=== PATIENT | male | born 1945 | race Caucasian/White ===

== ENCOUNTER 2016-07-21 00:58 | Inpatient (IN) | payer MEDICARE, BC, OTHER ==
[~2016-07-21] VITALS: Ht 175.3 cm; Wt 67.4 kg
[2016-07-21] VITALS (13 sets, daily range): BP systolic 86–131; BP diastolic 50–69; PULSE 66–110; RESP 14–24; TEMP 95.5–98.8; O2SAT 92–100
[~2016-07-21 00:58] MED LIST: ALBU0.086 NEB; ASPI81TA82 PO; BACL10TA PO; CALC250 PO; CLON.1 PO; FURO1TAB93 PO; KCL10 PO; KEPP750T PO; LEVE750T8 PO; LORA-474 PO; LOSA25TA31 PO; NORC7.5T PO; PARO40TA PO; PHEN100 PO; PLAV75TA PO; PRAV20 PO; PROT40TA PO; RIVA10 PO; SODI1 PO; THIA100T PO; VIMP200T PO; WALKER STANDARD
[2016-07-21] MEDS ORDERED: SODIUM CHLORIDE 0.9% FLUSH 5 ML FLUSH IVF PRN (01:30)
[2016-07-21] MEDS: RESP: ALBUTEROL 2.5 MG/IPRATROPIUM 0.5 MG NEB (SCH) INH (01:44)
[2016-07-21] MEDS ORDERED: methylPREDNISolone SOD SUCC 125 MG/2 ML VIAL IV PUSH ONE (01:45)
[2016-07-21 01:51] LABS: AUTOMATED NEUTROPHIL # 3.3 TH/MM3 (1.8-7.7); BASOPHIL # 0.2 TH/MM3 (0-0.2); EOSINOPHIL % 10.5 % (0.0-4.0); LYMPH % 40.6 % (9.0-44.0); LYMPHOCYTE # 3.7 TH/MM3 (1.0-4.8); MEAN CELL VOLUME 63.8 FL (80.0-100.0); MEAN CORPUSCULAR HEMOGLOBIN 19.4 PG (27.0-34.0); MEAN CORPUSCULAR HGB CONC 30.5 % (32.0-36.0); MONO % 11.3 % (0.0-8.0); NEUT % 35.6 % (16.0-70.0); PLATELET COUNT 445 TH/MM3 (150-450); RED BLOOD COUNT 4.24 MIL/MM3 (4.50-5.90); RED CELL DISTRIBUTION WIDTH 20.7 % (11.6-17.2); WHITE BLOOD COUNT 9.2 TH/MM3 (4.0-11.0)
[2016-07-21 01:57] LABS: HEMO FLAGS AUTO DIFF
--- NOTE | 2016-07-21 02:01 | RADRPT ---
EXAM DATE/TIME: 07/21/2016 01:50 [facility] COMPARISON: CHEST SINGLE AP, June 22, 2015, 14:11. INDICATIONS : Shortness of breath. MEDICAL HISTORY : Hypertension. Chronic obstructive pulmonary disease. SURGICAL HISTORY : Cardiac stent. ENCOUNTER: Initial ACUITY: 1 day PAIN SCORE: Non-responsive. LOCATION: Bilateral chest FINDINGS: A single view of the chest demonstrates the lungs to be symmetrically aerated without evidence of mas s, infiltrate or effusion. The cardiomediastinal contours are unremarkable. Osseous structures are intact. Multiple healed right-sided rib fractures CONCLUSION: Normal examination. Left shoulder hemiarthroplasty Rivera Hollis MD on July 21, 2016 at 1:59 Board Certified Radiologist. This report was verified electronically.
[2016-07-21 02:19] LABS: ALT (GPT) 15 U/L (12-78); ANION GAP 10 MEQ/L (5-15); AST (GOT) 22 U/L (15-37); BICARBONATE 24.6 MEQ/L (21.0-32.0); BLOOD UREA NITROGEN 7 MG/DL (7-18); CHLORIDE 101 MEQ/L (98-107); GLOMERULAR FILTRATION RATE 96 ML/MIN (>89); SODIUM (NA) 136 MEQ/L (136-145)
[2016-07-21 02:29] LABS: ALKALINE PHOSPHATASE 224 U/L (45-117); CREATINE KINASE 95 U/L (39-308); TOTAL BILIRUBIN ADULT 0.2 MG/DL (0.2-1.0)
--- NOTE | 2016-07-21 03:46 | PD ---
HPI Chief Complaint: Altered Mental Status Time Seen by Provider: 01:11 Travel History International Travel<30 days: No Contact w/Intl Traveler<30days: No Traveled to known affect area: No History of Present Illness HPI The patient is 71 years old. Most of the history is provided by his family member. The patient was approached by multiple family members to be wish a happy new year. He was found to be diaphoretic and rocking [id number] on a wheelchair. He was repeatedly stating I need air. An inhaler was provided to the patient however he could not use it appropriately. According to the family member he appeared somewhat unresponsive and listless and EMS was therefore activated. The patient evidently has been quite agitated lately as his mother- in-law passed recently. In addition there are multiple extended family members living in the house for the holidays. At baseline the patient suffers with agitation. Evidently extra doses of Ativan have been administered to help keep him somewhat less restless over the holidays. Baseline his cognitive status is "80%" according to family. He has a history of stroke with residual deficits on the right side. 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 ) Neurologic: Yes (cva x2 years) Psychiatric: No Reproductive: No Respiratory: No Migraines: No Renal Failure: No Seizures: Yes (pt has recently had focal seizures) Sleep Apnea: No Thyroid Disease: No Ulcer: No Past Surgical History Abdominal Surgery: Yes (APENDECTOMY) AICD: No Arteriovenous Shunt: No Cardiac Surgery: Yes (STENT) Ear Surgery: No Endocrine Surgery: No Eye Surgery: No Genitourinary Surgery: No Insulin Pump: No Joint Replacement: No Oral Surgery: No Pacemaker: No Thoracic Surgery: No Social History Alcohol Use: No (UNK) Tobacco Use: Yes Substance Use: Yes (Marijuana) Allergies-Medications (Allergen,Severity, Reaction): Coded Allergies: No Known Allergies (Unverified , 07/21/16) Reported Meds & Prescriptions Reported Meds & Active Scripts Active Reported Albuterol Neb (Albuterol Sulfate) 2.5 Mg/3 Ml Neb 2.5 Mg NEB QID NEB Hydrocodone-Acetaminophen 7.5-325 mg Tab 1 Tab PO Q12HR PRN Aspir-81 (Aspirin) 81 Mg Tabdr Losartan (Losartan Potassium) 25 Mg Tab 25 Mg PO DAILY Plavix (Clopidogrel Bisulfate) 75 Mg Tab 75 Mg PO DAILY Baclofen 10 Mg Tab 10 Mg PO Q8HR PRN Paroxetine (Paroxetine HCl) 40 Mg Tab 40 Mg PO DAILY Pantoprazole (Pantoprazole Sodium) 40 Mg Tab 40 Mg PO DAILY Pravastatin 40 Mg Tab 40 Mg PO DAILY Ativan (Lorazepam) 1 Mg Tab 1 Mg PO BID PRN Dilantin (Phenytoin Extended) 100 Mg Cap 200 Mg PO BID Vimpat (Lacosamide) 200 Mg Tab 200 Mg PO EVERY OTHER DAY Keppra (Levetiracetam) 1,000 Mg Tab 2,250 Mg PO DAILY Keppra (Levetiracetam) 1,000 Mg Tab 1,500 Mg PO DAILY NEB Review of Systems ROS Limitations: Intoxication, Altered Mental Status Physical Exam Narrative GENERAL: 71 yo F, WNWD SKIN: Warm and dry. HEAD: Atraumatic. Normocephalic. EYES: Pupils equal and round. No scleral icterus. No injection or drainage. ENT: No nasal bleeding or discharge. Mucous membranes pink and moist. NECK: Trachea midline. No JVD. CARDIOVASCULAR: Regular rate and rhythm. No murmur appreciated. RESPIRATORY: No accessory muscle use. Clear to auscultation. Breath sounds equal bilaterally. GASTROINTESTINAL: Abdomen soft, non-tender, nondistended. Hepatic and splenic margins not palpable. MUSCULOSKELETAL: No obvious deformities. No clubbing. No cyanosis. No edema. NEUROLOGICAL: The patient can answer yes no questions about the presence or absence of pain. On the left side there is a flexion contracture at the elbow and wrist which is chronic in nature. There is a chronic right face droop. PSYCHIATRIC: He does not appear to be markedly agitated on my exam. Data Data Last Documented VS Vital Signs Date Time Temp Pulse Resp B/P Pulse Ox O2 Delivery O2 Flow Rate FiO2 07/21/16 05:00 69 14 86/52 96 Room Air 07/21/16 01:05 97.7 Orders Electrocardiogram (07/21/16 01:29) Alcohol (Ethanol) (07/21/16 01:29) Complete Blood Count With Diff (07/21/16 01:29) Comprehensive Metabolic Panel (07/21/16 01:29) Creatine Kinase (Cpk) (07/21/16 01:29) Drug Screen, Random Urine (07/21/16 01:29) Thyroid Stimulating Hormone (07/21/16 01:29) Urinalysis - C+S If Indicated (07/21/16 01:29) Chest, Single Ap (07/21/16 01:29) Blood Glucose (07/21/16 01:29) Ecg Monitoring (07/21/16 01:29) Iv Access Insert/Monitor (07/21/16 01:29) Oximetry (07/21/16 01:29) Sodium Chloride 0.9% Flush (Ns Flush) (07/21/16 01:30) Oxygen Administration (07/21/16 01:36) Blood Culture (07/21/16 01:36) Albuterol-Ipratropium Neb (Duoneb Neb) (07/21/16 01:45) Methylprednisolone So Succ Inj (Solumedr (07/21/16 01:45) Sodium Chlor 0.9% 1000 Ml Inj (Ns 1000 M (07/21/16 05:15) Admit Order (Ed Use Only) (07/21/16 05:26) Labs Laboratory Tests Test 07/21/16 07/21/16 01:30 04:20 White Blood Count 9.2 TH/MM3 Red Blood Count 4.24 MIL/MM3 Hemoglobin 8.2 GM/DL Hematocrit 27.0 % Mean Corpuscular Volume 63.8 FL Mean Corpuscular Hemoglobin 19.4 PG Mean Corpuscular Hemoglobin 30.5 % Concent Red Cell Distribution Width 20.7 % Platelet Count 445 TH/MM3 Mean Platelet Volume 6.7 FL Neutrophils (%) (Auto) 35.6 % Lymphocytes (%) (Auto) 40.6 % Monocytes (%) (Auto) 11.3 % Eosinophils (%) (Auto) 10.5 % Basophils (%) (Auto) 2.0 % Neutrophils # (Auto) 3.3 TH/MM3 Lymphocytes # (Auto) 3.7 TH/MM3 Monocytes # (Auto) 1.0 TH/MM3 Eosinophils # (Auto) 1.0 TH/MM3 Basophils # (Auto) 0.2 TH/MM3 CBC Comment AUTO DIFF Differential Comment AUTO DIFF CONFIRMED Ovalocytes 2+ Crenated Cell 1+ Keratocytes 1+ Sodium Level 136 MEQ/L Potassium Level 4.0 MEQ/L Chloride Level 101 MEQ/L Carbon Dioxide Level 24.6 MEQ/L Anion Gap 10 MEQ/L Blood Urea Nitrogen 7 MG/DL Creatinine 0.80 MG/DL Estimat Glomerular Filtration 96 ML/MIN Rate Random Glucose 91 MG/DL Calcium Level 8.3 MG/DL Total Bilirubin 0.2 MG/DL Aspartate Amino Transf 22 U/L (AST/SGOT) Alanine Aminotransferase 15 U/L (ALT/SGPT) Alkaline Phosphatase 224 U/L Total Creatine Kinase 95 U/L Total Protein 6.9 GM/DL Albumin 3.2 GM/DL Thyroid Stimulating Hormone 3.780 uIU/ML 3rd Gen Ethyl Alcohol Level LESS THAN 3 MG/DL Urine Color YELLOW Urine Turbidity CLEAR Urine pH 5.5 Urine Specific [place] 1.015 Urine Protein NEG mg/dL Urine Glucose (UA) NEG mg/dL Urine Ketones NEG mg/dL Urine Occult Blood NEG Urine Nitrite NEG Urine Bilirubin NEG Urine Urobilinogen LESS THAN 2.0 MG/DL Urine Leukocyte Esterase NEG Urine RBC LESS THAN 1 /hpf Urine WBC 3 /hpf Urine Mucus FEW /lpf Microscopic Urinalysis Comment CATH-CULT NOT IND Urine Opiates Screen NEG Urine Barbiturates Screen NEG Urine Amphetamines Screen NEG Urine Benzodiazepines Screen NEG Urine Cocaine Screen NEG Urine Cannabinoids Screen NEG [facility] Medical Decision Making Medical Screen Exam Complete: Yes Emergency Medical Condition: Yes Medical Record Reviewed: Yes Differential Diagnosis Polypharmacy, infectious state, anemia, dehydration Narrative Course CBC & BMP Diagram 07/21/16 01:30 TSH 3.78 LFTs essentially normal The hemoglobin is stable Chest x-ray reveals no acute abnormality U Tox: is paez-negative however false negatives are considered Overall the presentation is considered to be in keeping with polypharmacy: Lortab and Ativan given by family members at home. The notes the patient has needed extra Lortab at home due to contractures in the right leg which seem to be worse as he cannot participate with physical therapy during the holiday. An element of wheezing/inflammatory lung disease is considered as well. The patient received breathing treatments and Solu-Medrol. Blood pressure has remained about 86 systolic year however he has warm dry skin and the heart rate has been in the 60s throughout his ER stay. Will monitor closely in ER. 1L NS started. D/w Dr Sims for admission. TSH elevation is marginal and of indeterminant importance. Diagnosis Primary Impression: Polypharmacy Additional Impressions: Hypotension Qualified Code: I95.9 - Hypotension, unspecified hypotension type Altered mental status Qualified Code: R40.1 - Stupor Admitting Information Admitting Physician Requests: Observation Additional Instructions: You have a choice when it comes to health care, and we are glad that you chose [facility]. Hopefully, we have met your expectations on today's visit. You are welcome to return to [facility] at any time, as we are committed to meeting the health care needs of our community. Disposition: 01 DISCHARGE HOME Condition: Stable Neeraj Colon MD Jul 21, 2016 03:46
[2016-07-21 04:31] LABS: CRENATED RBCS 1+ (NORMAL); KERATOCYTES 1+ (NORMAL); OVALOCYTES 2+ (NORMAL); SCAN/DIFF AUTO DIFF CONFIRMED
[2016-07-21] MEDS ORDERED: LOSA25TA PO (04:32)
[2016-07-21] MEDS ORDERED: VIMP200T PO (04:32)
[2016-07-21] MEDS ORDERED: DILA100C PO (04:32)
[2016-07-21] MEDS ORDERED: HYDR-3580 PO (04:32)
[2016-07-21] MEDS ORDERED: KEPP10002 PO ×2 (04:32)
[2016-07-21] MEDS ORDERED: BACL10TA PO (04:32)
[2016-07-21] MEDS ORDERED: LORA-474 PO (04:32)
[2016-07-21] MEDS ORDERED: PRAV40TA2 PO (04:32)
[2016-07-21] MEDS ORDERED: PANT40TA3 PO (04:32)
[2016-07-21] MEDS ORDERED: ALBU0.08 NEB (04:32)
[2016-07-21] MEDS ORDERED: PARO40TA2 PO (04:32)
[2016-07-21] MEDS ORDERED: ASPI81TA81 (04:32)
[2016-07-21] MEDS ORDERED: PLAV75TA29 PO (04:32)
[2016-07-21 04:45] LABS: BLOOD, URINE NEG (NEG); COMMENT (UR) CATH-CULT NOT IND; CULTURE IF INDICATED CATH CULTURE NOT IND; GLUCOSE,URINE NEG (NEG); KETONE, URINE NEG (NEG); MUCUS URINE FEW /lpf (OCC); NITRITE,URINE NEG (NEG); PH, URINE 5.5 (5.0-8.5); URINE COLOR YELLOW (YELLW/STRAW)
[2016-07-21 04:48] LABS: AMPHETAMINE, URINE NEG (NEG); BARBITURATES, URINE NEG (NEG); COCAINE, URINE NEG (NEG)
[2016-07-21] MEDS ORDERED: SODIUM CHLOR 0.9% 1000 ML INJ 1,000 ML IV ONE (05:15)
[2016-07-21] MEDS ORDERED: NALOXONE HCL 0.4 MG/ML AMP IV PUSH PRN (05:45)
--- NOTE | 2016-07-21 06:36 | HHI.HP ---
History of Present Illness Primary Care Physician Ari Sims MD Admission Diagnosis AMS, Hypotension, Agitation, Wheezing Diagnoses: (1) Encephalopathy acute (2) Carotid stenosis, bilateral (3) Hyperlipidemia (4) Muscle spasticity (5) Seizure (6) Hypertension (7) Impaired cognition (8) Stage II pressure ulcer of buttock (9) H/O: CVA (cerebrovascular accident) (10) Fracture, intertrochanteric, right femur (11) Fall (12) right femur nailing (13) Anemia (14) COPD exacerbation (15) Polypharmacy (16) Altered mental status (17) Hypotension History of Present Illness 71 y CM. LIVES AT HOME WITH , AND NUMEROUS EXTENDED FAMILY AT HOME. EXCESS FAMILY MEMBERS HAVE BEEN IN TOWN RECENTLY AND PT HAS HAD SEVERE AGITATION AT HOME DUE TO THE NOISE ETC. BRINGS HIM TO MY OFFICE FREQEUNTLY WITH NUMEROUS COMPLAINTS. PT HAS HAD INCREASED PAIN IN RUE RECENTLY AND PROBLEMS WITH PAIN AND INSOMNIA. PT REPORTEDLY HAS BEEN AGITATED MORE AROUND THE NEW YEARS WITH PARTYGOERS AT HIS HOUSE AND WE WAS GIVEN EXCESS ATIVAN PER ER MD. PT BECAME LETHARGIC AND WAS BROUGHT INTO THE ER. PT W AUDIBLE RONCHI AT BEDSIDE AND IS ATTEMPTING TO USE THE URINAL AND STATES HE IS UNABLE TO URINATE. Review of Systems ROS Limitations: Clinical Condition, Altered Mental Status, Poor Historian Other -14 POINT ROS EXCEPT ABOVE IN HPI. Past Family Social History Allergies: Coded Allergies: No Known Allergies (Unverified , 07/21/16) Past Medical History SZ HTN Past Surgical History FEMUR FX Physical Exam Vital Signs Vital Signs Date Time Temp Pulse Resp B/P Pulse Ox O2 Delivery O2 Flow Rate FiO2 07/21/16 06:07 70 24 131/69 100 Room Air 07/21/16 05:00 69 14 86/52 96 Room Air 07/21/16 04:00 66 14 88/51 94 Room Air 07/21/16 02:38 76 16 101/59 100 Room Air 07/21/16 01:05 97.7 71 16 90/50 98 Physical Exam GENERAL: chronically ill appearing, weaker than usual, SKIN: No rashes, ecchymoses or lesions. Cool and dry. HEAD: Atraumatic. Normocephalic. No temporal or scalp tenderness. EYES: Pupils equal round and reactive. Extraocular motions intact. No scleral icterus. No injection or drainage. ENT: Nose without bleeding, purulent drainage or septal hematoma. Throat without erythema, tonsillar hypertrophy or exudate. Uvula midline. Airway patent. NECK: Trachea midline. No JVD or lymphadenopathy. Supple, nontender, no meningeal signs. CARDIOVASCULAR: Regular rate and rhythm without murmurs, gallops, or rubs. RESPIRATORY: Clear to auscultation. Breath sounds equal bilaterally. No wheezes , rales, or rhonchi. GASTROINTESTINAL: Abdomen soft, non-tender, nondistended. No hepato-splenomegaly , or palpable masses. No guarding. MUSCULOSKELETAL: Extremities without clubbing, cyanosis, or edema. No joint tenderness, effusion, or edema noted. No calf tenderness. Negative Homans sign bilaterally. NEUROLOGICAL: Awake and alert. Cranial nerves II through XII intact. Motor and sensory grossly within normal limits. 1 out of 5 muscle strength in all muscle groups except R diogenes. Normal speech. Laboratory Laboratory Tests Test 07/21/16 07/21/16 01:30 04:20 White Blood Count 9.2 Red Blood Count 4.24 Hemoglobin 8.2 Hematocrit 27.0 Mean Corpuscular Volume 63.8 Mean Corpuscular Hemoglobin 19.4 Mean Corpuscular Hemoglobin 30.5 Concent Red Cell Distribution Width 20.7 Platelet Count 445 Mean Platelet Volume 6.7 Neutrophils (%) (Auto) 35.6 Lymphocytes (%) (Auto) 40.6 Monocytes (%) (Auto) 11.3 Eosinophils (%) (Auto) 10.5 Basophils (%) (Auto) 2.0 Neutrophils # (Auto) 3.3 Lymphocytes # (Auto) 3.7 Monocytes # (Auto) 1.0 Eosinophils # (Auto) 1.0 Basophils # (Auto) 0.2 CBC Comment AUTO DIFF Differential Comment AUTO DIFF CONFIRMED Ovalocytes 2+ Crenated Cell 1+ Keratocytes 1+ Sodium Level 136 Potassium Level 4.0 Chloride Level 101 Carbon Dioxide Level 24.6 Anion Gap 10 Blood Urea Nitrogen 7 Creatinine 0.80 Estimat Glomerular Filtration 96 Rate Random Glucose 91 Calcium Level 8.3 Total Bilirubin 0.2 Aspartate Amino Transf 22 (AST/SGOT) Alanine Aminotransferase 15 (ALT/SGPT) Alkaline Phosphatase 224 Total Creatine Kinase 95 Total Protein 6.9 Albumin 3.2 Thyroid Stimulating Hormone 3.780 3rd Gen Ethyl Alcohol Level LESS THAN 3 Urine Color YELLOW Urine Turbidity CLEAR Urine pH 5.5 Urine Specific [place] 1.015 Urine Protein NEG Urine Glucose (UA) NEG Urine Ketones NEG Urine Occult Blood NEG Urine Nitrite NEG Urine Bilirubin NEG Urine Urobilinogen LESS THAN 2.0 Urine Leukocyte Esterase NEG Urine RBC LESS THAN 1 Urine WBC 3 Urine Mucus FEW Microscopic Urinalysis Comment CATH-CULT NOT IND Urine Opiates Screen NEG Urine Barbiturates Screen NEG Urine Amphetamines Screen NEG Urine Benzodiazepines Screen NEG Urine Cocaine Screen NEG Urine Cannabinoids Screen NEG Date/Time Procedure Status Source Growth 07/21/16 02:15 Aerobic Blood Culture Received Blood Peripheral Pending 07/21/16 02:15 Anaerobic Blood Culture Received Blood Peripheral Pending Result Diagram: 07/21/16 0130 07/21/16 0130 Imaging Last 24 hours Impressions Chest X-Ray 07/21/16128 Signed Impressions: Service Date/Time: Friday, July 21, 2016 01:50 - CONCLUSION: Normal examination. Left shoulder hemiarthroplasty Rivera Hollis MD Assessment and Plan Problem List: (1) Femur fracture, right Status: Acute (2) Polypharmacy Status: Acute (3) Altered mental status Status: Acute (4) Hypotension Status: Acute (5) Anemia Status: Chronic (6) Hyperlipidemia Status: Chronic (7) Muscle spasticity Status: Chronic (8) Seizure Status: Acute (9) Hypertension Status: Chronic (10) Encephalopathy acute Status: Acute (11) COPD exacerbation Status: Acute (12) Impaired cognition Status: Acute (13) Carotid stenosis, bilateral Status: Acute (14) Fracture, intertrochanteric, right femur Status: Acute (15) H/O: CVA (cerebrovascular accident) Status: Chronic (16) right femur nailing Status: Acute Plan: AMS ATIVAN TOXIDROME PNA ASPIRATION URINARY OBSTRUCTION, NO UTI HYPOTHYROID, NEW CVA R DIOGENES WITH CONTRACTURES SZ PLAN: IV ABX IVF IV STEROIDS CHECK ANTIEPILEPTIC LEVELS BLADDER SCAN, TRY TO AVOID PEREZ OT FOR RUE CONTRACTURES INCREASE PT ST DUONEBS BLOOD CULTURES LACTIC AC START LEVOTHYROXINE INPT ADMIT FOR THE ABOVE DX AND PLAN. EXPECT 3 D INPT STAY, PT WOULD AT HOME W/O INPT ADMIT ABOVE. DC HOME W HHC OR SNF AGAIN. Problem Qualifiers (1) Altered mental status: Qualified Code: R40.1 - Stupor (2) Hypotension: Qualified Code: I95.9 - Hypotension, unspecified hypotension type Ari Sims MD Jul 21, 2016 06:36
[2016-07-21] MEDS ORDERED: BACLOFEN 10 MG TAB PO PRN (06:45)
[2016-07-21] MEDS ORDERED: LORazepam 1 MG TAB PO PRN (06:45)
[2016-07-21] MEDS ORDERED: ACETAMINOPHEN/HYDROcodone 325 MG/7.5 MG TAB PO PRN (06:45)
[2016-07-21] MEDS ORDERED: ZOLPIDEM TARTRATE 5 MG TAB PO PRN (07:15)
[2016-07-21] MEDS ORDERED: ENALAPRILAT 2.5 MG/2 ML VIAL IV PUSH PRN (07:15)
[2016-07-21] MEDS ORDERED: NALOXONE HCL 0.4 MG/ML AMP IV PRN (07:15)
[2016-07-21] MEDS ORDERED: cloNIDine HCL 0.1 MG TAB PO PRN (07:15)
[2016-07-21] MEDS ORDERED: ONDANSETRON HCL 4 MG/2 ML VIAL IVP PRN (07:15)
[2016-07-21] MEDS ORDERED: PROCHLORPERAZINE 25 MG SUPP PR PRN (07:15)
[2016-07-21] MEDS ORDERED: ACETAMINOPHEN 325 MG TAB PO PRN (07:15)
[2016-07-21] MEDS ORDERED: SODIUM CHLORIDE 0.9% FLUSH 5 ML FLUSH FLUSH PRN (07:15)
[2016-07-21] MEDS ORDERED: MAGNESIUM HYDROXIDE SUSP 30 ML CUP PO PRN (07:15)
[2016-07-21] MEDS ORDERED: BISACODYL 10 MG SUPP PR PRN (07:15)
[2016-07-21] MEDS ORDERED: levETIRAcetam 500 MG TAB PO SCH ×2 (08:00→09:00)
--- NOTE | 2016-07-21 08:39 | RADRPT ---
EXAM DATE/TIME: 07/21/2016 07:55 [facility] COMPARISON: CT BRAIN W/O CONTRAST, May 23, 2015, 21:54. INDICATIONS : Altered mental status RADIATION DOSE: 32.18 CTDIvol (mGy) MEDICAL HISTORY : Cardiovascular disease. Hypertension. Chronic obstructive pulmonary disease. SURGICAL HISTORY : None. ENCOUNTER: Initial ACUITY: 1 day PAIN SCALE: 0/10 LOCATION: cranial TECHNIQUE: Multiple contiguous axial images were obtained of the head. Using automated exposure control and adj ustment of the mA and/or kV according to patient size, radiation dose was kept as low as reasonably a chievable to obtain optimal diagnostic quality images. FINDINGS: There is a remote left MCA infarct with encephalomalacia identified not significantly changed. No sig ns of acute infarct, intracranial hemorrhage, or mass. There are no fractures. CONCLUSION: No significant change has occurred. Danie Piña MD on July 21, 2016 at 8:37 Board Certified Radiologist. This report was verified electronically.
[2016-07-21] MEDS: PHENYTOIN SODIUM 100 MG CAP PO SCH ×2 (09:04→20:47)
[2016-07-21] MEDS: PRAVASTATIN SOD 40 MG TAB PO SCH (09:05)
[2016-07-21] MEDS: PARoxetine HCL 20 MG TAB PO SCH (09:05)
[2016-07-21] MEDS: PANTOPRAZOLE SOD 40 MG DELAYED RELEASE TAB PO SCH (09:05)
[2016-07-21] MEDS: levETIRAcetam 500 MG TAB PO SCH ×2 (09:05→20:47)
[2016-07-21] MEDS: SODIUM CHLOR 0.9% 1000 ML INJ 1,000 ML IV SCH (09:05)
[2016-07-21] MEDS: ENOXAPARIN SODIUM 40 MG/0.4 ML SYRINGE SQ SCH (09:05)
[2016-07-21] MEDS: CLOPIDOGREL 75 MG TAB PO SCH (09:05)
[2016-07-21] MEDS: ASPIRIN EC 81 MG TABEC PO SCH (09:05)
[2016-07-21] MEDS: LEVOFLOXACIN 750 MG PREMIX INJ 150 ML IV SCH (09:06)
[2016-07-21] MEDS: SODIUM CHLORIDE 0.9% FLUSH 5 ML FLUSH FLUSH SCH ×2 (09:06→20:48)
[2016-07-21] MEDS: LEVOTHYROXINE SODIUM 25 MCG TAB PO SCH (09:08)
[2016-07-21 10:36] LABS: FREE T4 1.51 NG/DL (0.76-1.46)
[2016-07-21] MEDS: LACOSAMIDE 100 MG TAB PO SCH (11:10)
[2016-07-21] MEDS: methylPREDNISolone SOD SUCC 125 MG/2 ML VIAL IV PUSH SCH ×2 (11:11→16:48)
[2016-07-21] MEDS: RESP: ALBUTEROL 2.5 MG/IPRATROPIUM 0.5 MG NEB (SCH) NEB ×4 (11:31→19:27)
--- NOTE | 2016-07-21 13:32 | EKG ---
Date Performed: 07/21/2016 Time Performed: 02:51:18 PTAGE: 71 years EKG: Sinus rhythm Since previous tracing, no significant change noted NORMAL ECG PREVIOUS TRACING : 09/16/2015 05.55 DOCTOR: Gabriela Adames Interpretating Date/Time 07/21/2016 13:29:44
--- NOTE | 2016-07-21 17:52 | RADRPT ---
EXAM DATE/TIME: 07/21/2016 16:04 [facility] COMPARISON: US CAROTID ARTERIES, May 25, 2015, 17:07. INDICATIONS : Slurred speech. MEDICAL HISTORY : Hypertension. CVA. SURGICAL HISTORY : Appendectomy. Cardiac stent. ENCOUNTER: Initial ACUITY: 1 day PAIN SCORE: 5/10 LOCATION: Bilateral neck PEAK SYSTOLIC VELOCITIES (cm/sec): ICA/CCA RATIO: Right: 0.8 Left: 1.2 ICA: Right: 122 Left: 197 CCA: Right: 144 Left: 160 ECA: Right: 116 Left: 174 VERTEBRAL: Right: 82 antegrade Left: 81 antegrade Elevated flow velocities and ICA/CCA ratios have been found to correlate with increased degrees of vessel stenosis, calculated as percentage of diameter relative to a normal segment of distal ICA/CCA FINDINGS: RIGHT CAROTID: Mild to moderate plaques seen in the bulb and proximal internal carotid artery and mild patchy plaque of the common carotid artery. LEFT CAROTID: There is [id number] plaque at the bulb and proximal internal carotid artery. VERTEBRAL ARTERIES: Antegrade flow is seen in both vertebral arteries. MISCELLANEOUS: None. CONCLUSION: [id number] bilateral carotid plaque. No evidence of anything hemodynamically significant. Rian Benjamin MD on July 21, 2016 at 17:49 Board Certified Radiologist. This report was verified electronically.
[2016-07-22] VITALS (9 sets, daily range): BP systolic 92–122; BP diastolic 50–66; PULSE 82–96; RESP 17–20; TEMP 97.3–99.3; O2SAT 91–94
[2016-07-22] MEDS: LEVOTHYROXINE SODIUM 25 MCG TAB PO SCH (05:21)
[2016-07-22] MEDS: methylPREDNISolone SOD SUCC 125 MG/2 ML VIAL IV PUSH SCH ×5 (05:21→23:35)
[2016-07-22 07:41] LABS: AUTOMATED NEUTROPHIL # 10.5 TH/MM3 (1.8-7.7); BASOPHIL % 0.1 % (0.0-2.0); HEMATOCRIT 23.3 % (39.0-51.0); LYMPH % 10.3 % (9.0-44.0); LYMPHOCYTE # 1.3 TH/MM3 (1.0-4.8); MEAN CELL VOLUME 61.8 FL (80.0-100.0); MEAN CORPUSCULAR HGB CONC 30.8 % (32.0-36.0); MONO % 4.1 % (0.0-8.0); NEUT % 85.5 % (16.0-70.0); PLATELET COUNT 386 TH/MM3 (150-450); RED BLOOD COUNT 3.78 MIL/MM3 (4.50-5.90); RED CELL DISTRIBUTION WIDTH 20.5 % (11.6-17.2); WHITE BLOOD COUNT 12.3 TH/MM3 (4.0-11.0)
[2016-07-22 07:47] LABS: HEMO FLAGS AUTO DIFF
[2016-07-22] MEDS: ENOXAPARIN SODIUM 40 MG/0.4 ML SYRINGE SQ SCH (07:58)
[2016-07-22] MEDS: levETIRAcetam 500 MG TAB PO SCH ×2 (07:58→22:10)
[2016-07-22] MEDS: PARoxetine HCL 20 MG TAB PO SCH (07:58)
[2016-07-22] MEDS: LEVOFLOXACIN 750 MG PREMIX INJ 150 ML IV SCH (07:58)
[2016-07-22] MEDS: CLOPIDOGREL 75 MG TAB PO SCH (07:59)
[2016-07-22] MEDS: ASPIRIN EC 81 MG TABEC PO SCH (07:59)
[2016-07-22] MEDS: PANTOPRAZOLE SOD 40 MG DELAYED RELEASE TAB PO SCH (07:59)
[2016-07-22] MEDS: PHENYTOIN SODIUM 100 MG CAP PO SCH ×2 (07:59→22:10)
[2016-07-22] MEDS: PRAVASTATIN SOD 40 MG TAB PO SCH (07:59)
[2016-07-22] MEDS: SODIUM CHLORIDE 0.9% FLUSH 5 ML FLUSH FLUSH SCH ×2 (07:59→22:10)
[2016-07-22] MEDS: SODIUM CHLOR 0.9% 1000 ML INJ 1,000 ML IV SCH (08:02)
[2016-07-22 08:08] LABS: POTASSIUM 3.9 MEQ/L (3.5-5.1)
[2016-07-22 08:26] LABS: OVALOCYTES 1+ (NORMAL)
[2016-07-22 08:27] LABS: SCAN/DIFF AUTO DIFF CONFIRMED
--- NOTE | 2016-07-22 08:50 | HHI.FPPN ---
Subjective Remarks LOOKS BETTER ALMOST TO BASELINE IT SEEMS D/W RN Objective Vitals Vital Signs Date Time Temp Pulse Resp B/P Pulse Ox O2 Delivery O2 Flow Rate FiO2 07/22/16 08:08 Nasal Cannula 1.00 07/22/16 04:00 98.1 90 17 92/52 94 07/22/16 00:00 98.8 92 18 92/50 92 07/21/16 20:05 103 07/21/16 20:05 Nasal Cannula 2.00 07/21/16 20:00 98.8 110 17 101/56 92 07/21/16 19:25 94 Nasal Cannula 2.00 07/21/16 16:00 97.7 109 18 118/57 94 07/21/16 11:43 95.5 95 18 95/54 96 07/21/16 11:34 96 Nasal Cannula 2.00 I/O 07/21/16 07/21/16 07/21/16 07/22/16 07/22/16 07/22/16 06:59 14:59 22:59 06:59 14:59 22:59 Intake Total 988 ml 540 ml 360 ml Output Total 2 ml 650 ml 800 ml Balance 986 ml -110 ml -440 ml Intake Oral 720 ml 360 ml 360 ml IV Total 268 ml 180 ml Output Urine Total 2 ml 650 ml 800 ml Stool Total 0 ml # Voids 1 # Bowel Movements 0 0 Result Diagram: 07/22/16 0611 07/22/16 0611 Objective Remarks GENERAL: SKIN: Warm and dry. HEAD: Atraumatic. Normocephalic. EYES: Pupils equal and round. No scleral icterus. No injection or drainage. ENT: No nasal bleeding or discharge. Mucous membranes pink and moist. NECK: Trachea midline. No JVD. CARDIOVASCULAR: Regular rate and rhythm. RESPIRATORY: No accessory muscle use. R CRACKLES AND RONCHI. Breath sounds equal bilaterally. GASTROINTESTINAL: Abdomen soft, non-tender, nondistended. Hepatic and splenic margins not palpable. MUSCULOSKELETAL: Extremities without clubbing, cyanosis, or edema. No obvious deformities. NEUROLOGICAL: Awake and alert. No obvious cranial nerve deficits. Motor grossly within normal limits. R DIOGENES. Normal speech. PSYCHIATRIC: Appropriate mood and affect; insight and judgment normal. Medications and IVs Current Medications Medications (Trade) Dose Ordered Sig/Delvis Route Start Time Stop Time Status Last Admin (NS Flush) 2 ml UNSCH PRN IVF 07/21/16 01:30 (Lioresal) 10 mg Q8H PRN PO 07/21/16 06:45 (Plavix) 75 mg DAILY PO 07/21/16 09:00 07/22/16 07:59 ([place] 7.5-325 Mg) 1 tab Q12H PRN PO 07/21/16 06:45 (Ativan) 1 mg BID PRN PO 07/21/16 06:45 (Protonix) 40 mg DAILY PO 07/21/16 09:00 07/22/16 07:59 (Paxil) 40 mg DAILY PO 07/21/16 09:00 07/22/16 07:58 (Dilantin) 200 mg BID PO 07/21/16 09:00 07/22/16 07:59 (Pravachol) 40 mg DAILY PO 07/21/16 09:00 07/22/16 07:59 (Ecotrin Ec) 81 mg DAILY PO 07/21/16 09:00 07/22/16 07:59 (Keppra) 500 mg Q12HR PO 07/21/16 09:00 07/22/16 07:58 Levothyroxine Sodium 25 mcg 25 mcg DAILY@0600 PO 07/21/16 07:00 07/22/16 05:21 (NS 1000 ml Inj) 1,000 ml @ 42 mls/hr [id number] IV 07/21/16 07:06 07/22/16 08:02 (NS Flush) 2 ml UNSCH PRN FLUSH 07/21/16 07:15 (NS Flush) 2 ml BID FLUSH 07/21/16 09:00 07/22/16 07:59 (Tylenol) 650 mg Q4H PRN PO 07/21/16 07:15 (Zofran Inj) 4 mg Q6H PRN IVP 07/21/16 07:15 (Compazine Supp) 25 mg Q12H PRN MI 07/21/16 07:15 (Dulcolax Supp) 10 mg DAILY PRN MI 07/21/16 07:15 (Milk Of Magnesia Liq) 30 ml Q12H PRN PO 07/21/16 07:15 (Ambien) 5 mg HS PRN PO 07/21/16 07:15 (Lovenox Inj) 40 mg Q24H SQ 07/21/16 07:15 07/22/16 07:58 (Narcan Inj) 0.4 mg UNSCH PRN IV 07/21/16 07:15 (Catapres) 0.1 mg Q6H PRN PO 07/21/16 07:15 Enalaprilat 2.5 mg 2.5 mg Q6H PRN IV PUSH 07/21/16 07:15 (Levaquin 750 Mg Premix Inj) 150 ml @ 100 mls/hr Q24H IV 07/21/16 08:00 07/22/16 07:58 (SoluMEDROL INJ) 80 mg Q6HR IV PUSH 07/21/16 12:00 07/22/16 05:21 A/P Assessment and Plan AMS ATIVAN TOXIDROME PNA ASPIRATION ANEMIA URINARY OBSTRUCTION, NO UTI CVA R DIOGENES WITH CONTRACTURES SZ PLAN: OCCULT X THREE, MAY NEED PRBC'S AND GI LOWER IVF AND RECHECK LABS IV ABX IV STEROIDS BLADDER SCAN, TRY TO AVOID PEREZ OT FOR RUE CONTRACTURES INCREASE PT ST DUONEBS BLOOD CULTURES Ari Sims MD Jul 22, 2016 08:50 Ari Sims MD Jul 22, 2016 08:50
[2016-07-22] MEDS: RESP: ALBUTEROL 2.5 MG/IPRATROPIUM 0.5 MG NEB (SCH) NEB ×4 (09:28→19:25)
[2016-07-23] VITALS (8 sets, daily range): BP systolic 111–149; BP diastolic 55–60; PULSE 73–98; RESP 16–18; TEMP 97–98.5; O2SAT 92–97
[2016-07-23 06:27] LABS: BASOPHIL % 0.1 % (0.0-2.0); HEMATOCRIT 24.2 % (39.0-51.0); LYMPH % 12.2 % (9.0-44.0); LYMPHOCYTE # 1.3 TH/MM3 (1.0-4.8); MEAN CELL VOLUME 61.9 FL (80.0-100.0); MEAN CORPUSCULAR HEMOGLOBIN 19.4 PG (27.0-34.0); MEAN CORPUSCULAR HGB CONC 31.3 % (32.0-36.0); MONO % 3.8 % (0.0-8.0); NEUT % 83.9 % (16.0-70.0); PLATELET COUNT 415 TH/MM3 (150-450); RED CELL DISTRIBUTION WIDTH 20.2 % (11.6-17.2); WHITE BLOOD COUNT 10.7 TH/MM3 (4.0-11.0)
[2016-07-23] MEDS: methylPREDNISolone SOD SUCC 125 MG/2 ML VIAL IV PUSH SCH ×4 (06:38→23:57)
[2016-07-23 06:42] LABS: HEMO FLAGS AUTO DIFF
[2016-07-23 06:55] LABS: BICARBONATE 24.9 MEQ/L (21.0-32.0); POTASSIUM 3.7 MEQ/L (3.5-5.1)
[2016-07-23] MEDS: RESP: ALBUTEROL 2.5 MG/IPRATROPIUM 0.5 MG NEB (SCH) NEB ×4 (07:29→20:56)
[2016-07-23 08:19] LABS: OVALOCYTES 1+ (NORMAL); SCAN/DIFF AUTO DIFF CONFIRMED
[2016-07-23] MEDS: CLOPIDOGREL 75 MG TAB PO SCH (08:56)
[2016-07-23] MEDS: PRAVASTATIN SOD 40 MG TAB PO SCH (08:57)
[2016-07-23] MEDS: PARoxetine HCL 20 MG TAB PO SCH (08:57)
[2016-07-23] MEDS: PANTOPRAZOLE SOD 40 MG DELAYED RELEASE TAB PO SCH (08:57)
[2016-07-23] MEDS: levETIRAcetam 500 MG TAB PO SCH ×2 (08:57→20:15)
[2016-07-23] MEDS: PHENYTOIN SODIUM 100 MG CAP PO SCH ×2 (08:57→20:15)
[2016-07-23] MEDS: LACOSAMIDE 100 MG TAB PO SCH (08:57)
[2016-07-23] MEDS: ASPIRIN EC 81 MG TABEC PO SCH (08:57)
[2016-07-23] MEDS: SODIUM CHLORIDE 0.9% FLUSH 5 ML FLUSH FLUSH SCH ×2 (08:58→20:15)
[2016-07-23] MEDS: LEVOFLOXACIN 750 MG PREMIX INJ 150 ML IV SCH (08:58)
[2016-07-23] MEDS: ENOXAPARIN SODIUM 40 MG/0.4 ML SYRINGE SQ SCH (10:36)
[2016-07-23] MEDS: SODIUM CHLOR 0.9% 1000 ML INJ 1,000 ML IV SCH (10:37)
--- NOTE | 2016-07-23 11:00 | HHI.FPPN ---
Subjective Remarks MORE ALERT LOOKS BETTER D/W RN Objective Vitals Vital Signs Date Time Temp Pulse Resp B/P Pulse Ox O2 Delivery O2 Flow Rate FiO2 07/23/16 08:02 97.7 73 16 149/60 94 07/23/16 07:29 92 21 07/23/16 01:44 98.5 85 17 121/57 97 07/22/16 20:00 97.3 82 19 122/64 91 07/22/16 16:00 99.3 96 20 117/66 94 07/22/16 15:11 92 21 07/22/16 12:00 98.0 95 19 118/61 94 I/O 07/22/16 07/22/16 07/22/16 07/23/16 07/23/16 07/23/16 06:59 14:59 22:59 06:59 14:59 22:59 Intake Total 360 ml 277 ml 646 ml 120 ml Output Total 800 ml 825 ml 250 ml Balance -440 ml 277 ml -179 ml -130 ml Intake Oral 360 ml 600 ml 120 ml IV Total 277 ml 46 ml Output Urine Total 800 ml 825 ml 250 ml # Voids 2 # Bowel Movements 0 0 0 1 Result Diagram: 07/23/16 0556 07/23/16 0556 Objective Remarks GENERAL: SKIN: Warm and dry. HEAD: Atraumatic. Normocephalic. EYES: Pupils equal and round. No scleral icterus. No injection or drainage. ENT: No nasal bleeding or discharge. Mucous membranes pink and moist. NECK: Trachea midline. No JVD. CARDIOVASCULAR: Regular rate and rhythm. RESPIRATORY: No accessory muscle use. R CRACKLES AND RONCHI. Breath sounds equal bilaterally. GASTROINTESTINAL: Abdomen soft, non-tender, nondistended. Hepatic and splenic margins not palpable. MUSCULOSKELETAL: Extremities without clubbing, cyanosis, or edema. No obvious deformities. NEUROLOGICAL: Awake and alert. No obvious cranial nerve deficits. Motor grossly within normal limits. R DIOGENES. Normal speech. PSYCHIATRIC: Appropriate mood and affect; insight and judgment normal. Medications and IVs Current Medications Medications (Trade) Dose Ordered Sig/Delvis Route Start Time Stop Time Status Last Admin (NS Flush) 2 ml UNSCH PRN IVF 07/21/16 01:30 (Lioresal) 10 mg Q8H PRN PO 07/21/16 06:45 (Plavix) 75 mg DAILY PO 07/21/16 09:00 07/23/16 08:56 ([place] 7.5-325 Mg) 1 tab Q12H PRN PO 07/21/16 06:45 (Ativan) 1 mg BID PRN PO 07/21/16 06:45 (Protonix) 40 mg DAILY PO 07/21/16 09:00 07/23/16 08:57 (Paxil) 40 mg DAILY PO 07/21/16 09:00 07/23/16 08:57 (Dilantin) 200 mg BID PO 07/21/16 09:00 07/23/16 08:57 (Pravachol) 40 mg DAILY PO 07/21/16 09:00 07/23/16 08:57 (Ecotrin Ec) 81 mg DAILY PO 07/21/16 09:00 07/23/16 08:57 Levetriacetam 500 mg 500 mg Q12HR PO 07/21/16 09:00 07/23/16 08:57 (NS 1000 ml Inj) 1,000 ml @ 5 mls/hr Q24H IV 07/21/16 07:06 07/23/16 10:37 (NS Flush) 2 ml UNSCH PRN FLUSH 07/21/16 07:15 (NS Flush) 2 ml BID FLUSH 07/21/16 09:00 07/23/16 08:58 (Tylenol) 650 mg Q4H PRN PO 07/21/16 07:15 (Zofran Inj) 4 mg Q6H PRN IVP 07/21/16 07:15 (Compazine Supp) 25 mg Q12H PRN AK 07/21/16 07:15 (Dulcolax Supp) 10 mg DAILY PRN [place] 07/21/16 07:15 (Milk Of Magnesia Liq) 30 ml Q12H PRN PO 07/21/16 07:15 (Ambien) 5 mg HS PRN PO 07/21/16 07:15 (Lovenox Inj) 40 mg Q24H SQ 07/21/16 07:15 07/23/16 10:36 (Narcan Inj) 0.4 mg UNSCH PRN IV 07/21/16 07:15 (Catapres) 0.1 mg Q6H PRN PO 07/21/16 07:15 Enalaprilat 2.5 mg 2.5 mg Q6H PRN IV PUSH 07/21/16 07:15 (Levaquin 750 Mg Premix Inj) 150 ml @ 100 mls/hr Q24H IV 07/21/16 08:00 07/23/16 08:58 (SoluMEDROL INJ) 80 mg Q6HR IV PUSH 07/21/16 12:00 07/23/16 06:38 A/P Problem List: (1) Altered mental status Status: Acute (2) Femur fracture, right Status: Acute (3) right femur nailing Status: Acute (4) H/O: CVA (cerebrovascular accident) Status: Chronic (5) Stage II pressure ulcer of buttock Status: Acute (6) Fracture, intertrochanteric, right femur Status: Acute (7) Carotid stenosis, bilateral Status: Acute (8) Impaired cognition Status: Acute (9) COPD exacerbation Status: Acute (10) Encephalopathy acute Status: Acute (11) Fall Status: Acute (12) Hypertension Status: Chronic (13) Seizure Status: Acute (14) Muscle spasticity Status: Chronic (15) Hypotension Status: Acute (16) Anemia Status: Chronic (17) Hyperlipidemia Status: Chronic (18) Polypharmacy Status: Acute (19) Impaired mobility and activities of daily living Status: Acute Plan: A/P: AMS, NEG CT HEAD AND CAROTIDS WNL, ATIVAN TOXIDROME PNA ASPIRATION LACTIC ACIDOSIS ANEMIA URINARY OBSTRUCTION, NO UTI CVA R DIOGENES WITH CONTRACTURES SZ PLAN: CHECK PROCALCITONIN NO TRANSFUSION FOR NOW. OCCULT X THREE HOLD LOVENOX GI CONSULT IVF IV ABX IV STEROIDS BLADDER SCAN, TRY TO AVOID PEREZ OT FOR RUE CONTRACTURES INCREASE PT ST DUONEBS BLOOD CULTURES Problem Qualifiers (1) Altered mental status: Qualified Code: R40.1 - Stupor (2) Hypotension: Qualified Code: I95.9 - Hypotension, unspecified hypotension type Ari Sims MD Jul 23, 2016 11:00
--- NOTE | 2016-07-23 15:35 | PD.CONS ---
HPI History of Present Illness This is a 71 year old male patient who was brought to the hospital for evaluation of altered mental status and shortness of breath. He was admitted for altered mental status and COPD exacerbation. His mental status has improved and he is able to provide some history, although he is a poor historian. He was noted to have anemia and GI has been consulted for further evaluation. He does report that he has been more fatigued than usual, but cannot state for how long. He also has had some shortness of breath and a productive cough. He denies any obvious GI bleeding. He has heartburn and reports that he has had daily symptoms for many years, but does not take medication for this and has not seen a morphologist in the past. He denies any hx of peptic ulcer disease. He reports that his appetite has been good and he denies any nausea, vomiting, abdominal pain, constipation, diarrhea , melena, or hematochezia. He has never had an EGD or colonoscopy. Discussed with patient further evaluation with egd/colonoscopy. 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 I attempted to call Salma Garcia at and , but there was no answer and therefore I left message for her to call on my cell phone. The patient was adamant that I speak to her regarding procedures and therefore he also took my number so that he could have his call me if he speaks with her before me. (Mercedes Romero) PFSH Past Medical History DM Focal Seizure HTN Right femur fracture CVA with right sided weakness Coronary artery disease Hyperlipidemia Muscle spasms Hx Iron deficiency anemia GERD Past Surgical History Cardiac catheterization with stent placement Appendectomy Right femur repair (Mercedes Romero) Coded Allergies: No Known Allergies (Unverified , 07/21/16) Medications Allergies Coded Allergies Type Severity Reaction Last Updated Verified No Known Allergies 07/21/16 No Active Scripts Medications Dose Route/Sig Days Date Category Albuterol Neb (Albuterol Sulfate) 2.5 Mg/3 Ml Neb 2.5 Mg NEB QID NEB 07/21/16 Reported Hydrocodone-Acetaminophen 7.5-325 mg Tab 1 Tab PO Q12HR PRN 07/21/16 Reported Aspir-81 (Aspirin) 81 Mg Tabdr 07/21/16 Reported Losartan (Losartan Potassium) 25 Mg Tab 25 Mg PO DAILY 07/21/16 Reported Plavix (Clopidogrel Bisulfate) 75 Mg Tab 75 Mg PO DAILY 07/21/16 Reported Baclofen 10 Mg Tab 10 Mg PO Q8HR PRN 07/21/16 Reported Paroxetine (Paroxetine HCl) 40 Mg Tab 40 Mg PO DAILY 07/21/16 Reported Pantoprazole (Pantoprazole Sodium) 40 Mg Tab 40 Mg PO DAILY 07/21/16 Reported Pravastatin 40 Mg Tab 40 Mg PO DAILY 07/21/16 Reported Ativan (Lorazepam) 1 Mg Tab 1 Mg PO BID PRN 07/21/16 Reported Dilantin (Phenytoin Extended) 100 Mg Cap 200 Mg PO BID 07/21/16 Reported Vimpat (Lacosamide) 200 Mg Tab 200 Mg PO EVERY OTHER DAY 07/21/16 Reported Keppra (Levetiracetam) 1,000 Mg Tab 2,250 Mg PO DAILY 07/21/16 Reported Keppra (Levetiracetam) 1,000 Mg Tab 1,500 Mg PO DAILY NEB 07/21/16 Reported Family History Unable to obtain Social History No ETOH use, used to drink heavily in the past Quit smoking 2 years ago, prior to that he smoked 2 ppd since age 22. (Mercedes Romero) Review of Systems Constitutional: COMPLAINS OF: Fatigue Respiratory: COMPLAINS OF: Cough, Shortness of breath Cardiovascular: DENIES: Chest pain Gastrointestinal: COMPLAINS OF: Heartburn, DENIES: Abdominal pain, Black stools, Bloody stools, Constipation, Diarrhea, Nausea, Vomiting, Anorexia, Hematemesis Musculoskeletal: COMPLAINS OF: Joint pain Integumentary: DENIES: Abnormal pigmentation Hematologic/lymphatic: DENIES: Bruising Neurologic: COMPLAINS OF: Localized weakness, DENIES: Headache Psychiatric: COMPLAINS OF: Confusion (Mercedes Romero) GI Exam Vitals I&O Vital Signs Date Time Temp Pulse Resp B/P Pulse Ox O2 Delivery O2 Flow Rate FiO2 07/23/16 12:02 97.0 98 16 111/59 96 07/23/16 08:02 97.7 73 16 149/60 94 07/23/16 07:29 92 21 07/23/16 01:44 98.5 85 17 121/57 97 07/22/16 20:00 97.3 82 19 122/64 91 07/22/16 16:00 99.3 96 20 117/66 94 I/O 07/22/16 07/22/16 07/22/16 07/23/16 07/23/16 07/23/16 07:00 15:00 23:00 07:00 15:00 23:00 Intake Total 360 ml 517 ml 406 ml 120 ml Output Total 800 ml 400 ml 425 ml 250 ml Balance -440 ml 117 ml -19 ml -130 ml Intake Oral 360 ml 240 ml 360 ml 120 ml IV Total 277 ml 46 ml Output Urine Total 800 ml 400 ml 425 ml 250 ml # Voids 2 # Bowel Movements 0 0 0 1 Imaging Last Impressions Chest X-Ray 07/21/16 0129 Signed Impressions: Service Date/Time: Thursday, July 21, 2016 01:50 - CONCLUSION: Normal examination. Left shoulder hemiarthroplasty Rivera Hollis MD Head CT 07/21/16 0000 Signed Impressions: Service Date/Time: Thursday, July 21, 2016 07:55 - CONCLUSION: No significant change has occurred. Danie Piña MD Carotid Artery Ultrasound 07/21/16 0000 Signed Impressions: Service Date/Time: Thursday, July 21, 2016 16:04 - CONCLUSION: [id number] bilateral carotid plaque. No evidence of anything hemodynamically significant. Rian Benjamin MD Laboratory Test 07/23/16 05:56 White Blood Count 10.7 TH/MM3 Red Blood Count 3.90 MIL/MM3 Hemoglobin 7.6 GM/DL Hematocrit 24.2 % Mean Corpuscular Volume 61.9 FL Mean Corpuscular Hemoglobin 19.4 PG Mean Corpuscular Hemoglobin 31.3 % Concent Red Cell Distribution Width 20.2 % Platelet Count 415 TH/MM3 Mean Platelet Volume 6.5 FL Neutrophils (%) (Auto) 83.9 % Lymphocytes (%) (Auto) 12.2 % Monocytes (%) (Auto) 3.8 % Eosinophils (%) (Auto) 0.0 % Basophils (%) (Auto) 0.1 % Neutrophils # (Auto) 9.0 TH/MM3 Lymphocytes # (Auto) 1.3 TH/MM3 Monocytes # (Auto) 0.4 TH/MM3 Eosinophils # (Auto) 0.0 TH/MM3 Basophils # (Auto) 0.0 TH/MM3 CBC Comment AUTO DIFF Differential Comment AUTO DIFF CONFIRMED Ovalocytes 1+ Sodium Level 137 MEQ/L Potassium Level 3.7 MEQ/L Chloride Level 103 MEQ/L Carbon Dioxide Level 24.9 MEQ/L Anion Gap 9 MEQ/L Blood Urea Nitrogen 12 MG/DL Creatinine 0.52 MG/DL Estimat Glomerular Filtration 158 ML/MIN Rate Random Glucose 113 MG/DL Calcium Level 8.0 MG/DL Date/Time Procedure Status Source Growth 07/23/16 08:40 Stool Occult Blood (TEJA) - Final Complete Stool Stool HEMOCCULT NEGATIVE 07/21/16 02:15 Aerobic Blood Culture - Preliminary Resulted Blood Peripheral NO GROWTH IN 2 DAYS 07/21/16 02:15 Anaerobic Blood Culture - Preliminary Resulted Blood Peripheral NO GROWTH IN 2 DAYS Physical Examination HEENT: Normocephalic; atraumatic; no jaundice. CHEST: CTA CARDIAC: RRR ABDOMEN: Soft, nondistended, nontender; no hepatosplenomegaly; bowel sounds are present in all four quadrants. SKIN: Normal; no rash; no jaundice. 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 Right sided weakness. (Mercedes Romero) Assessment and Plan Plan ASSESSMENT: - Anemia with hx of iron deficiency anemia. Pt has significant heartburn with daily symptoms, but does not take medications and has never been evaluated with either EGD or Colonoscopy. He denies any other GI symptoms, although he has been more fatigued and has had some shortness of breath recently. GI consulted for further evaluation of anemia. HH 7.6/24.2. Discussed with patient further evaluation with egd/colonoscopy. 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 I attempted to call Salma Garcia at and , but there was no answer and therefore I left message for her to call on my cell phone. The patient was adamant that I speak to her regarding procedures and therefore he also took my number so that he could have his call me if he speaks with her before me. Of note, on Plavix. Protonix. - GERD, daily symptoms, never had EGD, not on medications for this that he knows of. Protonix 40mg po daily - AMS, improved - COPD Exacerbation, Steroids, nebs, abx per primary - CAD, DM, Sz hx, HTN, Hx CVA per primary PLAN: - Recommend EGD/Colonoscopy- awaiting to hear back from - Cont. PPI - Monitor H/H - Transfuse as needed - Notify GI of active bleeding - Of note, on Plavix - Supportive care - Further recommendations to follow based on results of above - Pt seen and examined by Dr. Han and myself and this note is written on his behalf (Mercedes Romero) Physician Comments Patient was seen and examined, agree with above note. we will check labs, continue supportive care.patient refusing any procedures now. (Sarah Han MD) Mercedes Romero Jul 23, 2016 15:35 Sarah Han MD Jul 23, 2016 21:44
[2016-07-24] VITALS (8 sets, daily range): BP systolic 113–151; BP diastolic 59–86; PULSE 69–79; RESP 16–18; TEMP 97.2–98.6; O2SAT 93–95
[2016-07-24] MEDS: methylPREDNISolone SOD SUCC 125 MG/2 ML VIAL IV PUSH SCH (05:22)
[2016-07-24] MEDS: SODIUM CHLOR 0.9% 1000 ML INJ 1,000 ML IV SCH (05:23)
[2016-07-24 07:12] LABS: AUTOMATED NEUTROPHIL # 7.2 TH/MM3 (1.8-7.7); BASOPHIL % 0.3 % (0.0-2.0); HEMATOCRIT 25.3 % (39.0-51.0); LYMPH % 20.4 % (9.0-44.0); LYMPHOCYTE # 2.1 TH/MM3 (1.0-4.8); MEAN CELL VOLUME 61.4 FL (80.0-100.0); MEAN CORPUSCULAR HEMOGLOBIN 19.5 PG (27.0-34.0); MEAN CORPUSCULAR HGB CONC 31.7 % (32.0-36.0); NEUT % 70.3 % (16.0-70.0); PLATELET COUNT 425 TH/MM3 (150-450); RED BLOOD COUNT 4.12 MIL/MM3 (4.50-5.90); RED CELL DISTRIBUTION WIDTH 20.3 % (11.6-17.2); WHITE BLOOD COUNT 10.2 TH/MM3 (4.0-11.0)
[2016-07-24 07:19] LABS: HEMO FLAGS AUTO DIFF
[2016-07-24 07:31] LABS: BICARBONATE 25.6 MEQ/L (21.0-32.0); POTASSIUM 3.8 MEQ/L (3.5-5.1)
[2016-07-24] MEDS: ASPIRIN EC 81 MG TABEC PO SCH (07:57)
[2016-07-24] MEDS: PHENYTOIN SODIUM 100 MG CAP PO SCH ×2 (07:57→20:44)
[2016-07-24] MEDS: PRAVASTATIN SOD 40 MG TAB PO SCH (07:57)
[2016-07-24] MEDS: PANTOPRAZOLE SOD 40 MG DELAYED RELEASE TAB PO SCH (07:57)
[2016-07-24] MEDS: CLOPIDOGREL 75 MG TAB PO SCH (07:57)
[2016-07-24] MEDS: LEVOFLOXACIN 750 MG PREMIX INJ 150 ML IV SCH (07:58)
[2016-07-24] MEDS: levETIRAcetam 500 MG TAB PO SCH ×2 (07:58→20:44)
[2016-07-24] MEDS: PARoxetine HCL 20 MG TAB PO SCH (07:58)
[2016-07-24] MEDS: SODIUM CHLORIDE 0.9% FLUSH 5 ML FLUSH FLUSH SCH ×2 (09:00→20:43)
[2016-07-24 09:16] LABS: SCAN/DIFF AUTO DIFF CONFIRMED
[2016-07-24 09:17] LABS: OVALOCYTES 1+ (NORMAL)
[2016-07-24] MEDS: RESP: ALBUTEROL 2.5 MG/IPRATROPIUM 0.5 MG NEB (SCH) NEB ×4 (09:21→20:00)
--- NOTE | 2016-07-24 11:05 | HHI.GIFU ---
Subjective Remarks Resting in bed. States he is feeling okay. No n/v/abdominal pain. Spoke to Salma re: further evaluation of anemia with egd/colonoscopy- procedure, risks, benefits and she would like to proceed. (Mercedes Romero) Objective Vitals I&O Vital Signs Date Time Temp Pulse Resp B/P Pulse Ox O2 Delivery O2 Flow Rate FiO2 07/24/16 09:21 93 07/24/16 07:59 97.2 69 16 113/62 93 07/24/16 04:10 98.5 78 16 126/71 94 07/24/16 00:24 98.1 74 17 133/67 95 07/23/16 21:45 87 07/23/16 20:59 95 21 07/23/16 20:18 97.9 88 16 117/55 92 07/23/16 20:00 97 Room Air 07/23/16 16:00 98.0 82 18 116/56 97 07/23/16 12:02 97.0 98 16 111/59 96 I/O 07/23/16 07/23/16 07/23/16 07/24/16 07/24/16 07/24/16 07:00 15:00 23:00 07:00 15:00 23:00 Intake Total 120 ml 980 ml 500 ml 360 ml Output Total 250 ml 375 ml 575 ml Balance -130 ml 980 ml 125 ml -215 ml Intake Oral 120 ml 980 ml 500 ml 360 ml Output Urine Total 250 ml 375 ml 575 ml # Voids 4 # Bowel Movements 0 1 0 1 Laboratory Laboratory Tests Test 07/23/16 07/24/16 12:50 06:41 Procalcitonin LESS THAN 0.05 White Blood Count 10.2 Red Blood Count 4.12 Hemoglobin 8.0 Hematocrit 25.3 Mean Corpuscular Volume 61.4 Mean Corpuscular Hemoglobin 19.5 Mean Corpuscular Hemoglobin 31.7 Concent Red Cell Distribution Width 20.3 Platelet Count 425 Mean Platelet Volume 6.7 Neutrophils (%) (Auto) 70.3 Lymphocytes (%) (Auto) 20.4 Monocytes (%) (Auto) 9.0 Eosinophils (%) (Auto) 0.0 Basophils (%) (Auto) 0.3 Neutrophils # (Auto) 7.2 Lymphocytes # (Auto) 2.1 Monocytes # (Auto) 0.9 Eosinophils # (Auto) 0.0 Basophils # (Auto) 0.0 CBC Comment AUTO DIFF Differential Comment AUTO DIFF CONFIRMED Ovalocytes 1+ Sodium Level 139 Potassium Level 3.8 Chloride Level 104 Carbon Dioxide Level 25.6 Anion Gap 9 Blood Urea Nitrogen 11 Creatinine 0.56 Estimat Glomerular Filtration 145 Rate Random Glucose 110 Calcium Level 8.2 Date/Time Procedure Status Source Growth 07/23/16 08:40 Stool Occult Blood (TEJA) - Final Complete Stool Stool HEMOCCULT NEGATIVE 07/21/16 02:15 Aerobic Blood Culture - Preliminary Resulted Blood Peripheral NO GROWTH IN 2 DAYS 07/21/16 02:15 Anaerobic Blood Culture - Preliminary Resulted Blood Peripheral NO GROWTH IN 2 DAYS Imaging Last Impressions Chest X-Ray 07/21/16 0129 Signed Impressions: Service Date/Time: Thursday, July 21, 2016 01:50 - CONCLUSION: Normal examination. Left shoulder hemiarthroplasty Rivera Hollis MD Head CT 07/21/16 0000 Signed Impressions: Service Date/Time: Thursday, July 21, 2016 07:55 - CONCLUSION: No significant change has occurred. Danie Piña MD Carotid Artery Ultrasound 07/21/16 0000 Signed Impressions: Service Date/Time: Thursday, July 21, 2016 16:04 - CONCLUSION: [id number] bilateral carotid plaque. No evidence of anything hemodynamically significant. Rian Benjamin MD Physical Exam HEENT: Normocephalic; atraumatic; no jaundice. CHEST: CTA CARDIAC: RRR ABDOMEN: Soft, nondistended, nontender; no hepatosplenomegaly; bowel sounds are present in all four quadrants. EXTREMITIES: No clubbing, cyanosis, or edema. SKIN: Normal; no rash; no jaundice. 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 Pt has significant heartburn with daily symptoms, but does not take medications and has never been evaluated with either EGD or Colonoscopy. He denies any other GI symptoms, although he has been more fatigued and has had some shortness of breath recently. GI consulted for further evaluation of anemia. HH 7.6/24.2. Discussed with patient further evaluation with egd/colonoscopy. 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 Spoke to Salma re: further evaluation of anemia with egd/colonoscopy, procedure, risks, benefits and she would like to proceed. 8.0/25.3. Will hold Plavix and schedule for egd/colonoscopy in am. - GERD, daily symptoms, never had EGD, not on medications for this that he knows of. Protonix 40mg po daily - AMS, improved - COPD Exacerbation, Steroids, nebs, abx per primary - CAD, DM, Sz hx, HTN, Hx CVA per primary PLAN: - Plan for egd/colonoscopy in am - Obtain consents - Clear liquids - NPO after MN - Golytely prep - Hold Plavix - Cont. PPI - Monitor H/H - Transfuse as needed - Notify GI of active bleeding - Supportive care - Further recommendations to follow based on results of above - Pt seen and examined by Dr. Han and myself and this note is written on his behalf (Mercedes Romero) Physician Comments Patient was seen and examined, agree with above note and plan, labs for AM, colon EGD in am. (Sarah Han MD) Mercedes Romero Jul 24, 2016 11:04 Sarah Han MD Jul 24, 2016 20:26
--- NOTE | 2016-07-24 11:09 | HHI.FPPN ---
Subjective Remarks WANTS TO DC C/O WEAKNESS D/W RN D/W GI Objective Vitals Vital Signs Date Time Temp Pulse Resp B/P Pulse Ox O2 Delivery O2 Flow Rate FiO2 07/24/16 09:21 93 07/24/16 07:59 97.2 69 16 113/62 93 07/24/16 04:10 98.5 78 16 126/71 94 07/24/16 00:24 98.1 74 17 133/67 95 07/23/16 21:45 87 07/23/16 20:59 95 21 07/23/16 20:18 97.9 88 16 117/55 92 07/23/16 20:00 97 Room Air 07/23/16 16:00 98.0 82 18 116/56 97 07/23/16 12:02 97.0 98 16 111/59 96 I/O 07/23/16 07/23/16 07/23/16 07/24/16 07/24/16 07/24/16 07:00 15:00 23:00 07:00 15:00 23:00 Intake Total 120 ml 980 ml 500 ml 360 ml Output Total 250 ml 375 ml 575 ml Balance -130 ml 980 ml 125 ml -215 ml Intake Oral 120 ml 980 ml 500 ml 360 ml Output Urine Total 250 ml 375 ml 575 ml # Voids 4 # Bowel Movements 0 1 0 1 Result Diagram: 07/24/1664007/24/16640 Objective Remarks GENERAL: SKIN: Warm and dry. HEAD: Atraumatic. Normocephalic. EYES: Pupils equal and round. No scleral icterus. No injection or drainage. ENT: No nasal bleeding or discharge. Mucous membranes pink and moist. NECK: Trachea midline. No JVD. CARDIOVASCULAR: Regular rate and rhythm. RESPIRATORY: No accessory muscle use. R CRACKLES AND RONCHI. Breath sounds equal bilaterally. GASTROINTESTINAL: Abdomen soft, non-tender, nondistended. Hepatic and splenic margins not palpable. MUSCULOSKELETAL: Extremities without clubbing, cyanosis, or edema. No obvious deformities. NEUROLOGICAL: Awake and alert. No obvious cranial nerve deficits. Motor grossly within normal limits. R DIOGENES. Normal speech. PSYCHIATRIC: Appropriate mood and affect; insight and judgment normal. Medications and IVs Current Medications Medications (Trade) Dose Ordered Sig/Delvis Route Start Time Stop Time Status Last Admin (NS Flush) 2 ml UNSCH PRN IVF 07/21/16 01:30 (Lioresal) 10 mg Q8H PRN PO 07/21/16 06:45 (Plavix) 75 mg DAILY PO 07/21/16 09:00 Hold 07/24/16 07:57 ([place] 7.5-325 Mg) 1 tab Q12H PRN PO 07/21/16 06:45 (Ativan) 1 mg BID PRN PO 07/21/16 06:45 (Protonix) 40 mg DAILY PO 07/21/16 09:00 07/24/16 07:57 (Paxil) 40 mg DAILY PO 07/21/16 09:00 07/24/16 07:58 (Dilantin) 200 mg BID PO 07/21/16 09:00 07/24/16 07:57 (Pravachol) 40 mg DAILY PO 07/21/16 09:00 07/24/16 07:57 (Ecotrin Ec) 81 mg DAILY PO 07/21/16 09:00 07/24/16 07:57 Levetriacetam 500 mg 500 mg Q12HR PO 07/21/16 09:00 07/24/16 07:58 (NS 1000 ml Inj) 1,000 ml @ 5 mls/hr Q24H IV 07/21/16 07:06 07/24/16 05:23 (NS Flush) 2 ml UNSCH PRN FLUSH 07/21/16 07:15 07/23/16 17:51 (NS Flush) 2 ml BID FLUSH 07/21/16 09:00 07/23/16 20:15 (Tylenol) 650 mg Q4H PRN PO 07/21/16 07:15 (Zofran Inj) 4 mg Q6H PRN IVP 07/21/16 07:15 (Compazine Supp) 25 mg Q12H PRN [place] 07/21/16 07:15 (Dulcolax Supp) 10 mg DAILY PRN [place] 07/21/16 07:15 (Milk Of Magnesia Liq) 30 ml Q12H PRN PO 07/21/16 07:15 (Ambien) 5 mg HS PRN PO 07/21/16 07:15 (Narcan Inj) 0.4 mg UNSCH PRN IV 07/21/16 07:15 (Catapres) 0.1 mg Q6H PRN PO 07/21/16 07:15 Enalaprilat 2.5 mg 2.5 mg Q6H PRN IV PUSH 07/21/16 07:15 (Levaquin 750 Mg Premix Inj) 150 ml @ 100 mls/hr Q24H IV 07/21/16 08:00 07/24/16 07:58 (SoluMEDROL INJ) 80 mg Q6HR IV PUSH 07/21/16 12:00 07/24/16 05:22 (Colyte Liq) 4,000 ml ONCE ONCE PO 07/24/16 16:00 07/24/16 16:01 A/P Problem List: (1) Altered mental status Status: Acute (2) Femur fracture, right Status: Acute (3) right femur nailing Status: Acute (4) H/O: CVA (cerebrovascular accident) Status: Chronic (5) Stage II pressure ulcer of buttock Status: Acute (6) Fracture, intertrochanteric, right femur Status: Acute (7) Carotid stenosis, bilateral Status: Acute (8) Impaired cognition Status: Acute (9) COPD exacerbation Status: Acute (10) Encephalopathy acute Status: Acute (11) Fall Status: Acute (12) Hypertension Status: Chronic (13) Seizure Status: Acute (14) Muscle spasticity Status: Chronic (15) Hypotension Status: Acute (16) Anemia Status: Chronic (17) Hyperlipidemia Status: Chronic (18) Polypharmacy Status: Acute (19) Impaired mobility and activities of daily living Status: Acute Plan: A/P: AMS, NEG CT HEAD AND CAROTIDS WNL, ATIVAN TOXIDROME PNA ASPIRATION LACTIC ACIDOSIS ANEMIA HYPERTHYROID URINARY OBSTRUCTION, NO UTI CVA R DIOGENES WITH CONTRACTURES SZ PLAN: D/W GI, SCOPE IN AM NO TRANSFUSION FOR NOW. OCCULT X THREE HOLD LOVENOX THYROID PANEL IRON/FERRITIN/TIBC GI CONSULT IVF IV ABX IV STEROIDS BLADDER SCAN, TRY TO AVOID PEREZ OT FOR RUE CONTRACTURES INCREASE PT ST DUONEBS BLOOD CULTURES Problem Qualifiers (1) Altered mental status: Qualified Code: R40.1 - Stupor (2) Hypotension: Qualified Code: I95.9 - Hypotension, unspecified hypotension type Ari Sims MD Jul 24, 2016 11:09
[2016-07-24 15:14] LABS: TRANSFERRIN IRON PROFILE 295 MG/DL (200-360)
[2016-07-24 15:25] LABS: FERRITIN 8 NG/ML (26-388); FREE T3 1.58 PG/ML (2.18-3.98); FREE T4 1.37 NG/DL (0.76-1.46)
[2016-07-24] MEDS ORDERED: PEG (High)/E-LYTE SOLN 4000 ML BTL PO ONE (16:00)
[2016-07-24] MEDS: methylPREDNISolone SOD SUCC 40 MG/1 ML VIAL IV PUSH SCH (20:44)
[2016-07-25 00:20] VITALS: BP 109/70; PULSE 81; RESP 17; TEMP 97.6; O2SAT 92
[2016-07-25 07:11] LABS: AUTOMATED NEUTROPHIL # 4.3 TH/MM3 (1.8-7.7); BASOPHIL % 0.2 % (0.0-2.0); EOSINOPHIL # 0.2 TH/MM3 (0-0.4); EOSINOPHIL % 1.9 % (0.0-4.0); HEMATOCRIT 26.3 % (39.0-51.0); LYMPH % 38.4 % (9.0-44.0); LYMPHOCYTE # 3.5 TH/MM3 (1.0-4.8); MEAN CELL VOLUME 61.3 FL (80.0-100.0); MEAN CORPUSCULAR HEMOGLOBIN 19.3 PG (27.0-34.0); MEAN CORPUSCULAR HGB CONC 31.4 % (32.0-36.0); NEUT % 47.5 % (16.0-70.0); PLATELET COUNT 446 TH/MM3 (150-450); RED BLOOD COUNT 4.28 MIL/MM3 (4.50-5.90); RED CELL DISTRIBUTION WIDTH 19.7 % (11.6-17.2)
[2016-07-25 07:15] VITALS: BP 95/53; PULSE 61; RESP 18; TEMP 97.5; O2SAT 91
[2016-07-25 07:19] LABS: HEMO FLAGS AUTO DIFF
[2016-07-25 07:31] LABS: BICARBONATE 29.1 MEQ/L (21.0-32.0); POTASSIUM 3.5 MEQ/L (3.5-5.1)
[2016-07-25 08:39] LABS: OVALOCYTES 1+ (NORMAL); SCAN/DIFF AUTO DIFF CONFIRMED
[2016-07-25] MEDS: levETIRAcetam 500 MG TAB PO SCH ×2 (09:00→23:16)
[2016-07-25] MEDS: methylPREDNISolone SOD SUCC 40 MG/1 ML VIAL IV PUSH SCH ×2 (09:00→23:16)
[2016-07-25] MEDS: PHENYTOIN SODIUM 100 MG CAP PO SCH ×2 (09:00→23:16)
--- NOTE | 2016-07-25 11:06 | HHI.FPPN ---
Subjective Remarks PT AGITATED ALERT ALMOST TO BASELINE D/W RN Objective Vitals Vital Signs Date Time Temp Pulse Resp B/P Pulse Ox O2 Delivery O2 Flow Rate FiO2 07/25/16 07:15 97.5 61 18 95/53 91 07/25/16 00:20 97.6 81 17 109/70 92 07/24/16 20:10 97.8 79 18 151/86 93 07/24/16 16:22 94 21 07/24/16 16:02 98.6 77 18 113/60 95 07/24/16 12:02 98.0 74 16 120/59 94 I/O 07/24/16 07/24/16 07/24/16 07/25/16 07/25/16 07/25/16 06:59 14:59 22:59 06:59 14:59 22:59 Intake Total 360 ml 860 ml 4000 ml 240 ml Output Total 575 ml 100 ml 325 ml Balance -215 ml 860 ml 3900 ml -85 ml Intake Oral 360 ml 860 ml 4000 ml 240 ml Output Urine Total 575 ml 100 ml 325 ml # Voids 4 1 # Bowel Movements 1 3 4 Result Diagram: 07/25/16 0644 07/25/16 0644 Objective Remarks GENERAL: SKIN: Warm and dry. HEAD: Atraumatic. Normocephalic. EYES: Pupils equal and round. No scleral icterus. No injection or drainage. ENT: No nasal bleeding or discharge. Mucous membranes pink and moist. NECK: Trachea midline. No JVD. CARDIOVASCULAR: Regular rate and rhythm. RESPIRATORY: No accessory muscle use. R CRACKLES AND RONCHI. Breath sounds equal bilaterally. GASTROINTESTINAL: Abdomen soft, non-tender, nondistended. Hepatic and splenic margins not palpable. MUSCULOSKELETAL: Extremities without clubbing, cyanosis, or edema. No obvious deformities. NEUROLOGICAL: Awake and alert. No obvious cranial nerve deficits. Motor grossly within normal limits. R DIOGENES. Normal speech. PSYCHIATRIC: Appropriate mood and affect; insight and judgment normal. Medications and IVs Current Medications Medications (Trade) Dose Ordered Sig/Delvis Route Start Time Stop Time Status Last Admin (NS Flush) 2 ml UNSCH PRN IVF 07/21/16 01:30 (Lioresal) 10 mg Q8H PRN PO 07/21/16 06:45 (Plavix) 75 mg DAILY PO 07/21/16 09:00 Hold 07/24/16 07:57 ([place] 7.5-325 Mg) 1 tab Q12H PRN PO 07/21/16 06:45 (Ativan) 1 mg BID PRN PO 07/21/16 06:45 (Protonix) 40 mg DAILY PO 07/21/16 09:00 07/24/16 07:57 (Paxil) 40 mg DAILY PO 07/21/16 09:00 07/24/16 07:58 (Dilantin) 200 mg BID PO 07/21/16 09:00 07/24/16 20:44 (Pravachol) 40 mg DAILY PO 07/21/16 09:00 07/24/16 07:57 (Ecotrin Ec) 81 mg DAILY PO 07/21/16 09:00 07/24/16 07:57 Levetriacetam 500 mg 500 mg Q12HR PO 07/21/16 09:00 07/24/16 20:44 (NS 1000 ml Inj) 1,000 ml @ 5 mls/hr Q24H IV 07/21/16 07:06 07/24/16 05:23 (NS Flush) 2 ml UNSCH PRN FLUSH 07/21/16 07:15 07/23/16 17:51 (NS Flush) 2 ml BID FLUSH 07/21/16 09:00 07/24/16 09:00 (Tylenol) 650 mg Q4H PRN PO 07/21/16 07:15 (Zofran Inj) 4 mg Q6H PRN IVP 07/21/16 07:15 (Compazine Supp) 25 mg Q12H PRN NC 07/21/16 07:15 (Dulcolax Supp) 10 mg DAILY PRN NC 07/21/16 07:15 (Milk Of Magnesia Liq) 30 ml Q12H PRN PO 07/21/16 07:15 (Ambien) 5 mg HS PRN PO 07/21/16 07:15 (Narcan Inj) 0.4 mg UNSCH PRN IV 07/21/16 07:15 (Catapres) 0.1 mg Q6H PRN PO 07/21/16 07:15 Enalaprilat 2.5 mg 2.5 mg Q6H PRN IV PUSH 07/21/16 07:15 (Levaquin 750 Mg Premix Inj) 150 ml @ 100 mls/hr Q24H IV 07/21/16 08:00 07/24/16 07:58 (SoluMEDROL INJ) 20 mg BID IV PUSH 07/24/16 21:00 07/24/16 20:44 A/P Problem List: (1) Altered mental status Status: Acute (2) Femur fracture, right Status: Acute (3) right femur nailing Status: Acute (4) H/O: CVA (cerebrovascular accident) Status: Chronic (5) Stage II pressure ulcer of buttock Status: Acute (6) Fracture, intertrochanteric, right femur Status: Acute (7) Carotid stenosis, bilateral Status: Acute (8) Impaired cognition Status: Acute (9) COPD exacerbation Status: Acute (10) Encephalopathy acute Status: Acute (11) Fall Status: Acute (12) Hypertension Status: Chronic (13) Seizure Status: Acute (14) Muscle spasticity Status: Chronic (15) Hypotension Status: Acute (16) Anemia Status: Chronic (17) Hyperlipidemia Status: Chronic (18) Polypharmacy Status: Acute (19) Impaired mobility and activities of daily living Status: Acute Plan: A/P: AMS, NEG CT HEAD AND CAROTIDS WNL, ATIVAN TOXIDROME PNA ASPIRATION LACTIC ACIDOSIS ANEMIA, IRON DEFC AND ACD HYPERTHYROID URINARY OBSTRUCTION, NO UTI CVA R DIOGENES WITH CONTRACTURES SZ PLAN: N5NS NPO D/W GI, SCOPE NO TRANSFUSION FOR NOW. OCCULT X THREE HOLD LOVENOX THYROID PANEL GI CONSULT IV ABX IV STEROIDS BLADDER SCAN, TRY TO AVOID PEREZ OT FOR RUE CONTRACTURES INCREASE PT ST DUONEBS BLOOD CULTURES Problem Qualifiers (1) Altered mental status: Qualified Code: R40.1 - Stupor (2) Hypotension: Qualified Code: I95.9 - Hypotension, unspecified hypotension type Ari Sims MD Jul 25, 2016 11:06
[2016-07-25] MEDS ORDERED: DEXT 5%-NACL 0.9% 1000 ML INJ 1,000 ML IV SCH (11:15)
[2016-07-25 11:25] VITALS: BP 126/75; PULSE 85; RESP 18; TEMP 97.2; O2SAT 93
[2016-07-25 12:34] VITALS: BP 95/53; PULSE 61; RESP 18; TEMP 97.6; O2SAT 97
[2016-07-25] MEDS ORDERED: PROPOFOL 200 MG/20 ML AMP IV ONE (12:54)
--- NOTE | 2016-07-25 13:11 | HHI.GIFU ---
Subjective Remarks doing ok, seems comfortable, no new complains. Objective Vitals I&O Vital Signs Date Time Temp Pulse Resp B/P Pulse Ox O2 Delivery O2 Flow Rate FiO2 07/25/16 12:34 97.6 61 18 95/53 97 07/25/16 07:15 97.5 61 18 95/53 91 07/25/16 00:20 97.6 81 17 109/70 92 07/24/16 20:10 97.8 79 18 151/86 93 07/24/16 16:22 94 21 07/24/16 16:02 98.6 77 18 113/60 95 I/O 07/24/16 07/24/16 07/24/16 07/25/16 07/25/16 07/25/16 07:00 15:00 23:00 07:00 15:00 23:00 Intake Total 360 ml 860 ml 4000 ml 240 ml Output Total 575 ml 100 ml 325 ml Balance -215 ml 860 ml 3900 ml -85 ml Intake Oral 360 ml 860 ml 4000 ml 240 ml Output Urine Total 575 ml 100 ml 325 ml # Voids 4 1 # Bowel Movements 1 3 4 Laboratory Laboratory Tests Test 07/24/16 07/25/16 14:31 06:44 Iron Level 9 Total Iron Binding Capacity 413 Percent Iron Saturation 2.2 Ferritin 8 Free Thyroxine 1.37 Free Triiodothyronine (T3) 1.58 pg/dL White Blood Count 9.0 Red Blood Count 4.28 Hemoglobin 8.3 Hematocrit 26.3 Mean Corpuscular Volume 61.3 Mean Corpuscular Hemoglobin 19.3 Mean Corpuscular Hemoglobin 31.4 Concent Red Cell Distribution Width 19.7 Platelet Count 446 Mean Platelet Volume 6.5 Neutrophils (%) (Auto) 47.5 Lymphocytes (%) (Auto) 38.4 Monocytes (%) (Auto) 12.0 Eosinophils (%) (Auto) 1.9 Basophils (%) (Auto) 0.2 Neutrophils # (Auto) 4.3 Lymphocytes # (Auto) 3.5 Monocytes # (Auto) 1.1 Eosinophils # (Auto) 0.2 Basophils # (Auto) 0.0 CBC Comment AUTO DIFF Differential Comment AUTO DIFF CONFIRMED Ovalocytes 1+ Sodium Level 139 Potassium Level 3.5 Chloride Level 103 Carbon Dioxide Level 29.1 Anion Gap 7 Blood Urea Nitrogen 11 Creatinine 0.58 Estimat Glomerular Filtration 139 Rate Random Glucose 82 Calcium Level 7.8 Date/Time Procedure Status Source Growth 07/23/16 08:40 Stool Occult Blood (TEJA) - Final Complete Stool Stool HEMOCCULT NEGATIVE 07/21/16 02:15 Aerobic Blood Culture - Preliminary Resulted Blood Peripheral NO GROWTH IN 4 DAYS 07/21/16 02:15 Anaerobic Blood Culture - Preliminary Resulted Blood Peripheral NO GROWTH IN 4 DAYS Physical Exam HEENT: Normocephalic; atraumatic; no jaundice. CHEST: CTA CARDIAC: RRR ABDOMEN: Soft, nondistended, nontender; no hepatosplenomegaly; bowel sounds are present in all four quadrants. EXTREMITIES: No clubbing, cyanosis, or edema. SKIN: Normal; no rash; no jaundice. PROCEDURE MANAGER: NAlert and oriented times three, right sided weakness Assessment and Plan Plan ASSESSMENT: - Anemia with hx of iron deficiency anemia. Pt has significant heartburn with daily symptoms, but does not take medications and has never been evaluated with either EGD or Colonoscopy. He denies any other GI symptoms, although he has been more fatigued and has had some shortness of breath recently. GI consulted for further evaluation of anemia. 7.6/24.2. Discussed with patient further evaluation with egd/colonoscopy. 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 Spoke to Salma re: further evaluation of anemia with egd/colonoscopy, procedure, risks, benefits and she would like to proceed. 8.0/25.3. Will hold Plavix and schedule for egd/colonoscopy in am. - GERD, daily symptoms, never had EGD, not on medications for this that he knows of. 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 PLAN: - CHARISSA - restart Plavix - stool for H pylori - Monitor H/H - Transfuse as needed - EGD as outpatient in 2 months - Supportive care - PRBC as needed Protonix 40 mg BID try to sit and avoid laying down as much as possible we will sign off thank you. Sarah Han MD Jul 25, 2016 13:11
[2016-07-25] MEDS ORDERED: MIDAZOLAM HCL 2 MG/2 ML VIAL ONE (14:09)
[2016-07-25 15:00] VITALS: BP 105/60; PULSE 97; RESP 18; TEMP 96.8; O2SAT 94
[2016-07-25] MEDS: LEVOFLOXACIN 750 MG PREMIX INJ 150 ML IV SCH (15:01)
[2016-07-25] MEDS: PRAVASTATIN SOD 40 MG TAB PO SCH (15:01)
[2016-07-25] MEDS: LACOSAMIDE 100 MG TAB PO SCH (15:02)
[2016-07-25] MEDS: ASPIRIN EC 81 MG TABEC PO SCH (15:02)
[2016-07-25] MEDS: PANTOPRAZOLE SOD 40 MG DELAYED RELEASE TAB PO SCH (15:02)
[2016-07-25] MEDS: PARoxetine HCL 20 MG TAB PO SCH (15:02)
[2016-07-25] MEDS: SODIUM CHLORIDE 0.9% FLUSH 5 ML FLUSH FLUSH SCH ×2 (21:00→23:17)
[2016-07-25 21:38] VITALS: BP 147/91; PULSE 100; RESP 20; TEMP 98; O2SAT 97
[2016-07-26] VITALS: BP 147/91; PULSE 100; RESP 18; TEMP 98; O2SAT 97
[2016-07-26 06:12] LABS: AUTOMATED NEUTROPHIL # 5.8 TH/MM3 (1.8-7.7); BASOPHIL % 0.4 % (0.0-2.0); EOSINOPHIL % 0.6 % (0.0-4.0); HEMATOCRIT 28.3 % (39.0-51.0); LYMPH % 24.7 % (9.0-44.0); LYMPHOCYTE # 2.1 TH/MM3 (1.0-4.8); MEAN CELL VOLUME 62.5 FL (80.0-100.0); MEAN CORPUSCULAR HEMOGLOBIN 19.2 PG (27.0-34.0); MEAN CORPUSCULAR HGB CONC 30.8 % (32.0-36.0); MONO % 8.1 % (0.0-8.0); NEUT % 66.2 % (16.0-70.0); PLATELET COUNT 453 TH/MM3 (150-450); RED BLOOD COUNT 4.53 MIL/MM3 (4.50-5.90); RED CELL DISTRIBUTION WIDTH 19.7 % (11.6-17.2); WHITE BLOOD COUNT 8.7 TH/MM3 (4.0-11.0)
[2016-07-26 06:13] LABS: HEMO FLAGS AUTO DIFF
[2016-07-26 06:37] LABS: BICARBONATE 22.9 MEQ/L (21.0-32.0); POTASSIUM 3.8 MEQ/L (3.5-5.1)
[2016-07-26 07:53] VITALS: BP 109/59; PULSE 69; RESP 16; TEMP 98; O2SAT 94
[2016-07-26 08:00] LABS: OVALOCYTES 1+ (NORMAL); SCAN/DIFF AUTO DIFF CONFIRMED
[2016-07-26] MEDS: PANTOPRAZOLE SOD 40 MG DELAYED RELEASE TAB PO SCH (09:37)
[2016-07-26] MEDS: PHENYTOIN SODIUM 100 MG CAP PO SCH (09:37)
[2016-07-26] MEDS: LEVOFLOXACIN 750 MG PREMIX INJ 150 ML IV SCH (09:37)
[2016-07-26] MEDS: PARoxetine HCL 20 MG TAB PO SCH (09:37)
[2016-07-26] MEDS: PRAVASTATIN SOD 40 MG TAB PO SCH (09:37)
[2016-07-26] MEDS: levETIRAcetam 500 MG TAB PO SCH (09:37)
[2016-07-26] MEDS: ASPIRIN EC 81 MG TABEC PO SCH (09:37)
[2016-07-26] MEDS: SODIUM CHLORIDE 0.9% FLUSH 5 ML FLUSH FLUSH SCH (09:38)
[2016-07-26] MEDS: methylPREDNISolone SOD SUCC 40 MG/1 ML VIAL IV PUSH SCH (09:38)
[2016-07-26] MEDS ORDERED: LEVE500 PO (10:37)
[2016-07-26] MEDS ORDERED: LORA-474 PO (10:37)
[2016-07-26] MEDS ORDERED: PANT40TA3 PO (10:37)
[2016-07-26] MEDS ORDERED: LEVA500T PO (10:37)
[2016-07-26] MEDS ORDERED: HYDR-3580 PO (10:37)
[2016-07-26] MEDS ORDERED: BACL10TA PO (10:37)
--- NOTE | 2016-07-26 10:39 | HHI.DCPOC ---
Discharge Care Plan Diagnosis: (1) Altered mental status (2) Hypotension (3) Seizure (4) Hypertension (5) Encephalopathy acute (6) Carotid stenosis, bilateral (7) Stage II pressure ulcer of buttock (8) H/O: CVA (cerebrovascular accident) Goals to Promote Your Health * To prevent worsening of your condition and complications * To maintain your health at the optimal level Directions to Meet Your Goals Take your medications as prescribed Follow your dietary instruction Follow activity as directed Keep your appointments as scheduled Take your immunizations and boosters as scheduled If your symptoms worsen call your PCP, if no PCP go to Urgent Care Center or Emergency Room Smoking is Dangerous to Your Health. Avoid second hand smoke Call the 24-hour hour crisis hotline for domestic abuse at Ari Sims MD Jul 26, 2016 10:39
--- NOTE | 2016-07-26 10:41 | HHI.DS ---
Discharge Summary Admission Date Jul 21, 2016 at 05:32 Discharge Date: Jul 26, 2016 Admitting Diagnosis AMS, Hypotension, Agitation, Wheezing (1) Hyponatremia (2) Leukocytosis (3) Polypharmacy (4) Altered mental status (5) Hypotension (6) Anemia (7) Hyperlipidemia (8) Muscle spasticity (9) Seizure (10) Hypertension (11) Fall (12) Encephalopathy acute (13) COPD exacerbation (14) Impaired cognition (15) Carotid stenosis, bilateral (16) Fracture, intertrochanteric, right femur (17) Stage II pressure ulcer of buttock (18) H/O: CVA (cerebrovascular accident) (19) right femur nailing (20) Femur fracture, right (21) Impaired mobility and activities of daily living Brief History 71 y CM. LIVES AT HOME WITH , AND NUMEROUS EXTENDED FAMILY AT HOME. EXCESS FAMILY MEMBERS HAVE BEEN IN TOWN RECENTLY AND PT HAS HAD SEVERE AGITATION AT HOME DUE TO THE NOISE ETC. BRINGS HIM TO MY OFFICE FREQEUNTLY WITH NUMEROUS COMPLAINTS. PT HAS HAD INCREASED PAIN IN RUE RECENTLY AND PROBLEMS WITH PAIN AND INSOMNIA. PT REPORTEDLY HAS BEEN AGITATED MORE AROUND THE NEW YEARS WITH PARTYGOERS AT HIS HOUSE AND WE WAS GIVEN EXCESS ATIVAN PER ER MD. PT BECAME LETHARGIC AND WAS BROUGHT INTO THE ER. PT W AUDIBLE RONCHI AT BEDSIDE AND IS ATTEMPTING TO USE THE URINAL AND STATES HE IS UNABLE TO URINATE. CBC/BMP: 07/26/16 0526 07/26/16 0526 Significant Findings Laboratory Tests Test 07/24/16 07/24/16 07/25/16 07/26/16 06:41 14:31 06:44 05:26 Red Blood Count 4.12 MIL/MM3 4.28 MIL/MM3 (4.50-5.90) (4.50-5.90) Hemoglobin 8.0 GM/DL 8.3 GM/DL 8.7 GM/DL (13.0-17.0) (13.0-17.0) (13.0-17.0) Hematocrit 25.3 % 26.3 % 28.3 % (39.0-51.0) (39.0-51.0) (39.0-51.0) Mean Corpuscular Volume 61.4 FL 61.3 FL 62.5 FL (80.0-100.0) (80.0-100.0) (80.0-100.0) Mean Corpuscular Hemoglobin 19.5 PG 19.3 PG 19.2 PG (27.0-34.0) (27.0-34.0) (27.0-34.0) Mean Corpuscular Hemoglobin 31.7 % 31.4 % 30.8 % Concent (32.0-36.0) (32.0-36.0) (32.0-36.0) Red Cell Distribution Width 20.3 % 19.7 % 19.7 % (11.6-17.2) (11.6-17.2) (11.6-17.2) Mean Platelet Volume 6.7 FL 6.5 FL 6.6 FL (7.0-11.0) (7.0-11.0) (7.0-11.0) Neutrophils (%) (Auto) 70.3 % (16.0-70.0) Monocytes (%) (Auto) 9.0 % (0.0-8.0) 12.0 % 8.1 % (0.0-8.0) (0.0-8.0) Ovalocytes 1+ (NORMAL) 1+ (NORMAL) 1+ (NORMAL) Creatinine 0.56 MG/DL 0.58 MG/DL 0.48 MG/DL (0.60-1.30) (0.60-1.30) (0.60-1.30) Random Glucose 110 MG/DL (74-106) Calcium Level 8.2 MG/DL 7.8 MG/DL 7.7 MG/DL (8.5-10.1) (8.5-10.1) (8.5-10.1) Iron Level 9 MCG/DL (65-175) Percent Iron Saturation 2.2 % (20-50) Ferritin 8 NG/ML (26-388) Free Triiodothyronine (T3) 1.58 PG/ML pg/dL (2.18-3.98) Monocytes # (Auto) 1.1 TH/MM3 (0-0.9) Platelet Count 453 TH/MM3 (150-450) PE at Discharge GENERAL: SKIN: Warm and dry. HEAD: Atraumatic. Normocephalic. EYES: Pupils equal and round. No scleral icterus. No injection or drainage. ENT: No nasal bleeding or discharge. Mucous membranes pink and moist. NECK: Trachea midline. No JVD. CARDIOVASCULAR: Regular rate and rhythm. RESPIRATORY: No accessory muscle use. Clear to auscultation. Breath sounds equal bilaterally. GASTROINTESTINAL: Abdomen soft, non-tender, nondistended. Hepatic and splenic margins not palpable. MUSCULOSKELETAL: Extremities without clubbing, cyanosis, or edema. No obvious deformities. NEUROLOGICAL: Awake and alert. No obvious cranial nerve deficits. Motor grossly within normal limits. DIOGENES Normal speech. PSYCHIATRIC: Appropriate mood and affect; insight and judgment normal. Hospital Course 71 Y CM, ADMIT WITH- AMS, NEG CT HEAD AND CAROTIDS WNL, ATIVAN TOXIDROME PNA ASPIRATION LACTIC ACIDOSIS DUODENAL ULCER ON EGD JUL [address] ANGEL ANEMIA, IRON DEFC AND ACD HYPERTHYROID URINARY OBSTRUCTION, NO UTI CVA R DIOGENES WITH CONTRACTURES SZ HOSPITAL COURSE AND PLAN WAS TO - N5NS NPO D/W GI, SCOPE NO TRANSFUSION FOR NOW. OCCULT X THREE HOLD LOVENOX THYROID PANEL GI CONSULT IV ABX IV STEROIDS BLADDER SCAN, TRY TO AVOID PEREZ OT FOR RUE CONTRACTURES INCREASE PT ST DUONEBS BLOOD CULTURES Discharge Disposition: Discharge to SNF Discharge Instructions DIET: Follow Instructions for: Heart Healthy Diet Activities you can perform: Regular-No Restrictions Ari Sims MD Jul 26, 2016 10:41
[2016-07-26 12:00] VITALS: BP 130/67; PULSE 70; RESP 18; TEMP 97.9; O2SAT 97
[2016-07-27 23:57] LABS: THYROGLOB ABS LESS THAN 1 IU/mL (< OR = 1)
== END 2016-07-26 15:46 | DRG 917 ==
LOC: NEPC 00:58 → NEDA 05:32 → N06B 08:05
PROVIDERS: ADMIT Family Medicine; ATTEND Family Medicine
PROC: 0DJD8ZZ Inspection of Lower Intestinal Tract, Via Natural or Artificial Opening Endoscopic (ICD-10-PCS; principal; 2016-07-25 12:42)
PROC: 0DJ08ZZ Inspection of Upper Intestinal Tract, Via Natural or Artificial Opening Endoscopic (ICD-10-PCS; 2016-07-25 12:42)
DX: T42.4X1A Poisoning by benzodiazepines, accidental (unintentional), initial encounter (principal); G93.40 Encephalopathy, unspecified; J69.0 Pneumonitis due to inhalation of food and vomit; L89.302 Pressure ulcer of unspecified buttock, stage 2; E87.2 Acidosis; K26.9 Duodenal ulcer, unspecified as acute or chronic, without hemorrhage or perforation; J44.0 Chronic obstructive pulmonary disease with (acute) lower respiratory infection; I69.351 Hemiplegia and hemiparesis following cerebral infarction affecting right dominant side; J44.1 Chronic obstructive pulmonary disease with (acute) exacerbation; T40.2X1A Poisoning by other opioids, accidental (unintentional), initial encounter; I95.9 Hypotension, unspecified; K22.70 Barrett's esophagus without dysplasia; N13.9 Obstructive and reflux uropathy, unspecified; I10 Essential (primary) hypertension; I65.23 Occlusion and stenosis of bilateral carotid arteries; E78.5 Hyperlipidemia, unspecified; I25.10 Atherosclerotic heart disease of native coronary artery without angina pectoris; I69.992 Facial weakness following unspecified cerebrovascular disease; D50.9 Iron deficiency anemia, unspecified; K21.0 Gastro-esophageal reflux disease with esophagitis; K29.70 Gastritis, unspecified, without bleeding; E05.90 Thyrotoxicosis, unspecified without thyrotoxic crisis or storm; R45.1 Restlessness and agitation; F41.9 Anxiety disorder, unspecified; F32.9 Major depressive disorder, single episode, unspecified; F12.10 Cannabis abuse, uncomplicated; Y92.019 Unspecified place in single-family (private) house as the place of occurrence of the external cause; Z87.891 Personal history of nicotine dependence; Z95.5 Presence of coronary angioplasty implant and graft
CPT/HCPCS: 70450; 71010; 76937; 80048; 80053; 80164; 80177; 80185; 80307; 80320; 81001; 82140; 82272; 82550; 82728; 83540; 83550; 83605; 84145; 84439; 84443; 84481; 85025; 86376; 86800; 87040; 93005; 93880; 94640; 94664; 96374; J1650; J1956; J2250; J2310; J2920; J2930; J7030

== ENCOUNTER 2016-08-28 12:42 | Inpatient (IN) | payer MEDICARE, BC ==
[~2016-08-28] VITALS: Ht 170.2 cm; Wt 70.0 kg
[2016-08-28] VITALS (7 sets, daily range): BP systolic 119–141; BP diastolic 60–95; PULSE 63–70; RESP 18–20; TEMP 96.3; O2SAT 93–98
[~2016-08-28 12:42] MED LIST changes: -ALBU0.086 NEB; -ASPI81TA82 PO; -CALC250 PO; -CLON.1 PO; +DILA100C PO; -FURO1TAB93 PO; +HYDR-3580 PO; -KCL10 PO; -KEPP750T PO; +LEVA500T PO; +LEVE500 PO; -LEVE750T8 PO; -LOSA25TA31 PO; -NORC7.5T PO; +PANT40TA3 PO; -PARO40TA PO; +PARO40TA2 PO; -PHEN100 PO; -PLAV75TA PO; +PLAV75TA29 PO; -PRAV20 PO; +PRAV40TA2 PO; -PROT40TA PO; -RIVA10 PO; -SODI1 PO; -THIA100T PO; -WALKER STANDARD
--- NOTE | 2016-08-28 13:57 | PD ---
HPI Chief Complaint: Altered Mental Status Time Seen by Provider: 13:56 Travel History International Travel<30 days: No Contact w/Intl Traveler<30days: No Traveled to known affect area: No History of Present Illness HPI 71-year-old male presents to the ED via EMS for evaluation of AMS. According to EMS the patient was at rehab and seemed very somnolent, so EMS was called. He received Narcan en route which did improve his somnolence. On my exam the patient is somnolent, but rouses easily to voice. He endorses right sided weakness and difficulties with speech secondary to previous CVA. He endorses taking pain medications. He is unable to provide any other meaningful history. The patients family is in the waiting room. PFSH Past Medical History Arthritis: Yes Asthma: No Autoimmune Disease: No Anxiety: Yes Depression: Yes Heart Rhythm Problems: No Cancer: No Cardiovascular Problems: Yes High Cholesterol: Yes Chest Pain: Yes Congestive Heart Failure: No COPD: No Cerebrovascular Accident: Yes (one time per patient, unable to recall when) Diabetes: Yes Diminished Hearing: No Endocrine: No GERD: No Genitourinary: No Hiatal Hernia: Yes Hypertension: Yes (htn) Immune Disorder: No Implanted Vascular Access Dvce: Yes Kidney Stones: No Musculoskeletal: Yes Neurologic: Yes Psychiatric: Yes (anger management issues) Reproductive: No Respiratory: No Migraines: Yes Renal Failure: No Seizures: Yes (one time, one year ago) Sleep Apnea: Yes Thyroid Disease: No Ulcer: No Past Surgical History Abdominal Surgery: No AICD: No Arteriovenous Shunt: No Cardiac Surgery: No Ear Surgery: No Endocrine Surgery: No Eye Surgery: No Genitourinary Surgery: No Gynecologic Surgery: No Insulin Pump: No Joint Replacement: No Oral Surgery: No Pacemaker: No Thoracic Surgery: No Social History Alcohol Use: No (UNK) Tobacco Use: Yes Substance Use: No Allergies-Medications (Allergen,Severity, Reaction): Coded Allergies: Bactrim (Verified Allergy, Unknown, 08/28/16) Reported Meds & Prescriptions Reported Meds & Active Scripts Active Keppra (Levetiracetam) 500 Mg Tab 500 Mg PO Q12HR 30 Days Hydrocodone-Acetaminophen 7.5-325 mg Tab 1 Tab PO Q12HR PRN Reported Maalox Advanced Maximum Strength Liq (Pteloobq-Mrbbiaeei-Roexstkvzre Liq) 400- 400-40 Mg/5 Ml Susp 20 Ml PO Q12HR PRN Take between meals or as directed. Shake well. Maximum 60 ml/24 hrs. Trazodone (Trazodone HCl) 50 Mg Tab 50 Mg PO HS Xanax (Alprazolam) 1 Mg Tab 1 Mg PO BID Florastor (Saccharomyces Boulardii) 250 Mg Cap 250 Mg PO BID 10 Days Cipro (Ciprofloxacin HCl) 500 Mg Tab 500 Mg PO BID 7 Days Gabapentin 300 Mg Cap 300 Mg PO X 1 DOSE Multi-Vitamin/Minerals (Multiple Vitamins W/ Minerals) 1 Tab Tab 1 Tab PO DAILY Pravastatin 40 Mg Tab 40 Mg PO HS Dilantin (Phenytoin Extended) 100 Mg Cap 300 Mg PO BID Vimpat (Lacosamide) 200 Mg Tab 200 Mg PO EVERY OTHER DAY Physical Exam Exam Limitations: Altered Mental Status, Poor Historian Narrative GENERAL: Well-nourished, well-developed somnolent white male. Rouses easily to voice and light touch. SKIN: Warm and dry. HEAD: Normocephalic. EYES: No scleral icterus. No injection or drainage. Pupils pinpoint bilaterally. EOMI NECK: Supple, trachea midline. No JVD or lymphadenopathy. CARDIOVASCULAR: Regular rate and rhythm without murmurs, gallops, or rubs. 2+ DP and radial pulses bilaterally. RESPIRATORY: Breath sounds clear and equal bilaterally. No accessory muscle use. GASTROINTESTINAL: Abdomen soft, non-tender, nondistended. Active bowel sounds MUSCULOSKELETAL: No cyanosis, or edema. Contractures of the right hand and arm secondary to previous CVA. NEUROLOGICAL: Somnolent, arouses easily. Response to commands. 5/5 strength in left lower extremity, 4/5 strength in right lower extremity. Downward sloping of the left side of the mouth. Patient is able to protrude the tongue in the midline, left and right. Slurred speech. BACK: Nontender. No CVA tenderness. Data Data Last Documented VS Vital Signs Date Time Temp Pulse Resp B/P Pulse Ox O2 Delivery O2 Flow Rate FiO2 08/28/16 17:22 65 18 141/95 93 Room Air 08/28/16 12:55 96.3 Orders Electrocardiogram (08/28/16 14:41) Complete Blood Count With Diff (08/28/16 14:41) Comprehensive Metabolic Panel (08/28/16 14:41) Prothrombin Time / Inr (Pt) (08/28/16 14:41) Act Partial Throm Time (Ptt) (08/28/16 14:41) Urinalysis - C+S If Indicated (08/28/16 14:41) Blood Glucose (08/28/16 14:41) Ecg Monitoring (08/28/16 14:41) Iv Access Insert/Monitor (08/28/16 14:41) Oximetry (08/28/16 14:41) Sodium Chloride 0.9% Flush (Ns Flush) (08/28/16 14:45) Ct Brain W/O Iv Contrast(Rout) (08/28/16 15:23) Levetiracetam (08/28/16 15:23) Phenytoin (Dilantin) (08/28/16 15:23) Sodium Chlor 0.9% 1000 Ml Inj (Ns 1000 M (08/28/16 17:15) Tylenol (Acetaminophen) (08/28/16 17:05) Drug Screen, Random Urine (08/28/16 17:05) Salicylates (Aspirin) (08/28/16 17:05) Admit Order (Ed Use Only) (08/28/16 17:36) Labs Laboratory Tests Test 08/28/16 08/28/16 15:37 15:55 White Blood Count 8.0 TH/MM3 Red Blood Count 4.68 MIL/MM3 Hemoglobin 9.0 GM/DL Hematocrit 28.9 % Mean Corpuscular Volume 61.7 FL Mean Corpuscular Hemoglobin 19.3 PG Mean Corpuscular Hemoglobin 31.4 % Concent Red Cell Distribution Width 19.6 % Platelet Count 546 TH/MM3 Mean Platelet Volume 6.3 FL Neutrophils (%) (Auto) 40.2 % Lymphocytes (%) (Auto) 35.0 % Monocytes (%) (Auto) 11.3 % Eosinophils (%) (Auto) 12.5 % Basophils (%) (Auto) 1.0 % Neutrophils # (Auto) 3.2 TH/MM3 Lymphocytes # (Auto) 2.8 TH/MM3 Monocytes # (Auto) 0.9 TH/MM3 Eosinophils # (Auto) 1.0 TH/MM3 Basophils # (Auto) 0.1 TH/MM3 CBC Comment AUTO DIFF Differential Comment AUTO DIFF CONFIRMED Ovalocytes 2+ Prothrombin Time 11.8 SEC Prothromb Time International 1.1 RATIO Ratio Activated Partial 39.8 SEC Thromboplast Time Sodium Level 125 MEQ/L Potassium Level 3.9 MEQ/L Chloride Level 91 MEQ/L Carbon Dioxide Level 22.9 MEQ/L Anion Gap 11 MEQ/L Blood Urea Nitrogen 5 MG/DL Creatinine 0.42 MG/DL Estimat Glomerular Filtration 202 ML/MIN Rate Random Glucose 98 MG/DL Calcium Level 8.4 MG/DL Total Bilirubin 0.3 MG/DL Aspartate Amino Transf 22 U/L (AST/SGOT) Alanine Aminotransferase 19 U/L (ALT/SGPT) Alkaline Phosphatase 259 U/L Total Protein 7.2 GM/DL Albumin 3.5 GM/DL Salicylates Level LESS THAN 1.7 MG/DL Acetaminophen Level LESS THAN 2.0 MCG/ML Phenytoin (Dilantin) Level 48.1 MCG/ML Urine Color YELLOW Urine Turbidity CLEAR Urine pH 6.0 Urine Specific [place] 1.014 Urine Protein NEG mg/dL Urine Glucose (UA) NEG mg/dL Urine Ketones 10 mg/dL Urine Occult Blood NEG Urine Nitrite NEG Urine Bilirubin NEG Urine Urobilinogen LESS THAN 2.0 MG/DL Urine Leukocyte Esterase NEG Urine WBC 1 /hpf Urine Mucus FEW /lpf Microscopic Urinalysis Comment CATH-CULT NOT IND Urine Opiates Screen NEG Urine Barbiturates Screen NEG Urine Amphetamines Screen NEG Urine Benzodiazepines Screen POS Urine Cocaine Screen NEG Urine Cannabinoids Screen NEG MDM Medical Decision Making Medical Screen Exam Complete: Yes Emergency Medical Condition: Yes Interpretation(s) EKG rate 64, sinus rhythm. PA interval 163, QRS 101, QTC 424. Normal axis. No ischemic changes. Reviewed by Dr. Aguilera. Differential Diagnosis UTI versus pneumonia versus ICH versus electrolyte abnormality versus dehydration versus medication side effect versus other Narrative Course 71-year-old male presents to the ED via EMS for evaluation of AMS. According to EMS the patient was at rehab and seemed very somnolent, so EMS was called. He received Narcan en route which did improve his somnolence. On my exam the patient is somnolent, but rouses easily to voice. He endorses right sided weakness and difficulties with speech secondary to previous CVA. He endorses taking pain medications. He is unable to provide any other meaningful history. The patients arrives and states that the [facility] and was thus sent here. She endorses right-sided upper extremity deficit as well as speech difficulties secondary to previous CVA. She also states that the patient has been in rehabilitation due to decline in his functionality. States the patient also suffers from seizures. Vitals reviewed. Physical exam reveals a somnolent white male in no acute distress. He arouses easily to voice. He is able to answer some questions and follow some commands but slips back to sleep easily. Pupils pinpoint bilaterally. EOMI. Patient is able to protrude the tongue in the midline, left and right. His speech is slurred. He is oriented to self. Right upper extremity contracted secondary to previous stroke. No pronator drift with the left hand. Strength 5/5 in LLE and 4/5 in RLE. CBC: WBC 8.0. Hemoglobin 9.0 CMP: Sodium 125, chloride 91. BUN 5, creatinine 0.42. Calcium 8.4. Alkaline phosphatase 259. INR: 1.1 Tox screen: pending ASA: pending Tylenol: pending Phenytoin: 48.1 UA: No culture indicated. CT of the brain: 1. Stable encephalomalacia throughout the left parietal lobe status post old left MCA infarct. 2. Mild cerebral atrophy. 3. No acute infarct, acute hemorrhage, mass effect or extra axial fluid collections. The patient is experiencing phenytoin toxicity. Normal saline bolus ordered. We will hold phenytoin. Spoke with Dr. Betancourt who will accept the patient to the medicine service under Dr. Champion. I spoke with Dr. Chiu, who is the patient's neurologist. Consult placed. Patient will be admitted to the medicine service for further evaluation. Please see medicine and neurology notes for disposition. Diagnosis Primary Impression: Phenytoin toxicity Qualified Code: T42.0X1A - Phenytoin toxicity, accidental or unintentional, initial encounter [place] Sol Aug 28, 2016 13:57
[2016-08-28] MEDS ORDERED: SODIUM CHLORIDE 0.9% FLUSH 5 ML FLUSH IVF PRN (14:45)
[2016-08-28] MEDS ORDERED: MULTTAB62 PO (16:02)
[2016-08-28] MEDS ORDERED: GABA300C5 PO (16:02)
[2016-08-28] MEDS ORDERED: XANA1TAB2 PO (16:02)
[2016-08-28] MEDS ORDERED: TRAZ50TA12 PO (16:02)
[2016-08-28] MEDS ORDERED: FLOR250C PO (16:02)
[2016-08-28] MEDS ORDERED: MAALSUS18 PO (16:02)
[2016-08-28] MEDS ORDERED: CIPR-9 PO (16:02)
[2016-08-28 16:04] LABS: AUTOMATED NEUTROPHIL # 3.2 TH/MM3 (1.8-7.7); BASOPHIL # 0.1 TH/MM3 (0-0.2); EOSINOPHIL % 12.5 % (0.0-4.0); HEMATOCRIT 28.9 % (39.0-51.0); LYMPHOCYTE # 2.8 TH/MM3 (1.0-4.8); MEAN CELL VOLUME 61.7 FL (80.0-100.0); MEAN CORPUSCULAR HEMOGLOBIN 19.3 PG (27.0-34.0); MEAN CORPUSCULAR HGB CONC 31.4 % (32.0-36.0); MONO % 11.3 % (0.0-8.0); NEUT % 40.2 % (16.0-70.0); PLATELET COUNT 546 TH/MM3 (150-450); RED BLOOD COUNT 4.68 MIL/MM3 (4.50-5.90); RED CELL DISTRIBUTION WIDTH 19.6 % (11.6-17.2)
[2016-08-28 16:11] LABS: BLOOD, URINE NEG (NEG); GLUCOSE,URINE NEG (NEG); KETONE, URINE 10 mg/dL (NEG); MUCUS URINE FEW /lpf (OCC); NITRITE,URINE NEG (NEG); URINE COLOR YELLOW (YELLW/STRAW)
[2016-08-28 16:13] LABS: HEMO FLAGS AUTO DIFF
[2016-08-28 16:16] LABS: COMMENT (UR) CATH-CULT NOT IND; CULTURE IF INDICATED CATH CULTURE NOT IND
[2016-08-28 16:24] LABS: ALT (GPT) 19 U/L (12-78); ANION GAP 11 MEQ/L (5-15); AST (GOT) 22 U/L (15-37); BICARBONATE 22.9 MEQ/L (21.0-32.0); BLOOD UREA NITROGEN 5 MG/DL (7-18); CHLORIDE 91 MEQ/L (98-107); GLOMERULAR FILTRATION RATE 202 ML/MIN (>89); POTASSIUM 3.9 MEQ/L (3.5-5.1); SODIUM (NA) 125 MEQ/L (136-145)
--- NOTE | 2016-08-28 16:24 | RADRPT ---
EXAM DATE/TIME: 08/28/2016 16:05 [facility] COMPARISON: CT BRAIN W/O CONTRAST, July 21, 2016, 7:55. INDICATIONS : Altered mental status and lethargy. RADIATION DOSE: 36.16 CTDIvol (mGy) MEDICAL HISTORY : Cerebrovascular disease. Cardiovascular disease Seizures. Left brain CVA. SURGICAL HISTORY : None. ENCOUNTER: Initial ACUITY: 1 day PAIN SCALE: Non-responsive LOCATION: cranial TECHNIQUE: Multiple contiguous axial images were obtained of the head. Using automated exposure control and adj ustment of the mA and/or kV according to patient size, radiation dose was kept as low as reasonably a chievable to obtain optimal diagnostic quality images. FINDINGS: There is stable encephalomalacia throughout the left parietal lobe consistent with old left MCA infar ct. No acute infarct, acute hemorrhage, mass effect or extra axial fluid collections are noted. Mild cerebral atrophy is noted. CONCLUSION: 1. Stable encephalomalacia throughout the left parietal lobe status post old left MCA infarct. 2. Mild cerebral atrophy. 3. No acute infarct, acute hemorrhage, mass effect or extra axial fluid collections. Azam Coronel MD on August 28, 2016 at 16:19 Board Certified Radiologist. This report was verified electronically.
[2016-08-28 16:26] LABS: ALKALINE PHOSPHATASE 259 U/L (45-117); TOTAL BILIRUBIN ADULT 0.3 MG/DL (0.2-1.0)
[2016-08-28 16:38] LABS: APTT (PATIENT) 39.8 SEC (24.3-30.1); INTERNATIONAL NORMALIZED RATIO 1.1 RATIO; PROTHROMBIN TIME - PATIENT 11.8 SEC (9.8-11.6)
[2016-08-28 16:45] LABS: OVALOCYTES 2+ (NORMAL); SCAN/DIFF AUTO DIFF CONFIRMED
[2016-08-28] MEDS ORDERED: SODIUM CHLOR 0.9% 1000 ML INJ 1,000 ML IV ONE (17:15)
[2016-08-28 17:45] LABS: AMPHETAMINE, URINE NEG (NEG); BARBITURATES, URINE NEG (NEG); COCAINE, URINE NEG (NEG)
--- NOTE | 2016-08-28 17:51 | EKG ---
Date Performed: 08/28/2016 Time Performed: 14:53:45 PTAGE: 71 years EKG: Sinus rhythm NORMAL ECG NO SIGNIFICANT CHANGE FROM PRIOR ELECTROCARDIOGRAM. PREVIOUS TRACING : 07/21/2016 02.51 DOCTOR: Panda Miller Interpretating Date/Time 08/28/2016 17:49:17
[2016-08-28] MEDS ORDERED: ONDANSETRON HCL 4 MG/2 ML VIAL IV PUSH PRN (18:00)
[2016-08-28] MEDS ORDERED: ONDANSETRON HCL 4 MG/2 ML VIAL IV PUSH ONE (18:00)
[2016-08-28] MEDS ORDERED: BISACODYL 10 MG SUPP PR PRN (18:15)
[2016-08-28] MEDS ORDERED: MAGNESIUM HYDROXIDE SUSP 30 ML CUP PO PRN (18:15)
[2016-08-28] MEDS ORDERED: SODIUM CHLORIDE 0.9% FLUSH 5 ML FLUSH FLUSH PRN (18:15)
[2016-08-28] MEDS ORDERED: NALOXONE HCL 0.4 MG/ML AMP IV PRN (18:15)
--- NOTE | 2016-08-28 18:28 | HHI.HP ---
[facility] [place] [facility] Primary Care Physician Danie Thomas DO Admission Diagnosis phenytoin toxicity Diagnoses: Travel History International Travel<30 Days: No Contact w/Intl Traveler <30 Da: No Traveled to Known Affected Are: No Past Family Social History Allergies: Coded Allergies: Bactrim (Verified Allergy, Unknown, 08/28/16) Physical Exam Vital Signs Vital Signs Date Time Temp Pulse Resp B/P Pulse Ox O2 Delivery O2 Flow Rate FiO2 08/28/16 17:22 65 18 141/95 93 Room Air 08/28/16 17:17 18 98 Room Air 08/28/16 15:20 69 18 94 Room Air 08/28/16 15:20 70 18 125/60 94 Room Air 08/28/16 14:45 63 20 124/60 96 Room Air 08/28/16 12:55 96.3 67 20 134/66 95 Physical Exam GENERAL: This is a well-nourished, well-developed patient, in no apparent distress. SKIN: No rashes, ecchymoses or lesions. Cool and dry. HEAD: Atraumatic. Normocephalic. No temporal or scalp tenderness. EYES: Pupils equal round and reactive. Extraocular motions intact. No scleral icterus. No injection or drainage. ENT: Nose without bleeding, purulent drainage or septal hematoma. Throat without erythema, tonsillar hypertrophy or exudate. Uvula midline. Airway patent. NECK: Trachea midline. No JVD or lymphadenopathy. Supple, nontender, no meningeal signs. CARDIOVASCULAR: Regular rate and rhythm without murmurs, gallops, or rubs. RESPIRATORY: Clear to auscultation. Breath sounds equal bilaterally. No wheezes , rales, or rhonchi. GASTROINTESTINAL: Abdomen soft, non-tender, nondistended. No hepato-splenomegaly , or palpable masses. No guarding. MUSCULOSKELETAL: Extremities without clubbing, cyanosis, or edema. No joint tenderness, effusion, or edema noted. No calf tenderness. Negative Homans sign bilaterally. NEUROLOGICAL: Awake and alert. Cranial nerves II through XII intact. Motor and sensory grossly within normal limits. Five out of 5 muscle strength in all muscle groups. Normal speech. Laboratory Laboratory Tests Test 08/28/16 08/28/16 15:37 15:55 White Blood Count 8.0 Red Blood Count 4.68 Hemoglobin 9.0 Hematocrit 28.9 Mean Corpuscular Volume 61.7 Mean Corpuscular Hemoglobin 19.3 Mean Corpuscular Hemoglobin 31.4 Concent Red Cell Distribution Width 19.6 Platelet Count 546 Mean Platelet Volume 6.3 Neutrophils (%) (Auto) 40.2 Lymphocytes (%) (Auto) 35.0 Monocytes (%) (Auto) 11.3 Eosinophils (%) (Auto) 12.5 Basophils (%) (Auto) 1.0 Neutrophils # (Auto) 3.2 Lymphocytes # (Auto) 2.8 Monocytes # (Auto) 0.9 Eosinophils # (Auto) 1.0 Basophils # (Auto) 0.1 CBC Comment AUTO DIFF Differential Comment AUTO DIFF CONFIRMED Ovalocytes 2+ Prothrombin Time 11.8 Prothromb Time International 1.1 Ratio Activated Partial 39.8 Thromboplast Time Sodium Level 125 Potassium Level 3.9 Chloride Level 91 Carbon Dioxide Level 22.9 Anion Gap 11 Blood Urea Nitrogen 5 Creatinine 0.42 Estimat Glomerular Filtration 202 Rate Random Glucose 98 Calcium Level 8.4 Total Bilirubin 0.3 Aspartate Amino Transf 22 (AST/SGOT) Alanine Aminotransferase 19 (ALT/SGPT) Alkaline Phosphatase 259 Total Protein 7.2 Albumin 3.5 Salicylates Level LESS THAN 1.7 Acetaminophen Level LESS THAN 2.0 Phenytoin (Dilantin) Level 48.1 Urine Color YELLOW Urine Turbidity CLEAR Urine pH 6.0 Urine Specific [place] 1.014 Urine Protein NEG Urine Glucose (UA) NEG Urine Ketones 10 Urine Occult Blood NEG Urine Nitrite NEG Urine Bilirubin NEG Urine Urobilinogen LESS THAN 2.0 Urine Leukocyte Esterase NEG Urine WBC 1 Urine Mucus FEW Microscopic Urinalysis Comment CATH-CULT NOT IND Urine Opiates Screen NEG Urine Barbiturates Screen NEG Urine Amphetamines Screen NEG Urine Benzodiazepines Screen POS Urine Cocaine Screen NEG Urine Cannabinoids Screen NEG Result Diagram: 08/28/16 1537 08/28/16 1537 Assessment and Plan Assessment and Plan H&P dictated, [id number] DVT prophylaxis, Heparin, PUD prophylaxis, Protonix Held Dilantin. CBC, BMP in am. Minoo Lynn Aug 28, 2016 18:28
--- NOTE | 2016-08-28 19:20 | RADRPT ---
EXAM DATE/TIME: 08/28/2016 16:49 [facility] COMPARISON: CHEST SINGLE AP, July 21, 2016, 1:50. INDICATIONS : Congestion. MEDICAL HISTORY : Cerebrovascular disease. Cardiovascular disease Seizures. Left brain CVA. SURGICAL HISTORY : None. ENCOUNTER: Initial ACUITY: 1 day PAIN SCORE: 0/10 LOCATION: Bilateral chest FINDINGS: Mild right sided basilar opacity most characteristic of atelectasis. No effusion. No pneumothorax. To rtuous aorta. Heart size within normal limits. Previous left shoulder replacement. CONCLUSION: 1. Mild basilar airspace disease most characteristic of atelectasis. No effusion or pneumothorax. Jeffery Carter MD on August 28, 2016 at 19:17 Board Certified Radiologist. This report was verified electronically.
[2016-08-28] MEDS: SODIUM CHLOR 0.45% 1000 ML INJ 1,000 ML IV SCH (20:37)
[2016-08-28] MEDS: DOCUSATE SODIUM 100 MG CAP PO SCH (20:38)
[2016-08-28] MEDS: HEPARIN SODIUM - SQ 10,000 UNITS/ML VIAL SQ SCH (20:38)
[2016-08-28] MEDS: SODIUM CHLORIDE 0.9% FLUSH 5 ML FLUSH FLUSH SCH (22:56)
[2016-08-28] MEDS: levETIRAcetam 500 MG TAB PO SCH (22:56)
[2016-08-28] MEDS: ALPRAZolam 1 MG TAB PO SCH (22:57)
[2016-08-29] VITALS: BP 116/67; PULSE 66; RESP 16; TEMP 97.6; O2SAT 97
[2016-08-29 08:00] VITALS: BP 133/63; PULSE 72; PULSE 89; RESP 20; TEMP 96.4; O2SAT 95
--- NOTE | 2016-08-29 08:49 | MH ---
cc: JOSUE CHAMPION DATE OF ADMISSION 08/28/2016 International travel in the last 30 days, no. CHIEF COMPLAINT Altered mental status. HISTORY OF THE PRESENT ILLNESS This is a pleasant 71-year-old white male who was brought in from rehabilitation center for altered mental status. The patient was found by the staff to be very drowsy this morning. EMS was called for evaluation and the patient received Narcan en route to the hospital. After coming to the emergency room the patient was still drowsy and somnolent but did arouse to voice. He now is still having some altered mental status and drowsiness but he is responding to simple commands and simple information. Other history, information is being taken by the record. There is no family currently with the patient. The patient is stating yes to nausea and is having some dry heaves. He is positive for productive sputum which is thick, white without any other color. The patient is still drowsy with some somnolence but is arousing more to verbal stimuli over the past hour. The patient denies any chest pain. Does not appear short of breath. Denies any headache. Denies any pain. The patient is not oriented to situation, when I ask him questions about being at rehab he stated I do not know. The patient is a poor historian. Has a significant history of left cerebrovascular accident with right upper and lower extremity paralysis. The patient is resting on the stretcher with head of bed elevated approximately 45 degrees. PAST MEDICAL HISTORY According to the records: 1. Arthritis. 2. Anxiety disorder. 3. Depression. 4. Hyperlipidemia. 5. Cardiovascular disease. 6. Previous cerebrovascular accident. 7. Diabetes mellitus type 2. 8. Hiatal hernia. 9. Hypertension. 10. Musculoskeletal arthritis. 11. Psychiatric, anger management issues. 12. Migraines. 13. Seizure times one, one year ago. 14. Sleep apnea. PAST SURGICAL HISTORY None listed per the record and none according to the patient. ALLERGIES BACTRIM. MEDICATIONS Reported: 1. Maalox Advanced Maximum Strength. 2. Gabapentin. 3. Lacosamide. 4. Keppra. 5. Trazodone. 6. Florastor. 7. Xanax. 8. Pravastatin. 9. Dilantin. 10. Multivitamin. 11. Cipro 500 milligrams twice a day for seven days. 12. Thompsons. SOCIAL HISTORY The patient currently in a rehabilitation unit, unknown where. According to the records no known alcohol use. Previous tobacco use. No illicit drug use. FAMILY HISTORY NA. REVIEW OF SYSTEMS A 12 point review was initiated and attempted. Positives do include some altered mental status, productive cough with white thick sputum noted. Positive for nausea, no emesis. PHYSICAL EXAMINATION GENERAL: A 71-year-old white male, looks older than his stated age, resting on the bed. Somewhat drowsy and somnolent but does respond to tactile and verbal stimuli. SKIN: Warm, dry, thin turgor. HEENT: Atraumatic, normocephalic. No scleral icterus. Pupils are 1-2 mm bilateral, pupils equal, round, reactive to light and accommodation. No drainage from his nasal cavity or eyes. NECK: Supple. Trachea is midline. No JVD. CARDIOVASCULAR: Distant heart sounds. No murmurs, rubs, or gallops appreciated. He has no edema. Pulses are intact. LUNGS: He does have some mild expiratory wheezes noted anteriorly and posteriorly in his lower lobes. He does have rhonchi anteriorly which is audible and clears with some cough. GASTROINTESTINAL: Abdomen is flat, soft and nontender, nondistended. Active bowel sounds in all four quadrants. MUSCULOSKELETAL: As stated no edema. He does have contractures of his right hand and flaccid right hand and arm and right lower extremity secondary to a previous cerebrovascular accident. He does move his left hand on command and has a 5/5 rnfa and moves his left lower extremity with purpose. So contractures on the right, paralysis on the right leg. Moves the left hand, moves the left leg. NEUROLOGICAL: He is somnolent but does arouse to verbal stimuli. He is responding to simple commands. Tongue is midline, dry. Speech is fairly clear with one word and understandable with one word information or conversation. PSYCHOLOGIC: Moans at times. Flat affect. LABORATORY DATA Salicylate level less than 1.7. Acetaminophen less than 2.0. Dilantin level 48.1. Other labs are pending such as cocaine, cannabis, benzodiazepines, amphetamines and levetiracetam pending. CBC, WBC count 8. RBC 4.68. Hemoglobin 9. Hematocrit 28.9. Platelet count 546. Monocytes percentage (auto) 11.3, eos 12.5. Coagulation PT INR 1.1. Urine is yellow, clear. PH 6.0, specific gravity 1.014, negative for protein, glucose, occult blood, nitrites and bilirubin. Ketones are positive at 10. Leukocyte esterase is negative. Few urine mucus. Culture and sensitivity not indicated. Chemistry sodium 125, potassium 3.9, chloride 91, carbon dioxide 22.9, anion gap 11, BUN 5, creatinine 0.42. Random glucose 98. Calcium 8.4. Alkaline phosphatase 259. IMAGING CT scan of the head shows stable encephalomalacia throughout the left parietal lobe status post old left MCA infarct, mild cerebral artifact. No acute infarct. No acute hemorrhage, mass effect or fluid collection. ASSESSMENT 1. Dilantin toxicity. 2. Altered mental status. 3. Hyponatremia. 4. Anemia probably secondary to chronic disease. 5. Thrombocytosis. 6. History of seizure. 7. Chronic obstructive pulmonary disease. PLAN Our plan is to admit for observation. We will monitor vital signs q.4h. Hold his Dilantin for now. ECG monitoring. Accu-Chek before meals and bedtime. We will consult neurology for their expert opinion. Gentle hydration. Keep the patient n.p.o. for now. We will draw labs in the morning which will include a BMP and a CBC. Monitor his pulse oximetry. Evaluate pending labs when available. Meds will be evaluated and reconciled. Oxygen at 2 liters. As needed medications for nausea and vomiting. The patient is the patient is full code, full aggressive care to my knowledge and we will follow. Dictated by: PURNIMA Chapa Josue Champion MD JP/KK /6:13 PM /8:44 AM Patient was seen and examined on day of admission, as above [id number] time spent with the patient Chart reviewed Labs reviewed Medications reviewed Notes reviewed Plan of care discussed with PURNIMA Discussed with JIMMY ARAUJO
--- NOTE | 2016-08-29 10:03 | HHI.PR ---
Subjective Remarks speech slurred, but understable most of the times. rt. sided weakness, /paralysis, old CVA alert, responds to verbal stimuli hungry, wanting food. No SOB, but has few wheezes No pain Objective Objective Results - Vital Signs Date Time Temp Pulse Resp B/P Pulse Ox O2 Delivery O2 Flow Rate FiO2 08/29/16 08:00 96.4 72 20 133/63 95 08/29/16 00:00 97.6 66 16 116/67 97 08/28/16 22:40 66 08/28/16 20:56 70 20 119/65 95 08/28/16 17:22 65 18 141/95 93 Room Air 08/28/16 17:17 18 98 Room Air 08/28/16 15:20 69 18 94 Room Air 08/28/16 15:20 70 18 125/60 94 Room Air 08/28/16 14:45 63 20 124/60 96 Room Air 08/28/16 12:55 96.3 67 20 134/66 95 I/O 08/28/16 08/28/16 08/28/16 08/29/16 08/29/16 08/29/16 06:59 14:59 22:59 06:59 14:59 22:59 Intake Total 680 ml Output Total 1 ml Balance 679 ml Intake IV Total 680 ml Output Urine Total 1 ml # Voids 1 Result Diagram: 08/28/16 1537 08/28/16 1537 ROS General: Weakness (generalized), Other (10 point ROS done. Positives noted. Other systems unremarkable.) Pulmonary: Cough, Wheezing /DIE FITTER: Other Neuro/MS: Other (rt. sised weakness, rt. arm, flaccid with contracture.) Physical Exam Physical Exam GENERAL: A 71-year-old white male, looks older than his stated age, resting on the bed. More alert, responsive today,. SKIN: Warm, dry, thin turgor. HEENT: Atraumatic, normocephalic. No scleral icterus. Pupils are 1-2 mm bilateral, pupils equal, round, reactive to light and accommodation. No drainage from his nasal cavity or eyes. NECK: Supple. Trachea is midline. No JVD. CARDIOVASCULAR: Distant heart sounds. No murmurs, rubs, or gallops appreciated. He has no edema. Pulses are intact. LUNGS: He does have some mild expiratory wheezes noted anteriorly and posteriorly in his lower lobes. He does have rhonchi anteriorly which is audible and clears with some cough. GASTROINTESTINAL: Abdomen is flat, soft and nontender, nondistended. Active bowel sounds in all four quadrants. MUSCULOSKELETAL: no edema. He does have contractures of his right hand and flaccid right hand and arm and right lower extremity secondary to a previous cerebrovascular accident. He does move his left hand on command and has a 5/5 metal molder and moves his left lower extremity with purpose. So contractures on the right, paralysis on the right leg. Moves the left hand, moves the left leg. NEUROLOGICAL: He is responding to commands, more alert today.. Tongue is midline, dry. Speech is fairly clear and understandable with conversation. PSYCHOLOGIC: Moans at times. Flat affect. Objective Remarks Im hungry today. A/P Assessment and Plan ASSESSMENT 1. Dilantin toxicity. 2. Altered mental status. 3. Hyponatremia. 4. Anemia probably secondary to chronic disease. 5. Thrombocytosis. 6. History of seizure. 7. Chronic obstructive pulmonary disease. admit for observation. monitor vital signs q.4h. , afebrile. Hold his Dilantin for now. ECG monitoring. Accu-Chek before meals and bedtime. consult neurology for their expert opinion/ pending Gentle hydration. labs monitor Meds reconciled. Oxygen at 2 liters. prn. CXR shows opacities. Monitor. PRN medications for nausea and vomiting. The patient is the patient is full code, Will recheck Dilantin level in am. Improvement noted to AMS. D/W nurse D/W patient D/W Dr. Champion, seen on his behalf. Discharge Planning in process. Possible tomorrow. Discussed With: Nurse, Family (patient,), Other (Dr. Champion. , patient seen on his behalf ) Minoo Lynn Aug 29, 2016 10:03
[2016-08-29 10:46] LABS: HEMATOCRIT 28.1 % (39.0-51.0); MEAN CELL VOLUME 65.1 FL (80.0-100.0); MEAN CORPUSCULAR HEMOGLOBIN 20.5 PG (27.0-34.0); MEAN CORPUSCULAR HGB CONC 31.6 % (32.0-36.0); PLATELET COUNT 440 TH/MM3 (150-450); RED BLOOD COUNT 4.32 MIL/MM3 (4.50-5.90); RED CELL DISTRIBUTION WIDTH 20.1 % (11.6-17.2); WHITE BLOOD COUNT 8.2 TH/MM3 (4.0-11.0)
[2016-08-29 10:49] LABS: REVIEW FLAG FINAL
[2016-08-29 10:53] LABS: BICARBONATE 19.8 MEQ/L (21.0-32.0); POTASSIUM 3.4 MEQ/L (3.5-5.1)
[2016-08-29] MEDS: DOCUSATE SODIUM 100 MG CAP PO SCH ×2 (10:58→20:54)
[2016-08-29] MEDS: levETIRAcetam 500 MG TAB PO SCH ×2 (10:58→20:54)
[2016-08-29] MEDS: HEPARIN SODIUM - SQ 10,000 UNITS/ML VIAL SQ SCH ×2 (10:58→20:55)
[2016-08-29] MEDS: SODIUM CHLORIDE 0.9% FLUSH 5 ML FLUSH FLUSH SCH ×2 (10:59→20:54)
[2016-08-29] MEDS: ALPRAZolam 1 MG TAB PO SCH ×2 (10:59→20:54)
[2016-08-29] MEDS: SODIUM CHLOR 0.45% 1000 ML INJ 1,000 ML IV SCH (11:05)
[2016-08-29 11:26] LABS: CALCIUM-PROTEIN CORRECTED 7.9 MG/DL (8.5-10.1)
[2016-08-29 12:00] VITALS: BP 109/62; PULSE 77; RESP 20; TEMP 96.9; O2SAT 98
[2016-08-29 16:00] VITALS: BP 130/79; PULSE 88; RESP 20; TEMP 98; O2SAT 94
[2016-08-29] MEDS: SODIUM CHLOR 0.9% 1000 ML INJ 1,000 ML IV SCH (17:00)
[2016-08-29 19:46] VITALS: BP 118/56; PULSE 87; RESP 18; TEMP 98.1; O2SAT 97
[2016-08-29] MEDS ORDERED: LORazepam 2 MG/ML VIAL IV PUSH PRN (20:30)
--- NOTE | 2016-08-29 21:21 | MB ---
cc: EVAN MENDEZ DATE OF CONSULTATION 08/29/16 REASON FOR CONSULTATION Dilantin toxicity HISTORY OF PRESENT ILLNESS Mr. Garcia is a 71-year man who has a history of previous stroke causing right hemiparesis as well as history of seizures for which he takes Dilantin. He was admitted with lethargy and confusion, was found to have a very high Dilantin level of 37.3. He has had no recurrent seizures. PAST MEDICAL HISTORY 1. History of previous stroke with right-sided weakness 2. history of seizure disorder, 3. Hypertension, 4. Hyperlipidemia, 5. Depression, anxiety 6. Type 2 diabetes, 7. Hiatal hernia. MEDICATIONS Prior to admission, 1. Keppra. 2. Trazodone, 3. Lacosamide 4. Gabapentin 5. Dilantin 6. Pravastatin 7. Xanax. 8. Multivitamins. 9. Cipro. Current medications in the hospital 1. Lacosamide 200 mg every other day. 2. Xanax 1 mg b.i.d. 3. Keppra 500 mg b.i.d. 4. Docusate 5. Subcu Heparin. 6. Zofran as needed 7. Dilantin currently on hold. NEUROLOGIC EXAMINATION Blood pressure 118/56, pulse 87, respirations 18, temperature 98 degrees. Higher cortical function - he is alert, oriented x2. Speech is fluent. Cranial nerves: He has a right upper motor neuron VII palsy. The extraocular movements are intact, but he does have nystagmus. Pupils are equal and reactive. Motor exam - he has a right hemiparesis with about 3/5 strength in the right arm, 4/5 strength right leg, 5/5 strength on the left arm and leg. Reflexes are symmetric. IMAGING STUDIES CT of the brain shows encephalomalacia left parietal lobe consistent with old stroke. LABORATORY DATA Dilantin level 37.3, positive for benzodiazepines on his Tox screen. White count is 8200, hemoglobin 8.9, hematocrit 28% platelet count 440,000, PT 11.8, INR 1.1, APTT 39.8. Sodium is 124, potassium 3.4, chloride 93, CO2 19. The BUN is two, creatinine 0.37. IMPRESSION 1. Dilantin toxicity 2. History of left MCA stroke with residual right-sided weakness. 3. History of seizures. RECOMMENDATIONS Hold Dilantin. Follow daily levels. Resume Dilantin once the level is less than 20. We will place him under seizure precautions as well. MD WES Singh/ /8:19 PM /9:06 PM
[2016-08-29 22:18] VITALS: PULSE 84
[2016-08-30] VITALS (7 sets, daily range): BP systolic 106–123; BP diastolic 54–63; PULSE 17–87; RESP 17–19; TEMP 95.6–98.1; O2SAT 93–95
[2016-08-30] MEDS: SODIUM CHLOR 0.9% 1000 ML INJ 1,000 ML IV SCH ×2 (04:24→16:50)
[2016-08-30] MEDS ORDERED: POTASSIUM CL 40 MEQ/30 ML LIQ UDC PO ONE (07:15)
[2016-08-30] MEDS: SODIUM CHLORIDE 0.9% FLUSH 5 ML FLUSH FLUSH SCH ×2 (09:00→21:31)
[2016-08-30] MEDS: ALPRAZolam 1 MG TAB PO SCH ×2 (09:08→21:32)
[2016-08-30] MEDS: HEPARIN SODIUM - SQ 10,000 UNITS/ML VIAL SQ SCH ×2 (09:08→21:32)
[2016-08-30] MEDS: DOCUSATE SODIUM 100 MG CAP PO SCH ×2 (09:08→21:31)
[2016-08-30] MEDS: levETIRAcetam 500 MG TAB PO SCH ×2 (09:09→21:31)
[2016-08-30] MEDS: LACOSAMIDE 100 MG TAB PO SCH (09:09)
[2016-08-30 09:41] LABS: HEMATOCRIT 25.2 % (39.0-51.0); MEAN CELL VOLUME 62.1 FL (80.0-100.0); MEAN CORPUSCULAR HEMOGLOBIN 19.4 PG (27.0-34.0); MEAN CORPUSCULAR HGB CONC 31.2 % (32.0-36.0); PLATELET COUNT 485 TH/MM3 (150-450); RED BLOOD COUNT 4.06 MIL/MM3 (4.50-5.90); WHITE BLOOD COUNT 9.7 TH/MM3 (4.0-11.0)
[2016-08-30 09:45] LABS: REVIEW FLAG FINAL
[2016-08-30 10:16] LABS: BICARBONATE 24.9 MEQ/L (21.0-32.0); POTASSIUM 3.3 MEQ/L (3.5-5.1)
--- NOTE | 2016-08-30 10:26 | HHI.PR ---
Subjective Remarks speech slurred, easy her to understand today rt. sided weakness, /paralysis, old CVA alert, responds to verbal stimuli Appetite good No SOB, lungs essentially clear today No pain Outside commode for BM (Minoo Lynn) Objective Objective Results - Vital Signs Date Time Temp Pulse Resp B/P Pulse Ox O2 Delivery O2 Flow Rate FiO2 08/30/16 07:44 98.1 78 17 106/56 93 08/30/16 03:59 97.6 17 17 117/54 93 08/29/16 22:18 84 08/29/16 19:46 98.1 87 18 118/56 97 08/29/16 16:00 98.0 88 20 130/79 94 08/29/16 12:00 96.9 77 20 109/62 98 I/O 08/29/16 08/29/16 08/29/16 08/30/16 08/30/16 08/30/16 07:00 15:00 23:00 07:00 15:00 23:00 Intake Total 680 ml 360 ml 100 ml Output Total 1 ml 1000 ml 500 ml Balance 679 ml -640 ml -400 ml Intake Oral 360 ml 100 ml IV Total 680 ml Output Urine Total 1 ml 1000 ml 500 ml # Voids 1 3 # Bowel Movements 0 (Minoo Lynn) Result Diagram: 08/30/16 0809 08/29/16 0950 Other Results Last Impressions Chest X-Ray 08/28/16 1802 Signed Impressions: Service Date/Time: Sunday, August 28, 2016 16:49 - CONCLUSION: 1. Mild basilar airspace disease most characteristic of atelectasis. No effusion or pneumothorax. Jeffery Carter MD Head CT 08/28/16 1523 Signed Impressions: Service Date/Time: Sunday, August 28, 2016 16:05 - CONCLUSION: 1. Stable encephalomalacia throughout the left parietal lobe status post old left MCA infarct. 2. Mild cerebral atrophy. 3. No acute infarct, acute hemorrhage, mass effect or extra axial fluid collections. Azam Coronel MD Medications and IVs Active Medications Lorazepam (Ativan Inj) 1 mg Q4H PRN IV PUSH; Start 08/29/16 at 20:30 Potassium Chloride (KCl 40 Meq/30 ml Liq) 40 meq ONCE ONCE PO Last administered on 08/30/16 09:08; Admin Dose 40 MEQ; Start 08/30/16 at 07:15; Stop 08/30/16 at 07:16; Status DC Sodium Chloride (NS 1000 ml Inj) 1,000 ml @ 84 mls/hr [id number] IV Last administered on 08/30/16 04:24; Admin Dose 84 MLS/HR; Start 08/29/16 at 17:00 ( Minoo Lynn) ROS General: Fatigue, Weakness, Other (10 point ROS done. Still has some fatigue and weakness but improving) Cardiac: Other (systolic murmur) Pulmonary: Cough GI: Other (BM on 08-30) Neuro/MS: Other (slow speech) Skin: Other (warm dry) (Minoo Lynn) Physical Exam Physical Exam GENERAL: A 71-year-old white male, looks older than his stated age, resting on the bed. More alert, responsive today,. SKIN: Warm, dry, thin turgor. HEENT: Atraumatic, normocephalic. No scleral icterus. Pupils are 1-2 mm bilateral, pupils equal, round, reactive to light and accommodation. No drainage from his nasal cavity or eyes. NECK: Supple. Trachea is midline. No JVD. CARDIOVASCULAR: Distant heart sounds. Systolic murmur now heard grade 2/6 left sternal border , rubs, or gallops appreciated. He has no edema. Pulses are intact. LUNGS: Lung sounds now essentially clear anteriorly and posteriorly GASTROINTESTINAL: Abdomen is flat, soft and nontender, nondistended. Active bowel sounds in all four quadrants. MUSCULOSKELETAL: no edema. He does have contractures of his right hand and flaccid right hand and arm and right lower extremity secondary to a previous cerebrovascular accident. He does move his left hand on command and has a 5/5 electrical accessories assembler and moves his left lower extremity with purpose. So contractures on the right, paralysis on the right leg. Moves the left hand, moves the left leg. NEUROLOGICAL: He is responding to commands, more alert today.. Tongue is midline, dry. Speech is fairly clear and understandable with conversation. PSYCHOLOGIC: Moans at times. Flat affect. Objective Remarks I'm beginning to get stronger every day. Better (Minoo Lynn) A/P Assessment and Plan ASSESSMENT 1. Dilantin toxicity. 2. Altered mental status. 3. Hyponatremia. 4. Anemia probably secondary to chronic disease. 5. Thrombocytosis. 6. History of seizure. 7. Chronic obstructive pulmonary disease. admit for observation. monitor vital signs q.4h. , afebrile. Hold his Dilantin for now. ECG monitoring. Accu-Chek before meals and bedtime. No acute issues consult neurology for their expert opinion/ appreciate input Gentle hydration. labs monitor , hemoglobin now 7.9 which is a 1 g drop from yesterday. Patient' s having no shortness of breath and appears to be asymptomatic we will monitor. Other labs are still pending we will monitor. Meds reconciled. Oxygen at 2 liters. prn. CXR shows opacities. Monitor. PRN medications for nausea and vomiting. The patient is the patient is full code, Will recheck Dilantin level in am. Lab is pending. Patient is to be monitored until his level is 20 or less according to neurology. Seizure precautions Monitor daily Dilantin levels. D/W nurse D/W patient D/W Dr. Champion, seen on his behalf. Discharge Planning in process. Pending Dilantin level to be 20 or less Discussed With: Nurse, Family (patient,), Other (Dr. Champion. , patient seen on his behalf ) (Minoo Lynn) Assessment and Plan Pt seen and examined as above face to face time spent with pt labs and meds reviewed notes reviwed plan of care karl esl teacher dw rn dw pt plan for labs in am (Alex Champion MD) Minoo Lynn Aug 30, 2016 10:26 Alex Champion MD Aug 30, 2016 18:42
--- NOTE | 2016-08-30 18:58 | HHI.PR ---
Review/Management Diagnosis dilantin toxicity Plan continue to hold dilantin unitil level is <20 then resume at 100 mg bid Diagnosis/Plan: Subjective Subjective Comments No acute events reported No seizures Active Medications Current Medications Medications (Trade) Dose Ordered Sig/Delvis Route Start Time Stop Time Status Last Admin (Zofran Inj) 4 mg Q8HR PRN IV PUSH 08/28/16 18:00 (NS Flush) 2 ml UNSCH PRN FLUSH 08/28/16 18:15 (NS Flush) 2 ml BID FLUSH 08/28/16 21:00 08/30/16 09:00 (Dulcolax Supp) 10 mg DAILY PRN WI 08/28/16 18:15 (Colace) 100 mg Q12H PO 08/28/16 20:00 08/30/16 09:08 (Milk Of Magnesia Liq) 30 ml Q12H PRN PO 08/28/16 18:15 (Heparin Inj) 5,000 units Q12H SQ 08/28/16 20:00 08/30/16 09:08 (Narcan Inj) 0.4 mg UNSCH PRN IV 08/28/16 18:15 (Xanax) 1 mg BID PO 08/28/16 21:00 08/30/16 09:08 Levetriacetam 500 mg 500 mg Q12HR PO 08/28/16 21:00 08/30/16 09:09 (NS 1000 ml Inj) 1,000 ml @ 84 mls/hr [id number] IV 08/29/16 17:00 08/30/16 04:24 (Ativan Inj) 1 mg Q4H PRN IV PUSH 08/29/16 20:30 Allergies Allergies Coded Allergies Bactrim (Verified Allergy, Unknown, 08/28/16) Exam I&O / VS 08/29/16 08/29/16 08/30/16 15:00 23:00 07:00 Intake Total 360 ml 100 ml Output Total 1000 ml 500 ml Balance -640 ml -400 ml Intake Oral 360 ml 100 ml Output Urine Total 1000 ml 500 ml # Voids 3 # Bowel Movements 0 Vital Signs Date Time Temp Pulse Resp B/P Pulse Ox O2 Delivery O2 Flow Rate FiO2 08/30/16 15:47 95.6 81 17 117/60 93 08/30/16 11:46 97.6 85 17 123/63 95 08/30/16 08:45 87 08/30/16 07:44 98.1 78 17 106/56 93 08/30/16 03:59 97.6 17 17 117/54 93 08/29/16 22:18 84 08/29/16 19:46 98.1 87 18 118/56 97 Respiratory: Lungs CTA, Non-labored respirations Cardiology: Normal rate, Regular Rhythm Musculoskeletal: Swelling, Deformity Exam Comments alert oriented, follow commands CN 2-12 normal, minimal nystagmus Motor 4/5 rue and rle , 5/5 lue and lle Objective Micro and Labs Laboratory Tests Test 08/30/16 08:09 White Blood Count 9.7 Red Blood Count 4.06 Hemoglobin 7.9 Hematocrit 25.2 Mean Corpuscular Volume 62.1 Mean Corpuscular Hemoglobin 19.4 Mean Corpuscular Hemoglobin 31.2 Concent Red Cell Distribution Width 20.0 Platelet Count 485 Mean Platelet Volume 6.4 Sodium Level 129 Potassium Level 3.3 Chloride Level 94 Carbon Dioxide Level 24.9 Anion Gap 10 Blood Urea Nitrogen 4 Creatinine 0.36 Estimat Glomerular Filtration 241 Rate Random Glucose 71 Calcium Level 7.7 Phenytoin (Dilantin) Level 34.6 Rinku Sun PhD Aug 30, 2016 18:58
[2016-08-31] VITALS (7 sets, daily range): BP systolic 109–131; BP diastolic 55–75; PULSE 75–99; RESP 18–19; TEMP 97.5–98.2; O2SAT 94–95
[2016-08-31] MEDS: SODIUM CHLOR 0.9% 1000 ML INJ 1,000 ML IV SCH (04:50)
--- NOTE | 2016-08-31 07:35 | HHI.PR ---
Subjective Subjective Remarks Awakes to voice, oriented to place and self Right-sided hemiparesis Mild tremors Denies any pain No chest pain No shortness of breath No acute changes overnight Poor historian Review of Systems Constitutional Constitutional Remarks 12 point review of systems completed, limited, poor historian Vitals/Results Intake & Output 08/30/16 08/30/16 08/31/16 15:00 23:00 07:00 Intake Total 480 ml Output Total 650 ml Balance -170 ml Intake Oral 480 ml Output Urine Total 650 ml # Bowel Movements 1 Vital Signs Vital Signs Date Time Temp Pulse Resp B/P Pulse Ox O2 Delivery O2 Flow Rate FiO2 08/31/16 04:10 98.0 82 18 115/60 95 08/30/16 20:00 82 08/30/16 19:15 98.1 86 19 119/56 95 08/30/16 15:47 95.6 81 17 117/60 93 08/30/16 11:46 97.6 85 17 123/63 95 08/30/16 08:45 87 08/30/16 07:44 98.1 78 17 106/56 93 CBC/BMP: 08/30/16 0809 08/30/16 0809 Lab Results Laboratory Tests Test 08/30/16 08:09 White Blood Count 9.7 TH/MM3 Red Blood Count 4.06 MIL/MM3 Hemoglobin 7.9 GM/DL Hematocrit 25.2 % Mean Corpuscular Volume 62.1 FL Mean Corpuscular Hemoglobin 19.4 PG Mean Corpuscular Hemoglobin 31.2 % Concent Red Cell Distribution Width 20.0 % Platelet Count 485 TH/MM3 Mean Platelet Volume 6.4 FL Sodium Level 129 MEQ/L Potassium Level 3.3 MEQ/L Chloride Level 94 MEQ/L Carbon Dioxide Level 24.9 MEQ/L Anion Gap 10 MEQ/L Blood Urea Nitrogen 4 MG/DL Creatinine 0.36 MG/DL Estimat Glomerular Filtration 241 ML/MIN Rate Random Glucose 71 MG/DL Calcium Level 7.7 MG/DL Phenytoin (Dilantin) Level 34.6 MCG/ML Physical Exam General General Appearance: Well Developed, No Acute Distress, Comfortable Eyes Eye Exam: Pupils Equal, Pupils Reactive Ears & Nose Ears & Nose Exam: Nasal Mucosa [place] Throat Throat Exam: Oral Mucosa [place] & Moist Neck Neck Exam: Neck Supple, Trachea Midline Pulmonary Resp Remarks Mild Bibasilar rales Cardiology CV Exam: Regular, Good Perfusion Gastrointestinal/Abdomen GI Exam: Soft, Non-Tender, Bowel Sounds Present, Non-Distended Musculoskeletal MS Exam: Joints Intact MS Remarks contracture right wrist Integumentary Skin Exam: Warm, Dry Extremeties Extremities Exam: No Edema, Pedal Pulses Palpable Neurologic Neuro Exam: Alert, Awake Neuro Remarks right sided hemiparesis, prev. stroke Psychiatric Psych Exam: Appropriate Responses VTE Prophylaxis VTE Prophylaxis Meds: Heparin Assessment/Plan Problem List: (1) Altered mental status (2) Phenytoin toxicity (3) H/O: CVA (cerebrovascular accident) (4) COPD exacerbation (5) Hypertension (6) Seizure (7) Hyperlipidemia (8) Anemia (9) Hyponatremia Assessment/Plan Neuro checks Seizure precautions Appreciate neurology input Recommends to continue checking Dilantin level; when less than 20, resume Dilantin at 100 mg by mouth twice a day Dilantin level 28.2, trending down Continue Vimpat and Keppra Noted with fine bibasilar Rales Initial chest x-ray showed atelectasis Discontinue IV fluids Monitor her respiratory status, no distress noted History of anemia, etiology unclear, H&H trending down, initially hemoglobin 9/ hematocrit 28.9. H&H today 7.7 and 20 4. We'll check iron studies Stools for occult blood Sodium level improving Continue to monitor BMP PT for eval and treatment Out of bed to chair Repeat labs in the morning Monitor H&H Continue with present treatment D/W nurse D/W patient D/W Dr. Champion This patient was seen by myself and Dr. Champion, this note is written on his behalf. Problem Qualifiers (1) Altered mental status: Qualified Code: R41.82 - Altered mental status, unspecified altered mental status type (2) Phenytoin toxicity: Qualified Code: T42.0X1A - Phenytoin toxicity, accidental or unintentional, initial encounter (3) Hypertension: Qualified Code: I10 - Essential hypertension (4) Hyperlipidemia: Qualified Code: E78.5 - Hyperlipidemia, unspecified hyperlipidemia type (5) Anemia: Qualified Code: D64.9 - Anemia, unspecified type Dominga Roman Aug 31, 2016 07:35
[2016-08-31 07:43] LABS: HEMATOCRIT 24.2 % (39.0-51.0); MEAN CELL VOLUME 61.6 FL (80.0-100.0); MEAN CORPUSCULAR HEMOGLOBIN 19.6 PG (27.0-34.0); MEAN CORPUSCULAR HGB CONC 31.7 % (32.0-36.0); PLATELET COUNT 495 TH/MM3 (150-450); RED BLOOD COUNT 3.92 MIL/MM3 (4.50-5.90); RED CELL DISTRIBUTION WIDTH 19.4 % (11.6-17.2); WHITE BLOOD COUNT 9.4 TH/MM3 (4.0-11.0)
[2016-08-31 07:57] LABS: BICARBONATE 26.3 MEQ/L (21.0-32.0); POTASSIUM 3.8 MEQ/L (3.5-5.1)
[2016-08-31] MEDS: SODIUM CHLORIDE 0.9% FLUSH 5 ML FLUSH FLUSH SCH ×2 (09:00→19:34)
[2016-08-31] MEDS: HEPARIN SODIUM - SQ 10,000 UNITS/ML VIAL SQ SCH ×2 (09:26→19:34)
[2016-08-31] MEDS: ALPRAZolam 1 MG TAB PO SCH ×2 (09:26→19:33)
[2016-08-31] MEDS: levETIRAcetam 500 MG TAB PO SCH ×2 (09:27→19:33)
[2016-08-31] MEDS: DOCUSATE SODIUM 100 MG CAP PO SCH ×2 (09:27→19:33)
[2016-08-31 09:34] LABS: RETIC % 1.5 % (0.4-3.0)
[2016-08-31 10:00] LABS: FERRITIN 21 NG/ML (26-388); TRANSFERRIN IRON PROFILE 227 MG/DL (200-360)
[2016-09-01] VITALS (9 sets, daily range): BP systolic 106–130; BP diastolic 55–78; PULSE 72–84; RESP 18–20; TEMP 97–99.2; O2SAT 92–97
[2016-09-01] MEDS: LACOSAMIDE 100 MG TAB PO SCH (08:35)
[2016-09-01] MEDS: ALPRAZolam 1 MG TAB PO SCH ×2 (08:35→20:29)
[2016-09-01] MEDS: DOCUSATE SODIUM 100 MG CAP PO SCH ×2 (08:35→20:29)
[2016-09-01] MEDS: levETIRAcetam 500 MG TAB PO SCH ×2 (08:35→20:29)
[2016-09-01] MEDS: HEPARIN SODIUM - SQ 10,000 UNITS/ML VIAL SQ SCH ×2 (08:35→20:29)
[2016-09-01] MEDS: SODIUM CHLORIDE 0.9% FLUSH 5 ML FLUSH FLUSH SCH ×2 (08:35→20:29)
[2016-09-01 09:08] LABS: HEMATOCRIT 25.6 % (39.0-51.0); MEAN CELL VOLUME 61.5 FL (80.0-100.0); MEAN CORPUSCULAR HEMOGLOBIN 19.4 PG (27.0-34.0); MEAN CORPUSCULAR HGB CONC 31.6 % (32.0-36.0); PLATELET COUNT 500 TH/MM3 (150-450); RED BLOOD COUNT 4.16 MIL/MM3 (4.50-5.90); RED CELL DISTRIBUTION WIDTH 20.1 % (11.6-17.2); WHITE BLOOD COUNT 9.5 TH/MM3 (4.0-11.0)
[2016-09-01 09:14] LABS: REVIEW FLAG FINAL
[2016-09-01 09:32] LABS: POTASSIUM 3.7 MEQ/L (3.5-5.1)
--- NOTE | 2016-09-01 09:38 | HHI.PR ---
Subjective Interval History Alert, oriented to place and self enjoying his breakfast Right-sided hemiparesis Mild tremors Denies any pain No chest pain No shortness of breath No acute changes overnight Poor historian Review of Systems 12 point review of systems completed, limited, poor historian Vitals/Results Intake & Output 08/31/16 08/31/16 09/01/16 15:00 23:00 07:00 Intake Total 500 ml 120 ml Balance 500 ml 120 ml Intake Oral 120 ml IV Total 500 ml # Voids 2 # Bowel Movements 0 Vital Signs Vital Signs Date Time Temp Pulse Resp B/P Pulse Ox O2 Delivery O2 Flow Rate FiO2 09/01/16 07:00 97.0 78 20 106/63 96 09/01/16 06:45 84 09/01/16 04:00 99.2 77 18 130/55 93 09/01/16 03:00 97.2 81 19 128/69 97 09/01/16 01:17 98.2 82 19 120/70 96 08/31/16 20:30 98.2 80 19 125/75 94 08/31/16 20:00 99 08/31/16 16:03 81 18 131/75 95 08/31/16 12:41 75 18 109/55 95 CBC/BMP: 09/01/16 0810 09/01/16 0810 Lab Results Laboratory Tests Test 09/01/16 08:10 White Blood Count 9.5 TH/MM3 Red Blood Count 4.16 MIL/MM3 Hemoglobin 8.1 GM/DL Hematocrit 25.6 % Mean Corpuscular Volume 61.5 FL Mean Corpuscular Hemoglobin 19.4 PG Mean Corpuscular Hemoglobin 31.6 % Concent Red Cell Distribution Width 20.1 % Platelet Count 500 TH/MM3 Mean Platelet Volume 6.3 FL Sodium Level 125 MEQ/L Potassium Level 3.7 MEQ/L Chloride Level 91 MEQ/L Carbon Dioxide Level 25.0 MEQ/L Anion Gap 9 MEQ/L Blood Urea Nitrogen 5 MG/DL Creatinine 0.35 MG/DL Estimat Glomerular Filtration 249 ML/MIN Rate Random Glucose 80 MG/DL Calcium Level 7.8 MG/DL Phenytoin (Dilantin) Level 22.1 MCG/ML Physical Exam General General Appearance: Well Developed, No Acute Distress, Comfortable Eyes Eye Exam: Pupils Equal, Pupils Reactive Ears & Nose Ears & Nose Exam: Nasal Mucosa [place] Throat Throat Exam: Oral Mucosa [place] & Moist Neck Neck Exam: Neck Supple, Trachea Midline Cardiology CV Exam: Regular, Good Perfusion Gastrointestinal/Abdomen GI Exam: Soft, Non-Tender, Bowel Sounds Present, Non-Distended Musculoskeletal MS Exam: Joints Intact Integumentary Skin Exam: Warm, Dry Extremeties Extremities Exam: No Edema, Pedal Pulses Palpable Neurologic Neuro Exam: Alert, Awake Psychiatric Psych Exam: Appropriate Responses VTE Prophylaxis VTE Prophylaxis Meds: Heparin Assessment/Plan Problem List: (1) Altered mental status (2) Phenytoin toxicity (3) H/O: CVA (cerebrovascular accident) (4) COPD exacerbation (5) Hypertension (6) Seizure (7) Hyperlipidemia (8) Anemia (9) Hyponatremia Assessment/Plan Neuro checks Seizure precautions Appreciate neurology input Recommends to continue checking Dilantin level; when less than 20, resume Dilantin at 100 mg by mouth twice a day Dilantin level 22.1, trending down. As trending down will restart Dilantin 100 mg by mouth from tomorrow Continue Vimpat and Keppra Noted with fine bibasilar Rales. Resolved Initial chest x-ray showed atelectasis Discontinue IV fluids Monitor her respiratory status, no distress noted History of anemia, etiology unclear, H&H stable, initially hemoglobin 9/ hematocrit 28.9. We'll check iron studies. Low iron start replacement Stools for occult blood as outpatient Sodium level stable Continue to monitor BMP as outpatient PT for eval and treatment Out of bed to chair Repeat labs in few days Plan to discharge him back to his facility D/W nurse D/W patient Problem Qualifiers (1) Altered mental status: Qualified Code: R41.82 - Altered mental status, unspecified altered mental status type (2) Phenytoin toxicity: Qualified Code: T42.0X1A - Phenytoin toxicity, accidental or unintentional, initial encounter (3) Hypertension: Qualified Code: I10 - Essential hypertension (4) Hyperlipidemia: Qualified Code: E78.5 - Hyperlipidemia, unspecified hyperlipidemia type (5) Anemia: Qualified Code: D64.9 - Anemia, unspecified type Alex Champion MD Sep 01, 2016 09:38
[2016-09-01] MEDS ORDERED: XANA1TAB2 PO (09:41)
[2016-09-01] MEDS ORDERED: DILA100C PO (09:41)
[2016-09-01] MEDS ORDERED: HYDR-3580 PO (09:41)
[2016-09-01] MEDS ORDERED: DOCU1CAP39 PO (09:41)
[2016-09-01] MEDS ORDERED: FERR325T PO (09:43)
--- NOTE | 2016-09-01 09:49 | HHI.DS ---
Discharge Summary Admission Date Aug 30, 2016 at 18:44 Admitting Diagnosis phenytoin toxicity (1) Encephalopathy acute Diagnosis: Principal (2) Impaired mobility and activities of daily living Diagnosis: Secondary (3) Anemia Diagnosis: Principal (4) Hyponatremia Diagnosis: Principal (5) Seizure Diagnosis: Principal (6) Altered mental status Diagnosis: Principal (7) Phenytoin toxicity Diagnosis: Principal (8) H/O: CVA (cerebrovascular accident) Diagnosis: Secondary Brief History Patient was admitted because altered mental status. 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 Dilantin was taken off. She was seen and followed by neurologist. Her atenolol was coming down slowly. Patient medication it is improving. And now back to baseline. As per neurologist can can restart Dilantin once his Dilantin level is less than 20. Patient has anemia but is stable H&H. He has low iron. Plan for iron supplements. He has chronic hyponatremia. Now stable level. Asymptomatic. As patient is overall a stable plan to discharge him back to his facility to be followed by his primary care DrBrandon and neurology as outpatient. CBC/BMP: 09/01/16 0810 09/01/16 0810 Significant Findings Laboratory Tests Test 08/29/16 08/30/16 08/31/16 09/01/16 09:50 08:09 06:44 08:10 Red Blood Count 4.32 MIL/MM3 4.06 MIL/MM3 3.92 MIL/MM3 4.16 MIL/MM3 (4.50-5.90) (4.50-5.90) (4.50-5.90) (4.50-5.90) Hemoglobin 8.9 GM/DL 7.9 GM/DL 7.7 GM/DL 8.1 GM/DL (13.0-17.0) (13.0-17.0) (13.0-17.0) (13.0-17.0) Hematocrit 28.1 % 25.2 % 24.2 % 25.6 % (39.0-51.0) (39.0-51.0) (39.0-51.0) (39.0-51.0) Mean Corpuscular Volume 65.1 FL 62.1 FL 61.6 FL 61.5 FL (80.0-100.0) (80.0-100.0) (80.0-100.0) (80.0-100.0) Mean Corpuscular Hemoglobin 20.5 PG 19.4 PG 19.6 PG 19.4 PG (27.0-34.0) (27.0-34.0) (27.0-34.0) (27.0-34.0) Mean Corpuscular Hemoglobin 31.6 % 31.2 % 31.7 % 31.6 % Concent (32.0-36.0) (32.0-36.0) (32.0-36.0) (32.0-36.0) Red Cell Distribution Width 20.1 % 20.0 % 19.4 % 20.1 % (11.6-17.2) (11.6-17.2) (11.6-17.2) (11.6-17.2) Mean Platelet Volume 6.2 FL 6.4 FL 6.4 FL 6.3 FL (7.0-11.0) (7.0-11.0) (7.0-11.0) (7.0-11.0) Sodium Level 124 MEQ/L 129 MEQ/L 128 MEQ/L 125 MEQ/L (136-145) (136-145) (136-145) (136-145) Potassium Level 3.4 MEQ/L 3.3 MEQ/L (3.5-5.1) (3.5-5.1) Chloride Level 93 MEQ/L 94 MEQ/L 93 MEQ/L 91 MEQ/L (98-107) (98-107) (98-107) (98-107) Carbon Dioxide Level 19.8 MEQ/L (21.0-32.0) Blood Urea Nitrogen 2 MG/DL (7-18) 4 MG/DL (7-18) 4 MG/DL (7-18) 5 MG/DL (7-18) Creatinine 0.37 MG/DL 0.36 MG/DL 0.35 MG/DL 0.35 MG/DL (0.60-1.30) (0.60-1.30) (0.60-1.30) (0.60-1.30) Random Glucose 119 MG/DL 71 MG/DL (74-106) (74-106) Calcium Level 7.4 MG/DL 7.7 MG/DL 7.9 MG/DL 7.8 MG/DL (8.5-10.1) (8.5-10.1) (8.5-10.1) (8.5-10.1) Protein Corrected Calcium 7.9 MG/DL (8.5-10.1) Total Protein 6.2 GM/DL (6.4-8.2) Phenytoin (Dilantin) Level 37.3 MCG/ML 34.6 MCG/ML 28.2 MCG/ML 22.1 MCG/ML (10.0-20.0) (10.0-20.0) (10.0-20.0) (10.0-20.0) Platelet Count 485 TH/MM3 495 TH/MM3 500 TH/MM3 (150-450) (150-450) (150-450) Iron Level 14 MCG/DL (65-175) Percent Iron Saturation 4.4 % (20-50) Ferritin 21 NG/ML (26-388) Pt Condition on Discharge: Good Discharge Disposition: Discharge to SNF Discharge Instructions DIET: Follow Instructions for: Heart Healthy Diet Activities you can perform: Weight Bearing as Tali Follow up Referrals: Neurology - 4 Weeks PCP Follow-up - 2-3 Days New Medications: Ferrous Sulfate (Ferrous Sulfate) 325 Mg Tab 325 MG PO DAILY Nutritional Supplement #30 Ref 0 TAB Docusate Sodium (Dok) 100 Mg Cap 100 MG PO Q12H constipation #60 CAP Changed Medications: Hydrocodone-Acetaminophen (Hydrocodone-Acetaminophen) 7.5-325 mg Tab 0.5 TAB PO Q12HR PRN PAIN #30 Ref 0 TAB (Changed from: 1 TAB) Phenytoin Extended (Dilantin) 100 Mg Cap 100 MG PO BID Control Seizures #60 Ref 0 CAP (Changed from: 300 MG; 180) Continued Medications: Alprazolam (Xanax) 1 Mg Tab 1 MG PO BID Anxiety #28 Ref 0 TAB (This prescription has been renewed) Cdwjdtpj-Jhmbnyysy-Lfscxjcrfqe Liq (Maalox Advanced Maximum Strength Liq) 400- 400-40 Mg/5 Ml Susp 20 ML PO Q12HR Take between meals or as directed. Shake well. Maximum 60 ml/24 hrs. PRN INDIGESTION Ref 0 ML Gabapentin (Gabapentin) 300 Mg Cap 300 MG PO X 1 DOSE Pain #1 Ref 0 CAP Lacosamide (Vimpat) 200 Mg Tab 200 MG PO EVERY OTHER DAY Control Seizures #60 Ref 0 TAB Levetiracetam (Keppra) 500 Mg Tab 500 MG PO Q12HR sz Days 30 Ref 11 TAB Multiple Vitamins W/ Minerals (Multi-Vitamin/Minerals) 1 Tab Tab 1 TAB PO DAILY Nutritional Supplement Pravastatin (Pravastatin) 40 Mg Tab 40 MG PO HS Cholesterol Management #30 Ref 0 TAB Saccharomyces Boulardii (Florastor) 250 Mg Cap 250 MG PO BID Nutritional Supplement Days 10 Ref 0 CAP Trazodone (Trazodone) 50 Mg Tab 50 MG PO HS Insomnia #30 Ref 0 TAB Discontinued Medications: Ciprofloxacin (Cipro) 500 Mg Tab 500 MG PO BID Infection Days 7 Ref 0 TAB Alex Champion MD Sep 01, 2016 09:49
[2016-09-01] MEDS ORDERED: RESP: ALBUTEROL 2.5 MG/IPRATROPIUM 0.5 MG NEB (PRN) NEB (23:30)
[2016-09-02] VITALS: BP 130/78; PULSE 75; RESP 17; TEMP 97.6; O2SAT 96
[2016-09-02 08:00] VITALS: BP 130/68; PULSE 86; RESP 20; TEMP 97.8; O2SAT 94
--- NOTE | 2016-09-02 09:38 | HHI.PR ---
Subjective Interval History Feeling better offering no complaint Review of system for 10 point point system otherwise unremarkable Vitals/Results Intake & Output 09/01/16 09/01/16 09/02/16 15:00 23:00 07:00 Intake Total 360 ml 240 ml 120 ml Output Total 250 ml 250 ml 500 ml Balance 110 ml -10 ml -380 ml Intake Oral 360 ml 240 ml 120 ml Output Urine Total 250 ml 250 ml 500 ml # Voids 1 1 # Bowel Movements 0 0 0 Vital Signs Vital Signs Date Time Temp Pulse Resp B/P Pulse Ox O2 Delivery O2 Flow Rate FiO2 09/02/16 00:00 97.6 75 17 130/78 96 09/01/16 20:00 98.8 75 18 110/67 95 09/01/16 20:00 77 09/01/16 15:50 97.9 81 20 128/78 97 09/01/16 11:45 97.2 72 20 112/64 92 09/01/16 11:20 76 CBC/BMP: 09/01/16 0810 09/01/16 0810 Physical Exam General General Appearance: Well Developed, No Acute Distress, Comfortable Eyes Eye Exam: Pupils Equal, Pupils Reactive Ears & Nose Ears & Nose Exam: Nasal Mucosa [place] Throat Throat Exam: Oral Mucosa [place] & Moist Neck Neck Exam: Neck Supple, Trachea Midline Cardiology CV Exam: Regular, Good Perfusion Gastrointestinal/Abdomen GI Exam: Soft, Non-Tender, Bowel Sounds Present, Non-Distended Musculoskeletal MS Exam: Joints Intact Integumentary Skin Exam: Warm, Dry Extremeties Extremities Exam: No Edema, Pedal Pulses Palpable Neurologic Neuro Exam: Alert, Awake Psychiatric Psych Exam: Appropriate Responses VTE Prophylaxis VTE Prophylaxis Meds: Heparin Assessment/Plan Problem List: (1) Altered mental status (2) Phenytoin toxicity (3) H/O: CVA (cerebrovascular accident) (4) COPD exacerbation (5) Hypertension (6) Seizure (7) Hyperlipidemia (8) Anemia (9) Hyponatremia Assessment/Plan Neuro checks Seizure precautions Appreciate neurology input Recommends to continue checking Dilantin level; when less than 20, resume Dilantin at 100 mg by mouth twice a day Dilantin level 22.1, trending down. As trending down will restart Dilantin 100 mg by mouth from tomorrow Continue Vimpat and Keppra Noted with fine bibasilar Rales. Resolved Initial chest x-ray showed atelectasis Discontinue IV fluids Monitor her respiratory status, no distress noted History of anemia, etiology unclear, H&H stable, initially hemoglobin 9/ hematocrit 28.9. We'll check iron studies. Low iron start replacement Stools for occult blood as outpatient Sodium level stable Continue to monitor BMP as outpatient PT for eval and treatment Out of bed to chair Repeat labs in few days IN SNF Plan to discharge him back to his facility D/W nurse D/W patient Discussed with correctional counselor/case manager hopefully DC to SNF today awaiting for bed availability Problem Qualifiers (1) Altered mental status: Qualified Code: R41.82 - Altered mental status, unspecified altered mental status type (2) Phenytoin toxicity: Qualified Code: T42.0X1A - Phenytoin toxicity, accidental or unintentional, initial encounter (3) Hypertension: Qualified Code: I10 - Essential hypertension (4) Hyperlipidemia: Qualified Code: E78.5 - Hyperlipidemia, unspecified hyperlipidemia type (5) Anemia: Qualified Code: D64.9 - Anemia, unspecified type Alex Champion MD Sep 02, 2016 09:38
[2016-09-02] MEDS: levETIRAcetam 500 MG TAB PO SCH (10:23)
[2016-09-02] MEDS: DOCUSATE SODIUM 100 MG CAP PO SCH (10:23)
[2016-09-02] MEDS: ALPRAZolam 1 MG TAB PO SCH (10:23)
[2016-09-02] MEDS: SODIUM CHLORIDE 0.9% FLUSH 5 ML FLUSH FLUSH SCH (10:24)
[2016-09-02] MEDS: HEPARIN SODIUM - SQ 10,000 UNITS/ML VIAL SQ SCH (10:24)
[2016-09-02 12:00] VITALS: BP 94/56; PULSE 82; RESP 22; TEMP 97.8; O2SAT 92
== END 2016-09-02 15:48 | DRG 917 ==
LOC: NEDAMB 12:42 → NEDA 17:37 → INTOOBSV 17:37 → NEPHCDU 22:19 → OBSVTOIN 08-30 18:44 → HOCA 09-01 03:10
PROVIDERS: ADMIT Specialist; ATTEND Specialist
DX: T42.0X1A Poisoning by hydantoin derivatives, accidental (unintentional), initial encounter (principal); G92 Toxic encephalopathy; G93.89 Other specified disorders of brain; I69.351 Hemiplegia and hemiparesis following cerebral infarction affecting right dominant side; E87.1 Hypo-osmolality and hyponatremia; I10 Essential (primary) hypertension; E11.9 Type 2 diabetes mellitus without complications; D63.8 Anemia in other chronic diseases classified elsewhere; J44.1 Chronic obstructive pulmonary disease with (acute) exacerbation; I69.328 Other speech and language deficits following cerebral infarction; R41.82 Altered mental status, unspecified; Y92.129 Unspecified place in nursing home as the place of occurrence of the external cause; M19.90 Unspecified osteoarthritis, unspecified site; E78.00 Pure hypercholesterolemia, unspecified; K44.9 Diaphragmatic hernia without obstruction or gangrene; G47.30 Sleep apnea, unspecified; Z72.0 Tobacco use; F41.9 Anxiety disorder, unspecified; F32.9 Major depressive disorder, single episode, unspecified; G43.909 Migraine, unspecified, not intractable, without status migrainosus; E78.5 Hyperlipidemia, unspecified; D75.89 Other specified diseases of blood and blood-forming organs; G40.909 Epilepsy, unspecified, not intractable, without status epilepticus; H55.00 Unspecified nystagmus
CPT/HCPCS: 70450; 71010; 80048; 80053; 80177; 80185; 80307; 80329; 81001; 82607; 82728; 82948; 83540; 83550; 84155; 85025; 85027; 85044; 85610; 85730; 93005; 94664; G0378; G0480; J1644; J2405; J7030

== ENCOUNTER 2017-04-16 14:43 | Inpatient (IN) | payer MEDICARE, BC ==
[2017-04-16] VITALS (8 sets, daily range): BP systolic 73–136; BP diastolic 42–74; PULSE 78–87; RESP 16–24; TEMP 98.2–99.1; O2SAT 92–97
[~2017-04-16] VITALS: Ht 177.8 cm; Wt 57.9 kg
[~2017-04-16 14:43] MED LIST changes: -BACL10TA PO; +DOCU1CAP39 PO; +FERR325T PO; +FLOR250C PO; +GABA300C5 PO; -LEVA500T PO; -LORA-474 PO; +MAALSUS18 PO; +MULTTAB62 PO; -PANT40TA3 PO; -PARO40TA2 PO; -PLAV75TA29 PO; +TRAZ50TA12 PO; +XANA1TAB2 PO
--- NOTE | 2017-04-16 14:50 | PD ---
Physical Exam Time Seen by Provider: 14:48 Narrative 72 y/o male here with persistent cough and difficulty swallowing for 4-5 days. His spoke to Dr. Sims who recommended coming to ER. Vital signs reviewed. Seen at triage desk. Awaiting bed placement. Data Data Last Documented VS Vital Signs Date Time Temp Pulse Resp B/P (MAP) Pulse Ox O2 Delivery O2 Flow Rate FiO2 04/16/17 14:46 99.1 80 24 122/72 (89) 95 Room Air [facility] Medical Record Reviewed: Yes Supervised Visit with LAYA: Mukund Moss Apr 16, 2017 14:50
[2017-04-16] MEDS ORDERED: SODIUM CHLORIDE 0.9% FLUSH 10 ML FLUSH IVF PRN (16:15)
--- NOTE | 2017-04-16 16:35 | RADRPT ---
EXAM DATE/TIME: 04/16/2017 16:18 [place] COMPARISON: CHEST SINGLE AP, August 28, 2016, 16:49. INDICATIONS : Shortness of breath. MEDICAL HISTORY : Cerebrovascular disease. Cardiovascular disease Seizures. Left brain CVA. SURGICAL HISTORY : None. ENCOUNTER: Initial ACUITY: 2 days PAIN SCORE: 0/10 LOCATION: chest FINDINGS: No significant new focal pleural or parenchymal opacities. Cardiomediastinal contours are within norm al limits. Left shoulder arthroplasty again noted. Bony thorax is intact. CONCLUSION: 1. No acute abnormality or significant interval change. Stuart Ortiz MD on April 16, 2017 at 16:33 Board Certified Radiologist. This report was verified electronically.
--- NOTE | 2017-04-16 16:43 | PD ---
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 Patient states one week history of more than usual difficulty swallowing and keeping food down. He has history of increased reflux symptoms and heartburn in the past couple of weeks. Patient denies fever, chills, or other symptoms. Patient has history of similar symptoms with Dilantin toxicity. The patient's family states his voice sounds thick over the past 2 weeks. Patient denies significant sinus congestion. This is a patient of Dr. Zaidi who felt he should be seen today for further evaluation and treatment. PFSH Past Medical History Arthritis: Yes Asthma: No Autoimmune Disease: No Anxiety: Yes Depression: Yes Heart Rhythm Problems: No Cancer: No Cardiovascular Problems: Yes High Cholesterol: Yes Chest Pain: Yes Congestive Heart Failure: No COPD: No Cerebrovascular Accident: Yes (one time per patient, unable to recall when) Diabetes: Yes Diminished Hearing: No Endocrine: No Gastrointestinal Disorders: No GERD: No Genitourinary: No Headaches: Yes Hiatal Hernia: Yes Hypertension: Yes (htn) Immune Disorder: No Implanted Vascular Access Dvce: Yes Kidney Stones: No Musculoskeletal: Yes Neurologic: Yes Psychiatric: Yes (anger management issues) Reproductive: No Respiratory: Yes Migraines: Yes Renal Failure: No Seizures: Yes (one time, one year ago) Sleep Apnea: Yes Thyroid Disease: No Ulcer: No Past Surgical History Abdominal Surgery: No AICD: No Arteriovenous Shunt: No Cardiac Surgery: No Ear Surgery: No Endocrine Surgery: No Eye Surgery: No Genitourinary Surgery: No Gynecologic Surgery: No Insulin Pump: No Joint Replacement: No Neurologic Surgery: No Oral Surgery: No Pacemaker: No Thoracic Surgery: No Other Surgery: Yes Social History Alcohol Use: No (UNK) Tobacco Use: No Substance Use: No Allergies-Medications (Allergen,Severity, Reaction): Coded Allergies: sulfamethoxazole (Verified Allergy, Unknown, 04/16/17) trimethoprim (Verified Allergy, Unknown, 04/16/17) Reported Meds & Prescriptions Reported Meds & Active Scripts Active Xanax (Alprazolam) 1 Mg Tab 1 Mg PO BID Hydrocodone-Acetaminophen 7.5-325 mg Tab 0.5 Tab PO Q12HR PRN Dilantin (Phenytoin Extended) 100 Mg Cap 100 Mg PO BID Keppra (Levetiracetam) 500 Mg Tab 500 Mg PO Q12HR 30 Days Reported Albuterol Neb (Albuterol Sulfate) 2.5 Mg/3 Ml Neb 2.5 Mg NEB Q4HR NEB PRN Ferrous Sulfate 325 Mg (65 Mg Iron) Tablet 325 Mg PO DAILY Promethazine (Promethazine HCl) 12.5 Mg Tab 12.5 Mg PO Q4H PRN Aspirin 81 Mg Chew 81 Mg CHEW DAILY Paroxetine (Paroxetine HCl) 40 Mg Tab 40 Mg PO DAILY Trazodone (Trazodone HCl) 50 Mg Tab 50 Mg PO HS Multi-Vitamin/Minerals (Multiple Vitamins W/ Minerals) 1 Tab Tab 1 Tab PO DAILY Pravastatin 40 Mg Tab 40 Mg PO HS Vimpat (Lacosamide) 200 Mg Tab 200 Mg PO EVERY OTHER DAY Review of Systems Except as stated in HPI: all other systems reviewed are Neg General / Constitutional: No: Fever Eyes: No: Visual changes HENT: Positive: Rhinitis, Rhinorrhea, Congestion, No: Headaches, Vertigo, Lightheadedness, Sore Throat, Nosebleed, Neck Stiffness, Neck Pain, Ear Discharge, Earache Cardiovascular: Positive: Dyspnea on exertion, No: Chest Pain or Discomfort, Palpitations, Irregular Rhythm, Tachycardia, Diaphoresis Respiratory: Positive: Cough, Shortness of Breath, No: Wheezing, Sneezing, Orthopnea, Hemoptysis, Stridor, Night Sweats, Pleuritic Pain Gastrointestinal: Positive: Dysphagia, Loss of Appetite, Other (patient is having difficulty keeping anything down the last 2 weeks.), No: Nausea, Vomiting , Diarrhea, Abdominal Pain Genitourinary: No: Dysuria Musculoskeletal: No: Myalgias, Arthralgias, Limited ROM, Pain Skin: No Rash Neurologic: No: Weakness Psychiatric: No: Depression Endocrine: No: Polydipsia Hematologic/Lymphatic: No: Easy Bruising Physical Exam Narrative GENERAL: Patient appears in no obvious distress. SKIN: Warm and dry. Normal color. Normal turgor. HEAD: Atraumatic. Normocephalic. EYES: Pupils equal and round. No scleral icterus. No injection or drainage. ENT: No nasal bleeding or discharge. Mucous membranes pink and moist. Pharynx is clear. Patient has obvious right facial droop with weakness in the right posterior pharynx noted. NECK: Trachea midline. Supple and nontender. CARDIOVASCULAR: Regular rate and rhythm. RESPIRATORY: No accessory muscle use. Coarse breath sounds throughout to auscultation. Breath sounds equal bilaterally. GASTROINTESTINAL: Abdomen soft, non-tender, nondistended. Hepatic and splenic margins not palpable. MUSCULOSKELETAL: Extremities without clubbing, cyanosis, or edema. No obvious deformities. NEUROLOGICAL: Awake and alert. No obvious cranial nerve deficits. Motor grossly within normal limits. Five out of 5 muscle strength in the arms and legs. Normal speech. PSYCHIATRIC: Appropriate mood and affect; insight and judgment normal. Data Data Last Documented VS Vital Signs Date Time Temp Pulse Resp B/P (MAP) Pulse Ox O2 Delivery O2 Flow Rate FiO2 04/16/17 17:00 98.2 78 16 111/74 (86) 95 Room Air Orders Orders Chest, Single Ap (04/16/17 16:14) Sodium Chloride 0.9% Flush (Ns Flush) (04/16/17 16:15) Complete Blood Count With Diff (04/16/17 16:53) Comprehensive Metabolic Panel (04/16/17 16:53) Lipase (04/16/17 16:53) Prothrombin Time / Inr (Pt) (04/16/17 16:53) Act Partial Throm Time (Ptt) (04/16/17 16:53) Urinalysis - C+S If Indicated (04/16/17 16:53) Iv Access Insert/Monitor (04/16/17 16:53) Ecg Monitoring (04/16/17 16:53) Oximetry (04/16/17 16:53) NPO (04/16/17 16:53) Sodium Chlor 0.9% 1000 Ml Inj (Ns 1000 M (04/16/17 16:53) Sodium Chloride 0.9% Flush (Ns Flush) (04/16/17 17:00) Electrocardiogram (04/16/17 16:53) Famotidine Inj (Pepcid Inj) (04/16/17 17:00) Upper Gi Series With Kub Manager Of Merchandising (04/16/17 ) Phenytoin (Dilantin) (04/16/17 16:59) Abdomen, Kub Only (04/16/17 ) Vascular Access Team Consult/P PRN (04/16/17 18:28) Vascular Poc Ultrasound (04/16/17 ) Sodium Chlor 0.9% 1000 Ml Inj (Ns 1000 M (04/16/17 19:30) Sodium Polysty Sulfate Liq (Kayexalate L (04/16/17 19:30) Insulin Human Regular Inj (Novolin R Inj (04/16/17 19:30) Dextrose 50% In Unvia (Syr) Inj (D50w (Syr (04/16/17 19:30) Calcium Gluconate Inj (Calcium Gluconate (04/16/17 19:30) Labs Laboratory Tests Test 04/16/17 18:05 White Blood Count 17.7 TH/MM3 Red Blood Count 4.80 MIL/MM3 Hemoglobin 15.0 GM/DL Hematocrit 44.5 % Mean Corpuscular Volume 92.7 FL Mean Corpuscular Hemoglobin 31.4 PG Mean Corpuscular Hemoglobin Concent 33.8 % Red Cell Distribution Width 13.0 % Platelet Count 497 TH/MM3 Mean Platelet Volume 6.2 FL Neutrophils (%) (Auto) 60.2 % Lymphocytes (%) (Auto) 26.5 % Monocytes (%) (Auto) 6.6 % Eosinophils (%) (Auto) 6.3 % Basophils (%) (Auto) 0.4 % Neutrophils # (Auto) 10.6 TH/MM3 Lymphocytes # (Auto) 4.7 TH/MM3 Monocytes # (Auto) 1.2 TH/MM3 Eosinophils # (Auto) 1.1 TH/MM3 Basophils # (Auto) 0.1 TH/MM3 CBC Comment DIFF FINAL Differential Comment Blood Urea Nitrogen 5 MG/DL Creatinine 0.48 MG/DL Random Glucose 92 MG/DL Total Protein 8.0 GM/DL Albumin 3.1 GM/DL Calcium Level 8.8 MG/DL Alkaline Phosphatase 415 U/L Aspartate Amino Transf (AST/SGOT) 53 U/L Alanine Aminotransferase (ALT/SGPT) 24 U/L Total Bilirubin 0.6 MG/DL Sodium Level 120 MEQ/L Potassium Level 5.2 MEQ/L Chloride Level 89 MEQ/L Carbon Dioxide Level 23.1 MEQ/L Anion Gap 8 MEQ/L Estimat Glomerular Filtration Rate 172 ML/MIN Lipase 38 U/L MDM Medical Decision Making Medical Screen Exam Complete: Yes Emergency Medical Condition: Yes Medical Record Reviewed: Yes Differential Diagnosis Aspiration pneumonia. Cardiac syndrome. Esophageal stricture. Reflux. Electrolyte abnormality. Phenytoin toxicity. Narrative Course Patient appears medically stable at time of exam. Chest x-ray ordered in triage is negative for acute process per radiologist. Labs ordered including CBC, CMP, lipase, Dilantin level, and urinalysis. Upper GI series is performed, showing no obvious esophageal stricture, however small hiatal hernia is identified. Esophageal motility is decreased per radiologist. IV access is obtained with vascular access team. Patient is given 20 mg Pepcid IV and 1000 mL was normal saline bolus. EKG shows a normal sinus rhythm with nonspecific T-wave abnormalities CBC shows leukocytosis of 17.7. Platelet count is high at 497. CMP shows sodium of 120, potassium of 5.2, chloride of 89, BUN of 5, creatinine of 0.48. AST is 53, alkaline phosphatase is 415, albumin is 3.1, lipase of 38 Call was placed as well as for admission. Patient was discussed with Dr. Salgado, who agreed to admit the patient. Orders were added for Kayexalate 30 g by mouth, 10 units regular insulin IV as well as D50 1 amp IV and calcium gluconate 25 mg IV. Diagnosis Primary Impression: Hyponatremia Additional Impression: Hyperkalemia Admitting Information Admitting Physician Requests: Admit Condition: Stable Anurag Freeman Apr 16, 2017 16:43
[2017-04-16] MEDS ORDERED: SODIUM CHLOR 0.9% 1000 ML INJ 1,000 ML IV SCH ×2 (16:53→19:30)
[2017-04-16] MEDS ORDERED: FAMOTIDINE 20 MG/2 ML VIAL IV PUSH ONE (17:00)
[2017-04-16] MEDS ORDERED: SODIUM CHLORIDE 0.9% FLUSH 10 ML FLUSH IV FLUSH PRN ×2 (17:00→21:45)
--- NOTE | 2017-04-16 17:11 | PD ---
Physical Exam Date Seen by Provider: Apr 16, 2017 Narrative Patient presents with a several week history of dysphagia. There is concern for possible aspiration. Data Data Last Documented VS Vital Signs Date Time Temp Pulse Resp B/P (MAP) Pulse Ox O2 Delivery O2 Flow Rate FiO2 04/16/17 14:46 99.1 80 24 122/72 (89) 95 Room Air Orders Orders Chest, Single Ap (04/16/17 16:14) Sodium Chloride 0.9% Flush (Ns Flush) (04/16/17 16:15) Complete Blood Count With Diff (04/16/17 16:53) Comprehensive Metabolic Panel (04/16/17 16:53) Lipase (04/16/17 16:53) Prothrombin Time / Inr (Pt) (04/16/17 16:53) Act Partial Throm Time (Ptt) (04/16/17 16:53) Urinalysis - C+S If Indicated (04/16/17 16:53) Iv Access Insert/Monitor (04/16/17 16:53) Ecg Monitoring (04/16/17 16:53) Oximetry (04/16/17 16:53) NPO (04/16/17 16:53) Sodium Chlor 0.9% 1000 Ml Inj (Ns 1000 M (04/16/17 16:53) Sodium Chloride 0.9% Flush (Ns Flush) (04/16/17 17:00) Electrocardiogram (04/16/17 16:53) Famotidine Inj (Pepcid Inj) (04/16/17 17:00) Upper Gi Series With Kub Drop Worker (04/16/17 ) Phenytoin (Dilantin) (04/16/17 16:59) MDM Supervised Visit with LAYA: Yes Narrative Course I, Dr. Cm, have reviewed the advance practice practitioner's documentation and am in agreement, met with the patient face to face, made the diagnosis, and the medical decision making was done by me. *My assessment and Findings: This patient has atrophy of the muscles of his right side with associated flexion contracture. He is awake and alert. A swallowing study has been ordered. Last Impressions Chest X-Ray 04/16/17 1614 Signed Impressions: Service Date/Time: Sunday, April 16, 2017 16:18 - CONCLUSION: 1. No acute abnormality or significant interval change. Stuart Ortiz MD Please see Sam Freeman's note for final diagnosis and disposition. Genie Cm MD Apr 16, 2017 17:11
[2017-04-16] MEDS ORDERED: ALBU0.08 NEB (17:29)
[2017-04-16] MEDS ORDERED: PARO40TA2 PO (17:29)
[2017-04-16] MEDS ORDERED: PROM12.54 PO (17:29)
[2017-04-16] MEDS ORDERED: ASPI81CH CHEW (17:29)
[2017-04-16] MEDS ORDERED: FERR325T8 PO (17:29)
--- NOTE | 2017-04-16 17:53 | RADRPT ---
EXAM DATE/TIME: 04/16/2017 17:31 [facility] COMPARISON: CHEST SINGLE AP, April 16, 2017, 16:18. INDICATIONS : Dysphagia and vomting. FLUORO TIME: 1.3 minutes IMAGE COUNT: 11 CONTRAST: 1. Liquid E-Z Paque Barium Sulfate (60% w/v, 41% w.w) MEDICAL HISTORY : Stroke. Cerebrovascular disease. Cardiovascular disease Seizures. SURGICAL HISTORY : None. ENCOUNTER: Initial ACUITY: 3 days PAIN SCORE: 0/10 LOCATION: esophagus and stomach. FINDINGS: Business Analyst radiograph: The bowel gas pattern is unremarkable. There are degenerative changes in the spine. A day examination demonstrates the patient have some difficulty initiating a swallow. Once a swallow was initiated there is no evidence of significant aspiration. The examination demonstrates a poor primary stripping wave in the esophagus and overall poor esophage al motility. There is no evidence of esophageal stricture. There is a hiatal hernia at the gastroesophageal junction. This is small in size. There was prompt transit of barium through the stomach into the duodenum. Only limited images of the stomach and duodenum were performed secondary to the patient's overall condition. Delayed KUB to eval uate the proximal small bowel will be performed. CONCLUSION: 1. No evidence of esophageal stricture. 2. Poor esophageal motility. 3. No evidence of aspiration. 4. Small hiatal hernia. 5. Delayed KUB is pending. Neeraj Alarcon MD on April 16, 2017 at 17:47 Board Certified Radiologist. This report was verified electronically.
--- NOTE | 2017-04-16 18:26 | RADRPT ---
EXAM DATE/TIME: 04/16/2017 18:05 [facility] COMPARISON: UPPER GI SERIES WITH KUB [address] LIGHT, April 16, 2017, 17:31. INDICATIONS : Follow up upper GI. MEDICAL HISTORY : Stroke. SURGICAL HISTORY : None. ENCOUNTER: Initial ACUITY: 1 day PAIN SCORE: 0/10 LOCATION: Bilateral abdomen. FINDINGS: Contrast from the upper GI has passed to the level of the proximal ileum. There is some retained cont rast in the lower esophagus. CONCLUSION: Some of the oral contrast is still in the patient's esophagus. Otherwise, contrast has passed normall y to the level of the mid/distal small bowel. Rian Benjamin MD on April 16, 2017 at 18:22 Board Certified Radiologist. This report was verified electronically.
[2017-04-16 18:27] LABS: AUTOMATED NEUTROPHIL # 10.6 TH/MM3 (1.8-7.7); BASOPHIL # 0.1 TH/MM3 (0-0.2); BASOPHIL % 0.4 % (0.0-2.0); EOSINOPHIL # 1.1 TH/MM3 (0-0.4); EOSINOPHIL % 6.3 % (0.0-4.0); HEMATOCRIT 44.5 % (39.0-51.0); HEMO FLAGS DIFF FINAL; LYMPH % 26.5 % (9.0-44.0); LYMPHOCYTE # 4.7 TH/MM3 (1.0-4.8); MEAN CELL VOLUME 92.7 FL (80.0-100.0); MEAN CORPUSCULAR HEMOGLOBIN 31.4 PG (27.0-34.0); MEAN CORPUSCULAR HGB CONC 33.8 % (32.0-36.0); MONO % 6.6 % (0.0-8.0); NEUT % 60.2 % (16.0-70.0); PLATELET COUNT 497 TH/MM3 (150-450); WHITE BLOOD COUNT 17.7 TH/MM3 (4.0-11.0)
[2017-04-16 18:41] LABS: ALKALINE PHOSPHATASE 415 U/L (45-117); ALT (GPT) 24 U/L (12-78); ANION GAP 8 MEQ/L (5-15); AST (GOT) 53 U/L (15-37); BICARBONATE 23.1 MEQ/L (21.0-32.0); BLOOD UREA NITROGEN 5 MG/DL (7-18); CHLORIDE 89 MEQ/L (98-107); GLOMERULAR FILTRATION RATE 172 ML/MIN (>89); POTASSIUM 5.2 MEQ/L (3.5-5.1); TOTAL BILIRUBIN ADULT 0.6 MG/DL (0.2-1.0)
[2017-04-16 19:01] LABS: SODIUM (NA) 120 MEQ/L (136-145)
[2017-04-16] MEDS ORDERED: SODIUM POLYSTYRENE SULFONATE SUSP 15 GM/60 ML CUP PO ONE (19:30)
[2017-04-16] MEDS ORDERED: CALCIUM GLUCONATE 10% 1 GM/10 ML VIAL IV PUSH ONE (19:30)
[2017-04-16] MEDS ORDERED: DEXTROSE 50% IN WATER 50 ML SYRINGE IV PUSH ONE ×2 (19:30→19:45)
[2017-04-16] MEDS ORDERED: INSULIN HUMAN REGULAR 1,000 UNITS/10 ML VIAL IV PUSH ONE (19:30)
[2017-04-16 20:01] LABS: APTT (PATIENT) 40.1 SEC (24.3-30.1); INTERNATIONAL NORMALIZED RATIO 1.1 RATIO; PROTHROMBIN TIME - PATIENT 12.3 SEC (9.8-11.6)
[2017-04-16] MEDS ORDERED: SODIUM CHLOR 0.9% 1000 ML INJ 1,000 ML IV ONE (20:15)
[2017-04-16] MEDS ORDERED: ALBUMIN HUMAN 25% 25 GM/100 ML BAGP IV ONE (20:30)
[2017-04-16 21:01] LABS: BLOOD, URINE NEG (NEG); COMMENT (UR) CULT NOT INDICATED; CULTURE IF INDICATED CULT NOT INDICATED; GLUCOSE,URINE 300 mg/dL (NEG); KETONE, URINE 10 mg/dL (NEG); MUCUS URINE FEW /lpf (OCC); NITRITE,URINE NEG (NEG); PH, URINE 6.5 (5.0-8.5); URINE COLOR YELLOW (YELLW/STRAW)
[2017-04-16] MEDS ORDERED: DEXT 5%-NACL 0.9% 1000 ML INJ 1,000 ML IV SCH (21:45)
[2017-04-16] MEDS ORDERED: SENNOSIDES 8.6 MG TAB PO PRN (21:45)
[2017-04-16] MEDS ORDERED: BISACODYL 10 MG SUPP RECTAL PRN (21:45)
[2017-04-16] MEDS ORDERED: ACETAMINOPHEN/HYDROcodone 325 MG/5 MG TAB PO PRN (21:45)
[2017-04-16] MEDS ORDERED: NALOXONE HCL 0.4 MG/ML AMP IV PUSH PRN (21:45)
[2017-04-16] MEDS ORDERED: MAGNESIUM HYDROXIDE SUSP 30 ML CUP PO PRN (21:45)
[2017-04-16] MEDS ORDERED: LACTULOSE SYRUP 20 GM/30 ML CUP PO PRN (21:45)
[2017-04-16] MEDS ORDERED: ACETAMINOPHEN 325 MG TAB PO PRN (21:45)
[2017-04-16] MEDS ORDERED: cloNIDine HCL 0.1 MG TAB PO PRN (21:45)
[2017-04-16] MEDS: HEPARIN SODIUM - SQ 10,000 UNITS/ML VIAL SQ SCH (22:25)
[2017-04-17] VITALS (12 sets, daily range): BP systolic 114–158; BP diastolic 58–79; PULSE 78–112; RESP 18–19; TEMP 97.6–99.5; O2SAT 91–98
[2017-04-17] MEDS: RESP: ALBUTEROL 2.5 MG/IPRATROPIUM 0.5 MG NEB (PRN) NEB (00:01)
[2017-04-17] MEDS: RESP: ALBUTEROL 2.5 MG/IPRATROPIUM 0.5 MG NEB (SCH) NEB ×4 (07:30→20:14)
--- NOTE | 2017-04-17 07:41 | EKG ---
Date Performed: 04/16/2017 Time Performed: 19:21:45 PTAGE: 72 years EKG: Sinus rhythm NORMAL ECG Since PREVIOUS TRACING , no significant change noted PREVIOUS TRACIN08/28/2016 14.53 DOCTOR: Naina Heath Interpretating Date/Time 04/17/2017 07:39:45
[2017-04-17] MEDS: DOCUSATE SODIUM 50 MG/SENNA 8.6 MG TAB PO SCH ×2 (09:00→20:02)
[2017-04-17] MEDS: SODIUM CHLORIDE 0.9% FLUSH 10 ML FLUSH IV FLUSH SCH ×2 (09:00→20:01)
[2017-04-17] MEDS: ALPRAZolam 1 MG TAB PO SCH ×3 (09:00→20:02)
--- NOTE | 2017-04-17 09:05 | PD.CONS ---
HPI History of Present Illness This is a 72 year old male who presented to the emergency room with difficulty swallowing and a persistent cough for the past 4-5 days. He is a poor historian. He does state that he has been having difficulty swallowing for the past 2 weeks and that this has progressively been worsening. He says he does okay with liquids, but solids seem to get caught in his lower esophagus. He reports this has been really bad over the past few days and he feels as though something is caught in his lower esophagus. He has frequent coughing with this. He denies nausea or vomiting, abdominal pain. He does have heartburn, on a daily basis and he takes an unknown medication for this. 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 Bx not done since he was on Plavix; severe gastritis, and duodenal bulb ulcer. Rpt. EGD was recommended for 2 months as outpatient. He has not followed up with our office. Attempted to call Salma Garcia at [phone] and [phone] and there was no answer, left message for her to return call. (Mercedes Romero) PFSH Past Medical History DM Focal Seizure HTN Right femur fracture CVA with right sided weakness Coronary artery disease Hyperlipidemia Muscle spasms Hx Iron deficiency anemia GERD Anemia Esophagitis Gastritis Duodenal bulb ulcer Past Surgical History Cardiac catheterization with stent placement Appendectomy Right femur repair EGD (Mercedes Romero) Coded Allergies: sulfamethoxazole (Verified Allergy, Unknown, 04/16/17) trimethoprim (Verified Allergy, Unknown, 04/16/17) Medications Allergies Coded Allergies Type Severity Reaction Last Updated Verified sulfamethoxazole Allergy Unknown 04/16/17 Yes trimethoprim Allergy Unknown 04/16/17 Yes Active Scripts Medications Dose Route/Sig Max Daily Dose Days Date Category Albuterol Neb (Albuterol Sulfate) 2.5 Mg/3 Ml Neb 2.5 Mg NEB Q4HR NEB PRN 04/16/17 Reported Ferrous Sulfate 325 Mg (65 Mg Iron) Tablet 325 Mg PO DAILY 04/16/17 Reported Promethazine (Promethazine HCl) 12.5 Mg Tab 12.5 Mg PO Q4H PRN 04/16/17 Reported Aspirin 81 Mg Chew 81 Mg CHEW DAILY 04/16/17 Reported Paroxetine (Paroxetine HCl) 40 Mg Tab 40 Mg PO DAILY 04/16/17 Reported Xanax (Alprazolam) 1 Mg Tab 1 Mg PO BID 09/01/16 Rx Hydrocodone-Acetaminophen 7.5-325 mg Tab 0.5 Tab PO Q12HR PRN 09/01/16 Rx Dilantin (Phenytoin Extended) 100 Mg Cap 100 Mg PO BID 09/01/16 Rx Trazodone (Trazodone HCl) 50 Mg Tab 50 Mg PO HS 08/28/16 Reported Multi-Vitamin/Minerals (Multiple Vitamins W/ Minerals) 1 Tab Tab 1 Tab PO DAILY 08/28/16 Reported Keppra (Levetiracetam) 500 Mg Tab 500 Mg PO Q12HR 30 07/26/16 Rx Pravastatin 40 Mg Tab 40 Mg PO HS 07/21/16 Reported Vimpat (Lacosamide) 200 Mg Tab 200 Mg PO EVERY OTHER DAY 07/21/16 Reported Family History Unable to obtain Social History No ETOH use, used to drink heavily in the past Quit smoking 2 years ago, prior to that he smoked 2 ppd since age 22. (Mercedes Romero) Review of Systems Constitutional: COMPLAINS OF: Fever, DENIES: Fatigue, Weight loss Respiratory: COMPLAINS OF: Cough Cardiovascular: DENIES: Chest pain Gastrointestinal: COMPLAINS OF: Difficulty Swallowing, Odynophagia, Heartburn, DENIES: Abdominal pain, Black stools, Bloody stools, Constipation, Diarrhea, Nausea, Vomiting Musculoskeletal: COMPLAINS OF: Joint pain Hematologic/lymphatic: COMPLAINS OF: Bruising Psychiatric: COMPLAINS OF: Confusion (Mercedes Romero) GI Exam Vitals I&O Vital Signs Date Time Temp Pulse Resp B/P (MAP) Pulse Ox O2 Delivery O2 Flow Rate FiO2 04/17/17 07:32 93 Nasal Cannula 3.00 04/17/17 04:29 99.1 91 18 122/58 (79) 91 04/17/17 01:20 80 04/17/17 00:29 97.6 78 18 125/66 (85) 97 04/17/17 00:05 96 Nasal Cannula 2.00 04/16/17 21:54 04/16/17 21:48 96 Nasal Cannula 3.00 04/16/17 21:30 84 17 136/63 (87) 96 Nasal Cannula 2.00 04/16/17 21:00 82 17 113/55 (74) 93 Nasal Cannula 2.00 04/16/17 20:30 86 17 107/66 (80) 92 Nasal Cannula 2.00 04/16/17 20:00 87 17 73/51 (58) 93 04/16/17 19:20 87 17 94/42 (59) 97 04/16/17 19:20 88 18 Room Air 04/16/17 17:00 98.2 78 16 111/74 (86) 95 Room Air 04/16/17 14:46 99.1 80 24 122/72 (89) 95 Room Air I/O 04/16/17 04/16/17 04/16/17 04/17/17 04/17/17 04/17/17 07:00 15:00 23:00 07:00 15:00 23:00 Intake Total 2000 ml Output Total 500 ml 800 ml Balance 1500 ml -800 ml Intake IV Total 2000 ml Output Urine Total 500 ml 800 ml # Voids 0 Imaging Last Impressions Chest X-Ray 04/16/17 1614 Signed Impressions: Service Date/Time: Sunday, April 16, 2017 16:18 - CONCLUSION: 1. No acute abnormality or significant interval change. Stuart Ortiz MD Upper GI Series 04/16/17 0000 Signed Impressions: Service Date/Time: Sunday, April 16, 2017 17:31 - CONCLUSION: 1. No evidence of esophageal stricture. 2. Poor esophageal motility. 3. No evidence of aspiration. 4. Small hiatal hernia. 5. Delayed KUB is pending. Neeraj Alarcon MD Abdomen X-Ray 04/16/17 0000 Signed Impressions: Service Date/Time: Sunday, April 16, 2017 18:05 - CONCLUSION: Some of the oral contrast is still in the patient's esophagus. Otherwise, contrast has passed normally to the level of the mid/distal small bowel. Rian Benjamin MD Laboratory Test 04/16/17 18:05 04/16/17 19:25 04/16/17 20:30 04/17/17 00:06 White Blood Count 17.7 TH/MM3 Red Blood Count 4.80 MIL/MM3 Hemoglobin 15.0 GM/DL Hematocrit 44.5 % Mean Corpuscular Volume 92.7 FL Mean Corpuscular Hemoglobin 31.4 PG Mean Corpuscular Hemoglobin Concent 33.8 % Red Cell Distribution Width 13.0 % Platelet Count 497 TH/MM3 Mean Platelet Volume 6.2 FL Neutrophils (%) (Auto) 60.2 % Lymphocytes (%) (Auto) 26.5 % Monocytes (%) (Auto) 6.6 % Eosinophils (%) (Auto) 6.3 % Basophils (%) (Auto) 0.4 % Neutrophils # (Auto) 10.6 TH/MM3 Lymphocytes # (Auto) 4.7 TH/MM3 Monocytes # (Auto) 1.2 TH/MM3 Eosinophils # (Auto) 1.1 TH/MM3 Basophils # (Auto) 0.1 TH/MM3 CBC Comment DIFF FINAL Differential Comment Blood Urea Nitrogen 5 MG/DL Creatinine 0.48 MG/DL Random Glucose 92 MG/DL Total Protein 8.0 GM/DL Albumin 3.1 GM/DL Calcium Level 8.8 MG/DL Alkaline Phosphatase 415 U/L Aspartate Amino Transf (AST/SGOT) 53 U/L Alanine Aminotransferase (ALT/SGPT) 24 U/L Total Bilirubin 0.6 MG/DL Sodium Level 120 MEQ/L Potassium Level 5.2 MEQ/L Chloride Level 89 MEQ/L Carbon Dioxide Level 23.1 MEQ/L Anion Gap 8 MEQ/L Estimat Glomerular Filtration Rate 172 ML/MIN Lipase 38 U/L Prothrombin Time 12.3 SEC Prothromb Time International Ratio 1.1 RATIO Activated Partial Thromboplast Time 40.1 SEC Phenytoin (Dilantin) Level 29.0 MCG/ML Urine Color YELLOW Urine Turbidity CLEAR Urine pH 6.5 Urine Specific [place] 1.010 Urine Protein NEG mg/dL Urine Glucose (UA) 300 mg/dL Urine Ketones 10 mg/dL Urine Occult Blood NEG Urine Nitrite NEG Urine Bilirubin NEG Urine Urobilinogen LESS THAN 2.0 MG/DL Urine Leukocyte Esterase NEG Urine RBC 1 /hpf Urine WBC LESS THAN 1 /hpf Urine Mucus FEW /lpf Microscopic Urinalysis Comment CULT NOT INDICATED Lactic Acid Level 0.9 mmol/L Physical Examination HEENT: Normocephalic; atraumatic; no jaundice. CHEST: Course breath sounds, diminished basis CARDIAC: RRR ABDOMEN: Soft, nondistended, nontender; no hepatosplenomegaly; bowel sounds are present in all four quadrants. EXTREMITIES: LUE contracted SKIN: Normal; no rash; no jaundice. TUMBLER DRIER OPERATOR: No focal deficits; alert and oriented times three. (Mercedes Romero) Assessment and Plan Plan ASSESSMENT: - Dysphagia, ? food bolus in esophagus. Pt c/o difficulty with solids becoming lodged in lower esophagus x 2 weeks, worse over 2 days. Feels like food is stuck in his esophagus with frequent coughing. He has frequent heartburn, no n/v. 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 Bx not done since he was on Plavix; severe gastritis, and duodenal bulb ulcer. Rpt. EGD was recommended for 2 months as outpatient. He has not followed up with our office. Upper GI series (04/16/17)--> no evidence of esophageal stricture, poor esophageal motility, no evidence of aspiration , small hiatal hernia, delayed KUB is pending. KUB (04/16/17)---> Some of oral contrast is still in patient's esophagus. Otherwise, contrast has passed normally to the level of the mid/distal small bowel. Attempted to call Salma Garcia at [phone] and [phone] and there was no answer, left message for her to return call. - Cough, fever, possible aspiration. CXR unremarkable. WBC 16.4. T. Max 99.5. Nebs Per attending. - Anemia. 12.2/35.3. Drop in hgb, but no obvious signs of active bleeding. - Hyponatremia, hypokalemia, per attending. - Elevated AST, undetermined significance. Rpt. labs in am. - CVA, HTN, CAD, Hyperlipidemia, DM per attending PLAN: - Plan for egd with possible foreign body removal, possible dilatation - Obtain consents - NPO - Add Protonix - CBC, CMP in am - Supportive care - ? Abx for possible aspiration pna, will defer to attending - Further recommendations to follow based on results of above - Pt seen and examined by Dr. Han and myself and this note is written on his behalf (Mercedes Romero) Plan Patient was seen and examined, agree with above-noted, we will plan on upper endoscopy today with possible dilation or foreign body removal, consent was obtained from his (Sarah Han MD) Mercedes Romero Apr 17, 2017 09:05 Sarah Han MD Apr 17, 2017 12:40
[2017-04-17] MEDS: HEPARIN SODIUM - SQ 10,000 UNITS/ML VIAL SQ SCH ×2 (09:45→20:03)
[2017-04-17 09:54] LABS: BASOPHIL # 0.1 TH/MM3 (0-0.2); BASOPHIL % 0.6 % (0.0-2.0); EOSINOPHIL # 0.3 TH/MM3 (0-0.4); EOSINOPHIL % 1.8 % (0.0-4.0); HEMATOCRIT 35.3 % (39.0-51.0); HEMO FLAGS DIFF FINAL; LYMPH % 6.3 % (9.0-44.0); MEAN CELL VOLUME 91.2 FL (80.0-100.0); MEAN CORPUSCULAR HEMOGLOBIN 31.4 PG (27.0-34.0); MEAN CORPUSCULAR HGB CONC 34.4 % (32.0-36.0); MONO % 5.7 % (0.0-8.0); NEUT % 85.6 % (16.0-70.0); PLATELET COUNT 369 TH/MM3 (150-450); RED BLOOD COUNT 3.87 MIL/MM3 (4.50-5.90); RED CELL DISTRIBUTION WIDTH 12.7 % (11.6-17.2); WHITE BLOOD COUNT 16.4 TH/MM3 (4.0-11.0)
[2017-04-17 10:24] LABS: BICARBONATE 25.9 MEQ/L (21.0-32.0)
[2017-04-17] MEDS ORDERED: PROPOFOL 200 MG/20 ML AMP IV ONE (12:00)
[2017-04-17] MEDS ORDERED: LIDOCAINE HCL 1% PF 5 ML AMPULE OTHER ONE (12:00)
[2017-04-17] MEDS ORDERED: DO NOT ADM ANY ANTICOAGULANT DRUGS PRN (12:42)
--- NOTE | 2017-04-17 12:45 | PD.PROCEDR ---
GI Procedure PROCEDURE PERFORMED Upper endoscopy with biopsy INDICATION FOR PROCEDURE Dysphagia PROCEDURE: The procedure, risks and benefits were discussed with Mr. Garcia and informed consent was obtained. Anesthesia sedated him with Diprivan. He was placed in the left lateral decubitus position. EGD: The Pentax videoscope was introduced through the oropharynx and advanced to the second portion of the duodenum under direct visualization. Retroflexion was performed in the stomach biopsy from the distal esophagus was obtained. FINDINGS: Severe grade D esophagitis biopsy was done Stomach normal Duodenum normal There was possible small mass in the larynx that could be the reason for the dysphagia questionable malignancy biopsy was not performed because of the location ESTIMATED BLOOD LOSS: 10 cc SPECIMENS REMOVED: Distal esophagus COMPLICATIONS: None IMPRESSION: Possible mass in the larynx Severe esophagitis biopsy was done PLAN: ENT consult Follow up biopsy Clear liquid Sarah Han MD Apr 17, 2017 12:45
--- NOTE | 2017-04-17 14:15 | MH ---
cc: ARI REED MD DATE OF ADMISSION: 04/16/2017 CHIEF COMPLAINT Weakness and coughing and difficulty swallowing. The patient's called my office and we suggested he go to the back to [facility] emergency room. He was seen by the emergency room physician who found Dilantin toxicity and voiced increased reflux symptoms. it was felt that he may have aspiration pneumonia or esophageal stricture in addition to the electrolyte abnormalities of hyponatremia with sodium 120, potassium of 5.2. Chest x-ray was within normal limits. The upper gastrointestinal series showed no esophageal stricture. The patient was given IV Pepcid and a EKG showed normal sinus rhythm. He was found to have leukocytosis with a white count of 17.7. He was given Kayexalate, regular insulin with D50 and calcium gluconate, I was thus called for admission for hyponatremia, hyperkalemia and inability to swallow. There is concern for possible aspiration as well. The emergency room physician consulted GI and the patient underwent EGD by Dr. Han and was found to have a possible mass in the larynx, severe esophagitis. He consulted DNT and suggested followup of the biopsy and clear liquids. LABORATORY DATA WBC 17.7 now 16.4, hemoglobin 12.2, sodium 120 now is 128, potassium 5.2 now low at 3.0. Kidney function otherwise normal, AST 53, alk phos 415, INR 1.1. UA shows glucosuria, ketones and mucus. Dilantin level elevated 29.0. Sodium range is 122 to 139 with average of approximately 130. IMAGING STUDIES Chest x-ray Shows no acute abnormality. Abdominal x-ray shows contrast in the esophagus, otherwise some has passed and is normally passing. Upper gastrointestinal series with no evidence of esophageal stricture, poor esophageal motility, no evidence of aspiration delayed KUB is pending. PAST MEDICAL HISTORY: 1. Past medical history is old CVA. 2. Aspiration 3. Anxiety. 4. Depression. 5. Coronary artery disease. 6. Hyperlipidemia. 7. Diabetes. 8. Headaches. 9. Hiatal hernia. 10. Hypertension. 11. Migraines. 12. Seizures. 13. Sleep apnea. PAST SURGICAL HISTORY None. SOCIAL HISTORY No alcohol, tobacco, illicit drug usage. Lives at home with his and the patient has full care. ALLERGIES BACTRIM. HOME MEDICATIONS: 1. Xanax 2. Hydrocodone 7.5 packs. 3. Dilantin 4. Keppra 5. Albuterol neb's. 6. Iron 7. Phenergan. 8. Aspirin 9. Paroxetine 10. Trazodone 11. Multivitamin 12. Pravastatin. 13. Vimpat 200 mg every other day. REVIEW OF SYSTEMS Negative 14-point review of systems except as otherwise noted above. PHYSICAL EXAMINATION: VITAL SIGNS: Temperature 98.6, pulse 94-112, respirations are 16, blood pressure is 108/56 to 158/71, O2 is 95% on 2 liters. GENERAL: He is an alert elder male. Seems to be his usual state of health, however I do not some more slurring and he has generalized weakness which is however typical for him. HEAD, EYES, EARS, NOSE, AND THROAT: Oropharynx is clear. Carotids are clear. NECK: The neck is supple. No lymphadenopathy. CHEST: Slight rhonchi at the bases. CARDIOVASCULAR SYSTEM: Regular rate and rhythm. No murmurs, rubs, clicks or gallops. ABDOMEN: The abdomen is soft, nontender. EXTREMITIES: No edema. SKIN: The skin is clear. NEUROLOGIC: Alert and oriented times one. He thinks it is 1970. He has right hemiparesis, and skin is clear. EXTREMITIES: No edema. ASSESSMENT: 1. Aspiration pneumonia 2. Dysphasia 3. Seizures 4. Dilantin toxicity 5. Hyponatremia 6. Hyperkalemia and now with hypokalemia. 7. Larynx mass 8. Cerebrovascular accident with right hemiparesis. 9. Anemia. 10. Depression 11. Anxiety. 12. Chronic pain syndrome. 13. Lumbar degenerative disc disease. 14. Neuropathy. 15. Esophagitis. PLAN 1. Observation admission. 2. Start clear liquid diet. 3. Follow up gastric biopsies. 4. A.m. CBC and BMP. 5. Normal saline with potassium IV fluids. 6. Xanax 1 mg twice a day. 7. Hold Dilantin. 8. Check Dilantin level in a.m. 9. Ambien p.r.n. 10. Hold Vimpat for now. 11. Hold Keppra for now. 12. Telemetry. 13. Physical therapy 14. Occupational therapy. 15. Speech therapy 16. O2 as needed. 17. [place] 5 mg as needed as he had been on it at home. 18. Duoneb q.i.d. 19. DVT prophylaxis is SCDs and TEDs and Heparin 5000 units subcutaneously q 12 hours. 20. GI prophylaxis Protonix 40 mg IV q.12 h. DISPOSITION The patient will likely go home with home health care. However, he would obviously be suitable for correction. Ari Reed MD RP/per /1:27 PM /1:47 PM
[2017-04-17] MEDS: D5-NS + KCL 40 MEQ INJ 1,000 ML IV SCH (17:17)
[2017-04-17] MEDS: PANTOPRAZOLE SODIUM 40 MG VIAL IV PUSH SCH (20:02)
[2017-04-17] MEDS: LORazepam 0.5 MG TAB PO PRN (22:50)
[2017-04-17] MEDS: ZOLPIDEM TARTRATE 5 MG TAB PO PRN (22:50)
[2017-04-18] VITALS (9 sets, daily range): BP systolic 122–148; BP diastolic 57–81; PULSE 85–99; RESP 18–20; TEMP 97.6–99.5; O2SAT 90–98
[2017-04-18 07:25] LABS: AUTOMATED NEUTROPHIL # 14.7 TH/MM3 (1.8-7.7); BASOPHIL % 0.3 % (0.0-2.0); EOSINOPHIL # 0.2 TH/MM3 (0-0.4); EOSINOPHIL % 1.1 % (0.0-4.0); HEMATOCRIT 35.4 % (39.0-51.0); HEMO FLAGS DIFF FINAL; LYMPH % 7.7 % (9.0-44.0); LYMPHOCYTE # 1.3 TH/MM3 (1.0-4.8); MEAN CELL VOLUME 91.4 FL (80.0-100.0); MEAN CORPUSCULAR HEMOGLOBIN 31.2 PG (27.0-34.0); MEAN CORPUSCULAR HGB CONC 34.1 % (32.0-36.0); MONO % 6.7 % (0.0-8.0); NEUT % 84.2 % (16.0-70.0); PLATELET COUNT 342 TH/MM3 (150-450); RED BLOOD COUNT 3.87 MIL/MM3 (4.50-5.90); RED CELL DISTRIBUTION WIDTH 12.9 % (11.6-17.2); WHITE BLOOD COUNT 17.5 TH/MM3 (4.0-11.0)
[2017-04-18 07:39] LABS: ALKALINE PHOSPHATASE 224 U/L (45-117); ALT (GPT) 12 U/L (12-78); ANION GAP 7 MEQ/L (5-15); AST (GOT) 21 U/L (15-37); BICARBONATE 26.8 MEQ/L (21.0-32.0); BLOOD UREA NITROGEN 2 MG/DL (7-18); CHLORIDE 96 MEQ/L (98-107); GLOMERULAR FILTRATION RATE 285 ML/MIN (>89); POTASSIUM 3.3 MEQ/L (3.5-5.1); SODIUM (NA) 130 MEQ/L (136-145); TOTAL BILIRUBIN ADULT 0.4 MG/DL (0.2-1.0)
[2017-04-18] MEDS: RESP: ALBUTEROL 2.5 MG/IPRATROPIUM 0.5 MG NEB (SCH) NEB ×4 (08:07→20:34)
--- NOTE | 2017-04-18 08:14 | HHI.FPPN ---
Subjective Remarks audible ronchi c/o cough C/O BACK PAIN D/W RN Objective Vitals Vital Signs Date Time Temp Pulse Resp B/P (MAP) Pulse Ox O2 Delivery O2 Flow Rate FiO2 04/18/17 02:41 93 Nasal Cannula 3.00 04/18/17 01:17 98.2 93 18 148/81 (103) 92 04/17/17 21:30 93 04/17/17 20:34 98.0 85 18 126/70 (88) 97 04/17/17 20:16 98 Nasal Cannula 3.00 04/17/17 16:40 98.8 95 19 124/79 (94) 97 04/17/17 14:23 99.2 96 18 114/76 (89) 94 04/17/17 13:15 94 16 108/56 (73) 95 Nasal Cannula 2 04/17/17 13:00 96 16 120/65 (83) 96 Nasal Cannula 2 04/17/17 12:45 98.6 98 16 117/66 (83) 100 Nasal Cannula 2 04/17/17 09:09 99.5 110 19 158/71 (100) 94 I/O 04/17/17 04/17/17 04/17/17 04/18/17 04/18/17 04/18/17 07:00 15:00 23:00 07:00 15:00 23:00 Intake Total 10 ml 180 ml Output Total 800 ml 300 ml 400 ml Balance -800 ml -290 ml 180 ml -400 ml Intake IV Total 10 ml 180 ml Output Urine Total 800 ml 300 ml 400 ml # Bowel Movements 1 Result Diagram: 04/18/17 0641 04/18/17 0641 Objective Remarks GENERAL: SKIN: Warm and dry. HEAD: Atraumatic. Normocephalic. EYES: Pupils equal and round. No scleral icterus. No injection or drainage. ENT: No nasal bleeding or discharge. Mucous membranes pink and moist. NECK: Trachea midline. No JVD. CARDIOVASCULAR: Regular rate and rhythm. RESPIRATORY: B rales and ronchi, congested cough GASTROINTESTINAL: Abdomen soft, non-tender, nondistended. Hepatic and splenic margins not palpable. MUSCULOSKELETAL: Extremities without clubbing, cyanosis, or edema. No obvious deformities. NEUROLOGICAL: Awake and alert. No obvious cranial nerve deficits. Motor grossly within normal limits. R DIOGENES PSYCHIATRIC: Appropriate mood and affect; insight and judgment normal. Medications and IVs Current Medications Medications (Trade) Dose Ordered Sig/Devlis Route Start Time Stop Time Status Last Admin (Xanax) 1 mg BID PO 04/17/17 09:00 04/17/17 20:02 (Duoneb Neb) 1 ampule QID NEB NEB 04/17/17 08:00 04/18/17 08:07 (Ativan) 0.5 mg Q8H PRN PO 04/16/17 21:45 04/17/17 22:50 (Catapres) 0.1 mg Q6H PRN PO 04/16/17 21:45 04/18/17 05:17 (Burna 5-325 Mg) 1 tab Q4H PRN PO 04/16/17 21:45 04/16/17 22:37 (NS Flush) 2 ml UNSCH PRN IV FLUSH 04/16/17 21:45 (NS Flush) 2 ml BID IV FLUSH 04/17/17 09:00 04/17/17 20:01 (Tylenol) 650 mg Q4H PRN PO 04/16/17 21:45 (Zofran Inj) 4 mg Q6H PRN IVP 04/16/17 21:45 (Ambien) 5 mg HS PRN PO 04/16/17 21:45 04/17/17 22:50 (Heparin Inj) 5,000 units Q12H SQ 04/16/17 21:45 04/17/17 20:03 (Narcan Inj) 0.4 mg UNSCH PRN IV PUSH 04/16/17 21:45 (Elidia-Colace) 1 tab BID PO 04/17/17 09:00 04/17/17 20:02 (Milk Of Magnesia Liq) 30 ml Q12H PRN PO 04/16/17 21:45 (Senokot) 17.2 mg Q12H PRN PO 04/16/17 21:45 (Dulcolax Supp) 10 mg DAILY PRN RECTAL 04/16/17 21:45 (Lactulose Liq) 30 ml DAILY PRN PO 04/16/17 21:45 (Duoneb Neb) 1 ampule Q6HR NEB PRN NEB 04/16/17 23:00 04/17/17 00:01 (Protonix Inj) 40 mg Q12HR IV PUSH 04/17/17 21:00 04/17/17 20:02 Potassium Chloride/Dextrose/ Sod Cl 1,000 ml @ 20 mls/hr Q24H IV 04/17/17 16:00 04/17/17 17:17 Miscellaneous Information ALL NURSING DEPARTME... UNSCH PRN .XX 04/17/17 12:42 04/18/17 12:41 A/P Assessment and Plan ASSESSMENT: Aspiration pneumonia Dysphagia Esophagitis on EGD 04/17/17 Seizures Dilantin toxicity Hyponatremia Hyperkalemia and now with hypokalemia. Larynx mass on EGD 04/17/17 Cerebrovascular accident with right hemiparesis. Anemia. Depression Anxiety. Chronic pain syndrome. Lumbar degenerative disc disease. Neuropathy. PLAN- CXR. Start IV levaquin for increased congestion/aspiration. Restart vimpat and keppra. Followup keppra level. Clear liquid diet. Follow up gastric biopsies. A.m. CBC and BMP. Normal saline with potassium IV fluids. Xanax 1 mg twice a day. Hold Dilantin. Check Dilantin level in a.m. Ambien p.r.n. Telemetry. Physical therapy Occupational therapy. Speech therapy O2 as needed. Burna 5 mg as needed as he had been on it at home. Duoneb q.i.d. DVT prophylaxis - SCDs/TEDs and Heparin 5000 units subcutaneously q 12 hours. GI prophylaxis - Protonix 40 mg IV q.12 h. DISPOSITION- The patient will likely go home with home health care. However, he would obviously be suitable for [facility]. PT has been obs for two midnights. He requires further inpatient workup as outlined above. expect 1-2 more days inpatient stay. Ari Sims MD Apr 18, 2017 08:14
[2017-04-18] MEDS: DOCUSATE SODIUM 50 MG/SENNA 8.6 MG TAB PO SCH ×2 (09:00→21:00)
[2017-04-18] MEDS: HEPARIN SODIUM - SQ 10,000 UNITS/ML VIAL SQ SCH ×2 (09:38→22:14)
[2017-04-18] MEDS: ALPRAZolam 1 MG TAB PO SCH ×2 (09:39→20:28)
[2017-04-18] MEDS: PANTOPRAZOLE SODIUM 40 MG VIAL IV PUSH SCH ×2 (09:39→22:14)
[2017-04-18] MEDS: LEVOFLOXACIN 500 MG PREMIX INJ 100 ML IV SCH (10:00)
--- NOTE | 2017-04-18 10:35 | RADRPT ---
EXAM DATE/TIME: 04/18/2017 09:57 [facility] COMPARISON: CHEST SINGLE AP, April 16, 2017, 16:18. ABDOMEN KUB ONLY, April 16, 2017, 18:05. INDICATIONS : Cough. MEDICAL HISTORY : Cerebrovascular disease. Cardiovascular disease Seizures. CVA. SURGICAL HISTORY : None. ENCOUNTER: Initial ACUITY: 2 days PAIN SCORE: 0/10 LOCATION: Bilateral chest FINDINGS: The heart is normal in size. There are chronic interstitial changes within the pulmonary parenchyma. Changes are similar to prior dated 04/16/17. There is a left shoulder arthroplasty. There degenerative changes within the right shoulder. CONCLUSION: 1. Chronic interstitial changes. Stable exam compared to prior dated 04/16/17. Neeraj Alarcon MD on April 18, 2017 at 10:20 Board Certified Radiologist. This report was verified electronically.
--- NOTE | 2017-04-18 15:54 | HHI.GIFU ---
Subjective Remarks Pt resting in bed. No complaints. Awaiting ENT consult. (Leticia Crook) Objective Vitals I&O Vital Signs Date Time Temp Pulse Resp B/P (MAP) Pulse Ox O2 Delivery O2 Flow Rate FiO2 04/18/17 11:51 97.9 88 18 144/67 (92) 98 04/18/17 08:14 98.1 93 18 122/57 (78) 95 04/18/17 08:00 98 Nasal Cannula 3.00 04/18/17 02:41 93 Nasal Cannula 3.00 04/18/17 01:17 98.2 93 18 148/81 (103) 92 04/17/17 21:30 93 04/17/17 20:34 98.0 85 18 126/70 (88) 97 04/17/17 20:16 98 Nasal Cannula 3.00 04/17/17 16:40 98.8 95 19 124/79 (94) 97 I/O 04/17/17 04/17/17 04/17/17 04/18/17 04/18/17 04/18/17 07:00 15:00 23:00 07:00 15:00 23:00 Intake Total 10 ml 180 ml Output Total 800 ml 300 ml 400 ml 200 ml Balance -800 ml -290 ml 180 ml -400 ml -200 ml Intake IV Total 10 ml 180 ml Output Urine Total 800 ml 300 ml 400 ml 200 ml # Bowel Movements 1 Laboratory Laboratory Tests Test 04/17/17 17:57 04/18/17 06:41 Phenytoin (Dilantin) Level 24.8 White Blood Count 17.5 Red Blood Count 3.87 Hemoglobin 12.1 Hematocrit 35.4 Mean Corpuscular Volume 91.4 Mean Corpuscular Hemoglobin 31.2 Mean Corpuscular Hemoglobin Concent 34.1 Red Cell Distribution Width 12.9 Platelet Count 342 Mean Platelet Volume 6.3 Neutrophils (%) (Auto) 84.2 Lymphocytes (%) (Auto) 7.7 Monocytes (%) (Auto) 6.7 Eosinophils (%) (Auto) 1.1 Basophils (%) (Auto) 0.3 Neutrophils # (Auto) 14.7 Lymphocytes # (Auto) 1.3 Monocytes # (Auto) 1.2 Eosinophils # (Auto) 0.2 Basophils # (Auto) 0.0 CBC Comment DIFF FINAL Differential Comment Blood Urea Nitrogen 2 Creatinine 0.31 Random Glucose 98 Total Protein 6.6 Albumin 2.9 Calcium Level 7.8 Alkaline Phosphatase 224 Aspartate Amino Transf (AST/SGOT) 21 Alanine Aminotransferase (ALT/SGPT) 12 Total Bilirubin 0.4 Sodium Level 130 Potassium Level 3.3 Chloride Level 96 Carbon Dioxide Level 26.8 Anion Gap 7 Estimat Glomerular Filtration Rate 285 Imaging Last Impressions Chest X-Ray 04/18/17 0000 Signed Impressions: Service Date/Time: Tuesday, April 18, 2017 09:57 - CONCLUSION: 1. Chronic interstitial changes. Stable exam compared to prior dated 04/16/17. Neeraj Alarcon MD Upper GI Series 04/16/17 0000 Signed Impressions: Service Date/Time: Sunday, April 16, 2017 17:31 - CONCLUSION: 1. No evidence of esophageal stricture. 2. Poor esophageal motility. 3. No evidence of aspiration. 4. Small hiatal hernia. 5. Delayed KUB is pending. Neeraj Alarcon MD Abdomen X-Ray 04/16/17 0000 Signed Impressions: Service Date/Time: Sunday, April 16, 2017 18:05 - CONCLUSION: Some of the oral contrast is still in the patient's esophagus. Otherwise, contrast has passed normally to the level of the mid/distal small bowel. Rian Benjamin MD Physical Exam HEENT: PERRL; normocephalic; atraumatic; no jaundice. CHEST: diminished CARDIAC: RRR ABDOMEN: Soft, nondistended, nontender; no hepatosplenomegaly; bowel sounds are present in all four quadrants. EXTREMITIES: No clubbing, cyanosis, or edema. SKIN: Normal; no rash; no jaundice. 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 (Leticia Crook [facility]) Assessment and Plan Plan ASSESSMENT: - Dysphagia, ? food bolus in esophagus. Pt c/o difficulty with solids becoming lodged in lower esophagus x 2 weeks, worse over 2 days. Feels like food is stuck in his esophagus with frequent coughing. He has frequent heartburn, no n/v. 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 Bx not done since he was on Plavix; severe gastritis, and duodenal bulb ulcer. Rpt. EGD was recommended for 2 months as outpatient. He has not followed up with our office. Upper GI series (04/16/17)--> no evidence of esophageal stricture, poor esophageal motility, no evidence of aspiration , small hiatal hernia, delayed KUB is pending. KUB (04/16/17)---> Some of oral contrast is still in patient's esophagus. Otherwise, contrast has passed normally to the level of the mid/distal small bowel. s/p EGD 04/17 --> grade D esophagitis, poss small mass larynx questionable malignancy. ENT consult pending - Cough, fever, possible aspiration. CXR unremarkable. WBC increased 17.5 T. Max 99.5. Nebs Per attending. levaquin - Anemia. HH stable since yesterday, no obvious signs of active bleeding. - Hyponatremia, hypokalemia, per attending. - Elevated AST, undetermined significance. trending down - CVA, HTN, CAD, Hyperlipidemia, DM per attending PLAN: - await path - await ENT eval - NPO - cont Protonix - CBC, CMP in am - Supportive care - Pt seen and examined by Dr. Han and myself and this note is written on his behalf (Leticia Crook) Plan Patient was seen and examined, agree with the above note, we will wait for the ENT evaluation, follow-up labs (Sarah Han MD) Leticia Crook Apr 18, 2017 15:54 Sarah Hna MD Apr 18, 2017 17:44
[2017-04-18] MEDS ORDERED: MISCELLANEOUS NURSING INFORMATION OTHER PRN (17:30)
--- NOTE | 2017-04-18 18:23 | MB ---
cc: EVAN العراقي M.D., RICHARD DATE OF CONSULTATION 04/18/[address] Han. REASON FOR ENT CONSULTATION Suspicious lesion in pharynx. HISTORY OF PRESENT ILLNESS Jeffery Garcia is a 72-year-old man appears to be in poor health. He was admitted on the for dysphagia, coughing and weakness. He was found to have blood chemistry imbalance. On admission he underwent an upper GI endoscopy and was found to have a suspicious lesion in the oropharynx, ENT was consulted. The patient states he is unaware of any lesion in his pharynx. He is having no pain. No change of voice. No airway compromise. He does note some swallowing trouble. He is a former smoker, quit about a year ago. He is not taking anticoagulation medicines. MEDICAL HISTORY Significant for old cerebrovascular accident, aspiration, depression and anxiety, coronary artery disease, hyperlipidemia, diabetes, headaches, hypertension, seizures and sleep apnea. PAST SURGICAL HISTORY He has had no prior surgeries. SOCIAL HISTORY He denies alcohol or drug use. He lives at home with his and family. ALLERGIES ALLERGIES ARE BACTRIM. PHYSICAL EXAMINATION GENERAL: On examination today he is alert and cooperative. HEENT: Head is normocephalic, atraumatic. Face is normal. Oral cavity teeth in good condition. Tongue and mandible normal. No lesions of the oropharynx. Tonsils are normal. NECK: No nodes or masses and larynx and trachea are midline. Normal auricles, ear canals and tympanic membranes. Flexible fiberoptic laryngoscopy shows patent nasal airways. 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 This was all above the larynx but the larynx could not be visualized due to the lesion and all the secretions accumulating in the hypopharynx. 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 PLAN Discussed with the patient. Will make plans for a biopsy of the lesion under general anesthesia. He presently is scheduled for FridayApril 20 at 8 o'clock. Will write orders for n.p.o. and obtain consent. Please ensure there are no anticoagulants on board for 24 hours prior to procedure. Evan العراقي MD [facility] [place]ISA /4:27 PM /6:12 PM
[2017-04-18] MEDS: levETIRAcetam 500 MG TAB PO SCH (20:28)
[2017-04-18] MEDS: SODIUM CHLORIDE 0.9% FLUSH 10 ML FLUSH IV FLUSH SCH (21:00)
[2017-04-19] VITALS (9 sets, daily range): BP systolic 136–166; BP diastolic 65–89; PULSE 85–105; RESP 18–20; TEMP 98.2–99.8; O2SAT 94–100
[2017-04-19] MEDS ORDERED: MISCELLANEOUS NURSING INFORMATION OTHER PRN
[2017-04-19 06:28] LABS: AUTOMATED NEUTROPHIL # 10.3 TH/MM3 (1.8-7.7); BASOPHIL # 0.1 TH/MM3 (0-0.2); BASOPHIL % 0.5 % (0.0-2.0); EOSINOPHIL # 0.4 TH/MM3 (0-0.4); HEMATOCRIT 35.3 % (39.0-51.0); HEMO FLAGS DIFF FINAL; LYMPH % 12.8 % (9.0-44.0); LYMPHOCYTE # 1.8 TH/MM3 (1.0-4.8); MEAN CELL VOLUME 90.8 FL (80.0-100.0); MEAN CORPUSCULAR HEMOGLOBIN 30.9 PG (27.0-34.0); MEAN CORPUSCULAR HGB CONC 34.1 % (32.0-36.0); MONO % 9.8 % (0.0-8.0); NEUT % 73.9 % (16.0-70.0); PLATELET COUNT 381 TH/MM3 (150-450); RED BLOOD COUNT 3.88 MIL/MM3 (4.50-5.90); RED CELL DISTRIBUTION WIDTH 12.8 % (11.6-17.2); WHITE BLOOD COUNT 13.9 TH/MM3 (4.0-11.0)
[2017-04-19 06:53] LABS: BICARBONATE 26.7 MEQ/L (21.0-32.0); POTASSIUM 3.1 MEQ/L (3.5-5.1)
[2017-04-19] MEDS: RESP: ALBUTEROL 2.5 MG/IPRATROPIUM 0.5 MG NEB (SCH) NEB ×4 (08:54→20:17)
[2017-04-19] MEDS: SODIUM CHLORIDE 0.9% FLUSH 10 ML FLUSH IV FLUSH SCH ×2 (09:00→20:27)
[2017-04-19] MEDS: ALPRAZolam 1 MG TAB PO SCH ×2 (09:00→20:28)
[2017-04-19] MEDS: DOCUSATE SODIUM 50 MG/SENNA 8.6 MG TAB PO SCH ×2 (09:00→20:01)
[2017-04-19] MEDS: levETIRAcetam 500 MG TAB PO SCH (09:00)
[2017-04-19] MEDS: LEVOFLOXACIN 500 MG PREMIX INJ 100 ML IV SCH (09:44)
[2017-04-19] MEDS: PANTOPRAZOLE SODIUM 40 MG VIAL IV PUSH SCH ×2 (09:44→20:27)
[2017-04-19] MEDS: metroNIDAZOLE 500 MG INJ 100 ML IV SCH ×2 (11:53→20:27)
[2017-04-19] MEDS: POTASSIUM CHLOR 10 MEQ PREMIX 100 ML IV SCH ×3 (12:33→14:42)
[2017-04-19] MEDS: D5-NS + KCL 40 MEQ INJ 1,000 ML IV SCH (14:44)
--- NOTE | 2017-04-19 15:11 | HHI.GIFU ---
Subjective Remarks Lying in bed in no distress. No complaints. (Rissa Asher) Objective Vitals I&O Vital Signs Date Time Temp Pulse Resp B/P (MAP) Pulse Ox O2 Delivery O2 Flow Rate FiO2 04/19/17 11:53 98.2 85 20 136/65 (88) 99 04/19/17 08:54 94 Nasal Cannula 5.00 04/19/17 08:11 98.5 105 20 159/83 (108) 100 04/19/17 08:02 89 04/19/17 04:37 98.8 89 18 137/80 (99) 94 04/19/17 01:09 99.8 99 18 144/85 (104) 94 04/18/17 20:42 90 Nasal Cannula 5.00 04/18/17 19:49 99.5 99 20 145/69 (94) 94 04/18/17 16:19 97.6 92 18 126/69 (88) 90 I/O 04/18/17 04/18/17 04/18/17 04/19/17 04/19/17 04/19/17 07:00 15:00 23:00 07:00 15:00 23:00 Intake Total 100 ml 400 ml Output Total 400 ml 200 ml 350 ml Balance -400 ml -100 ml -350 ml 400 ml Intake Oral 0 ml IV Total 100 ml 400 ml Output Urine Total 400 ml 200 ml 350 ml # Bowel Movements 1 Laboratory Laboratory Tests Test 04/19/17 06:07 White Blood Count 13.9 Red Blood Count 3.88 Hemoglobin 12.0 Hematocrit 35.3 Mean Corpuscular Volume 90.8 Mean Corpuscular Hemoglobin 30.9 Mean Corpuscular Hemoglobin Concent 34.1 Red Cell Distribution Width 12.8 Platelet Count 381 Mean Platelet Volume 6.2 Neutrophils (%) (Auto) 73.9 Lymphocytes (%) (Auto) 12.8 Monocytes (%) (Auto) 9.8 Eosinophils (%) (Auto) 3.0 Basophils (%) (Auto) 0.5 Neutrophils # (Auto) 10.3 Lymphocytes # (Auto) 1.8 Monocytes # (Auto) 1.4 Eosinophils # (Auto) 0.4 Basophils # (Auto) 0.1 CBC Comment DIFF FINAL Differential Comment Blood Urea Nitrogen 4 Creatinine 0.23 Random Glucose 102 Calcium Level 8.3 Sodium Level 132 Potassium Level 3.1 Chloride Level 96 Carbon Dioxide Level 26.7 Anion Gap 9 Estimat Glomerular Filtration Rate 403 Magnesium Level 1.7 Phenytoin (Dilantin) Level 16.1 Imaging Last Impressions Chest X-Ray 04/18/17 0000 Signed Impressions: Service Date/Time: Tuesday, April 18, 2017 09:57 - CONCLUSION: 1. Chronic interstitial changes. Stable exam compared to prior dated 04/16/17. Neeraj Alarcon MD Upper GI Series 04/16/17 0000 Signed Impressions: Service Date/Time: Sunday, April 16, 2017 17:31 - CONCLUSION: 1. No evidence of esophageal stricture. 2. Poor esophageal motility. 3. No evidence of aspiration. 4. Small hiatal hernia. 5. Delayed KUB is pending. Neeraj Alarcon MD Abdomen X-Ray 04/16/17 0000 Signed Impressions: Service Date/Time: Sunday, April 16, 2017 18:05 - CONCLUSION: Some of the oral contrast is still in the patient's esophagus. Otherwise, contrast has passed normally to the level of the mid/distal small bowel. Rian Benjamin MD Physical Exam HEENT: Normocephalic; atraumatic; no jaundice. CHEST: CTA, diminished CARDIAC: RRR ABDOMEN: Soft, nondistended, nontender; no hepatosplenomegaly; bowel sounds are present EXTREMITIES: No clubbing, cyanosis, or edema. SKIN: Normal; no rash; no jaundice. 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 food bolus in esophagus. Pt c/o difficulty with solids becoming lodged in lower esophagus x 2 weeks, worse over 2 days. Feels like food is stuck in his esophagus with frequent coughing. He has frequent heartburn, no n/v. 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 Bx not done since he was on Plavix; severe gastritis, and duodenal bulb ulcer. Rpt. EGD was recommended for 2 months as outpatient. He has not followed up with our office. Upper GI series (04/16/17)--> no evidence of esophageal stricture, poor esophageal motility, no evidence of aspiration , small hiatal hernia, delayed KUB is pending. KUB (04/16/17)---> Some of oral contrast is still in patient's esophagus. Otherwise, contrast has passed normally to the level of the mid/distal small bowel. s/p EGD 04/17 --> grade D esophagitis, poss small mass larynx questionable malignancy. ENT consulted, plan for biopsy of lesion under general anesthesia on Friday 04/20. - Cough, fever, possible aspiration. CXR unremarkable. WBC increased 13.9 (). T. Max 99.8. Nebs Per attending. Levaquin - Anemia. HH stable, No obvious signs of active bleeding. - Hyponatremia, hypokalemia, per attending. - Elevated AST, undetermined significance. trending down - CVA, HTN, CAD, Hyperlipidemia, DM per attending PLAN: - ENT to biopsy probable malignant lesion of hypopharynx on Friday (04/20) - Await pathology results. - NPO - Cont Protonix - Monitor labs - Supportive care - Further recommendations to follow based on results of above. Patient seen and examined by Dr. Han and myself and this note is written on his behalf (Rissa Asher) Plan Patient was seen and examined, agree with above note, await biopsies by ENT, possible malignancy, await biopsy results from the EGD (Sarah Han MD) Rissa Asher Apr 19, 2017 15:11 Sarah Han MD Apr 19, 2017 20:51
--- NOTE | 2017-04-19 20:15 | HHI.PR ---
Subjective Remarks Patient seen this morning around 11 AM. He says he is hungry. Denies any chest pain or shortness of breath. Denies any abdominal pain. Objective Vital Signs Date Time Temp Pulse Resp B/P (MAP) Pulse Ox O2 Delivery O2 Flow Rate FiO2 04/19/17 16:05 98.4 86 20 145/89 (107) 95 04/19/17 11:53 98.2 85 20 136/65 (88) 99 04/19/17 08:54 94 Nasal Cannula 5.00 04/19/17 08:11 98.5 105 20 159/83 (108) 100 04/19/17 08:02 89 04/19/17 04:37 98.8 89 18 137/80 (99) 94 04/19/17 01:09 99.8 99 18 144/85 (104) 94 04/18/17 20:42 90 Nasal Cannula 5.00 I/O 04/18/17 04/18/17 04/18/17 04/19/17 04/19/17 04/19/17 07:00 15:00 23:00 07:00 15:00 23:00 Intake Total 100 ml 400 ml Output Total 400 ml 200 ml 350 ml Balance -400 ml -100 ml -350 ml 400 ml Intake Oral 0 ml IV Total 100 ml 400 ml Output Urine Total 400 ml 200 ml 350 ml # Bowel Movements 1 Result Diagram: 04/19/17 0607 04/19/17 0607 Objective Remarks GENERAL: patient sitting up in bed. Appears comfortable. SKIN: Warm and dry. HEAD: Normocephalic. EYES: No scleral icterus. No injection or drainage. NECK: Supple, trachea midline. No JVD. CARDIOVASCULAR: Regular rate and rhythm without murmurs, gallops, or rubs. RESPIRATORY: Breath sounds equal bilaterally. No accessory muscle use. GASTROINTESTINAL: Abdomen soft, non-tender, nondistended. MUSCULOSKELETAL: No cyanosis, or edema. BACK: Nontender without obvious deformity. No CVA tenderness. A/P Assessment and Plan ==== 04/19/17 //Hypopharynx lesion //Dysphagia Patient remains nothing by mouth as per speech therapy. Plan for ENT to biopsy hypopharynx lesion tomorrow. Switch Keppra to IV. //Aspiration pneumonia. leukocytosis 13.9. Worsening.Added metronidazole for anaerobic coverage for suspected aspiration pneumonia. //Hypokalemia. Potassium 3.1. Magnesium acceptable. Replace IV. Monitor.. //History of seizure disorder. Dilantin is back to therapeutic range. We will start 50 mg IV every 12 hours. Keppra cannot be given by mouth. Switch to IV. We'll consult neurology as patient cannot be on Vimpat. -Depending on how patient does over the next couple days, may need PEG tube basement. GI following. Appreciate assistance. Aspiration pneumonia Dysphagia Esophagitis on EGD 04/17/17 Seizures Dilantin toxicity Hyponatremia Hyperkalemia and now with hypokalemia. Larynx mass on EGD 04/17/17 Cerebrovascular accident with right hemiparesis. Anemia. Depression Anxiety. Chronic pain syndrome. Lumbar degenerative disc disease. Neuropathy. PLAN- CXR. Start IV levaquin for increased congestion/aspiration. Restart vimpat and keppra. Followup keppra level. Clear liquid diet. Follow up gastric biopsies. A.m. CBC and BMP. Normal saline with potassium IV fluids. Xanax 1 mg twice a day. Hold Dilantin. Check Dilantin level in a.m. Alvaro p.r.n. Telemetry. Physical therapy Occupational therapy. Speech therapy O2 as needed. [place] 5 mg as needed as he had been on it at home. Duoneb q.i.d. DVT prophylaxis - SCDs/TEDs and Heparin 5000 units subcutaneously q 12 hours. GI prophylaxis - Protonix 40 mg IV q.12 h. Discharge Planning The patient will likely go home with home health care. However, he would obviously be suitable for detention. PT has been obs for two midnights. He requires further inpatient workup as outlined above. expect 1-2 more days inpatient stay. Naveen Sigala MD Apr 19, 2017 20:15
[2017-04-19] MEDS ORDERED: PHENYTOIN INJ 100 MG/2 ML VIAL IV SCH (21:00)
[2017-04-19] MEDS ORDERED: levETIRAcetam INJ 500 MG in SODIUM CHLORIDE 0.9% INJ 100 ML IV SCH (21:00)
[2017-04-20] VITALS (10 sets, daily range): BP systolic 98–180; BP diastolic 54–77; PULSE 76–115; RESP 21–25; TEMP 97.7–99; O2SAT 93–100
[2017-04-20] MEDS: metroNIDAZOLE 500 MG INJ 100 ML IV SCH ×3 (04:37→20:15)
[2017-04-20] MEDS ORDERED: LIDOCAINE 2%/EPINEPHrine PF 1:200,000 20ML SDV ONE (07:37)
[2017-04-20] MEDS ORDERED: EPINEPHrine HCL (1:1000) 30 MG/30 ML VIAL ONE (07:37)
[2017-04-20] MEDS ORDERED: OXYMETAZOLINE HCL 0.05% 15 ML NASAL SPRAY ONE (08:01)
[2017-04-20] MEDS: ALPRAZolam 1 MG TAB PO SCH (08:16)
[2017-04-20] MEDS: DOCUSATE SODIUM 50 MG/SENNA 8.6 MG TAB PO SCH ×2 (08:16→20:15)
[2017-04-20] MEDS: SODIUM CHLORIDE 0.9% FLUSH 10 ML FLUSH IV FLUSH SCH ×2 (09:00→20:14)
[2017-04-20] MEDS ORDERED: LACOSAMIDE 100 MG TAB PO SCH (09:00)
[2017-04-20] MEDS ORDERED: DO NOT ADM ANY ANTICOAGULANT DRUGS PRN ×2 (09:15→12:00)
[2017-04-20] MEDS ORDERED: KETAMINE HCL 500 MG/5 ML VIAL ONE (09:28)
[2017-04-20] MEDS: RESP: ALBUTEROL 2.5 MG/IPRATROPIUM 0.5 MG NEB (SCH) NEB ×4 (09:29→21:06)
--- NOTE | 2017-04-20 09:39 | PD.CONS ---
[facility] Service Critical Care Medicine Consult Requested By Dr. 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 Carlson for evaluation of dysphagia. He was found to have a possible laryngeal mass and severe esophagitis. Dr. Amador from ENT was consulted. 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 Patient was taken to the OR today by Dr. Amador for biopsy. Intubation was attempted by anesthesiologist Dr. Wilde. With Glidescope initially the laryngeal opening was visible but patient's started bleeding from the friable mass obscuring the airway. Intubation attempt was aborted after several attempts. Dr. Amador was still able to perform a biopsy but debulking procedure was also aborted. Critical care medicine was consulted for acute bleeding laryngeal mass with airway compromise. I evaluated the patient in the PACU along with Dr. Wilde and Dr. Amador. Patient is in moderate distress on face [place], oxygen saturation 90-92%. All three of us agreed that patient will need a tracheostomy , and preferably awake tracheostomy under local anesthesia in the OR. So I contacted trauma surgeon Dr. Grullon who agreed to perform an awake trach today in the OR. This was discussed with the patient who is agreeable. Review of Systems ROS Limitations: Clinical Condition, Poor Historian (as per [facility]) Past Family Social History Allergies: Coded Allergies: sulfamethoxazole (Verified Allergy, Unknown, 04/16/17) trimethoprim (Verified Allergy, Unknown, 04/16/17) Past Medical History Type 2 diabetes Hypertension Seizure disorder CVA with right sided weakness Coronary artery disease Hyperlipidemia Iron deficiency anemia GERD Anemia Esophagitis Gastritis Duodenal bulb ulcer Past Surgical History Cardiac catheterization with stent placement Appendectomy Right femur repair EGD Reported Medications Xanax (Alprazolam) 1 Mg Tab 1 Mg PO BID Hydrocodone-Acetaminophen 7.5-325 mg Tab 0.5 Tab PO Q12HR PRN Dilantin (Phenytoin Extended) 100 Mg Cap 100 Mg PO BID Keppra (Levetiracetam) 500 Mg Tab 500 Mg PO Q12HR 30 Days Albuterol Neb (Albuterol Sulfate) 2.5 Mg/3 Ml Neb 2.5 Mg NEB Q4HR NEB PRN Ferrous Sulfate 325 Mg (65 Mg Iron) Tablet 325 Mg PO DAILY Promethazine (Promethazine HCl) 12.5 Mg Tab 12.5 Mg PO Q4H PRN Aspirin 81 Mg Chew 81 Mg CHEW DAILY Paroxetine (Paroxetine HCl) 40 Mg Tab 40 Mg PO DAILY Trazodone (Trazodone HCl) 50 Mg Tab 50 Mg PO HS Multi-Vitamin/Minerals (Multiple Vitamins W/ Minerals) 1 Tab Tab 1 Tab PO DAILY Pravastatin 40 Mg Tab 40 Mg PO HS Vimpat (Lacosamide) 200 Mg Tab 200 Mg PO EVERY OTHER DAY Active Ordered Medications Reviewed Family History Unable to obtain family history due to clinical condition Social History Quit smoking 2 years ago used to smoke 2 packs a day for last 50 years Quit drinking several years ago he used to be a heavy drinker Physical Exam Vital Signs Vital Signs Date Time Temp Pulse Resp B/P (MAP) Pulse Ox O2 Delivery O2 Flow Rate FiO2 04/20/17 09:15 102 25 117/65 (82) 94 04/20/17 09:00 106 31 124/65 (84) 96 04/20/17 08:45 122 40 143/77 (99) 92 Simple Mask 10 04/20/17 08:40 97.8 117 31 136/66 (89) 92 Simple Mask 10 04/20/17 05:25 98.1 94 21 149/65 (93) 93 04/20/17 01:13 97.7 115 21 180/77 (111) 93 04/19/17 21:01 98.2 95 18 166/74 (104) 96 04/19/17 20:18 95 Nasal Cannula 5.00 04/19/17 16:05 98.4 86 20 145/89 (107) 95 04/19/17 11:53 98.2 85 20 136/65 (88) 99 Physical Exam GENERAL: Lying in PACU bed on facemask, mild to moderate distress SKIN: Warm and dry. HEAD: Normocephalic. EYES: No scleral icterus. No injection or drainage. ENT: Face max and mild respiratory distress limiting exam. I was unable to appreciate a hypopharyngeal mass by limited exam NECK: Supple, trachea midline. No JVD. CARDIOVASCULAR: Regular rate and rhythm without murmurs, gallops, or rubs. RESPIRATORY: Breath sounds equal bilaterally. There is bilateral wheezes and few basilar crackles GASTROINTESTINAL: Abdomen soft, non-tender, nondistended. MUSCULOSKELETAL: No cyanosis, or edema. BACK: Nontender without obvious deformity. No CVA tenderness. NEURO: Patient is awake alert and follows commands. Mild right hemiparesis by limited exam. 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 Cerebrovascular accident with right hemiparesis Anemia Depression, Anxiety Chronic pain syndrome Neuropathy PLAN: NEURO: - Post tracheostomy, if on ventilator place on propofol and fentanyl for 24 hours - Hold all by mouth pain medications - Continue Keppra and Vimpat. Dilantin remains on hold due to toxicity on admission - Repeat Dilantin level in a.m.. Resume at lower dose if subtherapeutic RESP/ENT: - Plan is for emergent OR for awake trach with Dr. Grullon and Dr. Wlide - Post tracheostomy will admit to [facility] - Await biopsy hypopharyngeal mass. ENT Dr. Amador - DuoNeb every 6 hours scheduled and when necessary - Decadron 4 mg IV every 6 hours CV: - Monitor blood pressure heart rate. IV to KVO GI: - Nothing by mouth. Place NG tube after tracheostomy for home medications - D/W Dr. Carlson, will need PEG tube this week : - Monitor renal function closely. Hall catheter. ID: - Continue Levaquin and Flagyl started for aspiration pneumonia. HEME: - Monitor CBC, CMP, coags ENDO: - Electrolyte replacement per protocol - Sliding-scale insulin PROPH: - Bilateral lower extremity SCDs. IV Protonix 40 esophagitis. Hold chemical prophylaxis in anticipation of tracheostomy LINES: - Utilize peripheral IVs, central line if needed CC time 55 min Code Status Full Discussed Condition With Andry Arias, Uli Rawls MD Apr 20, 2017 09:39
[2017-04-20] MEDS: LEVOFLOXACIN 500 MG PREMIX INJ 100 ML IV SCH (10:00)
[2017-04-20] MEDS: PANTOPRAZOLE SODIUM 40 MG VIAL IV PUSH SCH ×2 (10:00→20:15)
[2017-04-20] MEDS: FOSPHENYTOIN SODIUM 100 MG PE/2 ML VIAL IV SCH ×2 (10:30→20:14)
[2017-04-20] MEDS: LACTATED RINGER'S 1000 ML INJ 1,000 ML IV SCH (11:10)
[2017-04-20] MEDS: INSULIN ASPART SUPPLEMENTAL SCALE SQ SCH ×4 (11:45→21:00)
[2017-04-20] MEDS: DEXAMETHASONE SOD PHOS 4 MG/ML VIAL IV PUSH SCH ×2 (12:00→17:47)
[2017-04-20] MEDS ORDERED: PROPOFOL 200 MG/20 ML AMP IV ONE ×2 (12:00→13:15)
[2017-04-20] MEDS ORDERED: MIDAZOLAM HCL 2 MG/2 ML VIAL IV ONE ×2 (12:00→13:15)
[2017-04-20] MEDS ORDERED: SODIUM CHLORIDE 0.9% 20 ML VIAL IV ONE (12:00)
[2017-04-20] MEDS: levETIRAcetam INJ 500 MG in SODIUM CHLORIDE 0.9% INJ 100 ML IV SCH ×2 (12:30→17:47)
[2017-04-20] MEDS ORDERED: SUCCINYLCHOLINE CHLORIDE 100 MG/5 ML SYRINGE IV PUSH ONE (13:15)
[2017-04-20] MEDS ORDERED: ONDANSETRON HCL 4 MG/2 ML VIAL IV PUSH ONE (13:15)
[2017-04-20] MEDS ORDERED: LIDOCAINE HCL 1% PF 5 ML AMPULE OTHER ONE (13:15)
[2017-04-20] MEDS ORDERED: DEXAMETHASONE SOD PHOS 4 MG/ML VIAL IV ONE (13:15)
[2017-04-20 14:05] LABS: AUTOMATED NEUTROPHIL # 12.4 TH/MM3 (1.8-7.7); BASOPHIL # 0.1 TH/MM3 (0-0.2); BASOPHIL % 0.5 % (0.0-2.0); EOSINOPHIL % 0.1 % (0.0-4.0); HEMATOCRIT 34.6 % (39.0-51.0); HEMO FLAGS DIFF FINAL; LYMPH % 5.9 % (9.0-44.0); LYMPHOCYTE # 0.8 TH/MM3 (1.0-4.8); MEAN CELL VOLUME 92.7 FL (80.0-100.0); MEAN CORPUSCULAR HEMOGLOBIN 30.9 PG (27.0-34.0); MEAN CORPUSCULAR HGB CONC 33.3 % (32.0-36.0); MONO % 3.5 % (0.0-8.0); PLATELET COUNT 381 TH/MM3 (150-450); RED BLOOD COUNT 3.73 MIL/MM3 (4.50-5.90); RED CELL DISTRIBUTION WIDTH 12.9 % (11.6-17.2); WHITE BLOOD COUNT 13.7 TH/MM3 (4.0-11.0)
[2017-04-20 14:50] LABS: BICARBONATE 23.3 MEQ/L (21.0-32.0); MAGNESIUM 1.7 MG/DL (1.5-2.5); POTASSIUM 3.6 MEQ/L (3.5-5.1)
[2017-04-20] MEDS: LACOSAMIDE INJ 100 MG in SODIUM CHLORIDE 0.9% INJ 100 ML IV SCH (16:16)
--- NOTE | 2017-04-20 20:37 | MP ---
cc: MD NICOLE,ANGEL DATE OF SURGERY: 04/20/2017. 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 OPERATIVE PROCEDURE PERFORMED: Emergency tracheostomy. SURGEON: Angel Grullon M.D. ANESTHESIA: 1% xylocaine and sedation. ESTIMATED BLOOD LOSS: 5 cc. INDICATIONS FOR THE PROCEDURE: This unfortunate 72-year-old gentleman underwent biopsy of the mass in his vallecula, pyriform sinus and developed some bleeding. At this point, the patient cannot be intubated due to the mass, but has a compromised airway. The patient is emergently taken to the operating room for surgery. I was asked to perform a tracheostomy. DESCRIPTION OF THE PROCEDURE IN DETAIL: The patient was prepped and draped in the usual fashion. The airway was infiltrated with 1% Xylocaine. A vertical incision was made in the anterior neck and deepened down. The strap muscles were retracted laterally and the thyroid isthmus was divided with cautery over a right angle. The tracheal rings were now exposed. A combination of a blue rhino and an open tracheostomy was now carried out. The needle was inserted in the trachea. A wire was placed over the needle and then over the wire. The punch dilator was placed and then the large dilator. I could tell I was in the trachea so this was a safe way to go. Once the punch dilator was removed, I removed the wire and everything else out and then under direct vision examined the trachea in the posterior wall which was fully intact. The #8 Shiley tracheostomy tube was now inserted and sutured in place with 2-0 Prolene. The patient was connected to the ventilator and end tidal C02 checked and there was no cuff leak. The patient tolerated the procedure well. Angel PENG/FINN /1:59 PM /8:28 PM
[2017-04-21] VITALS (14 sets, daily range): BP systolic 118–142; BP diastolic 63–79; PULSE 72–92; RESP 16–24; TEMP 97.9–99.4; O2SAT 96–100
[2017-04-21] MEDS: DEXAMETHASONE SOD PHOS 4 MG/ML VIAL IV PUSH SCH ×4 (00:01→18:00)
[2017-04-21] MEDS: levETIRAcetam INJ 500 MG in SODIUM CHLORIDE 0.9% INJ 100 ML IV SCH ×4 (00:01→18:00)
[2017-04-21] MEDS: INSULIN ASPART SUPPLEMENTAL SCALE SQ SCH ×6 (01:52→23:15)
[2017-04-21] MEDS: LACTATED RINGER'S 1000 ML INJ 1,000 ML IV SCH ×2 (02:16→15:00)
[2017-04-21] MEDS: ONDANSETRON HCL 4 MG/2 ML VIAL IVP PRN (02:57)
[2017-04-21] MEDS: metroNIDAZOLE 500 MG INJ 100 ML IV SCH ×3 (04:24→21:41)
--- NOTE | 2017-04-21 07:25 | MP ---
cc: EVAN العراقي M.D. DATE OF SURGERY April 20, 2017 PREOPERATIVE DIAGNOSIS Malignant lesion of hypopharynx. POSTOPERATIVE DIAGNOSIS Malignant lesion of hypopharynx. OPERATION PERFORMED Direct laryngoscopy with biopsy. INDICATIONS Documented in the inpatient consultation of April 18, 2017 DESCRIPTION OF OPERATION The patient was taken to OR #9 and placed in the supine position following induction of general anesthesia by intravenous route. Numerous attempts were made to intubate the patient to allow for the direct laryngoscopy. The lesion in the hypopharynx was partially obstructing the view of the larynx and instrumentation of the lesion caused persistent bleeding from all surfaces of the neoplastic lesion. This further obscured the airway. After numerous attempts, the plan for intubation was abandoned. Endoscopy was then completed under sedation. Using a Dedo laryngoscope, the hypopharynx and the lesion were brought into view. Blood was suctioned from the hypopharynx and two biopsies were obtained from the superior surface of this neoplastic lesion. The lesion appeared to be on the left side of the vallecula primarily and originating in that site and also the left hypopharyngeal wall. It did not involve the endolarynx which was clear. The scope was then removed and the procedure was terminated. The patient was reversed from anesthesia and taken to Recovery in good condition. There were no complications. Blood loss was around 60 mL. Evan العراقي MD JMJose G/YUKO /7:11 AM /7:13 AM
--- NOTE | 2017-04-21 08:17 | HHI.FPPN ---
Subjective Remarks calm on trach asking for pain meds d/w RN Objective Vitals Vital Signs Date Time Temp Pulse Resp B/P (MAP) Pulse Ox O2 Delivery O2 Flow Rate FiO2 04/21/17 06:00 80 04/21/17 04:00 98.7 78 24 131/67 (88) 97 04/21/17 02:00 88 04/21/17 00:00 98.3 87 18 118/63 (81) 100 04/21/17 00:00 87 04/20/17 22:00 93 04/20/17 21:05 96 T-piece 5.00 40 04/20/17 20:00 84 04/20/17 20:00 98.3 84 25 98/54 (69) 98 04/20/17 19:00 95 T-Piece 40 04/20/17 17:55 100 T-piece 6.00 40 04/20/17 17:48 100 40 04/20/17 15:38 76 118/67 04/20/17 15:30 99.0 76 21 118/67 (84) 100 04/20/17 14:00 98.3 81 14 130/63 (85) 100 Nasal Cannula 2 04/20/17 13:00 83 11 154/75 (101) 100 04/20/17 12:00 89 15 108/60 (76) 95 04/20/17 11:45 93 15 117/69 (85) 97 04/20/17 11:30 92 14 114/60 (78) 98 04/20/17 11:15 103 10 78/44 (55) 96 Mechanical Ventilator 40 04/20/17 11:10 100 40 04/20/17 11:10 98.3 96 10 97/62 (74) 95 Mechanical Ventilator 40 04/20/17 10:00 100 26 111/59 (76) 99 Simple Mask 10 04/20/17 09:45 102 26 111/58 (75) 98 04/20/17 09:30 101 26 112/57 (75) 94 04/20/17 09:15 102 25 117/65 (82) 94 04/20/17 09:00 106 31 124/65 (84) 96 04/20/17 08:45 122 40 143/77 (99) 92 Simple Mask 10 04/20/17 08:40 97.8 117 31 136/66 (89) 92 Simple Mask 10 I/O 04/20/17 04/20/17 04/20/17 04/21/17 04/21/17 04/21/17 06:59 14:59 22:59 06:59 14:59 22:59 Intake Total 900 ml 100 ml 1445 ml Output Total 400 ml 670 ml 100 ml 500 ml Balance -400 ml 230 ml 0 ml 945 ml IV Total 100 ml 1205 ml Other 900 ml 240 ml Output Urine Total 400 ml 650 ml 100 ml 500 ml Estimated Blood Loss 20 ml # Bowel Movements 2 0 0 Result Diagram: 04/20/17 1343 04/20/17 1343 Objective Remarks GENERAL: SKIN: Warm and dry. HEAD: Atraumatic. Normocephalic. EYES: Pupils equal and round. No scleral icterus. No injection or drainage. ENT: No nasal bleeding or discharge. Mucous membranes pink and moist. NECK: Trachea midline. No JVD. CARDIOVASCULAR: Regular rate and rhythm. RESPIRATORY: B rales and ronchi, congested cough GASTROINTESTINAL: Abdomen soft, non-tender, nondistended. Hepatic and splenic margins not palpable. MUSCULOSKELETAL: Extremities without clubbing, cyanosis, or edema. No obvious deformities. NEUROLOGICAL: Awake and alert. No obvious cranial nerve deficits. Motor grossly within normal limits. R DIOGENES PSYCHIATRIC: Appropriate mood and affect; insight and judgment normal. Medications and IVs Current Medications Medications (Trade) Dose Ordered Sig/Delvis Route Start Time Stop Time Status Last Admin (Xanax) 1 mg BID PO 04/17/17 09:00 Future Hold 04/19/17 20:28 (Ativan) 0.5 mg Q8H PRN PO 04/16/17 21:45 04/17/17 22:50 (Catapres) 0.1 mg Q6H PRN PO 04/16/17 21:45 04/18/17 05:17 ([place] 5-325 Mg) 1 tab Q4H PRN PO 04/16/17 21:45 Future Hold 04/16/17 22:37 (NS Flush) 2 ml UNSCH PRN IV FLUSH 04/16/17 21:45 (NS Flush) 2 ml BID IV FLUSH 04/17/17 09:00 04/18/17 21:00 (Tylenol) 650 mg Q4H PRN PO 04/16/17 21:45 Future Hold (Zofran Inj) 4 mg Q6H PRN IVP 04/16/17 21:45 04/21/17 02:57 (Ambien) 5 mg HS PRN PO 04/16/17 21:45 04/17/17 22:50 (Heparin Inj) 5,000 units Q12H SQ 04/16/17 21:45 Future Hold 04/18/17 22:14 (Narcan Inj) 0.4 mg UNSCH PRN IV PUSH 04/16/17 21:45 (Elidia-Colace) 1 tab BID PO 04/17/17 09:00 04/20/17 20:15 (Milk Of Magnesia Liq) 30 ml Q12H PRN PO 04/16/17 21:45 (Senokot) 17.2 mg Q12H PRN PO 04/16/17 21:45 (Dulcolax Supp) 10 mg DAILY PRN RECTAL 04/16/17 21:45 (Lactulose Liq) 30 ml DAILY PRN PO 04/16/17 21:45 (Duoneb Neb) 1 ampule Q6HR NEB PRN NEB 04/16/17 23:00 04/17/17 00:01 (Protonix Inj) 40 mg Q12HR IV PUSH 04/17/17 21:00 04/20/17 20:15 Levofloxacin/ Dextrose 100 ml @ 100 mls/hr Q24H IV 04/18/17 10:00 04/20/17 10:00 Metronidazole 100 ml @ 100 mls/hr Q8H IV 04/19/17 12:00 04/21/17 04:24 Miscellaneous Information ALL NURSING DEPARTME... UNSCH PRN .XX 04/20/17 09:15 04/21/17 09:14 Levetriacetam 500 mg/Sodium Chloride 105 ml @ 420 mls/hr Q6HR IV 04/20/17 12:00 04/21/17 05:38 (Cerebyx Inj) 100 mgpe BID IV 04/20/17 10:30 Lacosamide 100 mg/ Sodium Chloride 110 ml @ 110 mls/hr EVERY OTHER DAY IV 04/20/17 14:00 04/20/17 16:16 (Duoneb Neb) 1 ampule QID NEB NEB 04/20/17 12:00 04/21/17 08:37 (Decadron Inj) 4 mg Q6HR IV PUSH 04/20/17 12:00 04/22/17 11:59 04/21/17 05:15 (NovoLOG SUPPLEMENTAL SCALE) 1 Q4H SQ 04/20/17 10:00 Miscellaneous Information ALL NURSING DEPARTME... 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 Larynx mass on EGD 04/17/17 Cerebrovascular accident with right hemiparesis. Anemia. Depression Anxiety. Chronic pain syndrome. Lumbar degenerative disc disease. Neuropathy. PLAN- ICU care. vimpat and keppra. Followup keppra level. Follow up gastric biopsies and throat bx A.m. CBC and BMP. IV fluids. Xanax 1 mg twice a day. cerebryx Telemetry. Duoneb q.i.d. DVT prophylaxis - SCDs/TEDs and Heparin 5000 units subcutaneously q 12 hours. GI prophylaxis - Protonix 40 mg IV q.12 h. Ari Sims MD Apr 21, 2017 08:17
[2017-04-21] MEDS: RESP: ALBUTEROL 2.5 MG/IPRATROPIUM 0.5 MG NEB (SCH) NEB ×4 (08:37→20:50)
[2017-04-21] MEDS: DOCUSATE SODIUM 50 MG/SENNA 8.6 MG TAB PO SCH ×2 (09:00→21:41)
[2017-04-21] MEDS: LEVOFLOXACIN 500 MG PREMIX INJ 100 ML IV SCH (09:23)
[2017-04-21] MEDS: PANTOPRAZOLE SODIUM 40 MG VIAL IV PUSH SCH ×2 (09:23→21:02)
[2017-04-21] MEDS: SODIUM CHLORIDE 0.9% FLUSH 10 ML FLUSH IV FLUSH SCH ×2 (09:24→21:00)
[2017-04-21] MEDS: FOSPHENYTOIN SODIUM 100 MG PE/2 ML VIAL IV SCH ×2 (09:24→21:06)
[2017-04-21] MEDS ORDERED: PROPOFOL 200 MG/20 ML AMP IV ONE (12:00)
[2017-04-21] MEDS ORDERED: LIDOCAINE HCL 1% PF 5 ML AMPULE OTHER ONE (12:00)
[2017-04-21] MEDS ORDERED: ePHEDrine/NS 25 MG/5 ML SYR IV ONE (12:00)
[2017-04-21] MEDS ORDERED: MIDAZOLAM HCL 2 MG/2 ML VIAL IV ONE (12:00)
--- NOTE | 2017-04-21 13:02 | HHI.GIFU ---
Subjective Remarks Resting in bed in no distress. Had significant bleeding during laryngeal biopsy and required emergent tracheostomy yesterday. He is now resting in bed without distress- scant amount of bloody secretions in trach. GI requested for PEG, d/w patient, he is agreeable. Objective Vitals I&O Vital Signs Date Time Temp Pulse Resp B/P (MAP) Pulse Ox O2 Delivery O2 Flow Rate FiO2 04/21/17 10:00 95 T-Piece 40 04/21/17 08:37 100 T-piece 5.00 40 04/21/17 06:00 80 04/21/17 04:00 98.7 78 24 131/67 (88) 97 04/21/17 02:00 88 04/21/17 00:00 98.3 87 18 118/63 (81) 100 04/21/17 00:00 87 04/20/17 22:00 93 04/20/17 21:05 96 T-piece 5.00 40 04/20/17 20:00 84 04/20/17 20:00 98.3 84 25 98/54 (69) 98 04/20/17 19:00 95 T-Piece 40 04/20/17 17:55 100 T-piece 6.00 40 04/20/17 17:48 100 40 04/20/17 15:38 76 118/67 04/20/17 15:30 99.0 76 21 118/67 (84) 100 04/20/17 14:00 98.3 81 14 130/63 (85) 100 Nasal Cannula 2 04/20/17 13:00 83 11 154/75 (101) 100 I/O 04/20/17 04/20/17 04/20/17 04/21/17 04/21/17 04/21/17 07:00 15:00 23:00 07:00 15:00 23:00 Intake Total 900 ml 100 ml 1445 ml 100 ml Output Total 400 ml 670 ml 100 ml 500 ml Balance -400 ml 230 ml 0 ml 945 ml 100 ml IV Total 100 ml 1205 ml 100 ml Other 900 ml 240 ml Output Urine Total 400 ml 650 ml 100 ml 500 ml Estimated Blood Loss 20 ml # Bowel Movements 2 0 0 Laboratory Laboratory Tests Test 04/20/17 13:43 04/20/17 15:45 04/21/17 04:12 White Blood Count 13.7 Red Blood Count 3.73 Hemoglobin 11.5 Hematocrit 34.6 Mean Corpuscular Volume 92.7 Mean Corpuscular Hemoglobin 30.9 Mean Corpuscular Hemoglobin Concent 33.3 Red Cell Distribution Width 12.9 Platelet Count 381 Mean Platelet Volume 6.3 Neutrophils (%) (Auto) 90.0 Lymphocytes (%) (Auto) 5.9 Monocytes (%) (Auto) 3.5 Eosinophils (%) (Auto) 0.1 Basophils (%) (Auto) 0.5 Neutrophils # (Auto) 12.4 Lymphocytes # (Auto) 0.8 Monocytes # (Auto) 0.5 Eosinophils # (Auto) 0.0 Basophils # (Auto) 0.1 CBC Comment DIFF FINAL Differential Comment Blood Urea Nitrogen 6 Creatinine 0.35 Random Glucose 108 Albumin 2.5 Calcium Level 8.1 Phosphorus Level 2.8 Magnesium Level 1.7 Sodium Level 133 Potassium Level 3.6 Chloride Level 99 Carbon Dioxide Level 23.3 Anion Gap 11 Estimat Glomerular Filtration Rate 248 Nasal Screen MRSA (PCR) MRSA DETECTED Phenytoin (Dilantin) Level 7.2 Imaging Last Impressions Chest X-Ray 04/18/17 0000 Signed Impressions: Service Date/Time: Tuesday, April 18, 2017 09:57 - CONCLUSION: 1. Chronic interstitial changes. Stable exam compared to prior dated 04/16/17. Neeraj Alarcon MD Upper GI Series 04/16/17 0000 Signed Impressions: Service Date/Time: Sunday, April 16, 2017 17:31 - CONCLUSION: 1. No evidence of esophageal stricture. 2. Poor esophageal motility. 3. No evidence of aspiration. 4. Small hiatal hernia. 5. Delayed KUB is pending. Neeraj Alarcon MD Abdomen X-Ray 04/16/17 0000 Signed Impressions: Service Date/Time: Sunday, April 16, 2017 18:05 - CONCLUSION: Some of the oral contrast is still in the patient's esophagus. Otherwise, contrast has passed normally to the level of the mid/distal small bowel. Rian Benjamin MD Physical Exam HEENT: Normocephalic; atraumatic; no jaundice. CHEST: Trachesotomy, tbar, small amount of bloody secretions from trach, diminished breath sounds CARDIAC: RRR ABDOMEN: Soft, nondistended, nontender; no hepatosplenomegaly; bowel sounds are present EXTREMITIES: No clubbing, cyanosis, or edema. SKIN: Normal; no rash; no jaundice. 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 food bolus in esophagus. Pt c/o difficulty with solids becoming lodged in lower esophagus x 2 weeks, worse over 2 days. Feels like food is stuck in his esophagus with frequent coughing. He has frequent heartburn, no n/v. Upper GI series (04/16/17)--> no evidence of esophageal stricture, poor esophageal motility, no evidence of aspiration , small hiatal hernia, delayed KUB is pending. KUB (04/16/17)---> Some of oral contrast is still in patient's esophagus. Otherwise, contrast has passed normally to the level of the mid/distal small bowel. S/P EGD (04/17/17)----> Possible mass in the larynx, Severe esophagitis biopsy was done. Pathology with fibrinopurulent exudate suggestive of acute ulcerative esophagitis, no fungal organisms are present. PPI. Now with tracheostomy, GI requested for peg tube placement. - Laryngeal friable mass. ENT following, s/p biopsy. Pt had significant during biopsy and required tracheostomy placement. Pathology pending. - Anemia. 11.5/34.6. - Hyponatremia, hypokalemia, per attending. - Elevated AST, undetermined significance. Rpt. labs T. Bili 0.4, AST 21, ALT 12, ALk PHopsh 224. - CVA, HTN, CAD, Hyperlipidemia, DM per attending PLAN: - Plan for egd with peg tube placement in am - Obtain consents - NPO - On levaquin/flagyl - Heparin on hold - Cont. Protonix - Monitor labs - ENT following for laryngeal mass - Supportive care - Further recommendations to follow based on results of above - Pt seen and examined by Dr. Curtis and myself and this note is written on her behalf Mercedes Romero Apr 21, 2017 13:01
[2017-04-21] MEDS ORDERED: KETAMINE HCL 500 MG/5 ML VIAL ONE (13:09)
--- NOTE | 2017-04-21 13:54 | GIPROC ---
[facility] [address] [facility]. [facility], [address] EGD WITH PEG PROCEDURE REPORT EXAM DATE: 04/21/2017 PATIENT NAME: Jeffery Garcia MR#: [id number] BIRTHDATE: 1945 ATTENDING: Milena Curtis MD ORDER #: [id number] POOL TECHNICIAN: Azucena Munoz and Fareed Mac STATUS: inpatient INDICATIONS: The patient is a 72 yr old male here for an EGD with PEG due to dysphagia PROCEDURE PERFORMED: EGD with PEG placement MEDICATIONS: None and Per Anesthesia. TOPICAL ANESTHETIC: none CONSENT: The patient understands the risks and benefits of the procedure and understands that these risks include, but are not limited to: sedation, allergic reaction, infection, perforation and/or bleeding. Alternative means of evaluation and treatment include, among others: physical exam, x-rays, and/or surgical intervention. The patient elects to proceed with this endoscopic procedure. medical equipment was checked for proper function. Hand hygiene and appropriate measures for infection prevention was taken. After the risks, benefits and alternatives of the procedure were thoroughly explained, Informed consent was verified, confirmed and timeout was successfully executed by the treatment team. The patient was anesthetized with topical anesthesia and the Pentax [id number] endoscope was introduced through the mouth and advanced to the second portion of the duodenum. The instrument was slowly withdrawn as the mucosa was fully examined. The stomach was then inflated with air, and by a combination of transillumination and manual palpation, the site for the gastrostomy tube placement was selected and marked on the anterior abdominal wall. The skin of the anterior abdomen was surgically prepped and draped with sterile towels. Utilizing strict sterile technique, the selected site was then anesthetized with 1% xylocaine by injection into the skin and subcutaneous tissue. A 1 cm incision was made through the skin and subcutaneous tissue, and the needle/cannula assembly was then passed through the abdominal wall and through the anterior wall of the stomach, maintaining visualization with the endoscope. A snare device previously placed through the instrument channel was then opened and placed around the cannula, the needle was removed, and the insertion wire was passed through the cannula and into the stomach lumen. The snare was then loosened from the cannula, and repositioned to snare the insertion wire. The snare was then pulled up to the endoscope distal tip, and the scope was then withdrawn bringing with it the snare and insertion wire. The insertion wire was then released from the snare, and then loop-attached to the gastrostomy tube. Using the "pull technique", the G-tube was then pulled into place by traction on the insertion wire at the abdominal wall end. The G-tube insertion site was then cleansed once again, and the external bolster was placed over the tube to secure it to the abdominal wall. A sterile dressing was then applied, and the procedure terminated. a hiatal hernia The gastroscope was then slowly withdrawn and removed. ADVERSE EVENT: There were no complications. IMPRESSIONS: A hiatal hernia peg position was confirmed endoscopically RECOMMENDATIONS: 1. Anti-reflux regimen 2. Begin feeding tomorrow REPEAT EXAM: Milena Curtis MD eSigned: Milena Curtis MD 04/21/2017 1:54 PM cc: PATIENT NAME: Jeffery Garcia MR#: [id number]
--- NOTE | 2017-04-21 15:29 | HHI.CCPN ---
Subjective Remarks/Hospital Course Hospital Course: Patient is a 72-year-old male who underwent EGD on 04/17/[address] Carlson for evaluation of dysphagia. He was found to have a possible laryngeal mass and severe esophagitis. Dr. Amador from ENT was consulted. 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 Patient was taken to the OR today by Dr. Amador for biopsy. Intubation was attempted by anesthesiologist Dr. Wilde. With Glidescope initially the laryngeal opening was visible but patient's started bleeding from the friable mass obscuring the airway. Intubation attempt was aborted after several attempts. Dr. Amador was still able to perform a biopsy but debulking procedure was also aborted. Critical care medicine was consulted for acute bleeding laryngeal mass with airway compromise. I evaluated the patient in the PACU along with Dr. Wilde and Dr. Amador. Patient is in moderate distress on face [place], oxygen saturation 90-92%. All three of us agreed that patient will need a tracheostomy , and preferably awake tracheostomy under local anesthesia in the OR. So I contacted trauma surgeon Dr. Grullon who agreed to perform an awake trach today in the OR. This was discussed with the patient who is agreeable. subjective: 04/21: doing well today. s/p trach yesterday emergently and PEG placement today. sitting in bed. denies specific complaints, but communicates that he is not feeling good today. trach with minimal sanguinous sputum and no evidence of bleeding around the trach site. Objective Vital Signs Date Time Temp Pulse Resp B/P (MAP) Pulse Ox O2 Delivery O2 Flow Rate FiO2 04/21/17 14:00 81 04/21/17 12:00 98.1 23 128/66 (86) 97 04/21/17 10:00 T-Piece 40 04/21/17 08:37 5.00 Intake and Output 04/21/17 04/21/17 04/22/17 08:00 16:00 00:00 Intake Total 1445 ml 100 ml Output Total 500 ml Balance 945 ml 100 ml Result Diagram: 04/20/17 1343 04/20/17 1343 Imaging CXR- chronic interstitial changes Objective Remarks GENERAL: elderly male, sitting in bed, no acute distress. SKIN: Warm and dry. HEENT: nc. at. perrl. mucous membranes moist. no evidence of active oral bleeding. Neck: fresh trach in place, no bleeding around trach site. minimal bloody secretions. chest: unlabored. equal chest rise. on 4L trach collar. cv: normal rate, regular rhythm. abd: soft, nontender, nondistended, fresh g-tube in place, no bleeding from around PEG site. extr: warm and well-perfused. neuro: rass 0. cam -. gcs 15. follows commands. A/P Assessment and Plan ASSESSMENT: 72yM with bleeding laryngeal mass POD 1 s/p emergent trach and POD 0 s/p PEG placement. clinically improved from yesterday. I have spoke with Dr. Sims and I think he is stable for transfer to the floor. will consult PT. f/u pathology of mass. 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 Cerebrovascular accident with right hemiparesis Anemia Depression, Anxiety Chronic pain syndrome Neuropathy PLAN: NEURO: - Continue Keppra and Vimpat. Dilantin remains on hold due to toxicity on admission - Repeat Dilantin level now lower. will restart dilantin at lower-dose, 100 daily (home dose 100 bid). RESP/ENT: - s/p emergent awake trach 04/[address]ullon and Dr. Wilde - Await biopsy hypopharyngeal mass. ENT Dr. Amador - DuoNeb every 6 hours scheduled and when necessary - Decadron 4 mg IV every 6 hours - wean o2 for goal spo2 > 90% - continuous pulse oximetry CV: - Monitor blood pressure heart rate. IV to KVO GI: - Nothing by mouth. start TF tomorrow POD 1 from PEG - Dr. Carlson, PEG placement 04/21. : - Monitor renal function closely. d/c Hall. ID: - Continue Levaquin and Flagyl started for aspiration pneumonia. HEME: - Monitor CBC, CMP, coags ENDO: - Electrolyte replacement per protocol - Sliding-scale insulin PROPH: - Bilateral lower extremity SCDs. IV Protonix 40 esophagitis. Hold chemical prophylaxis given bleeding friable tissue. consider restarting tomorrow. LINES: - Utilize peripheral IVs, Dispo: transfer to floor. Jayson Ovalle MD Apr 21, 2017 15:29
--- NOTE | 2017-04-21 15:56 | PD.CAR.PN ---
CVT Progress Note Subjective/Hospital Course: Patient status post emergency tracheostomy for pharyngeal bleeding and mass Tracheostomy in good position no bleeding noted We'll sign off Objective: Vital Signs Date Time Temp Pulse Resp B/P (MAP) Pulse Ox O2 Delivery O2 Flow Rate FiO2 04/21/17 14:00 81 04/21/17 12:00 98.1 83 23 128/66 (86) 97 04/21/17 12:00 83 04/21/17 10:00 84 04/21/17 10:00 95 T-Piece 40 04/21/17 08:37 100 T-piece 5.00 40 04/21/17 08:00 72 04/21/17 08:00 97.9 72 18 142/73 (96) 98 04/21/17 06:00 80 04/21/17 04:00 98.7 78 24 131/67 (88) 97 04/21/17 02:00 88 04/21/17 00:00 98.3 87 18 118/63 (81) 100 04/21/17 00:00 87 04/20/17 22:00 93 04/20/17 21:05 96 T-piece 5.00 40 04/20/17 20:00 84 04/20/17 20:00 98.3 84 25 98/54 (69) 98 04/20/17 19:00 95 T-Piece 40 04/20/17 17:55 100 T-piece 6.00 40 04/20/17 17:48 100 40 Labs: Laboratory Tests Test 04/21/17 04:12 Phenytoin (Dilantin) Level 7.2 MCG/ML (10.0-20.0) Result Diagram: 04/20/17 1343 04/20/17 1343 Angel Grullon MD Apr 21, 2017 15:56
[2017-04-21] MEDS ORDERED: oxyCODONE HCL ORAL CONC 5 MG/0.25 ML SYRINGE PO PRN (19:30)
[2017-04-21] MEDS ORDERED: FOSPHENYTOIN SODIUM 100 MG PE/2 ML VIAL IV ONE (19:45)
--- NOTE | 2017-04-21 20:03 | HHI.PR ---
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 recent dilantin toxicity Plan increase iv cerebyx due to low phenytoin level today and recheck level in am Diagnosis/Plan: Subjective Subjective Comments No seizures Active Medications Current Medications Medications (Trade) Dose Ordered Sig/Delvis Route Start Time Stop Time Status Last Admin (Xanax) 1 mg BID PO 04/17/17 09:00 Future Hold 04/19/17 20:28 (Ativan) 0.5 mg Q8H PRN PO 04/16/17 21:45 04/17/17 22:50 (Catapres) 0.1 mg Q6H PRN PO 04/16/17 21:45 04/18/17 05:17 ([place]ams 5-325 Mg) 1 tab Q4H PRN PO 04/16/17 21:45 Future Hold 04/16/17 22:37 (NS Flush) 2 ml UNSCH PRN IV FLUSH 04/16/17 21:45 (NS Flush) 2 ml BID IV FLUSH 04/17/17 09:00 04/21/17 09:24 (Tylenol) 650 mg Q4H PRN PO 04/16/17 21:45 Future Hold (Zofran Inj) 4 mg Q6H PRN IVP 04/16/17 21:45 04/21/17 02:57 (Ambien) 5 mg HS PRN PO 04/16/17 21:45 04/17/17 22:50 (Heparin Inj) 5,000 units Q12H SQ 04/16/17 21:45 Future Hold 04/18/17 22:14 (Narcan Inj) 0.4 mg UNSCH PRN IV PUSH 04/16/17 21:45 (Elidia-Colace) 1 tab BID PO 04/17/17 09:00 04/20/17 20:15 (Milk Of Magnesia Liq) 30 ml Q12H PRN PO 04/16/17 21:45 (Senokot) 17.2 mg Q12H PRN PO 04/16/17 21:45 (Dulcolax Supp) 10 mg DAILY PRN RECTAL 04/16/17 21:45 (Lactulose Liq) 30 ml DAILY PRN PO 04/16/17 21:45 (Duoneb Neb) 1 ampule Q6HR NEB PRN NEB 04/16/17 23:00 04/17/17 00:01 (Protonix Inj) 40 mg Q12HR IV PUSH 04/17/17 21:00 04/21/17 09:23 Levofloxacin/ Dextrose 100 ml @ 100 mls/hr Q24H IV 04/18/17 10:00 04/21/17 09:23 Metronidazole 100 ml @ 100 mls/hr Q8H IV 04/19/17 12:00 04/21/17 12:58 Levetriacetam 500 mg/Sodium Chloride 105 ml @ 420 mls/hr Q6HR IV 04/20/17 12:00 04/21/17 18:00 Lacosamide 100 mg/ Sodium Chloride 110 ml @ 110 mls/hr EVERY OTHER DAY IV 04/20/17 14:00 04/20/17 16:16 (Duoneb Neb) 1 ampule QID NEB NEB 04/20/17 12:00 04/21/17 15:42 (Decadron Inj) 4 mg Q6HR IV PUSH 04/20/17 12:00 04/22/17 11:59 04/21/17 18:00 (NovoLOG SUPPLEMENTAL SCALE) 1 Q4H SQ 04/20/17 10:00 Lactated Ringer's 1,000 ml @ 80 mls/hr [id number] IV 04/20/17 14:00 04/21/17 02:16 (Roxicodone Intensol Liq) 5 mg Q4H PRN PO 04/21/17 19:30 (Cerebyx Inj) 100 mgpe Q8HR IV 04/21/17 22:00 Allergies Allergies Coded Allergies sulfamethoxazole (Verified Allergy, Unknown, 04/16/17) trimethoprim (Verified Allergy, Unknown, 04/16/17) Exam I&O / VS 04/21/17 04/21/17 04/22/17 15:00 23:00 07:00 Intake Total 101 ml Balance 101 ml IV Total 100 ml Other 1 ml Vital Signs Date Time Temp Pulse Resp B/P (MAP) Pulse Ox O2 Delivery O2 Flow Rate FiO2 04/21/17 18:00 92 04/21/17 16:00 90 04/21/17 14:00 81 04/21/17 12:00 98.1 83 23 128/66 (86) 97 04/21/17 12:00 83 04/21/17 10:00 84 04/21/17 10:00 95 T-Piece 40 04/21/17 08:37 100 T-piece 5.00 40 04/21/17 08:00 72 04/21/17 08:00 97.9 72 18 142/73 (96) 98 04/21/17 06:00 80 04/21/17 04:00 98.7 78 24 131/67 (88) 97 04/21/17 02:00 88 04/21/17 00:00 98.3 87 18 118/63 (81) 100 04/21/17 00:00 87 04/20/17 22:00 93 04/20/17 21:05 96 T-piece 5.00 40 Respiratory: Lungs CTA, Non-labored respirations Cardiology: Normal rate, Regular Rhythm Musculoskeletal: Swelling, Deformity Exam Comments alert, follow commands CN--PERRL, right upper motor neuron CN 7 palsey right hemiparesis--0/5 RUE, 2/5 RLE strength Objective Micro and Labs Laboratory Tests Test 04/21/17 04:12 04/21/17 17:26 Phenytoin (Dilantin) Level 7.2 6.5 Rinku Sun PhD Apr 21, 2017 20:03
[2017-04-21] MEDS: oxyCODONE HCL ORAL CONC 20 MG/ML SYRINGE PO PRN (21:06)
[2017-04-22] VITALS (11 sets, daily range): BP systolic 117–133; BP diastolic 58–71; PULSE 87–97; RESP 18; TEMP 98.2–100.9; O2SAT 93–96
[2017-04-22] MEDS: levETIRAcetam INJ 500 MG in SODIUM CHLORIDE 0.9% INJ 100 ML IV SCH ×4 (00:28→16:54)
[2017-04-22] MEDS: DEXAMETHASONE SOD PHOS 4 MG/ML VIAL IV PUSH SCH ×2 (00:29→06:50)
[2017-04-22] MEDS: ZOLPIDEM TARTRATE 5 MG TAB PO PRN (00:30)
[2017-04-22] MEDS: oxyCODONE HCL ORAL CONC 20 MG/ML SYRINGE PO PRN ×2 (00:30→12:42)
[2017-04-22] MEDS: INSULIN ASPART SUPPLEMENTAL SCALE SQ SCH ×6 (02:00→22:00)
[2017-04-22] MEDS: LACTATED RINGER'S 1000 ML INJ 1,000 ML IV SCH (03:30)
[2017-04-22] MEDS: metroNIDAZOLE 500 MG INJ 100 ML IV SCH ×2 (04:03→11:36)
[2017-04-22] MEDS: FOSPHENYTOIN SODIUM 100 MG PE/2 ML VIAL IV SCH ×2 (06:50→13:51)
[2017-04-22] MEDS: RESP: ALBUTEROL 2.5 MG/IPRATROPIUM 0.5 MG NEB (SCH) NEB ×4 (08:33→19:20)
[2017-04-22] MEDS: SODIUM CHLORIDE 0.9% FLUSH 10 ML FLUSH IV FLUSH SCH (08:43)
[2017-04-22] MEDS: DOCUSATE SODIUM 50 MG/SENNA 8.6 MG TAB PO SCH (08:43)
[2017-04-22] MEDS: PANTOPRAZOLE SODIUM 40 MG VIAL IV PUSH SCH (08:43)
[2017-04-22] MEDS ORDERED: PHENYTOIN SUSP 100 MG/4 ML CUP PO SCH (09:00)
[2017-04-22] MEDS: DEXT 5%-NACL 0.9% 1000 ML INJ 1,000 ML IV SCH (09:06)
[2017-04-22] MEDS: LACOSAMIDE INJ 100 MG in SODIUM CHLORIDE 0.9% INJ 100 ML IV SCH (09:08)
--- NOTE | 2017-04-22 09:16 | HHI.FPPN ---
Subjective Remarks AGITATED C/O TRACH DISCOMFORT D/W RN, PT STABLE Objective Vitals Vital Signs Date Time Temp Pulse Resp B/P (MAP) Pulse Ox O2 Delivery O2 Flow Rate FiO2 04/22/17 08:52 98.9 89 18 123/70 (87) 93 04/22/17 08:38 94 T-piece 6.00 40 04/22/17 04:00 98.2 90 18 126/66 (86) 93 04/22/17 02:00 90 04/22/17 00:00 98.3 90 18 117/62 (80) 93 04/21/17 23:00 93 T-Piece 6.00 40 Humidified 04/21/17 22:00 89 04/21/17 20:50 96 T-piece 40 04/21/17 20:00 88 04/21/17 20:00 99.4 88 17 118/79 (92) 96 04/21/17 19:00 95 T-Piece 40 04/21/17 18:00 92 04/21/17 16:00 98.4 84 16 134/71 (92) 04/21/17 16:00 90 04/21/17 14:00 81 04/21/17 12:00 98.1 83 23 128/66 (86) 97 04/21/17 12:00 83 04/21/17 10:00 84 04/21/17 10:00 95 T-Piece 40 I/O 04/21/17 04/21/17 04/21/17 04/22/17 04/22/17 04/22/17 07:00 15:00 23:00 07:00 15:00 23:00 Intake Total 1445 ml 101 ml 200 ml 325 ml 105 ml Output Total 500 ml 20 ml Balance 945 ml 101 ml 200 ml 305 ml 105 ml IV Total 1205 ml 100 ml 200 ml 205 ml 105 ml Other 240 ml 1 ml 120 ml Output Urine Total 500 ml Gastric Drainage Total 20 ml # Voids 1 3 3 # Bowel Movements 0 Result Diagram: 04/20/17 1343 04/20/17 1343 Objective Remarks GENERAL: SKIN: Warm and dry. HEAD: Atraumatic. Normocephalic. EYES: Pupils equal and round. No scleral icterus. No injection or drainage. ENT: No nasal bleeding or discharge. Mucous membranes pink and moist. TRACH C/ DI, SL OOZING NECK: Trachea midline. No JVD. CARDIOVASCULAR: Regular rate and rhythm. RESPIRATORY: B rales and ronchi, congested cough GASTROINTESTINAL: Abdomen soft, non-tender, nondistended. Hepatic and splenic margins not palpable. MUSCULOSKELETAL: Extremities without clubbing, cyanosis, or edema. No obvious deformities. NEUROLOGICAL: Awake and alert. No obvious cranial nerve deficits. R DIOGENES PSYCHIATRIC: Appropriate mood and affect; insight and judgment normal. Medications and IVs Current Medications Medications (Trade) Dose Ordered Sig/Delvis Route Start Time Stop Time Status Last Admin (Xanax) 1 mg BID PO 04/17/17 09:00 Future Hold 04/19/17 20:28 (Ativan) 0.5 mg Q8H PRN PO 04/16/17 21:45 04/17/17 22:50 (Catapres) 0.1 mg Q6H PRN PO 04/16/17 21:45 04/18/17 05:17 ([place] 5-325 Mg) 1 tab Q4H PRN PO 04/16/17 21:45 Future Hold 04/16/17 22:37 (NS Flush) 2 ml UNSCH PRN IV FLUSH 04/16/17 21:45 (NS Flush) 2 ml BID IV FLUSH 04/17/17 09:00 04/22/17 08:43 (Tylenol) 650 mg Q4H PRN PO 04/16/17 21:45 Future Hold (Zofran Inj) 4 mg Q6H PRN IVP 04/16/17 21:45 04/21/17 02:57 (Ambien) 5 mg HS PRN PO 04/16/17 21:45 04/22/17 00:30 (Heparin Inj) 5,000 units Q12H SQ 04/16/17 21:45 Future Hold 04/18/17 22:14 (Narcan Inj) 0.4 mg UNSCH PRN IV PUSH 04/16/17 21:45 (Elidia-Colace) 1 tab BID PO 04/17/17 09:00 04/21/17 21:41 (Milk Of Magnesia Liq) 30 ml Q12H PRN PO 04/16/17 21:45 (Senokot) 17.2 mg Q12H PRN PO 04/16/17 21:45 (Dulcolax Supp) 10 mg DAILY PRN RECTAL 04/16/17 21:45 (Lactulose Liq) 30 ml DAILY PRN PO 04/16/17 21:45 (Duoneb Neb) 1 ampule Q6HR NEB PRN NEB 04/16/17 23:00 04/17/17 00:01 (Protonix Inj) 40 mg Q12HR IV PUSH 04/17/17 21:00 04/22/17 08:43 Levofloxacin/ Dextrose 100 ml @ 100 mls/hr Q24H IV 04/18/17 10:00 04/21/17 09:23 Metronidazole 100 ml @ 100 mls/hr Q8H IV 04/19/17 12:00 04/22/17 04:03 Levetriacetam 500 mg/Sodium Chloride 105 ml @ 420 mls/hr Q6HR IV 04/20/17 12:00 04/22/17 06:50 Lacosamide 100 mg/ Sodium Chloride 110 ml @ 110 mls/hr EVERY OTHER DAY IV 04/20/17 14:00 04/20/17 16:16 (Duoneb Neb) 1 ampule QID NEB NEB 04/20/17 12:00 04/22/17 08:33 (Decadron Inj) 4 mg Q6HR IV PUSH 04/20/17 12:00 04/22/17 11:59 04/22/17 06:50 (NovoLOG SUPPLEMENTAL SCALE) 1 Q4H SQ 04/20/17 10:00 (Cerebyx Inj) 100 mgpe Q8HR IV 04/21/17 22:00 04/22/17 06:50 (Roxicodone Intensol Liq) 5 mg Q4H PRN PO 04/21/17 20:45 04/22/17 00:30 Dextrose/Sodium Chloride 1,000 ml @ 50 mls/hr Q20H IV 04/22/17 09:00 A/P Assessment and Plan ASSESSMENT: 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 Larynx mass on EGD 04/17/17 Cerebrovascular accident with right hemiparesis. Anemia. Depression Anxiety. Chronic pain syndrome. Lumbar degenerative disc disease. Neuropathy. PLAN- ICU care. IV ABX IV cerebryx, taniat and yenny Follow up gastric biopsies and throat bx A.m. CBC and BMP. IV fluids. Xanax 1 mg twice a day. Telemetry. Duoneb q.i.d. DVT prophylaxis - SCDs/TEDs HOLD Heparin 5000 units subcutaneously q 12, HAVING SOME BLOODY TRACH OOZING, RESTART WHEN OK WITH DR Blevins GI prophylaxis - Protonix 40 mg IV q.12 h. Ari Sims MD Apr 22, 2017 09:16
[2017-04-22] MEDS: LEVOFLOXACIN 500 MG PREMIX INJ 100 ML IV SCH (10:29)
--- NOTE | 2017-04-22 10:33 | HHI.GIFU ---
Subjective Remarks Resting in bed. No complaints. S/P PEG tube placement yesterday, denies any abdominal pain. (Mercedes Romero) Objective Vitals I&O Vital Signs Date Time Temp Pulse Resp B/P (MAP) Pulse Ox O2 Delivery O2 Flow Rate FiO2 04/22/17 08:52 98.9 89 18 123/70 (87) 93 04/22/17 08:38 94 T-piece 6.00 40 04/22/17 04:00 98.2 90 18 126/66 (86) 93 04/22/17 02:00 90 04/22/17 00:00 98.3 90 18 117/62 (80) 93 04/21/17 23:00 93 T-Piece 6.00 40 Humidified 04/21/17 22:00 89 04/21/17 20:50 96 T-piece 40 04/21/17 20:00 88 04/21/17 20:00 99.4 88 17 118/79 (92) 96 04/21/17 19:00 95 T-Piece 40 04/21/17 18:00 92 04/21/17 16:00 98.4 84 16 134/71 (92) 04/21/17 16:00 90 04/21/17 14:00 81 04/21/17 12:00 98.1 83 23 128/66 (86) 97 04/21/17 12:00 83 I/O 04/21/17 04/21/17 04/21/17 04/22/17 04/22/17 04/22/17 07:00 15:00 23:00 07:00 15:00 23:00 Intake Total 1445 ml 101 ml 200 ml 325 ml 105 ml Output Total 500 ml 20 ml Balance 945 ml 101 ml 200 ml 305 ml 105 ml IV Total 1205 ml 100 ml 200 ml 205 ml 105 ml Other 240 ml 1 ml 120 ml Output Urine Total 500 ml Gastric Drainage Total 20 ml # Voids 1 3 3 # Bowel Movements 0 Laboratory Laboratory Tests Test 04/21/17 17:26 Phenytoin (Dilantin) Level 6.5 Imaging Last Impressions Chest X-Ray 04/18/17 0000 Signed Impressions: Service Date/Time: Tuesday, April 18, 2017 09:57 - CONCLUSION: 1. Chronic interstitial changes. Stable exam compared to prior dated 04/16/17. Neeraj Alarcon MD Upper GI Series 04/16/17 0000 Signed Impressions: Service Date/Time: Sunday, April 16, 2017 17:31 - CONCLUSION: 1. No evidence of esophageal stricture. 2. Poor esophageal motility. 3. No evidence of aspiration. 4. Small hiatal hernia. 5. Delayed KUB is pending. Neeraj Alarcon MD Abdomen X-Ray 04/16/17 0000 Signed Impressions: Service Date/Time: Sunday, April 16, 2017 18:05 - CONCLUSION: Some of the oral contrast is still in the patient's esophagus. Otherwise, contrast has passed normally to the level of the mid/distal small bowel. Rian Benjamin MD Physical Exam HEENT: Normocephalic; atraumatic; no jaundice. CHEST: Trachesotomy, tbar,course breath sounds CARDIAC: RRR ABDOMEN: Soft, nondistended, nontender; no hepatosplenomegaly; bowel sounds are present, peg tube without redness, swelling, drainage EXTREMITIES: No clubbing, cyanosis, or edema. SKIN: Normal; no rash; no jaundice. SCRAP PICKER: No focal deficits; lethargic and oriented x 3 (Mercedes Romero) Assessment and Plan Plan ASSESSMENT: - Dysphagia, ? food bolus in esophagus. Pt c/o difficulty with solids becoming lodged in lower esophagus x 2 weeks, worse over 2 days. Feels like food is stuck in his esophagus with frequent coughing. He has frequent heartburn, no n/v. Upper GI series (04/16/17)--> no evidence of esophageal stricture, poor esophageal motility, no evidence of aspiration , small hiatal hernia, delayed KUB is pending. KUB (04/16/17)---> Some of oral contrast is still in patient's esophagus. Otherwise, contrast has passed normally to the level of the mid/distal small bowel. S/P EGD (04/17/17)----> Possible mass in the larynx, Severe esophagitis biopsy was done. Pathology with fibrinopurulent exudate suggestive of acute ulcerative esophagitis, no fungal organisms are present. S/P EGD with PEG tube placement (04/21/17)---> A hiatal hernia peg position was confirmed endoscopically. Will start Glucerna 1.5 at 30cc/ hr and get superintendent institution evaluation. - Laryngeal friable mass. ENT following, s/p biopsy. Pt had significant during biopsy and required tracheostomy placement. Pathology pending. - Anemia. Stable from 04/20 labs. No active bleeding. Will recheck CBC. - Hyponatremia, hypokalemia, per attending. - Elevated AST, undetermined significance. Rpt. labs T. Bili 0.4, AST 21, ALT 12, ALk PHopsh 224. - CVA, HTN, CAD, Hyperlipidemia, DM per attending PLAN: - Glucerna 1.5 at 30cc/hr - Engineering Project Manager for TF recommendations - Cont. Protonix - CBC - ENT following for laryngeal mass, s/p bx, pathology pending - Supportive care - Further recommendations to follow based on results of above - Pt seen and examined by Dr. Curtis and myself and this note is written on her behalf (Mercedes Romero) Physician Comments seen, examined agree with above tf started now-tolerating well (Milena Curtis MD) Mercedes Romero Apr 22, 2017 10:33 Milena Curtis MD Apr 22, 2017 17:35
[2017-04-22 14:30] LABS: AUTOMATED NEUTROPHIL # 8.4 TH/MM3 (1.8-7.7); BASOPHIL % 0.1 % (0.0-2.0); EOSINOPHIL % 0.3 % (0.0-4.0); HEMATOCRIT 30.9 % (39.0-51.0); HEMO FLAGS DIFF FINAL; LYMPH % 15.9 % (9.0-44.0); LYMPHOCYTE # 1.8 TH/MM3 (1.0-4.8); MEAN CELL VOLUME 91.2 FL (80.0-100.0); MEAN CORPUSCULAR HEMOGLOBIN 31.2 PG (27.0-34.0); MEAN CORPUSCULAR HGB CONC 34.2 % (32.0-36.0); MONO % 10.4 % (0.0-8.0); NEUT % 73.3 % (16.0-70.0); PLATELET COUNT 374 TH/MM3 (150-450); RED BLOOD COUNT 3.39 MIL/MM3 (4.50-5.90); RED CELL DISTRIBUTION WIDTH 13.1 % (11.6-17.2); WHITE BLOOD COUNT 11.4 TH/MM3 (4.0-11.0)
--- NOTE | 2017-04-22 21:40 | HHI.PR ---
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 recent dilantin toxicity Plan phenytoin level low today so increase cerebyx dose. todays level corrected for hypoalbuminemia is 9.7 Diagnosis/Plan: Subjective Subjective Comments No acute events reported Active Medications Current Medications Medications (Trade) Dose Ordered Sig/Delvis Route Start Time Stop Time Status Last Admin (Xanax) 1 mg BID PO 04/17/17 09:00 Future Hold 04/19/17 20:28 (Ativan) 0.5 mg Q8H PRN PO 04/16/17 21:45 04/17/17 22:50 (Catapres) 0.1 mg Q6H PRN PO 04/16/17 21:45 04/18/17 05:17 ([place] 5-325 Mg) 1 tab Q4H PRN PO 04/16/17 21:45 Future Hold 04/16/17 22:37 (NS Flush) 2 ml UNSCH PRN IV FLUSH 04/16/17 21:45 (NS Flush) 2 ml BID IV FLUSH 04/17/17 09:00 04/22/17 08:43 (Tylenol) 650 mg Q4H PRN PO 04/16/17 21:45 Future Hold (Zofran Inj) 4 mg Q6H PRN IVP 04/16/17 21:45 04/21/17 02:57 (Ambien) 5 mg HS PRN PO 04/16/17 21:45 04/22/17 00:30 (Heparin Inj) 5,000 units Q12H SQ 04/16/17 21:45 Future Hold 04/18/17 22:14 (Narcan Inj) 0.4 mg UNSCH PRN IV PUSH 04/16/17 21:45 (Elidia-Colace) 1 tab BID PO 04/17/17 09:00 04/21/17 21:41 (Milk Of Magnesia Liq) 30 ml Q12H PRN PO 04/16/17 21:45 (Senokot) 17.2 mg Q12H PRN PO 04/16/17 21:45 (Dulcolax Supp) 10 mg DAILY PRN RECTAL 04/16/17 21:45 (Lactulose Liq) 30 ml DAILY PRN PO 04/16/17 21:45 (Duoneb Neb) 1 ampule Q6HR NEB PRN NEB 04/16/17 23:00 04/17/17 00:01 (Protonix Inj) 40 mg Q12HR IV PUSH 04/17/17 21:00 04/22/17 08:43 Levofloxacin/ Dextrose 100 ml @ 100 mls/hr Q24H IV 04/18/17 10:00 04/22/17 10:29 Metronidazole 100 ml @ 100 mls/hr Q8H IV 04/19/17 12:00 04/22/17 11:36 Levetriacetam 500 mg/Sodium Chloride 105 ml @ 420 mls/hr Q6HR IV 04/20/17 12:00 04/22/17 16:54 Lacosamide 100 mg/ Sodium Chloride 110 ml @ 110 mls/hr EVERY OTHER DAY IV 04/20/17 14:00 04/22/17 09:08 (Duoneb Neb) 1 ampule QID NEB NEB 04/20/17 12:00 04/22/17 19:20 (NovoLOG SUPPLEMENTAL SCALE) 1 Q4H SQ 04/20/17 10:00 (Cerebyx Inj) 100 mgpe Q8HR IV 04/21/17 22:00 04/22/17 13:51 (Roxicodone Intensol Liq) 5 mg Q4H PRN PO 04/21/17 20:45 04/22/17 12:42 Dextrose/Sodium Chloride 1,000 ml @ 50 mls/hr Q20H IV 04/22/17 09:00 04/22/17 09:06 Allergies Allergies Coded Allergies sulfamethoxazole (Verified Allergy, Unknown, 04/16/17) trimethoprim (Verified Allergy, Unknown, 04/16/17) Exam I&O / VS 04/22/17 04/22/17 04/23/17 15:00 23:00 07:00 Intake Total 525 ml 100 ml Balance 525 ml 100 ml Intake Oral 120 ml IV Total 405 ml 100 ml # Voids 5 Vital Signs Date Time Temp Pulse Resp B/P (MAP) Pulse Ox O2 Delivery O2 Flow Rate FiO2 04/22/17 20:43 100.9 97 18 129/71 (90) 95 04/22/17 16:00 99.7 93 18 133/64 (87) 96 04/22/17 15:21 94 T-piece 6.00 40 04/22/17 12:51 99.1 89 18 117/58 (77) 94 04/22/17 11:03 87 04/22/17 08:52 98.9 89 18 123/70 (87) 93 04/22/17 08:38 94 T-piece 6.00 40 04/22/17 04:00 98.2 90 18 126/66 (86) 93 04/22/17 02:00 90 04/22/17 00:00 98.3 90 18 117/62 (80) 93 04/21/17 23:00 93 T-Piece 6.00 40 Humidified 04/21/17 22:00 89 Respiratory: Lungs CTA, Non-labored respirations Cardiology: Normal rate, Regular Rhythm Musculoskeletal: Swelling, Deformity Exam Comments alert, follow commands CN--PERRL, right upper motor neuron CN 7 palsey right hemiparesis--0/5 RUE, 2/5 RLE strength Objective Micro and Labs Laboratory Tests Test 04/22/17 13:35 White Blood Count 11.4 Red Blood Count 3.39 Hemoglobin 10.6 Hematocrit 30.9 Mean Corpuscular Volume 91.2 Mean Corpuscular Hemoglobin 31.2 Mean Corpuscular Hemoglobin Concent 34.2 Red Cell Distribution Width 13.1 Platelet Count 374 Mean Platelet Volume 6.3 Neutrophils (%) (Auto) 73.3 Lymphocytes (%) (Auto) 15.9 Monocytes (%) (Auto) 10.4 Eosinophils (%) (Auto) 0.3 Basophils (%) (Auto) 0.1 Neutrophils # (Auto) 8.4 Lymphocytes # (Auto) 1.8 Monocytes # (Auto) 1.2 Eosinophils # (Auto) 0.0 Basophils # (Auto) 0.0 CBC Comment DIFF FINAL Differential Comment Phenytoin (Dilantin) Level 5.8 Rinku Sun PhD Apr 22, 2017 21:40
[2017-04-22] MEDS ORDERED: Vancomycin Consult Pharmacy 1 EA OTHER SCH (23:45)
[2017-04-23] VITALS (11 sets, daily range): BP systolic 114–146; BP diastolic 55–71; PULSE 75–95; RESP 18–20; TEMP 97.6–102.1; O2SAT 89–97
[2017-04-23] MEDS: metroNIDAZOLE 500 MG INJ 100 ML IV SCH ×4 (00:16→21:41)
[2017-04-23] MEDS: SODIUM CHLORIDE 0.9% FLUSH 10 ML FLUSH IV FLUSH SCH ×3 (00:17→21:00)
[2017-04-23] MEDS: DOCUSATE SODIUM 50 MG/SENNA 8.6 MG TAB PO SCH ×3 (00:17→21:41)
[2017-04-23] MEDS: PANTOPRAZOLE SODIUM 40 MG VIAL IV PUSH SCH ×3 (00:17→21:39)
[2017-04-23] MEDS: FOSPHENYTOIN SODIUM 100 MG PE/2 ML VIAL IV SCH ×4 (00:19→18:58)
[2017-04-23] MEDS: ACETAMINOPHEN 500 MG CPLT PO PRN ×2 (00:19→04:41)
[2017-04-23] MEDS: oxyCODONE HCL ORAL CONC 20 MG/ML SYRINGE PO PRN ×4 (00:20→18:58)
[2017-04-23] MEDS: levETIRAcetam INJ 500 MG in SODIUM CHLORIDE 0.9% INJ 100 ML IV SCH ×4 (00:45→17:41)
[2017-04-23] MEDS ORDERED: VANCOMYCIN 1,500 MG/NS 500 ML IV ONE ×2 (01:00)
[2017-04-23] MEDS: INSULIN ASPART SUPPLEMENTAL SCALE SQ SCH ×6 (02:00→21:41)
[2017-04-23] MEDS: DEXT 5%-NACL 0.9% 1000 ML INJ 1,000 ML IV SCH (06:37)
[2017-04-23 08:20] LABS: AUTOMATED NEUTROPHIL # 7.4 TH/MM3 (1.8-7.7); BASOPHIL # 0.1 TH/MM3 (0-0.2); BASOPHIL % 0.8 % (0.0-2.0); EOSINOPHIL # 0.2 TH/MM3 (0-0.4); EOSINOPHIL % 1.5 % (0.0-4.0); HEMATOCRIT 29.5 % (39.0-51.0); HEMO FLAGS DIFF FINAL; LYMPH % 14.7 % (9.0-44.0); LYMPHOCYTE # 1.5 TH/MM3 (1.0-4.8); MEAN CELL VOLUME 90.5 FL (80.0-100.0); MEAN CORPUSCULAR HEMOGLOBIN 31.5 PG (27.0-34.0); MEAN CORPUSCULAR HGB CONC 34.8 % (32.0-36.0); MONO % 11.9 % (0.0-8.0); NEUT % 71.1 % (16.0-70.0); PLATELET COUNT 360 TH/MM3 (150-450); RED BLOOD COUNT 3.26 MIL/MM3 (4.50-5.90); RED CELL DISTRIBUTION WIDTH 12.8 % (11.6-17.2); WHITE BLOOD COUNT 10.4 TH/MM3 (4.0-11.0)
[2017-04-23 09:01] LABS: BICARBONATE 26.9 MEQ/L (21.0-32.0)
[2017-04-23] MEDS: RESP: ALBUTEROL 2.5 MG/IPRATROPIUM 0.5 MG NEB (SCH) NEB ×4 (09:01→19:31)
[2017-04-23 09:12] LABS: POTASSIUM 2.9 MEQ/L (3.5-5.1)
--- NOTE | 2017-04-23 10:12 | HHI.FPPN ---
Subjective Remarks LONG CONF W , SHE WANTING TO BE AGGRESSIVE D/W PT D/W RN CALLED W [facility] HS TELE REVIEWED Objective Vitals Vital Signs Date Time Temp Pulse Resp B/P (MAP) Pulse Ox O2 Delivery O2 Flow Rate FiO2 04/23/17 09:04 96 T-piece 6.00 40 04/23/17 08:00 99.3 86 20 114/57 (76) 95 04/23/17 05:15 96 04/23/17 05:00 99.5 94 18 136/71 (92) 89 04/23/17 03:02 100.0 04/23/17 01:48 94 T-piece 6.00 40 04/23/17 00:31 102.1 95 18 134/71 (92) 96 04/22/17 22:00 94 T-Piece 6.00 40 Humidified 04/22/17 22:00 95 04/22/17 20:43 100.9 97 18 129/71 (90) 95 04/22/17 16:00 99.7 93 18 133/64 (87) 96 04/22/17 15:21 94 T-piece 6.00 40 04/22/17 12:51 99.1 89 18 117/58 (77) 94 04/22/17 11:03 87 I/O 04/22/17 04/22/17 04/22/17 04/23/17 04/23/17 04/23/17 07:00 15:00 23:00 07:00 15:00 23:00 Intake Total 325 ml 525 ml 100 ml Output Total 20 ml Balance 305 ml 525 ml 100 ml Intake Oral 120 ml IV Total 205 ml 405 ml 100 ml Other 120 ml Gastric Drainage Total 20 ml # Voids 3 5 3 # Bowel Movements 1 Result Diagram: 04/23/17 0716 04/23/17 0700 Objective Remarks GENERAL: SKIN: Warm and dry. HEAD: Atraumatic. Normocephalic. EYES: Pupils equal and round. No scleral icterus. No injection or drainage. ENT: No nasal bleeding or discharge. Mucous membranes pink and moist. TRACH C/ DI, SL OOZING NECK: Trachea midline. No JVD. CARDIOVASCULAR: Regular rate and rhythm. RESPIRATORY: B rales and ronchi, congested cough GASTROINTESTINAL: Abdomen soft, non-tender, nondistended. Hepatic and splenic margins not palpable. MUSCULOSKELETAL: Extremities without clubbing, cyanosis, or edema. No obvious deformities. NEUROLOGICAL: Awake and alert. No obvious cranial nerve deficits. R DIOGENES PSYCHIATRIC: Appropriate mood and affect; insight and judgment normal. Medications and IVs Current Medications Medications (Trade) Dose Ordered Sig/Delvis Route Start Time Stop Time Status Last Admin (Xanax) 1 mg BID PO 04/17/17 09:00 Future Hold 04/19/17 20:28 (Ativan) 0.5 mg Q8H PRN PO 04/16/17 21:45 04/17/17 22:50 (Catapres) 0.1 mg Q6H PRN PO 04/16/17 21:45 04/18/17 05:17 ([place] 5-325 Mg) 1 tab Q4H PRN PO 04/16/17 21:45 Future Hold 04/16/17 22:37 (NS Flush) 2 ml UNSCH PRN IV FLUSH 04/16/17 21:45 (NS Flush) 2 ml BID IV FLUSH 04/17/17 09:00 04/23/17 00:17 (Tylenol) 650 mg Q4H PRN PO 04/16/17 21:45 Future Hold (Zofran Inj) 4 mg Q6H PRN IVP 04/16/17 21:45 04/21/17 02:57 (Ambien) 5 mg HS PRN PO 04/16/17 21:45 04/22/17 00:30 (Heparin Inj) 5,000 units Q12H SQ 04/16/17 21:45 Future Hold 04/18/17 22:14 (Narcan Inj) 0.4 mg UNSCH PRN IV PUSH 04/16/17 21:45 (Elidia-Colace) 1 tab BID PO 04/17/17 09:00 04/23/17 00:17 (Milk Of Magnesia Liq) 30 ml Q12H PRN PO 04/16/17 21:45 (Senokot) 17.2 mg Q12H PRN PO 04/16/17 21:45 (Dulcolax Supp) 10 mg DAILY PRN RECTAL 04/16/17 21:45 (Lactulose Liq) 30 ml DAILY PRN PO 04/16/17 21:45 (Duoneb Neb) 1 ampule Q6HR NEB PRN NEB 04/16/17 23:00 04/17/17 00:01 (Protonix Inj) 40 mg Q12HR IV PUSH 04/17/17 21:00 04/23/17 00:17 Levofloxacin/ Dextrose 100 ml @ 100 mls/hr Q24H IV 04/18/17 10:00 04/22/17 10:29 Metronidazole 100 ml @ 100 mls/hr Q8H IV 04/19/17 12:00 04/23/17 04:41 Levetriacetam 500 mg/Sodium Chloride 105 ml @ 420 mls/hr Q6HR IV 04/20/17 12:00 04/23/17 06:39 Lacosamide 100 mg/ Sodium Chloride 110 ml @ 110 mls/hr EVERY OTHER DAY IV 04/20/17 14:00 04/22/17 09:08 (Duoneb Neb) 1 ampule QID NEB NEB 04/20/17 12:00 04/23/17 09:01 (NovoLOG SUPPLEMENTAL SCALE) 1 Q4H SQ 04/20/17 10:00 (Roxicodone Intensol Liq) 5 mg Q4H PRN PO 04/21/17 20:45 04/23/17 00:20 Dextrose/Sodium Chloride 1,000 ml @ 50 mls/hr Q20H IV 04/22/17 09:00 04/23/17 06:37 (Cerebyx Inj) 100 mgpe Q6HR IV 04/23/17 00:00 04/23/17 06:38 Pharmacy Profile Note ml @ 0 mls/hr UNSCH OTHER 04/22/17 23:45 (Tylenol) 500 mg Q4H PRN PO 04/22/17 23:45 04/23/17 04:41 (Paxil) 40 mg DAILY PO 04/23/17 09:00 Vancomycin HCl 1250 mg/Sodium Chloride 262.5 ml @ 250 mls/hr Q12H IV 04/23/17 14:00 Miscellaneous Information SPECIFIC LAB TO BE DRAWN:VANCOMYCIN TROUGH DATE TO... 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 Cerebrovascular accident with right hemiparesis. Anemia. Depression Anxiety. Chronic pain syndrome. Lumbar degenerative disc disease. Neuropathy. PLAN- ICU care. IV ABX BLOOD CULTURES X TWO IV cerebryx, vimpat and keppra Follow up gastric biopsies and throat bx A.m. CBC and BMP. IV fluids. Xanax 1 mg twice a day. Telemetry. Duoneb q.i.d. DVT prophylaxis - SCDs/TEDs Heparin 5000 units subcutaneously q 12- RESTART WHEN OK WITH DR Blevins GI prophylaxis - Protonix 40 mg IV q.12 h. CONSULTS TO ID, PULM, ENT, ONCO, GI Ari Sims MD Apr 23, 2017 10:12
[2017-04-23] MEDS: PARoxetine HCL 20 MG TAB PO SCH (10:30)
[2017-04-23] MEDS: LEVOFLOXACIN 500 MG PREMIX INJ 100 ML IV SCH (10:40)
--- NOTE | 2017-04-23 11:07 | HHI.GIFU ---
Subjective Remarks Resting in bed. No distress. TF started, going at 15cc/hr, mild tenderness on exam. No GI bleeding. Objective Vitals I&O Vital Signs Date Time Temp Pulse Resp B/P (MAP) Pulse Ox O2 Delivery O2 Flow Rate FiO2 04/23/17 09:04 96 T-piece 6.00 40 04/23/17 08:00 99.3 86 20 114/57 (76) 95 04/23/17 05:15 96 04/23/17 05:00 99.5 94 18 136/71 (92) 89 04/23/17 03:02 100.0 04/23/17 01:48 94 T-piece 6.00 40 04/23/17 00:31 102.1 95 18 134/71 (92) 96 04/22/17 22:00 94 T-Piece 6.00 40 Humidified 04/22/17 22:00 95 04/22/17 20:43 100.9 97 18 129/71 (90) 95 04/22/17 16:00 99.7 93 18 133/64 (87) 96 04/22/17 15:21 94 T-piece 6.00 40 04/22/17 12:51 99.1 89 18 117/58 (77) 94 I/O 04/22/17 04/22/17 04/22/17 04/23/17 04/23/17 04/23/17 07:00 15:00 23:00 07:00 15:00 23:00 Intake Total 325 ml 525 ml 100 ml Output Total 20 ml Balance 305 ml 525 ml 100 ml Intake Oral 120 ml IV Total 205 ml 405 ml 100 ml Other 120 ml Gastric Drainage Total 20 ml # Voids 3 5 3 # Bowel Movements 1 Laboratory Laboratory Tests Test 04/22/17 13:35 04/23/17 07:00 04/23/17 07:16 White Blood Count 11.4 10.4 Red Blood Count 3.39 3.26 Hemoglobin 10.6 10.3 Hematocrit 30.9 29.5 Mean Corpuscular Volume 91.2 90.5 Mean Corpuscular Hemoglobin 31.2 31.5 Mean Corpuscular Hemoglobin Concent 34.2 34.8 Red Cell Distribution Width 13.1 12.8 Platelet Count 374 360 Mean Platelet Volume 6.3 6.2 Neutrophils (%) (Auto) 73.3 71.1 Lymphocytes (%) (Auto) 15.9 14.7 Monocytes (%) (Auto) 10.4 11.9 Eosinophils (%) (Auto) 0.3 1.5 Basophils (%) (Auto) 0.1 0.8 Neutrophils # (Auto) 8.4 7.4 Lymphocytes # (Auto) 1.8 1.5 Monocytes # (Auto) 1.2 1.2 Eosinophils # (Auto) 0.0 0.2 Basophils # (Auto) 0.0 0.1 CBC Comment DIFF FINAL DIFF FINAL Differential Comment Phenytoin (Dilantin) Level 5.8 Blood Urea Nitrogen 5 Creatinine 0.27 Random Glucose 101 Calcium Level 7.6 Sodium Level 134 Potassium Level 2.9 Chloride Level 100 Carbon Dioxide Level 26.9 Anion Gap 7 Estimat Glomerular Filtration Rate 335 Imaging Last Impressions Chest X-Ray 04/18/17 0000 Signed Impressions: Service Date/Time: Tuesday, April 18, 2017 09:57 - CONCLUSION: 1. Chronic interstitial changes. Stable exam compared to prior dated 04/16/17. Neeraj Alarcon MD Upper GI Series 04/16/17 0000 Signed Impressions: Service Date/Time: Sunday, April 16, 2017 17:31 - CONCLUSION: 1. No evidence of esophageal stricture. 2. Poor esophageal motility. 3. No evidence of aspiration. 4. Small hiatal hernia. 5. Delayed KUB is pending. Neeraj Alarcon MD Abdomen X-Ray 04/16/17 0000 Signed Impressions: Service Date/Time: Sunday, April 16, 2017 18:05 - CONCLUSION: Some of the oral contrast is still in the patient's esophagus. Otherwise, contrast has passed normally to the level of the mid/distal small bowel. Rian Benjamin MD Physical Exam HEENT: Normocephalic; atraumatic; no jaundice. CHEST: Trachesotomy, tbar,course breath sounds CARDIAC: RRR ABDOMEN: Soft, nondistended, mild tenderness- diffuse; no hepatosplenomegaly; bowel sounds are present, peg tube without redness, swelling, drainage EXTREMITIES: No clubbing, cyanosis, or edema. SKIN: Normal; no rash; no jaundice. FASHION DIRECTOR: No focal deficits; lethargic and oriented x 3 Assessment and Plan Plan ASSESSMENT: - Dysphagia, ? food bolus in esophagus. Pt c/o difficulty with solids becoming lodged in lower esophagus x 2 weeks, worse over 2 days. Feels like food is stuck in his esophagus with frequent coughing. He has frequent heartburn, no n/v. Upper GI series (04/16/17)--> no evidence of esophageal stricture, poor esophageal motility, no evidence of aspiration , small hiatal hernia, delayed KUB is pending. KUB (04/16/17)---> Some of oral contrast is still in patient's esophagus. Otherwise, contrast has passed normally to the level of the mid/distal small bowel. S/P EGD (04/17/17)----> Possible mass in the larynx, Severe esophagitis biopsy was done. Pathology with fibrinopurulent exudate suggestive of acute ulcerative esophagitis, no fungal organisms are present. S/P EGD with PEG tube placement (04/21/17)---> A hiatal hernia peg position was confirmed endoscopically. Fruit Picker Machine Operator recommends Jevity 1.5 at 60cc/hr. - Laryngeal friable mass. ENT following, s/p biopsy. Pt had significant during biopsy and required tracheostomy placement. 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 - Anemia. S10.3/29.5.. - Hyponatremia, hypokalemia, per attending. - Elevated AST, undetermined significance. Rpt. labs T. Bili 0.4, AST 21, ALT 12, ALk PHopsh 224. - CVA, HTN, CAD, Hyperlipidemia, DM per attending PLAN: - Change TF to Jevity 1.5 at 60cc/hr - Cont. Protonix - Monitor labs - ENT following for laryngeal cancer - GI will sign off, please reconsult as needed - Pt seen and examined by Dr. Curtis and myself and this note is written on her behalf Mercedes Romero Apr 23, 2017 11:06
--- NOTE | 2017-04-23 13:35 | MB ---
cc: Cathryn OLIVARES DATE OF CONSULTATION 04/23/2017 HISTORY OF PRESENT ILLNESS Mr. Garcia is a 72-year-old white male who presented on 04/16 with dysphagia. He underwent GI evaluation initially and an upper endoscopy revealed a pharyngeal mass. He was seen by ENT on 04/18 and then had a biopsy of the hypopharyngeal lesion on 04/[address] العراقي. He experienced significant bleeding after that and underwent a semi-emergent tracheostomy by Dr. Grullon. He is now on the floor with a tracheostomy in place and I am asked to see him due to underlying COPD. He is a former smoker, quit 5 years ago when he had a stroke. He uses a nebulizer at home but has not been oxygen-dependent. Son also tells me that he has had diagnosed sleep apnea in the past but had refused to use C-PAP. At the time of this evaluation the patient is awake, alert and very comfortable. No complaint of shortness of breath. Minimal secretions being suctioned from the new tracheostomy. PAST MEDICAL HISTORY 1. Diabetes. 2. Prior stroke about 5 years ago with right-sided upper extremity weakness. 3. Hypertension. 4. Coronary artery disease. 5. Hyperlipidemia. 6. Iron-deficiency anemia. 7. Chronic reflux disease. 8. Chronic esophagitis and gastritis. 9. History of duodenal ulcer disease. 10. He has also had a cardiac catheterization in the past with a stent. 11. Appendectomy. 12. Repair of a fractured femur. ALLERGIES SULFA. TRIMETHOPRIM. SOCIAL HISTORY , living with his . He used to drink heavily in the past but no longer and quit smoking about four or 5 years ago according to his . He has smoked a pack or two per day for approximately 40 years. FAMILY HISTORY Noncontributory. REVIEW OF SYSTEMS Other than dysphasia leading up to this, he was generally somewhat debilitated but no complaint of chronic dyspnea. He has had no hemoptysis. PHYSICAL EXAMINATION GENERAL: On physical exam an elderly-appearing, frail gentleman. VITAL SIGNS: Temperature 100 degrees, respirations 18-20, comfortable at rest, pulse is 89, pulse oximetry on 6 liter trache collar is 97%. HEENT: Sclerae pale, anicteric. NECK: Tracheostomy is in place. No bleeding, no drainage around the trache. CHEST: Reveals some minimal scattered congestion. No audible wheezing. Regular rhythm. No harsh murmur. ABDOMEN: Soft. No peripheral edema or cyanosis. CHEST X-RAY 04/18 Chronic interstitial changes. LABORATORY DATA White blood cell count is 10,000. Cultures have not yet been drawn. 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 DISCUSSION Mr. Garcia presents with an upper airway malignancy, dysphagia associated with that and required a semi-emergent tracheostomy after bleeding. Currently he is stable. We will do a follow-up chest x-ray, send a sputum culture aspirated from the tracheostomy and Infectious Diseases is also seeing him. He has been placed on several different antibiotics. We will continue his aerosol treatments, give him a short course of steroid as he does have known underlying COPD. Further diagnostic and/or therapeutic intervention will depend on his response and ongoing clinical course. R. MD GRISEL Dobson/YUKO /12:47 PM /1:15 PM
[2017-04-23] MEDS ORDERED: VANCOMYCIN INJ 1,250 MG in SODIUM CHLOR 0.9% 250 ML INJ 250 ML IV SCH (14:00)
[2017-04-23] MEDS: ONDANSETRON HCL 4 MG/2 ML VIAL IVP PRN (14:54)
--- NOTE | 2017-04-23 15:01 | PD.ID.CON ---
History of Present Illness Service ID Consult Requested By Reason for Consult Evaluation and Mment of New fever. Primary Care Physician Ari Sims MD Diagnoses: History of Present Illness is a 72 y/o CM male who underwent EGD on 04/17/[address] Carlson for evaluation of dysphagia. He was found to have a possible laryngeal mass and severe esophagitis. Dr. Amador from ENT was consulted. 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 Patient was taken to the OR by Dr. Amador for biopsy. Intubation was attempted by anesthesiologist Dr. Wilde. With Glidescope initially the laryngeal opening was visible but patient's started bleeding from the friable mass obscuring the airway. Intubation attempt was aborted after several attempts. Dr. Amador was still able to perform a biopsy but debulking procedure was also aborted. Critical care medicine was consulted for acute bleeding laryngeal mass with airway compromise. Patient is in moderate distress on face Timoteo, oxygen saturation 90- 92%. Patient underwent an emergency tracheostomy in the OR. Patient has been followed by Oncology. Patient started developing new elevation in WBC and was pancultured as well as sputum obtained. Concern for Pneumonia Sepsis so ID was consulted. Past Family Social History Allergies: Coded Allergies: sulfamethoxazole (Verified Allergy, Unknown, 04/16/17) trimethoprim (Verified Allergy, Unknown, 04/16/17) Past Medical History Type 2 diabetes Hypertension Seizure disorder CVA with right sided weakness Coronary artery disease Hyperlipidemia Iron deficiency anemia GERD Anemia Esophagitis Gastritis Duodenal bulb ulcer Past Surgical History Cardiac catheterization with stent placement Appendectomy Right femur repair EGD Reported Medications I attest I obtained, reviewed or updated home meds list and current med list for name, dose, frequency and route of administration of meds. Reported Meds & Active Scripts Active Xanax (Alprazolam) 1 Mg Tab 1 Mg PO BID Hydrocodone-Acetaminophen 7.5-325 mg Tab 0.5 Tab PO Q12HR PRN Dilantin (Phenytoin Extended) 100 Mg Cap 100 Mg PO BID Keppra (Levetiracetam) 500 Mg Tab 500 Mg PO Q12HR 30 Days Reported Albuterol Neb (Albuterol Sulfate) 2.5 Mg/3 Ml Neb 2.5 Mg NEB Q4HR NEB PRN Ferrous Sulfate 325 Mg (65 Mg Iron) Tablet 325 Mg PO DAILY Promethazine (Promethazine HCl) 12.5 Mg Tab 12.5 Mg PO Q4H PRN Aspirin 81 Mg Chew 81 Mg CHEW DAILY Paroxetine (Paroxetine HCl) 40 Mg Tab 40 Mg PO DAILY Trazodone (Trazodone HCl) 50 Mg Tab 50 Mg PO HS Multi-Vitamin/Minerals (Multiple Vitamins W/ Minerals) 1 Tab Tab 1 Tab PO DAILY Pravastatin 40 Mg Tab 40 Mg PO HS Vimpat (Lacosamide) 200 Mg Tab 200 Mg PO EVERY OTHER DAY Active Ordered Medications Current Medications Medications (Trade) Dose Ordered Sig/Delvis Route Start Time Stop Time Status Last Admin (Xanax) 1 mg BID PO 04/17/17 09:00 Future Hold 04/19/17 20:28 (Ativan) 0.5 mg Q8H PRN PO 04/16/17 21:45 04/17/17 22:50 (Catapres) 0.1 mg Q6H PRN PO 04/16/17 21:45 04/18/17 05:17 (Crenshaw 5-325 Mg) 1 tab Q4H PRN PO 04/16/17 21:45 Future Hold 04/16/17 22:37 (NS Flush) 2 ml UNSCH PRN IV FLUSH 04/16/17 21:45 (NS Flush) 2 ml BID IV FLUSH 04/17/17 09:00 04/23/17 00:17 (Tylenol) 650 mg Q4H PRN PO 04/16/17 21:45 Future Hold (Zofran Inj) 4 mg Q6H PRN IVP 04/16/17 21:45 04/23/17 14:54 (Ambien) 5 mg HS PRN PO 04/16/17 21:45 04/22/17 00:30 (Narcan Inj) 0.4 mg UNSCH PRN IV PUSH 04/16/17 21:45 (Elidia-Colace) 1 tab BID PO 04/17/17 09:00 04/23/17 10:30 (Milk Of Magnesia Liq) 30 ml Q12H PRN PO 04/16/17 21:45 (Senokot) 17.2 mg Q12H PRN PO 04/16/17 21:45 (Dulcolax Supp) 10 mg DAILY PRN RECTAL 04/16/17 21:45 (Lactulose Liq) 30 ml DAILY PRN PO 04/16/17 21:45 (Duoneb Neb) 1 ampule Q6HR NEB PRN NEB 04/16/17 23:00 04/17/17 00:01 (Protonix Inj) 40 mg Q12HR IV PUSH 04/17/17 21:00 04/23/17 10:07 Levofloxacin/ Dextrose 100 ml @ 100 mls/hr Q24H IV 04/18/17 10:00 04/23/17 10:40 Metronidazole 100 ml @ 100 mls/hr Q8H IV 04/19/17 12:00 04/23/17 14:48 Levetriacetam 500 mg/Sodium Chloride 105 ml @ 420 mls/hr Q6HR IV 04/20/17 12:00 04/23/17 17:41 Lacosamide 100 mg/ Sodium Chloride 110 ml @ 110 mls/hr EVERY OTHER DAY IV 04/20/17 14:00 04/22/17 09:08 (NovoLOG SUPPLEMENTAL SCALE) 1 Q4H SQ 04/20/17 10:00 (Roxicodone Intensol Liq) 5 mg Q4H PRN PO 04/21/17 20:45 04/23/17 18:58 (Cerebyx Inj) 100 mgpe Q6HR IV 04/23/17 00:00 04/23/17 18:58 Pharmacy Profile Note ml @ 0 mls/hr UNSCH OTHER 04/22/17 23:45 (Tylenol) 500 mg Q4H PRN PO 04/22/17 23:45 04/23/17 04:41 (Paxil) 40 mg DAILY PO 04/23/17 09:00 04/23/17 10:30 Vancomycin HCl 1250 mg/Sodium Chloride 262.5 ml @ 250 mls/hr Q12H IV 04/23/17 14:00 04/23/17 16:05 Miscellaneous Information SPECIFIC LAB TO BE DRAWN:VANCOMYCIN TROUGH DATE TO... ONCE ONCE .XX 04/24/17 13:45 04/24/17 13:46 Potassium Chloride/Dextrose/ Sod Cl 1,020 ml @ 50 mls/hr [id number] IV 04/23/17 10:30 (Heparin Inj) 5,000 units Q12HR SQ 04/23/17 21:00 Future Hold (Duoneb Neb) 1 ampule QID NEB NEB 04/23/17 16:00 04/23/17 19:31 (Deltasone) 20 mg DAILY G-TUBE 04/23/17 13:00 04/28/17 12:59 04/23/17 15:13 Family History reviewed and NC to current ID problems. Social History Quit smoking 2 years ago used to smoke 2 packs a day for last 50 years Quit drinking several years ago he used to be a heavy drinker Physical Exam Vital Signs Vital Signs Date Time Temp Pulse Resp B/P (MAP) Pulse Ox O2 Delivery O2 Flow Rate FiO2 04/23/17 11:38 100.1 89 18 146/62 (90) 97 04/23/17 09:04 96 T-piece 6.00 40 04/23/17 08:00 99.3 86 20 114/57 (76) 95 04/23/17 05:15 96 04/23/17 05:00 99.5 94 18 136/71 (92) 89 04/23/17 03:02 100.0 04/23/17 01:48 94 T-piece 6.00 40 04/23/17 00:31 102.1 95 18 134/71 (92) 96 04/22/17 22:00 94 T-Piece 6.00 40 Humidified 04/22/17 22:00 95 04/22/17 20:43 100.9 97 18 129/71 (90) 95 04/22/17 16:00 99.7 93 18 133/64 (87) 96 04/22/17 15:21 94 T-piece 6.00 40 Physical Exam GENERAL: This is a well-nourished, well-developed patient, in no apparent distress. SKIN: No rashes, ecchymoses or lesions. Cool and dry. HEAD: Atraumatic. Normocephalic. No temporal or scalp tenderness. EYES: Pupils equal round and reactive. Extraocular motions intact. No scleral icterus. No injection or drainage. ENT: Nose without bleeding, purulent drainage or septal hematoma. Throat without erythema, tonsillar hypertrophy or exudate. Uvula midline. Airway patent. NECK: Trach site with no e.o infection PEG tube site with no e.o infection CARDIOVASCULAR: Regular rate and rhythm without murmurs, gallops, or rubs. RESPIRATORY: Clear to auscultation. Breath sounds equal bilaterally. No wheezes , rales, or rhonchi. GASTROINTESTINAL: Abdomen soft, non-tender, nondistended. No hepato-splenomegaly , or palpable masses. No guarding. MUSCULOSKELETAL: Extremities without clubbing, cyanosis, or edema. No joint tenderness, effusion, or edema noted. No calf tenderness. Negative Homans sign bilaterally. NEUROLOGICAL: Awake and alert. Cranial nerves II through XII intact. Motor and sensory grossly within normal limits. Five out of 5 muscle strength in all muscle groups. Psych cooperative IV line sites with no e.o infection Laboratory Laboratory Tests Test 04/23/17 07:00 04/23/17 07:16 Blood Urea Nitrogen 5 Creatinine 0.27 Random Glucose 101 Calcium Level 7.6 Sodium Level 134 Potassium Level 2.9 Chloride Level 100 Carbon Dioxide Level 26.9 Anion Gap 7 Estimat Glomerular Filtration Rate 335 White Blood Count 10.4 Red Blood Count 3.26 Hemoglobin 10.3 Hematocrit 29.5 Mean Corpuscular Volume 90.5 Mean Corpuscular Hemoglobin 31.5 Mean Corpuscular Hemoglobin Concent 34.8 Red Cell Distribution Width 12.8 Platelet Count 360 Mean Platelet Volume 6.2 Neutrophils (%) (Auto) 71.1 Lymphocytes (%) (Auto) 14.7 Monocytes (%) (Auto) 11.9 Eosinophils (%) (Auto) 1.5 Basophils (%) (Auto) 0.8 Neutrophils # (Auto) 7.4 Lymphocytes # (Auto) 1.5 Monocytes # (Auto) 1.2 Eosinophils # (Auto) 0.2 Basophils # (Auto) 0.1 CBC Comment DIFF FINAL Differential Comment Date/Time Source Procedure Growth Status 04/23/17 12:10 Blood Peripheral Aerobic Blood Culture Pending Received 04/23/17 12:10 Blood Peripheral Anaerobic Blood Culture Pending Received Result Diagram: 04/23/17 0716 04/23/17 0700 Imaging Last Impressions Chest X-Ray 04/23/17 0000 Signed Impressions: Service Date/Time: Sunday, April 23, 2017 13:35 - CONCLUSION: 1. One tracheostomy at the level of the clavicles. 2. Improved diffuse interstitial prominence likely reflecting improved positive fluid balance. 3. Minimal linear opacities in the right upper and midlung zones consistent with atelectasis/scarring. Stuart Ortiz MD Upper GI Series 04/16/17 0000 Signed Impressions: Service Date/Time: Sunday, April 16, 2017 17:31 - CONCLUSION: 1. No evidence of esophageal stricture. 2. Poor esophageal motility. 3. No evidence of aspiration. 4. Small hiatal hernia. 5. Delayed KUB is pending. Neeraj Alarcon MD Abdomen X-Ray 04/16/17 0000 Signed Impressions: Service Date/Time: Sunday, April 16, 2017 18:05 - CONCLUSION: Some of the oral contrast is still in the patient's esophagus. Otherwise, contrast has passed normally to the level of the mid/distal small bowel. Rian eBnjamin MD Assessment and Plan Assessment and Plan Fever Infectious vs Non infectious causes. (temp increased to 102 on 04/23/17 and WBC normal on that day ? non infectious cause) Infectious: Aspiration PNA, UTI Non infectious causes: Dilantin,DVT, tumor related. Seizure disorder on antiepileptic medications. Esophagitis: acute ulcerative on path specimen report Laryngeal Ca: Squamous cell Ca Recs: Continue Levaquin IV for now Continue Flagyl IV for now DC vanco IV Follow cultures Follow clinically. Suggest d.w Neurologist to see if Phenytoin can be replaced or stopped as possible Drug fever Check Doppler Karla Bran MD Apr 23, 2017 15:01
[2017-04-23] MEDS: predniSONE 20 MG TAB G-TUBE SCH (15:13)
--- NOTE | 2017-04-23 15:15 | RADRPT ---
EXAM DATE/TIME: 04/23/2017 13:35 [facility] COMPARISON: CHEST PA & LAT, April 18, 2017, 9:57. CHEST SINGLE AP, April 16, 2017, 16:18. INDICATIONS : Evaluate pneumonia. MEDICAL HISTORY : Stroke. Cerebrovascular disease. Cardiovascular disease Seizures SURGICAL HISTORY : None. ENCOUNTER: Subsequent ACUITY: 4 - 6 days PAIN SCORE: 0/10 LOCATION: Bilateral chest FINDINGS: Interval tracheostomy. Tracheostomy tip is at the level of the clavicles. Improved diffuse interstiti al prominence with redemonstration of linear opacities in the right mid and lower lung zones. Cardiom ediastinal contours are stable. Remainder of exam is unchanged. CONCLUSION: 1. One tracheostomy at the level of the clavicles. 2. Improved diffuse interstitial prominence likely reflecting improved positive fluid balance. 3. Minimal linear opacities in the right upper and midlung zones consistent with atelectasis/scarring . Stuart Ortiz MD on April 23, 2017 at 15:11 Board Certified Radiologist. This report was verified electronically.
--- NOTE | 2017-04-23 18:14 | RADRPT ---
EXAM DATE/TIME: 04/23/2017 17:15 [facility] COMPARISON: ABDOMEN KUB ONLY, April 16, 2017, 18:05. INDICATIONS : Abdominal distension MEDICAL HISTORY : None. SURGICAL HISTORY : None. ENCOUNTER: Initial ACUITY: 1 day PAIN SCORE: Non-responsive. LOCATION: Bilateral abdomen FINDINGS: Supine view of the abdomen was performed. Oral contrast is seen within the colon. There is air-fille d small bowel seen in the midabdomen. Significant dilatation is not clearly seen. Free air is not see n on the supine KUB. Surgical hardware is seen at the proximal right femur. CONCLUSION: Nonspecific bowel gas pattern. Oral contrast is seen within the colon. Rian Tang MD on April 23, 2017 at 18:09 Board Certified Radiologist. This report was verified electronically.
[2017-04-23] MEDS ORDERED: HEPARIN SODIUM - SQ 10,000 UNITS/ML VIAL SQ SCH (21:00)
[2017-04-23] MEDS: ZOLPIDEM TARTRATE 5 MG TAB PO PRN (21:41)
--- NOTE | 2017-04-23 22:31 | MB ---
cc: MAXWELL REED,HAWK Samaniego M.D. DATE OF CONSULTATION: 04/23/2017 DATE OF : [address] Reed CHIEF COMPLAINT Dr. Reed requested consultation for Mr. Garcia with newly diagnosed locally advanced head and neck cancer. HISTORY OF PRESENT ILLNESS: Mr. Garcia is a 72 year-old man with a history of persistent cough, worsening dysphagia. He has been under the care of gastroenterology with upper endoscopy July 25, 2016 that shows severe esophagitis with ulceration and possible Rojas's, severe gastritis and duodenal bulb ulcer. He did not follow up with gastroenterology. He presented on April 18, with dysphagia and possible aspiration. Workup ensued. He underwent upper endoscopy on 04/17/2017. The findings showed the severe esophagitis, possible mass in the larynx was identified. Dr. العراقي was consulted, who coordinated to biopsy a lesion under general anesthesia. The direct laryngoscopy with biopsy was difficult. There were numerous attempts for intubation. Intubation was abandoned. Blood was seen in the hypopharynx. Two biopsies were obtained from the superior surface of the neoplastic lesion. The lesion appeared to be on the left side of the vallecula primarily originating in the vallecula and also the left hypopharyngeal wall. It did not involve the endolarynx which was clear. 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 Hematology/Oncology is consulted. Mr. Garcia's course was complicated after the surgery that critical medicine was consulted for acute bleeding of the larynx mass. His saturation was 90 to 92%. The patient needed tracheostomy. Dr. Grullon performed an awake trache in the OR. PEG was placed the following day. In the days that ensued bleeding from the trache had improved. His hemoglobin was normal on admission and decreased to 10.3 at the time of the consultation. His potassium was low. His BUN and creatinine are normal. Staging evaluation included chest x-ray that showed improved diffuse interstitial prominence. There is minimal linear opacities in the right upper lung consistent with scarring but no overt mass. No history was obtained from the patient who has a tracheostomy and is able to mouth words and gesture. He requests that his be called. Pulmonary was consulted. Dr. Miller is following up. The biopsy from the distal esophagus from 04/17 shows fibrinopurulent exudate suggestive of acute ulcerative esophagitis. There is no fungal organisms seen. There is no Rojas's. The rest of the review of systems is negative. PAST MEDICAL HISTORY: 1. History of CVA with right-sided weakness. 2. Aspiration. 3. Anxiety and depression. 4. Coronary artery disease. 5. Hyperlipidemia. 6. Diabetes. 7. Headache. 8. Hiatal hernia 9. Hypertension. 10. Migraines. 11. Seizure. 12. Sleep apnea. PAST SURGICAL HISTORY: 1. Tracheostomy. 2. Examination under anesthesia. 3. Vallecula biopsy. SOCIAL HISTORY: He lives at home with his . He requires full care. He denies any tobacco, alcohol or illicit drug use. He nods at being a previous smoker. ALLERGIES: BACTRIM FAMILY HISTORY: No significant family history of cancer. CURRENT MEDICATIONS: 1. Unfractionated heparin. 2. DuoNeb 3. Vancomycin 4. Prednisone 5. Potassium chloride 6. Paxil 7. Cerebyx. 8. Tylenol p.r.n. 9. Oxycodone p.r.n. 10. Lacosamide 11. Keppra regimen is only frequent. 12. Metronidazole 13. Levaquin 14. Protonix 15. Elidia-Colace 16. Lorazepam. 17. Clonidine 18. Zofran 19. Ambien PHYSICAL EXAMINATION: Temperature 98.5 heart rate 75, respiratory rate 18, blood pressure 120/55, saturation 94%. GENERAL: Mr. Garcia is a slender elderly man who looks tired and chronically ill. HEENT: Pupils are round, reactive to light and accommodation. Oropharynx is dry. NECK: Tracheostomy tube in place. LUNGS: Good air entry. CARDIOVASCULAR: Normal rate and rhythm. ' ABDOMEN: Benign. LOWER EXTREMITIES: No edema. He has right-sided weakness. His hand is positioned, bent with a device in his curled fingers. His left side moves well with good strength. LABORATORY DATA: As described above. Upper GI shows no evidence of esophageal stricture. There is poor esophageal motility, no evidence of aspiration, mild hiatal hernia. ASSESSMENT AND PLAN: Mr. Garcia is a 72 year-old man with multiple medical problems described above. He has had several week history of dysphagia. He is unable to give a history in light of his tracheostomy. He is able to nod in agreement. Ultimately he was diagnosed with localized head and neck cancer. Will check with pathology for p16 positivity. We discussed standard treatment and give concurrent chemotherapy and radiation. He needs to stabilize from his other medical problems, namely the tracheostomy. He has required care prior to the is admission and will probably need to move to a [facility] facility. We discussed in general terms the treatment for localized head and neck would be concurrent chemotherapy and radiation. We discussed consultation with radiation oncology. Chemotherapy to enhance the effect of the radiation. He requested I call his . His was called at the two numbers available for their home, and other [phone]. Message was left on the phone for to call back in case she has any questions. The treatment plan was discussed at length with Mr. Garcia. Will continue to follow him throughout this hospital course and determine disposition. We will need to coordinate his follow up as outpatient back to hematology and radiation oncology clinic. We will monitor his normocytic anemia. We will exclude iron and B12 deficiencies. His questions were answered to his satisfaction. Addendum: called back, spoke to her at length to discuss work up above and treatment plan. MD MARCELO Watters/BUL /7:49 PM /9:40 PM VAN
--- NOTE | 2017-04-23 23:40 | RADRPT ---
EXAM DATE/TIME: 04/23/2017 21:57 [facility] COMPARISON: No previous studies available for comparison. INDICATIONS : Bilateral leg swelling. MEDICAL HISTORY : Hypercholesterolemia. Gastroesophageal reflux disease. Chronic obstructive pulmonary disease. Cerebro vascular accident. Seizures. Migraines. Hypertension. Sleep apnea. Hiatal hernia. Arthritis. Diabetes . Coronary artery disease. Anemia. Gastritis. Ulcer. PTSD. MRSA. SURGICAL HISTORY : Coronary artery stent. Right hip replacement. Left shoulder repair. Fractured femur repair. ENCOUNTER: Initial ACUITY: 1 day PAIN SCORE: 2/10 LOCATION: Bilateral legs. TECHNIQUE: Venous ultrasound of the left and right leg was performed from the inguinal ligament to the proximal calf. Real-time, color Doppler and spectral tracing, compression and augmentation techniques were us ed. FINDINGS: RIGHT LEG: Right common femoral vein is not fully compressible. There is mild nonocclusive thrombus seen in this region. This is primarily seen at the anterior wall. It appears relatively thin. The remaining venou s structures in the right lower extremity are normal and free of thrombus. LEFT LEG: There is normal compressibility of the deep venous system from the inguinal region to the proximal ca lf. No echogenic clot is seen in the lumen of the common femoral, femoral, popliteal, and posterior tibial veins. There is a normal response of the venous system to proximal and distal augmentation an d respiration. CONCLUSION: Small amount of peripheral nonocclusive thrombus seen in the right common femoral vein. This appearan ce usually seen with chronic thrombus. No DVT is seen in the left lower extremity. Rian Tang MD on April 23, 2017 at 23:36 Board Certified Radiologist. This report was verified electronically.
[2017-04-23] MEDS: D5-NS + KCL 40 MEQ INJ 1,000 ML IV SCH (23:47)
[2017-04-24] VITALS (9 sets, daily range): BP systolic 134–163; BP diastolic 61–77; PULSE 72–81; RESP 14–20; TEMP 97.2–98.3; O2SAT 92–98
[2017-04-24] MEDS: FOSPHENYTOIN SODIUM 100 MG PE/2 ML VIAL IV SCH ×5 (00:56→23:45)
[2017-04-24] MEDS: levETIRAcetam INJ 500 MG in SODIUM CHLORIDE 0.9% INJ 100 ML IV SCH ×5 (00:57→23:45)
[2017-04-24] MEDS: oxyCODONE HCL ORAL CONC 20 MG/ML SYRINGE PO PRN ×4 (00:58→18:36)
[2017-04-24] MEDS: INSULIN ASPART SUPPLEMENTAL SCALE SQ SCH ×6 (02:00→22:00)
[2017-04-24] MEDS: metroNIDAZOLE 500 MG INJ 100 ML IV SCH ×3 (04:00→22:14)
[2017-04-24] MEDS: D5-NS + KCL 40 MEQ INJ 1,000 ML IV SCH ×2 (06:53→23:23)
[2017-04-24] MEDS: RESP: ALBUTEROL 2.5 MG/IPRATROPIUM 0.5 MG NEB (SCH) NEB ×4 (07:56→19:56)
[2017-04-24] MEDS: DOCUSATE SODIUM 50 MG/SENNA 8.6 MG TAB PO SCH ×2 (08:20→22:14)
[2017-04-24] MEDS: PARoxetine HCL 20 MG TAB PO SCH (08:20)
[2017-04-24] MEDS: PANTOPRAZOLE SODIUM 40 MG VIAL IV PUSH SCH ×2 (08:20→22:14)
[2017-04-24] MEDS: predniSONE 20 MG TAB G-TUBE SCH (08:20)
[2017-04-24] MEDS: LACOSAMIDE INJ 100 MG in SODIUM CHLORIDE 0.9% INJ 100 ML IV SCH (08:41)
[2017-04-24] MEDS: SODIUM CHLORIDE 0.9% FLUSH 10 ML FLUSH IV FLUSH SCH ×2 (09:00→21:00)
[2017-04-24] MEDS: LEVOFLOXACIN 500 MG PREMIX INJ 100 ML IV SCH (10:06)
[2017-04-24] MEDS ORDERED: DIATRIZOATE MEGLUM/DIATRIZOATE SOD 9 ML CUP PO ONE (10:30)
[2017-04-24 10:51] LABS: AUTOMATED NEUTROPHIL # 7.4 TH/MM3 (1.8-7.7); BASOPHIL % 0.4 % (0.0-2.0); EOSINOPHIL # 0.5 TH/MM3 (0-0.4); EOSINOPHIL % 5.1 % (0.0-4.0); HEMO FLAGS DIFF FINAL; LYMPH % 12.8 % (9.0-44.0); LYMPHOCYTE # 1.3 TH/MM3 (1.0-4.8); MEAN CELL VOLUME 91.2 FL (80.0-100.0); MEAN CORPUSCULAR HEMOGLOBIN 30.9 PG (27.0-34.0); MEAN CORPUSCULAR HGB CONC 33.9 % (32.0-36.0); MONO % 8.5 % (0.0-8.0); NEUT % 73.2 % (16.0-70.0); PLATELET COUNT 354 TH/MM3 (150-450); RED BLOOD COUNT 3.83 MIL/MM3 (4.50-5.90); RED CELL DISTRIBUTION WIDTH 12.7 % (11.6-17.2); WHITE BLOOD COUNT 10.1 TH/MM3 (4.0-11.0)
[2017-04-24 10:52] LABS: BICARBONATE 27.2 MEQ/L (21.0-32.0); POTASSIUM 3.3 MEQ/L (3.5-5.1)
--- NOTE | 2017-04-24 11:29 | PD.ONC.PN ---
Subjective Subjective Remarks Afebrile overnight. Patient resting in bed in nad. Objective Data Date Time Temp Pulse Resp B/P (MAP) Pulse Ox O2 Delivery O2 Flow Rate FiO2 04/24/17 08:03 97 T-piece 5.00 48 04/24/17 08:00 98.1 73 14 140/61 (87) 95 04/24/17 04:00 97.9 73 20 134/61 (85) 96 04/24/17 00:00 97.2 81 20 134/63 (86) 95 04/23/17 20:02 97.6 87 20 144/71 (95) 95 04/23/17 20:00 T-Piece 6.00 40 Humidified 04/23/17 16:00 98.5 75 18 120/55 (76) 94 04/23/17 15:30 97 T-piece 6.00 40 04/23/17 11:38 100.1 89 18 146/62 (90) 97 04/24/17 04/24/17 04/24/17 07:00 15:00 23:00 Output Total 350 ml Balance -350 ml Result Diagram: 04/23/17 0716 04/23/17 0700 Laboratory Results Laboratory Tests Test 04/24/17 09:48 04/24/17 09:49 Culture Results Microbiology Date/Time Source Procedure Growth Status 04/23/17 12:10 Blood Peripheral Aerobic Blood Culture Pending Received 04/23/17 12:10 Blood Peripheral Anaerobic Blood Culture Pending Received 04/23/17 12:00 Blood Peripheral Aerobic Blood Culture Pending Received 04/23/17 12:00 Blood Peripheral Anaerobic Blood Culture Pending Received 04/23/17 19:30 Sputum Endotracheal Gram Stain - Final Resulted 04/23/17 19:30 Sputum Endotracheal Sputum Culture Pending Resulted Administered Medications Medications (Trade) Dose Ordered Sig/Delvis Route PRN Reason Start Time Stop Time Status Last Admin Dose Admin Alprazolam (Xanax) 1 mg BID PO 04/17/17 09:00 Future Hold 04/19/17 20:28 Lorazepam (Ativan) 0.5 mg Q8H PRN PO SEVERE ANXIETY OR AGITATION 04/16/17 21:45 04/17/17 22:50 Clonidine (Catapres) 0.1 mg Q6H PRN PO SBP>160, DBP>90 04/16/17 21:45 04/18/17 05:17 Acetaminophen/ Hydrocodone Bitart ([place] 5-325 Mg) 1 tab Q4H PRN PO PAIN GREATER THAN 5 04/16/17 21:45 Future Hold 04/16/17 22:37 Sodium Chloride (NS Flush) 2 ml BID IV FLUSH 04/17/17 09:00 04/23/17 21:00 Ondansetron HCl (Zofran Inj) 4 mg Q6H PRN IVP NAUSEA OR VOMITING 04/16/17 21:45 04/23/17 14:54 Zolpidem Tartrate (Ambien) 5 mg HS PRN PO INSOMNIA 04/16/17 21:45 04/23/17 21:41 Senna/Docusate Sodium (Elidia-Colace) 1 tab BID PO 04/17/17 09:00 04/24/17 08:20 Albuterol/ Ipratropium (Duoneb Neb) 1 ampule Q6HR NEB PRN NEB SHORTNESS OF BREATH 04/16/17 23:00 04/17/17 00:01 Pantoprazole Sodium (Protonix Inj) 40 mg Q12HR IV PUSH 04/17/17 21:00 04/24/17 08:20 Levofloxacin/ Dextrose 100 ml @ 100 mls/hr Q24H IV 04/18/17 10:00 04/24/17 10:06 Metronidazole 100 ml @ 100 mls/hr Q8H IV 04/19/17 12:00 04/24/17 04:00 Levetriacetam 500 mg/Sodium Chloride 105 ml @ 420 mls/hr Q6HR IV 04/20/17 12:00 04/24/17 05:54 Lacosamide 100 mg/ Sodium Chloride 110 ml @ 110 mls/hr EVERY OTHER DAY IV 04/20/17 14:00 04/24/17 08:41 Oxycodone HCl (Roxicodone Intensol Liq) 5 mg Q4H PRN PO PAIN SCALE 5 TO 10 04/21/17 20:45 04/24/17 08:21 Fosphenytoin Sodium (Cerebyx Inj) 100 mgpe Q6HR IV 04/23/17 00:00 04/24/17 05:54 Acetaminophen (Tylenol) 500 mg Q4H PRN PO TEMP > 100 04/22/17 23:45 04/23/17 04:41 Paroxetine HCl (Paxil) 40 mg DAILY PO 04/23/17 09:00 04/24/17 08:20 Potassium Chloride/Dextrose/ Sod Cl 1,020 ml @ 50 mls/hr [id number] IV 04/23/17 10:30 04/23/17 23:47 Albuterol/ Ipratropium (Duoneb Neb) 1 ampule QID NEB NEB 04/23/17 16:00 04/24/17 07:56 Prednisone (Deltasone) 20 mg DAILY G-TUBE 04/23/17 13:00 04/28/17 12:59 04/24/17 08:20 Objective Remarks GENERAL: Weak frail elderly male lying supine in bed, resting. On 5L O2 via t- piece SKIN: Warm and dry. HEAD: Normocephalic. EYES: No injection or drainage. NECK: Supple, trachea midline. trach in place. CARDIOVASCULAR: +S1/S2 RESPIRATORY: anterior bonner clear. GASTROINTESTINAL: Abdomen soft, non-tender, nondistended. EXTREMITIES: No cyanosis NEUROLOGICAL: awake and alert. following commands. unable to speak d/t trach. Assessment/Plan Problem List: (1) Head and neck cancer ICD Codes: C76.0 - Malignant neoplasm of head, face and neck Plan: --once current medical issues stabilized, will begin treatment outpatient with concurrent chemo/radiation. 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 He did not follow up with gastroenterology. EGD, 04/17/17. showed the severe esophagitis, possible mass in the larynx was identified. -- lesion appeared to be on the left side of the vallecula primarily originating in the vallecula and also the left hypopharyngeal wall. did not involve the endolarynx which was clear. 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 --course was complicated after the surgery that critical medicine was consulted for acute bleeding of the larynx mass. ----Dr. Grullon performed an awake trache in the OR. PEG was placed the following day. --Staging evaluation included chest x-ray that showed improved diffuse interstitial prominence. There is minimal linear opacities in the right upper lung consistent with scarring but no overt mass. --Will check with pathology for p16 positivity. (2) Normocytic anemia ICD Codes: D64.9 - Anemia, unspecified Plan: --check iron studies/B12 --likely d/t recent blood loss Assessment 72y/o male with newly diagnosed locally advanced head and neck cancer. History of CVA with right-sided weakness. Aspiration. Anxiety and depression. Coronary artery disease.Hyperlipidemia.Diabetes. Headache.Hiatal herniaHypertension. Migraines. seizure. Sleep apnea. Tracheostomy.Examination under anesthesia.Vallecula biopsy. Plan 1. check CT C/A/P for staging workup 2. check iron studies 3. continue supportive care Attending Statement The exam, history, and the medical decision-making described in the above note were completed with the assistance of the mid-level provider. I reviewed and agree with the findings presented. I attest that I had a [id number] encounter with the patient on the same day, and personally performed and documented my assessment and findings in the medical record. Reviewed CT scan results with family. Pt awake alert but quiet. asked most of questions, explains events leading up to tracheostomy. Discussed in general terms treatment with concurrent chemo XRT. Plan to use Cetuximab as pt is quite frail and unlikely to tolerate Carbo/Taxol. Discussed multidisciplinary approach as may are taking care of patient. We will coordinate are through Dr. Sims. Discussed plan of treatment with Radiation Oncologist. Asha Gamez Apr 24, 2017 10:53 Lauren Richter MD Apr 24, 2017 18:03
[2017-04-24] MEDS ORDERED: IOHEXOL 350 MG/ML 10 ML VIAL (for RAD DIAG) IVCONTRAST ONE (12:15)
--- NOTE | 2017-04-24 12:47 | RADRPT ---
EXAM DATE/TIME: 04/24/2017 11:48 [facility] COMPARISON: No previous studies available for comparison. INDICATIONS : Head and neck cancer; evaluate for metastatic cancer. IV CONTRAST: 100 cc Omnipaque 350 (iohexol) IV ; Cumulative dose for multiple exams. RADIATION DOSE: 5.37 CTDIvol (mGy) ; Combined studies - Thorax/Abdomen/Pelvis MEDICAL HISTORY : Cardiovascular disease. Diabetes mellitus type 2. Stroke.Hypertension. SURGICAL HISTORY : None. ENCOUNTER: Initial ACUITY: 1 day PAIN SCALE: 0/10 LOCATION: chest TECHNIQUE: Volumetric scanning of the chest was performed. Using automated exposure control and adjustment of t he mA and/or kV according to patient size, radiation dose was kept as low as reasonably achievable to obtain optimal diagnostic quality images. DICOM format image data is available electronically for review and comparison. Follow-up recommendations for detected pulmonary nodules are based at a minimum on nodule size and pa tient risk factors according to Fleischner Society Guidelines. FINDINGS: LUNGS: There is mild atelectasis in the posterior lung bases and along the major fissures area no suspicious parenchymal nodules or masses are identified. PLEURA: Minimal pleural fluid bilaterally. MEDIASTINUM: No evidence of mediastinal adenopathy. Small central mediastinal nodes visualized. Coronary artery ca lcifications present. Aberrant right subclavian artery origin. Tracheostomy noted in good position. AXILLAE: Within normal limits. No lymphadenopathy. SKELETAL: Within normal limits for patient age. MISCELLANEOUS: The visualized upper abdominal organs demonstrate no acute abnormality. CONCLUSION: Mild bilateral parenchymal lung atelectasis and small effusions. No definite metastatic disease in th e chest. Rian Moreno MD on April 24, 2017 at 12:43 Board Certified Radiologist. This report was verified electronically.
--- NOTE | 2017-04-24 12:58 | RADRPT ---
EXAM DATE/TIME: 04/24/2017 11:51 [facility] COMPARISON: No previous studies available for comparison. INDICATIONS : Head and neck cancer; evaluate for metastatic cancer. IV CONTRAST: 100 cc Omnipaque 350 (iohexol) IV ; Cumulative dose for multiple exams. ORAL CONTRAST: Prescribed oral contrast ingested. RADIATION DOSE: 5.37 CTDIvol (mGy) ; Combined studies - Thorax/Abdomen/Pelvis MEDICAL HISTORY : Stroke. Cardiovascular disease Diabetes mellitus type 2.Hypertension. SURGICAL HISTORY : None. ENCOUNTER: Initial ACUITY: 1 day PAIN SCALE: 0/10 LOCATION: lower quadrant TECHNIQUE: Volumetric scanning of the abdomen and pelvis was performed. Using automated exposure control and ad justment of the mA and/or kV according to patient size, radiation dose was kept as low as reasonably achievable to obtain optimal diagnostic quality images. DICOM format image data is available electro nically for review and comparison. FINDINGS: LOWER LUNGS: Bilateral lower lung dependent consolidation and small pleural effusions. LIVER: No gross abnormality seen in the liver. No biliary ductal dilatation. There are numerous small calcif ied gallstones. SPLEEN: Normal size without lesion. PANCREAS: Within normal limits. KIDNEYS: Normal in size and shape. There is no mass, stone or hydronephrosis. ADRENAL GLANDS: Within normal limits. VASCULAR: There is no aortic aneurysm. BOWEL/MESENTERY: Percutaneous gastrostomy tube in place and in orthotopic position. No evidence of free intraperitonea l gas. Oral contrast passes through to the rectum. No dilated loops of small or large bowel. ABDOMINAL WALL: Within normal limits. RETROPERITONEUM: There is no lymphadenopathy. BLADDER: No wall thickening or mass. REPRODUCTIVE: Within normal limits. INGUINAL: There is an oval opacity is seen in the inferior aspect of the left inguinal canal, incompletely incl uded in the [id number] of the examination. As of uncertain significance and suggest possibility of a undescended testicle or possible extension of the hydrocele and inguinal canal. Mean CT density 33 Hounsfield units MUSCULOSKELETAL: Diffuse osteopenia. CONCLUSION: 1. Bilateral lower lung atelectasis/consolidation and pleural effusions. 2. Gallstones 3. Opacity in the left inguinal canal, incompletely included in [id number] exam, suggesting either testicle or hydrocele. Jalil Gregorio MD on April 24, 2017 at 12:47 Board Certified Radiologist. This report was verified electronically.
[2017-04-24] MEDS ORDERED: PHARMACY ORDERED LAB ONE (13:45)
--- NOTE | 2017-04-24 14:50 | RADRPT ---
EXAM DATE/TIME: 04/24/2017 11:42 [facility] COMPARISON: No previous studies available for comparison. INDICATIONS : Vallecular mass. IV CONTRAST: 100 cc Omnipaque 350 (iohexol) IV ; Cumulative dose for multiple exams. RADIATION DOSE: 16.15 CTDIvol (mGy) MEDICAL HISTORY : Stroke. Diabetes mellitus type 2. Cardiovascular diseaseHypertension. SURGICAL HISTORY : Tracheostomy. ENCOUNTER: Initial ACUITY: 1 day PAIN SCALE: 0/10 LOCATION: neck TECHNIQUE: Volumetric scanning of the neck was performed. Using automated exposure control and adjustment of th e mA and/or kV according to patient size, radiation dose was kept as low as reasonably achievable to obtain optimal diagnostic quality images. DICOM format image data is available electronically for r eview and comparison. FINDINGS: The tissues of the epiglottis and aryepiglottic folds are diffusely thickened and abnormal. This may all reflect the primary mass, however this may also be sequela of treatment if radiation has been per formed. Correlation recommended. In any case, this will serve as baseline for future evaluation. Bilateral cervical adenopathy is present with enlarged jugular chain nodes on both sides. On the left , there is a poorly circumscribed soft tissue density contiguous with the deep surface of the sternoc leidomastoid which may be matted adenopathy. A discrete node somewhat above this level measures 18 x 12 mm . The largest jugular chain node on the right measures just over a centimeter. There is no evid ence of supraclavicular adenopathy. Visualized upper mediastinum is grossly clear. Lung apices are gr ossly clear. Tracheostomy is present in satisfactory position. The bony elements are benign. CONCLUSION: Abnormal heterogeneity and thickening involving the entirety of the epiglottis and aryepiglottic fold s in fairly symmetric fashion. Bilateral cervical adenopathy. Rian Moreno MD on April 24, 2017 at 14:39 Board Certified Radiologist. This report was verified electronically.
--- NOTE | 2017-04-24 14:54 | HHI.FPPN ---
Subjective Remarks D/W PT D/W D/W RN C/O INCR PAIN OXY NOT WORKING LESS DEPRESSED C/W XANAX STOPPAGE AND W/D Objective Vitals Vital Signs Date Time Temp Pulse Resp B/P (MAP) Pulse Ox O2 Delivery O2 Flow Rate FiO2 04/24/17 08:03 97 T-piece 5.00 48 04/24/17 08:00 98.1 73 14 140/61 (87) 95 04/24/17 04:00 97.9 73 20 134/61 (85) 96 04/24/17 00:00 97.2 81 20 134/63 (86) 95 04/23/17 20:02 97.6 87 20 144/71 (95) 95 04/23/17 20:00 T-Piece 6.00 40 Humidified 04/23/17 16:00 98.5 75 18 120/55 (76) 94 04/23/17 15:30 97 T-piece 6.00 40 I/O 04/23/17 04/23/17 04/23/17 04/24/17 04/24/17 04/24/17 07:00 15:00 23:00 07:00 15:00 23:00 Output Total 300 ml 350 ml Balance -300 ml -350 ml Output Urine Total 300 ml 350 ml # Voids 3 # Bowel Movements 1 Result Diagram: 04/24/17 0949 04/24/17 0948 Objective Remarks GENERAL: SKIN: Warm and dry. HEAD: Atraumatic. Normocephalic. EYES: Pupils equal and round. No scleral icterus. No injection or drainage. ENT: No nasal bleeding or discharge. Mucous membranes pink and moist. TRACH C/ DI, SL OOZING NECK: Trachea midline. No JVD. CARDIOVASCULAR: Regular rate and rhythm. RESPIRATORY: B rales and ronchi, congested cough GASTROINTESTINAL: Abdomen soft, non-tender, nondistended. Hepatic and splenic margins not palpable. MUSCULOSKELETAL: Extremities without clubbing, cyanosis, or edema. No obvious deformities. NEUROLOGICAL: Awake and alert. No obvious cranial nerve deficits. R DIOGENES PSYCHIATRIC: Appropriate mood and affect; insight and judgment normal. Medications and IVs Current Medications Medications (Trade) Dose Ordered Sig/Delvis Route Start Time Stop Time Status Last Admin (Xanax) 1 mg BID PO 04/17/17 09:00 Future Hold 04/19/17 20:28 (Ativan) 0.5 mg Q8H PRN PO 04/16/17 21:45 04/17/17 22:50 (Catapres) 0.1 mg Q6H PRN PO 04/16/17 21:45 04/18/17 05:17 ([place] 5-325 Mg) 1 tab Q4H PRN PO 04/16/17 21:45 Future Hold 04/16/17 22:37 (NS Flush) 2 ml UNSCH PRN IV FLUSH 04/16/17 21:45 (NS Flush) 2 ml BID IV FLUSH 04/17/17 09:00 04/23/17 21:00 (Tylenol) 650 mg Q4H PRN PO 04/16/17 21:45 Future Hold (Zofran Inj) 4 mg Q6H PRN IVP 04/16/17 21:45 04/23/17 14:54 (Ambien) 5 mg HS PRN PO 04/16/17 21:45 04/23/17 21:41 (Narcan Inj) 0.4 mg UNSCH PRN IV PUSH 04/16/17 21:45 (Elidia-Colace) 1 tab BID PO 04/17/17 09:00 04/24/17 08:20 (Milk Of Magnesia Liq) 30 ml Q12H PRN PO 04/16/17 21:45 (Senokot) 17.2 mg Q12H PRN PO 04/16/17 21:45 (Dulcolax Supp) 10 mg DAILY PRN RECTAL 04/16/17 21:45 (Lactulose Liq) 30 ml DAILY PRN PO 04/16/17 21:45 (Duoneb Neb) 1 ampule Q6HR NEB PRN NEB 04/16/17 23:00 04/17/17 00:01 (Protonix Inj) 40 mg Q12HR IV PUSH 04/17/17 21:00 04/24/17 08:20 Levofloxacin/ Dextrose 100 ml @ 100 mls/hr Q24H IV 04/18/17 10:00 04/24/17 10:06 Metronidazole 100 ml @ 100 mls/hr Q8H IV 04/19/17 12:00 04/24/17 04:00 Levetriacetam 500 mg/Sodium Chloride 105 ml @ 420 mls/hr Q6HR IV 04/20/17 12:00 04/24/17 13:11 Lacosamide 100 mg/ Sodium Chloride 110 ml @ 110 mls/hr EVERY OTHER DAY IV 04/20/17 14:00 04/24/17 08:41 (NovoLOG SUPPLEMENTAL SCALE) 1 Q4H SQ 04/20/17 10:00 (Roxicodone Intensol Liq) 5 mg Q4H PRN PO 04/21/17 20:45 04/24/17 13:12 (Cerebyx Inj) 100 mgpe Q6HR IV 04/23/17 00:00 04/24/17 13:58 (Tylenol) 500 mg Q4H PRN PO 04/22/17 23:45 04/23/17 04:41 (Paxil) 40 mg DAILY PO 04/23/17 09:00 04/24/17 08:20 Potassium Chloride/Dextrose/ Sod Cl 1,020 ml @ 50 mls/hr [id number] IV 04/23/17 10:30 04/23/17 23:47 (Heparin Inj) 5,000 units Q12HR SQ 04/23/17 21:00 Future Hold (Duoneb Neb) 1 ampule QID NEB NEB 04/23/17 16:00 04/24/17 07:56 (Deltasone) 20 mg DAILY G-TUBE 04/23/17 13:00 04/28/17 12:59 04/24/17 08:20 A/P Assessment and Plan ASSESSMENT: LARYNGEAL SQUAMOUS CA - on EGD 04/17/17 Acute bleeding s/p phayrnx bx w airway compromise Respiratory failure s/p Trach SEPSIS Aspiration pneumonia, S/P GT BY DR GIBSON 04/22 TRACHEITIS Dysphagia Esophagitis on EGD 04/17/17 Seizures Dilantin toxicity Hyponatremia Hyperkalemia and now with hypokalemia. Cerebrovascular accident with right hemiparesis. Anemia. Depression Anxiety. Chronic pain syndrome. Lumbar degenerative disc disease. Neuropathy. PLAN- IV ABX BLOOD CULTURES X TWO IV cerebryx, vimpat and keppra Follow up gastric biopsies and throat bx A.m. CBC and BMP. INCR KCL IV fluids. Xanax 1 mg twice a day. Telemetry. Duoneb q.i.d. DVT prophylaxis - SCDs/TEDs Heparin 5000 units subcutaneously q 12- RESTART WHEN OK WITH DR Blevins GI prophylaxis - Protonix 40 mg IV q.12 h. CONSULTS TO ID, PULM, ENT, ONCO, GI Ari Sims MD Apr 24, 2017 14:54
[2017-04-24 15:35] LABS: TRANSFERRIN IRON PROFILE 107 MG/DL (200-360)
[2017-04-24] MEDS: LORazepam 0.5 MG TAB PO SCH (22:14)
[2017-04-25] VITALS (8 sets, daily range): BP systolic 114–140; BP diastolic 62–87; PULSE 73–78; RESP 18–20; TEMP 97.5–98.4; O2SAT 90–99
[2017-04-25] MEDS: INSULIN ASPART SUPPLEMENTAL SCALE SQ SCH ×6 (02:00→19:55)
[2017-04-25] MEDS: metroNIDAZOLE 500 MG INJ 100 ML IV SCH ×3 (03:10→20:29)
[2017-04-25] MEDS: RESP: ALBUTEROL 2.5 MG/IPRATROPIUM 0.5 MG NEB (SCH) NEB ×3 (08:00→21:12)
[2017-04-25 08:16] LABS: AUTOMATED NEUTROPHIL # 6.6 TH/MM3 (1.8-7.7); BASOPHIL % 0.2 % (0.0-2.0); EOSINOPHIL # 0.5 TH/MM3 (0-0.4); EOSINOPHIL % 5.3 % (0.0-4.0); HEMATOCRIT 32.6 % (39.0-51.0); HEMO FLAGS DIFF FINAL; LYMPH % 16.2 % (9.0-44.0); LYMPHOCYTE # 1.5 TH/MM3 (1.0-4.8); MEAN CELL VOLUME 90.1 FL (80.0-100.0); MEAN CORPUSCULAR HEMOGLOBIN 31.3 PG (27.0-34.0); MEAN CORPUSCULAR HGB CONC 34.7 % (32.0-36.0); MONO % 9.3 % (0.0-8.0); PLATELET COUNT 396 TH/MM3 (150-450); RED BLOOD COUNT 3.62 MIL/MM3 (4.50-5.90); RED CELL DISTRIBUTION WIDTH 12.8 % (11.6-17.2); WHITE BLOOD COUNT 9.5 TH/MM3 (4.0-11.0)
[2017-04-25 08:29] LABS: ANION GAP 6 MEQ/L (5-15); BLOOD UREA NITROGEN 3 MG/DL (7-18); CHLORIDE 98 MEQ/L (98-107); GLOMERULAR FILTRATION RATE 660 ML/MIN (>89); MAGNESIUM 1.8 MG/DL (1.5-2.5); POTASSIUM 3.2 MEQ/L (3.5-5.1); SODIUM (NA) 134 MEQ/L (136-145)
[2017-04-25] MEDS ORDERED: FOSPHENYTOIN SODIUM 100 MG PE/2 ML VIAL IV SCH (09:00)
[2017-04-25] MEDS: DOCUSATE SODIUM 50 MG/SENNA 8.6 MG TAB PO SCH ×2 (09:22→20:26)
[2017-04-25] MEDS: predniSONE 20 MG TAB G-TUBE SCH (09:22)
[2017-04-25] MEDS: PARoxetine HCL 20 MG TAB PO SCH (09:22)
[2017-04-25] MEDS: levETIRAcetam INJ 500 MG in SODIUM CHLORIDE 0.9% INJ 100 ML IV SCH ×3 (09:23→20:25)
[2017-04-25] MEDS: SODIUM CHLORIDE 0.9% FLUSH 10 ML FLUSH IV FLUSH SCH ×2 (09:23→20:28)
[2017-04-25] MEDS: PANTOPRAZOLE SODIUM 40 MG VIAL IV PUSH SCH ×2 (09:24→20:26)
[2017-04-25] MEDS: oxyCODONE HCL ORAL CONC 20 MG/ML SYRINGE PO PRN ×2 (09:30→17:13)
--- NOTE | 2017-04-25 09:36 | HHI.FPPN ---
Subjective Remarks D/W DR Blevins, TRACH BLEEDING HAS STOPPED, WILL RESTART HEPARIN D/W , SLEEPIONG IN ROOM D/W RN INCR TRACH SECRETIONS, TRACH TUBE OFF Objective Vitals Vital Signs Date Time Temp Pulse Resp B/P (MAP) Pulse Ox O2 Delivery O2 Flow Rate FiO2 04/25/17 08:00 98.2 75 20 114/62 (79) 90 04/25/17 04:00 98.3 77 20 131/68 (89) 96 04/24/17 22:41 96 T-Piece 6.00 50 Humidified 04/24/17 22:41 75 04/24/17 20:00 98.3 73 20 162/77 (105) 95 04/24/17 19:59 95 T-piece 50 04/24/17 16:00 98.1 72 14 141/63 (89) 98 04/24/17 12:00 97.7 78 14 163/75 (104) 92 I/O 04/24/17 04/24/17 04/24/17 04/25/17 04/25/17 04/25/17 07:00 15:00 23:00 07:00 15:00 23:00 Intake Total 200 ml Output Total 350 ml 600.0 ml Balance -350 ml -600.0 ml 200 ml IV Total 200 ml Output Urine Total 350 ml 600 ml Tube Feeding Residual Discard 0 ml # Voids 2 # Bowel Movements 1 Result Diagram: 04/25/1765804/25/17658 Objective Remarks GENERAL: SKIN: Warm and dry. HEAD: Atraumatic. Normocephalic. EYES: Pupils equal and round. No scleral icterus. No injection or drainage. ENT: No nasal bleeding or discharge. Mucous membranes pink and moist. TRACH C/ DI, SL OOZING NECK: Trachea midline. No JVD. CARDIOVASCULAR: Regular rate and rhythm. RESPIRATORY: B rales and ronchi, congested cough GASTROINTESTINAL: Abdomen soft, non-tender, nondistended. Hepatic and splenic margins not palpable. MUSCULOSKELETAL: Extremities without clubbing, cyanosis, or edema. No obvious deformities. NEUROLOGICAL: Awake and alert. No obvious cranial nerve deficits. R DIOGENES PSYCHIATRIC: Appropriate mood and affect; insight and judgment normal. Medications and IVs Current Medications Medications (Trade) Dose Ordered Sig/Delvis Route Start Time Stop Time Status Last Admin (Ativan) 0.5 mg Q8H PRN PO 04/16/17 21:45 04/17/17 22:50 (Catapres) 0.1 mg Q6H PRN PO 04/16/17 21:45 04/18/17 05:17 ([place] 5-325 Mg) 1 tab Q4H PRN PO 04/16/17 21:45 Future Hold 04/16/17 22:37 (NS Flush) 2 ml UNSCH PRN IV FLUSH 04/16/17 21:45 (NS Flush) 2 ml BID IV FLUSH 04/17/17 09:00 04/24/17 21:00 (Tylenol) 650 mg Q4H PRN PO 04/16/17 21:45 Future Hold (Zofran Inj) 4 mg Q6H PRN IVP 04/16/17 21:45 04/23/17 14:54 (Ambien) 5 mg HS PRN PO 04/16/17 21:45 04/23/17 21:41 (Narcan Inj) 0.4 mg UNSCH PRN IV PUSH 04/16/17 21:45 (Elidia-Colace) 1 tab BID PO 04/17/17 09:00 04/24/17 22:14 (Milk Of Magnesia Liq) 30 ml Q12H PRN PO 04/16/17 21:45 (Senokot) 17.2 mg Q12H PRN PO 04/16/17 21:45 (Dulcolax Supp) 10 mg DAILY PRN RECTAL 04/16/17 21:45 (Lactulose Liq) 30 ml DAILY PRN PO 04/16/17 21:45 (Duoneb Neb) 1 ampule Q6HR NEB PRN NEB 04/16/17 23:00 04/17/17 00:01 (Protonix Inj) 40 mg Q12HR IV PUSH 04/17/17 21:00 04/24/17 22:14 Levofloxacin/ Dextrose 100 ml @ 100 mls/hr Q24H IV 04/18/17 10:00 04/24/17 10:06 Metronidazole 100 ml @ 100 mls/hr Q8H IV 04/19/17 12:00 04/25/17 03:10 Lacosamide 100 mg/ Sodium Chloride 110 ml @ 110 mls/hr EVERY OTHER DAY IV 04/20/17 14:00 04/24/17 08:41 (NovoLOG SUPPLEMENTAL SCALE) 1 Q4H SQ 04/20/17 10:00 (Tylenol) 500 mg Q4H PRN PO 04/22/17 23:45 04/23/17 04:41 (Paxil) 40 mg DAILY PO 04/23/17 09:00 04/24/17 08:20 Potassium Chloride/Dextrose/ Sod Cl 1,020 ml @ 83 mls/hr [id number] IV 04/23/17 10:30 04/24/17 23:23 (Heparin Inj) 5,000 units Q12HR SQ 04/23/17 21:00 Future Hold (Duoneb Neb) 1 ampule QID NEB NEB 04/23/17 16:00 04/24/17 19:56 (Deltasone) 20 mg DAILY G-TUBE 04/23/17 13:00 04/28/17 12:59 04/24/17 08:20 (Roxicodone Intensol Liq) 10 mg Q4H PRN PO 04/24/17 16:45 04/24/17 18:36 (Ativan) 0.5 mg HS PO 04/24/17 21:00 04/26/17 20:59 04/24/17 22:14 Levetriacetam 500 mg/Sodium Chloride 105 ml @ 420 mls/hr Q6H IV 04/25/17 09:00 (Cerebyx Inj) 100 mgpe Q6H IV 04/25/17 09:00 A/P Assessment and Plan ASSESSMENT: 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 Aspiration pneumonia, S/P GT BY DR GIBSON 04/22 TRACHEITIS Dysphagia Esophagitis on EGD 04/17/17 Seizures Dilantin toxicity Hyponatremia Hyperkalemia and now with hypokalemia. Cerebrovascular accident with right hemiparesis. Anemia. Depression Anxiety. Chronic pain syndrome. Lumbar degenerative disc disease. Neuropathy. PLAN- IV ABX BLOOD CULTURES X TWO IV cerebryx, vimpat and keppra Follow up gastric biopsies and throat bx A.m. CBC and BMP. NS IV fluids. KCL PGT DAILY Xanax HS FOR TWO DAYS THEN STOP. PRN ATIVAN. Telemetry. Duoneb q.i.d. DVT prophylaxis - SCDs/TEDs. Heparin 5000 units subcutaneously q 12 GI prophylaxis - Protonix 40 mg IV q.12 h. CONSULTS TO ID, PULM, ENT, ONCO, GI Ari Sims MD Apr 25, 2017 09:36
[2017-04-25] MEDS: LEVOFLOXACIN 500 MG PREMIX INJ 100 ML IV SCH (10:11)
--- NOTE | 2017-04-25 10:26 | RC ---
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 STAGE Clinically T3-T4, N2c, M0, stage grouping 4A. CHIEF COMPLAINT Ability to swallow. REASON FOR VISIT The patient is being evaluated for salvage concomitant chemoradiotherapy. HISTORY OF PRESENT ILLNESS This is a 72-year-old white male who appears to have a history of not being able to swallow properly for several weeks. It appears as a result of that, the patient was brought to the emergency room where he was evaluated and noted to have a large laryngeal mass. It appears that, according to records, this has been happening since July 2016. Upon presentation, the patient underwent an upper endoscopy on 04/17/2017 which had noted the patient to have a large laryngeal mass. The patient did undergo a biopsy under anesthesia. It appears the patient started bleeding and there were some difficulties with intubation and the patient did undergo tracheostomy. Per records, it appears that the patient was noted to have a left hypopharyngeal mass arising from the vallecula. The patient also has undergone PEG tube placement. Biopsy is now positive for squamous cell carcinoma. I have been consulted for evaluation regarding radiotherapy treatment options for cure. PAST MEDICAL HISTORY As above. Also a history of: 1. 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 2. History of aspiration. 3. Anxiety and depression 4. Coronary artery disease 5. Hyperlipidemia 6. Diabetes 7. Headaches 8. Hiatal hernia 9. Hypertension 10. Migraines 11. Seizures 12. Sleep apnea MEDICATIONS 1. Ativan 2. Roxicodone 3. Iohexol 4. Heparin 5. Deltasone 6. Paxil 7. Tylenol 8. Versed 9. Fentanyl 10. Protonix 11. Catapres 12. Zofran 13. Ambien 14. Zartan ALLERGIES Trimethoprim FAMILY HISTORY No history of carcinoma in the family. SOCIAL HISTORY The patient has not smoked for five years, but he used to be a heavy smoker. Alcohol denied at the present time. REVIEW OF SYSTEMS CONSTITUTIONAL: The patient admits to loss and decrease of appetite, loss of weight due to inability to swallow. ALLERGIES: He has not had an allergic reaction recently. EYES: Unremarkable. ENT: Difficulty in swallowing, some referred pain to the ears. NECK: Denies any neck masses. INTEGUMENTARY: Unremarkable. CARDIOVASCULAR: Denies any chest pain or clinical signs of [place]. RESPIRATORY: The patient has not had any issues following tracheostomy. GASTROINTESTINAL: Peg tube placement. GENITOURINARY: Unremarkable. MUSCULOSKELETAL: Unremarkable. NEUROLOGIC: History of stroke with right-sided paralysis. PSYCHIATRIC: Anxiety and depression. No suicidal thoughts. ENDOCRINE: Unremarkable. HEMATOLOGICAL: Low blood counts. DERMATOLOGICAL: Unremarkable. PHYSICAL EXAMINATION The patient is alert and oriented x3 in no acute distress or discomfort at the present time. VITAL SIGNS: Temperature 98.1, pulse 72, respiratory 14, blood pressure 141/63, pulse ox 98% on room air. Pain scale 2/10 with control. Lungs: HEART: Regular in rate and rhythm with no apparent murmurs. NECK: Palpation of bilateral neck shows no lymphatic areas detected. Bilateral supraclavicular areas are free. There is a tracheostomy in place. No signs of tumor surrounding the tracheostomy site. No bleeding. ABDOMEN: Palpation of the abdominal cavity reveals no hepatosplenomegaly. No pain elicited. EXTREMITIES: Lower extremities without edema. NEUROLOGIC: The patient has a process of the right upper arm and right lower leg. The left arm and left leg are unremarkable. No other positive findings. SURGICAL PATHOLOGY Distal esophagus on 04/09/2017, no organisms. exudates suggestive of acute ulcerative esophagitis. Surgical pathology 04/20/2017, molecular mass biopsy moderately to poorly-differentiated squamous cell carcinoma with features of ulceration. IMAGING STUDIES Neck CT 04/24/2017. Impression. Abnormal heterogeneity and thickening of involving the entirety of the epiglottis, bilateral cervical adenopathy. Chest CT 04/24/2017. Impression. Mild bilateral parenchymal lung atelectasis and small effusions noted metastatic disease in the chest. Abdomen and pelvis CT 04/24/2017. Impression. Bilateral lower lobe atelectasis/consolidation and pleural effusions, gallstones. Opacity in the left inguinal canal incompletely included in the general view exam. ASSESSMENT A 72-year white male with a diagnosis of locally advanced squamous cell carcinoma of the larynx. The patient is being evaluated for definite curative radiotherapy treatment options. PLAN I had an extensive discussion with the patient, his and his son. I discussed this case today with Dr. Richter. The patient advised the best treatment option at this point due to the patient condition will be to try to do concomitant chemoradiotherapy. I advised of the merits of this treatment. I also discussed chemotherapy alone for palliation and radiation therapy alone for palliation and hospice care. The patient and family advised that he has bad dentition and in a patient such as him, we would like to perform radiation therapy after dental extraction and we usually wait 10 days after the dental extractions. His case is somewhat emergent since he is having problems swallowing and his airway could potentially be compromised soon and therefore we do not have the luxury of waiting. They were advised that the possible option would be extractions followed by the radiation therapy, but in his case that is not be an option. I do not believe it is an option, but they have the option of waiting or moving forward without extractions, if they give me permission and consent to move forward with radiation therapy without extractions. They were advised that because of the bad dentition, he will need hyperbaric oxygen before extractions due to complication rates of infection, bleeding, nonhealing ulcer and necrosis of the jaw is higher and they understand this. We also discussed side effects and complications including, but not limited to weakness and fatigue, skin necrosis of skin, difficulty and pain with swallowing, esophageal strictures, lung damage, lung fibrosis, lung pneumonitis. We discussed nerve damage and brachial plexus damage, spinal cord damage, Lhermitte's syndrome, loss of facial hair which could be permanent, swelling of the anterior neck, and dry mouth which will be permanent, loss of taste which could be permanent, decreased hearing, loss of hearing, decreased vision, loss of vision. We discussed fibrosis of the neck and pain in the treated area. The patient also advised that for locally advanced laryngeal carcinoma, sometimes the best option is surgical resection. With that in mind, we can try concomitant chemoradiotherapy. They were advised that most of the time after the radiation therapy, the local recurrence is higher so he may end up needing to have salvage surgery as it is hard to differentiated between disease progression and scar tissue and necrosis from the tumor response and because of that, the patients end up requiring laryngectomy. Also, sometimes the patient are unable to swallow and may require the surgery to remove the voice box. After a thorough discussion, they were advised per discussion with Dr. Richter we would like to move forward fairly quickly with the treatments. I will give him a time for tomorrow for simulation and treatment planning. He will have some time to think about it. I left one of my cards so they can call me. They can always obvious decline treatment if they want to. After a thorough discussion, he understood everything that was explained. They were advised if I could be of any further assistance, to please let me know, otherwise we will proceed as above. ADDENDUM: Patient and family agreed to move forward with XRT without dental extraction and he accepts the risks. Dr. Richter, thank you much for allowing me to participate in the care of your patient. If you should have any further questions or concerns, please do not hesitate to contact me. Scott Can MD Radiation Oncologist NORMA OTT/DEVIKA /6:38 PM /9:39 AM VAN
[2017-04-25] MEDS: SODIUM CHLOR 0.9% 1000 ML INJ 1,000 ML IV SCH (11:41)
[2017-04-25] MEDS: POTASSIUM CHLORIDE 25 MEQ EFFERVESCENT TAB G-TUBE SCH (11:41)
[2017-04-25] MEDS: HEPARIN SODIUM - SQ 10,000 UNITS/ML VIAL SQ SCH ×2 (11:46→20:28)
[2017-04-25] MEDS: D5-NS + KCL 40 MEQ INJ 1,000 ML IV SCH (12:20)
--- NOTE | 2017-04-25 16:45 | HHI.PR ---
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 recent dilantin toxicity Plan recheck phenytoin level Diagnosis/Plan: Subjective Subjective Comments No acute events reported No seizures--on cerebyx and keppra Active Medications Current Medications Medications (Trade) Dose Ordered Sig/Delvis Route Start Time Stop Time Status Last Admin (Ativan) 0.5 mg Q8H PRN PO 04/16/17 21:45 04/17/17 22:50 (Catapres) 0.1 mg Q6H PRN PO 04/16/17 21:45 04/18/17 05:17 (Burt 5-325 Mg) 1 tab Q4H PRN PO 04/16/17 21:45 Future Hold 04/16/17 22:37 (NS Flush) 2 ml UNSCH PRN IV FLUSH 04/16/17 21:45 (NS Flush) 2 ml BID IV FLUSH 04/17/17 09:00 04/25/17 09:23 (Tylenol) 650 mg Q4H PRN PO 04/16/17 21:45 Future Hold (Zofran Inj) 4 mg Q6H PRN IVP 04/16/17 21:45 04/23/17 14:54 (Ambien) 5 mg HS PRN PO 04/16/17 21:45 04/23/17 21:41 (Narcan Inj) 0.4 mg UNSCH PRN IV PUSH 04/16/17 21:45 (Elidia-Colace) 1 tab BID PO 04/17/17 09:00 04/25/17 09:22 (Milk Of Magnesia Liq) 30 ml Q12H PRN PO 04/16/17 21:45 (Senokot) 17.2 mg Q12H PRN PO 04/16/17 21:45 (Dulcolax Supp) 10 mg DAILY PRN RECTAL 04/16/17 21:45 (Lactulose Liq) 30 ml DAILY PRN PO 04/16/17 21:45 (Duoneb Neb) 1 ampule Q6HR NEB PRN NEB 04/16/17 23:00 04/17/17 00:01 (Protonix Inj) 40 mg Q12HR IV PUSH 04/17/17 21:00 04/25/17 09:24 Levofloxacin/ Dextrose 100 ml @ 100 mls/hr Q24H IV 04/18/17 10:00 04/25/17 10:11 Metronidazole 100 ml @ 100 mls/hr Q8H IV 04/19/17 12:00 04/25/17 11:46 Lacosamide 100 mg/ Sodium Chloride 110 ml @ 110 mls/hr EVERY OTHER DAY IV 04/20/17 14:00 04/24/17 08:41 (NovoLOG SUPPLEMENTAL SCALE) 1 Q4H SQ 04/20/17 10:00 (Tylenol) 500 mg Q4H PRN PO 04/22/17 23:45 04/23/17 04:41 (Paxil) 40 mg DAILY PO 04/23/17 09:00 04/25/17 09:22 Potassium Chloride/Dextrose/ Sod Cl 1,020 ml @ 30 mls/hr Q24H IV 04/23/17 10:30 04/24/17 23:23 (Duoneb Neb) 1 ampule QID NEB NEB 04/23/17 16:00 04/25/17 15:46 (Deltasone) 20 mg DAILY G-TUBE 04/23/17 13:00 04/28/17 12:59 04/25/17 09:22 (Roxicodone Intensol Liq) 10 mg Q4H PRN PO 04/24/17 16:45 04/25/17 09:30 (Ativan) 0.5 mg HS PO 04/24/17 21:00 04/26/17 20:59 04/24/17 22:14 Levetriacetam 500 mg/Sodium Chloride 105 ml @ 420 mls/hr Q6H IV 04/25/17 09:00 04/25/17 15:47 (Heparin Inj) 5,000 units Q12HR SQ 04/25/17 11:30 04/25/17 11:46 (K-Lyte Cl Eff) 25 meq DAILY G-TUBE 04/25/17 11:30 04/25/17 11:41 Sodium Chloride 1,000 ml @ 42 mls/hr [id number] IV 04/25/17 11:00 04/25/17 11:41 Fosphenytoin Sodium 100 mgpe/ Sodium Chloride 52 ml @ 208 mls/hr Q6H IV 04/25/17 16:00 Allergies Allergies Coded Allergies sulfamethoxazole (Verified Allergy, Unknown, 04/16/17) trimethoprim (Verified Allergy, Unknown, 04/16/17) Exam I&O / VS 04/25/17 04/25/17 04/26/17 15:00 23:00 07:00 Intake Total 1006 ml Output Total 700 ml Balance 306 ml IV Total 806 ml Tube Irrigant 200 ml Output Urine Total 700 ml Vital Signs Date Time Temp Pulse Resp B/P (MAP) Pulse Ox O2 Delivery O2 Flow Rate FiO2 04/25/17 16:00 98.4 78 18 128/87 (101) 99 04/25/17 12:00 97.5 73 20 140/74 (96) 95 04/25/17 10:19 95 T-piece 40 04/25/17 10:18 90 T-Piece 6.00 50 Humidified 04/25/17 10:05 77 04/25/17 08:00 98.2 75 20 114/62 (79) 90 04/25/17 04:00 98.3 77 20 131/68 (89) 96 04/24/17 22:41 96 T-Piece 6.00 50 Humidified 04/24/17 22:41 75 04/24/17 20:00 98.3 73 20 162/77 (105) 95 04/24/17 19:59 95 T-piece 50 Respiratory: Lungs CTA, Non-labored respirations Cardiology: Normal rate, Regular Rhythm Musculoskeletal: Swelling, Deformity Exam Comments alert, follow commands CN--PERRL, right upper motor neuron CN 7 palsey right hemiparesis--0/5 RUE, 2/5 RLE strength Objective Micro and Labs Laboratory Tests Test 04/25/17 06:59 White Blood Count 9.5 Red Blood Count 3.62 Hemoglobin 11.3 Hematocrit 32.6 Mean Corpuscular Volume 90.1 Mean Corpuscular Hemoglobin 31.3 Mean Corpuscular Hemoglobin Concent 34.7 Red Cell Distribution Width 12.8 Platelet Count 396 Mean Platelet Volume 6.6 Neutrophils (%) (Auto) 69.0 Lymphocytes (%) (Auto) 16.2 Monocytes (%) (Auto) 9.3 Eosinophils (%) (Auto) 5.3 Basophils (%) (Auto) 0.2 Neutrophils # (Auto) 6.6 Lymphocytes # (Auto) 1.5 Monocytes # (Auto) 0.9 Eosinophils # (Auto) 0.5 Basophils # (Auto) 0.0 CBC Comment DIFF FINAL Differential Comment Blood Urea Nitrogen 3 Creatinine LESS THAN 0.15 Random Glucose 135 Calcium Level 7.8 Magnesium Level 1.8 Sodium Level 134 Potassium Level 3.2 Chloride Level 98 Carbon Dioxide Level 30.0 Anion Gap 6 Estimat Glomerular Filtration Rate 660 Date/Time Source Procedure Growth Status 04/23/17 12:10 Blood Peripheral Aerobic Blood Culture - Preliminary NO GROWTH IN 2 DAYS Resulted 04/23/17 12:10 Blood Peripheral Anaerobic Blood Culture - Preliminary NO GROWTH IN 2 DAYS Resulted 04/23/17 19:30 Sputum Endotracheal Gram Stain - Final Complete 04/23/17 19:30 Sputum Culture - Final S. Aureus Mrsa Complete Rinku Sun PhD Apr 25, 2017 16:45
[2017-04-25] MEDS: FOSPHENYTOIN INJ 100 MGPE in SODIUM CHLORIDE 0.9% INJ 50 ML IV SCH ×2 (17:12→20:27)
[2017-04-25] MEDS: LORazepam 0.5 MG TAB PO SCH (20:26)
[2017-04-25] MEDS: ZOLPIDEM TARTRATE 5 MG TAB PO PRN (22:58)
[2017-04-26] VITALS (8 sets, daily range): BP systolic 105–139; BP diastolic 52–77; PULSE 66–87; RESP 18–22; TEMP 97.2–98.4; O2SAT 94–99
[2017-04-26] MEDS: LORazepam 0.5 MG TAB PO PRN (01:37)
[2017-04-26] MEDS: oxyCODONE HCL ORAL CONC 20 MG/ML SYRINGE PO PRN ×3 (01:38→15:07)
[2017-04-26] MEDS: INSULIN ASPART SUPPLEMENTAL SCALE SQ SCH ×6 (02:00→22:00)
[2017-04-26] MEDS: levETIRAcetam INJ 500 MG in SODIUM CHLORIDE 0.9% INJ 100 ML IV SCH ×4 (03:00→21:23)
[2017-04-26] MEDS: metroNIDAZOLE 500 MG INJ 100 ML IV SCH ×2 (05:35→13:33)
[2017-04-26] MEDS: FOSPHENYTOIN INJ 100 MGPE in SODIUM CHLORIDE 0.9% INJ 50 ML IV SCH ×4 (05:35→22:56)
[2017-04-26 06:52] LABS: AUTOMATED NEUTROPHIL # 7.4 TH/MM3 (1.8-7.7); BASOPHIL # 0.1 TH/MM3 (0-0.2); BASOPHIL % 0.6 % (0.0-2.0); EOSINOPHIL # 0.4 TH/MM3 (0-0.4); EOSINOPHIL % 3.9 % (0.0-4.0); HEMATOCRIT 33.3 % (39.0-51.0); HEMO FLAGS DIFF FINAL; MEAN CELL VOLUME 90.6 FL (80.0-100.0); MEAN CORPUSCULAR HEMOGLOBIN 30.6 PG (27.0-34.0); MEAN CORPUSCULAR HGB CONC 33.7 % (32.0-36.0); MONO % 10.3 % (0.0-8.0); NEUT % 67.2 % (16.0-70.0); PLATELET COUNT 449 TH/MM3 (150-450); RED BLOOD COUNT 3.67 MIL/MM3 (4.50-5.90); RED CELL DISTRIBUTION WIDTH 12.9 % (11.6-17.2)
[2017-04-26 06:59] LABS: BICARBONATE 28.6 MEQ/L (21.0-32.0); POTASSIUM 3.5 MEQ/L (3.5-5.1)
[2017-04-26] MEDS: RESP: ALBUTEROL 2.5 MG/IPRATROPIUM 0.5 MG NEB (SCH) NEB ×4 (08:20→21:58)
[2017-04-26] MEDS: SODIUM CHLORIDE 0.9% FLUSH 10 ML FLUSH IV FLUSH SCH ×2 (09:00→21:24)
[2017-04-26] MEDS: PANTOPRAZOLE SODIUM 40 MG VIAL IV PUSH SCH ×2 (09:41→21:22)
[2017-04-26] MEDS: HEPARIN SODIUM - SQ 10,000 UNITS/ML VIAL SQ SCH ×2 (09:41→21:23)
[2017-04-26] MEDS: POTASSIUM CHLORIDE 25 MEQ EFFERVESCENT TAB G-TUBE SCH (09:41)
[2017-04-26] MEDS: predniSONE 20 MG TAB G-TUBE SCH (09:44)
[2017-04-26] MEDS: PARoxetine HCL 20 MG TAB PO SCH (09:44)
[2017-04-26] MEDS: DOCUSATE SODIUM 50 MG/SENNA 8.6 MG TAB PO SCH ×2 (09:44→21:22)
[2017-04-26] MEDS: LACOSAMIDE INJ 100 MG in SODIUM CHLORIDE 0.9% INJ 100 ML IV SCH (10:16)
[2017-04-26] MEDS: SODIUM CHLOR 0.9% 1000 ML INJ 1,000 ML IV SCH (10:49)
--- NOTE | 2017-04-26 11:25 | HHI.PR ---
Subjective Remarks In bed, appears in nad, more awake per family at bedside. Patient withut sob at this time. id not sleep much, took ambien and helped with sleeping. No fever ro chills. No n/v/d/c. Denies chest pain or sob at this time. No fever ro chills. No n/v/d/c. Objective Vitals Vital Signs Date Time Temp Pulse Resp B/P (MAP) Pulse Ox O2 Delivery O2 Flow Rate FiO2 04/26/17 09:30 97 T-piece 35 04/26/17 08:00 98.3 77 19 116/63 (80) 95 04/26/17 08:00 87 04/26/17 04:00 97.3 75 18 110/58 (75) 94 04/26/17 00:00 97.2 86 18 139/77 (97) 94 04/25/17 21:12 97 T-piece 6.00 28 04/25/17 20:00 98.1 77 18 139/72 (94) 97 04/25/17 16:00 98.4 78 18 128/87 (101) 99 04/25/17 12:00 97.5 73 20 140/74 (96) 95 I/O 04/25/17 04/25/17 04/25/17 04/26/17 04/26/17 04/26/17 07:00 15:00 23:00 07:00 15:00 23:00 Intake Total 200 ml 1006 ml Output Total 700 ml 400 ml Balance 200 ml 306 ml -400 ml IV Total 200 ml 806 ml Tube Irrigant 200 ml Output Urine Total 700 ml 400 ml # Voids 2 3 Result Diagram: 04/26/17 0556 04/26/17 0550 Imaging Last Impressions Neck CT 04/24/17599 Signed Impressions: Service Date/Time: April 11:42 - CONCLUSION: Abnormal heterogeneity and thickening involving the entirety of the epiglottis and aryepiglottic folds in fairly symmetric fashion. Bilateral cervical adenopathy. Rian Moreno MD Chest CT 04/24/17599 Signed Impressions: Service Date/Time: April 11:48 - CONCLUSION: Mild bilateral parenchymal lung atelectasis and small effusions. No definite metastatic disease in the chest. Rian Moreno MD Abdomen/Pelvis CT 04/24/17 0600 Signed Impressions: Service Date/Time: April 11:51 - CONCLUSION: 1. Bilateral lower lung atelectasis/consolidation and pleural effusions. 2. Gallstones 3. Opacity in the left inguinal canal, incompletely included in [id number]-ox-kbyn exam , suggesting either testicle or hydrocele. Jalil Gregorio MD Lower Extremity Ultrasound 04/23/17 0000 Signed Impressions: Service Date/Time: Sunday, April 23, 2017 21:57 - CONCLUSION: Small amount of peripheral nonocclusive thrombus seen in the right common femoral vein. This appearance usually seen with chronic thrombus. No DVT is seen in the left lower extremity. Rian Tang MD Chest X-Ray 04/23/17 0000 Signed Impressions: Service Date/Time: Sunday, April 23, 2017 13:35 - CONCLUSION: 1. One tracheostomy at the level of the clavicles. 2. Improved diffuse interstitial prominence likely reflecting improved positive fluid balance. 3. Minimal linear opacities in the right upper and midlung zones consistent with atelectasis/scarring. Stuart Ortiz MD Abdomen X-Ray 04/23/17 0000 Signed Impressions: Service Date/Time: Sunday, April 23, 2017 17:15 - CONCLUSION: Nonspecific bowel gas pattern. Oral contrast is seen within the colon. Rian Tang MD Upper GI Series 04/16/17 0000 Signed Impressions: Service Date/Time: Sunday, April 16, 2017 17:31 - CONCLUSION: 1. No evidence of esophageal stricture. 2. Poor esophageal motility. 3. No evidence of aspiration. 4. Small hiatal hernia. 5. Delayed KUB is pending. Neeraj Alarcon MD Objective Remarks GENERAL: Pleasant elderly male, in bed, appears in nad, trach in place. NECK: Trach in place, some redness around, no drainage, brittnee in place. CARDIOVASCULAR: Regular rate and rhythm. RESPIRATORY: B rales and ronchi, congested cough GASTROINTESTINAL: Abdomen soft, non-tender, nondistended. Hepatic and splenic margins not palpable. MUSCULOSKELETAL: Extremities without clubbing, cyanosis, or edema. No obvious deformities. NEUROLOGICAL: Awake and alert. No obvious cranial nerve deficits. R DIOGENES PSYCHIATRIC: Appropriate mood and affect; insight and judgment normal. A/P Assessment and Plan 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 Aspiration pneumonia, S/P GT BY DR GIBSON 04/22 TRACHEITIS Dysphagia Esophagitis on EGD 04/17/17 Seizures Dilantin toxicity Hyponatremia Hyperkalemia and now with hypokalemia. Cerebrovascular accident with right hemiparesis. Anemia. Depression Anxiety. Chronic pain syndrome. Lumbar degenerative disc disease. Neuropathy. CONTINUE IV ABX BLOOD CULTURES X TWO IV cerebryx, vimpat and keppra Follow up gastric biopsies and throat bx MONITOR CBC and BMP. NS IV fluids. KCL PGT DAILY PRN ATIVAN. Telemetry. Duoneb q.i.d. DVT prophylaxis - SCDs/TEDs. Heparin 5000 units subcutaneously q 12 GI prophylaxis - Protonix 40 mg IV q.12 h. CONSULTS: TO ID, PULM, ENT, ONCO, GI DISCUSSED WITH THE PATIENT, NURSE, FAMILY AT BEDSIDE Татьяна Tyler MD Apr 26, 2017 11:25
[2017-04-26] MEDS: D5-NS + KCL 40 MEQ INJ 1,000 ML IV SCH (12:20)
[2017-04-26] MEDS: LEVOFLOXACIN 500 MG PREMIX INJ 100 ML IV SCH (12:52)
--- NOTE | 2017-04-26 16:43 | HHI.IDPN ---
Subjective Subjective Remarks is a 72 y/o CM male who underwent EGD on 04/17/[address] Carlson for evaluation of dysphagia. He was found to have a possible laryngeal mass and severe esophagitis. Dr. Amador from ENT was consulted. 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 Patient was taken to the OR by Dr. Amador for biopsy. Intubation was attempted by anesthesiologist Dr. Wilde. With Glidescope initially the laryngeal opening was visible but patient's started bleeding from the friable mass obscuring the airway. Intubation attempt was aborted after several attempts. Dr. Amador was still able to perform a biopsy but debulking procedure was also aborted. Critical care medicine was consulted for acute bleeding laryngeal mass with airway compromise. Patient is in moderate distress on face [place]o, oxygen saturation 90- 92%. Patient underwent an emergency tracheostomy in the OR. Patient has been followed by Oncology. Patient started developing new elevation in WBC and was pancultured as well as sputum obtained. Concern for Pneumonia Sepsis so ID was consulted. Overnight events reviewed. No fever No rash No diarrhea Thick laguna secretions needing fairly frequent suctioning. Antibiotics Levaquin IV Flagyl IV Lines LIne sites with no e.o infection Past Medical History reviewed Allergies: Coded Allergies: sulfamethoxazole (Verified Allergy, Unknown, 04/16/17) trimethoprim (Verified Allergy, Unknown, 04/16/17) Objective . Vital Signs Date Time Temp Pulse Resp B/P (MAP) Pulse Ox O2 Delivery O2 Flow Rate FiO2 04/26/17 12:00 98.4 78 19 105/55 (72) 96 04/26/17 11:00 Trach Collar 6.00 50 Humidified 04/26/17 09:30 97 T-piece 35 04/26/17 08:00 98.3 77 19 116/63 (80) 95 04/26/17 08:00 87 04/26/17 04:00 97.3 75 18 110/58 (75) 94 04/26/17 00:00 97.2 86 18 139/77 (97) 94 04/25/17 21:12 97 T-piece 6.00 28 04/25/17 20:00 98.1 77 18 139/72 (94) 97 04/26/17 04/26/1717 15:00 23:00 07:00 Output Total 400 ml Balance -400 ml Output Urine Total 400 ml . Laboratory Tests Test 04/25/17 06:59 04/26/17 05:56 White Blood Count 9.5 TH/MM3 11.0 TH/MM3 Red Blood Count 3.62 MIL/MM3 3.67 MIL/MM3 Hemoglobin 11.3 GM/DL 11.2 GM/DL Hematocrit 32.6 % 33.3 % Mean Corpuscular Volume 90.1 FL 90.6 FL Mean Corpuscular Hemoglobin 31.3 PG 30.6 PG Mean Corpuscular Hemoglobin Concent 34.7 % 33.7 % Red Cell Distribution Width 12.8 % 12.9 % Platelet Count 396 TH/MM3 449 TH/MM3 Mean Platelet Volume 6.6 FL 6.4 FL Neutrophils (%) (Auto) 69.0 % 67.2 % Lymphocytes (%) (Auto) 16.2 % 18.0 % Monocytes (%) (Auto) 9.3 % 10.3 % Eosinophils (%) (Auto) 5.3 % 3.9 % Basophils (%) (Auto) 0.2 % 0.6 % Neutrophils # (Auto) 6.6 TH/MM3 7.4 TH/MM3 Lymphocytes # (Auto) 1.5 TH/MM3 2.0 TH/MM3 Monocytes # (Auto) 0.9 TH/MM3 1.1 TH/MM3 Eosinophils # (Auto) 0.5 TH/MM3 0.4 TH/MM3 Basophils # (Auto) 0.0 TH/MM3 0.1 TH/MM3 CBC Comment DIFF FINAL DIFF FINAL Differential Comment Laboratory Tests Test 04/25/17 06:59 04/26/17 05:50 Blood Urea Nitrogen 3 MG/DL 3 MG/DL Creatinine LESS THAN 0.15 MG/DL 0.20 MG/DL Random Glucose 135 MG/DL 121 MG/DL Calcium Level 7.8 MG/DL 7.9 MG/DL Magnesium Level 1.8 MG/DL Sodium Level 134 MEQ/L 134 MEQ/L Potassium Level 3.2 MEQ/L 3.5 MEQ/L Chloride Level 98 MEQ/L 98 MEQ/L Carbon Dioxide Level 30.0 MEQ/L 28.6 MEQ/L Anion Gap 6 MEQ/L 7 MEQ/L Estimat Glomerular Filtration Rate 660 ML/MIN 473 ML/MIN Microbiology Date/Time Source Procedure Growth Status 04/23/17 19:30 Sputum Endotracheal Gram Stain - Final Complete 04/23/17 19:30 Sputum Culture - Final S. Aureus Mrsa Complete Imaging Last Impressions Neck CT 04/24/17599 Signed Impressions: Service Date/Time: April 11:42 - CONCLUSION: Abnormal heterogeneity and thickening involving the entirety of the epiglottis and aryepiglottic folds in fairly symmetric fashion. Bilateral cervical adenopathy. Rian Moreno MD Chest CT 04/24/17599 Signed Impressions: Service Date/Time: April 11:48 - CONCLUSION: Mild bilateral parenchymal lung atelectasis and small effusions. No definite metastatic disease in the chest. Rian Moreno MD Abdomen/Pelvis CT 04/24/17599 Signed Impressions: Service Date/Time: April 11:51 - CONCLUSION: 1. Bilateral lower lung atelectasis/consolidation and pleural effusions. 2. Gallstones 3. Opacity in the left inguinal canal, incompletely included in [id number] exam , suggesting either testicle or hydrocele. Jalil Gregorio MD Lower Extremity Ultrasound 04/23/17 Signed Impressions: Service Date/Time: Sunday, April 23, 2017 21:57 - CONCLUSION: Small amount of peripheral nonocclusive thrombus seen in the right common femoral vein. This appearance usually seen with chronic thrombus. No DVT is seen in the left lower extremity. Rian Tang MD Chest X-Ray 04/23/17 Signed Impressions: Service Date/Time: Sunday, April 23, 2017 13:35 - CONCLUSION: 1. One tracheostomy at the level of the clavicles. 2. Improved diffuse interstitial prominence likely reflecting improved positive fluid balance. 3. Minimal linear opacities in the right upper and midlung zones consistent with atelectasis/scarring. Stuart Ortiz MD Abdomen X-Ray 04/23/17 Signed Impressions: Service Date/Time: Sunday, April 23, 2017 17:15 - CONCLUSION: Nonspecific bowel gas pattern. Oral contrast is seen within the colon. Rian Tang MD Upper GI Series 04/16/17 0000 Signed Impressions: Service Date/Time: Sunday, April 16, 2017 17:31 - CONCLUSION: 1. No evidence of esophageal stricture. 2. Poor esophageal motility. 3. No evidence of aspiration. 4. Small hiatal hernia. 5. Delayed KUB is pending. Neeraj Alarcon MD Physical Exam GENERAL: This is a well-nourished, well-developed patient, in no apparent distress. SKIN: No rashes, ecchymoses or lesions. Cool and dry. HEAD: Atraumatic. Normocephalic. No temporal or scalp tenderness. EYES: Pupils equal round and reactive. Extraocular motions intact. No scleral icterus. No injection or drainage. ENT: Nose without bleeding, purulent drainage or septal hematoma. Throat without erythema, tonsillar hypertrophy or exudate. Uvula midline. Airway patent. NECK: Trach site with no e.o infection PEG tube site with no e.o infection CARDIOVASCULAR: Regular rate and rhythm without murmurs, gallops, or rubs. RESPIRATORY: Clear to auscultation. Breath sounds equal bilaterally. No wheezes , rales, or rhonchi. GASTROINTESTINAL: Abdomen soft, non-tender, nondistended. No hepato-splenomegaly , or palpable masses. No guarding. MUSCULOSKELETAL: Extremities without clubbing, cyanosis, or edema. No joint tenderness, effusion, or edema noted. No calf tenderness. Negative Homans sign bilaterally. NEUROLOGICAL: Awake and alert. Cranial nerves II through XII intact. Motor and sensory grossly within normal limits. Five out of 5 muscle strength in all muscle groups. Psych cooperative IV line sites with no e.o infection Assessment & Plan Remarks Fever Infectious vs Non infectious causes. (temp increased to 102 on 04/23/17 and WBC normal on that day ? non infectious cause) MRSA tracheobronchitis. Seizure disorder on antiepileptic medications. 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 Recs: DC Levaquin IV for now DC Flagyl IV for now Start Zyvox oral per PEG tube. basim Poe: he suggested making sure the balloon is deflated and continue local care and antibiotics. Sutures still in place. Follow cultures Follow clinically. Karla Delarosa MD Apr 26, 2017 16:43
[2017-04-26] MEDS: LINEZOLID 600 MG TAB PEG SCH (21:22)
[2017-04-27] VITALS (9 sets, daily range): BP systolic 92–129; BP diastolic 53–81; PULSE 68–82; RESP 16–21; TEMP 97.3–99; O2SAT 94–98
[2017-04-27] MEDS: guaiFENesin SOLUTION 200 MG/10 ML CUP PO PRN ×2 (00:04→05:35)
[2017-04-27] MEDS: INSULIN ASPART SUPPLEMENTAL SCALE SQ SCH ×6 (02:00→22:00)
[2017-04-27] MEDS: levETIRAcetam INJ 500 MG in SODIUM CHLORIDE 0.9% INJ 100 ML IV SCH ×4 (03:00→22:25)
[2017-04-27] MEDS: FOSPHENYTOIN INJ 100 MGPE in SODIUM CHLORIDE 0.9% INJ 50 ML IV SCH (03:28)
[2017-04-27] MEDS: SODIUM CHLOR 0.9% 1000 ML INJ 1,000 ML IV SCH (03:28)
[2017-04-27] MEDS: RESP: ALBUTEROL 2.5 MG/IPRATROPIUM 0.5 MG NEB (SCH) NEB (08:51)
[2017-04-27] MEDS: SODIUM CHLORIDE 0.9% FLUSH 10 ML FLUSH IV FLUSH SCH ×2 (09:00→21:00)
[2017-04-27] MEDS: POTASSIUM CHLORIDE 25 MEQ EFFERVESCENT TAB G-TUBE SCH (09:31)
[2017-04-27] MEDS: LINEZOLID 600 MG TAB PEG SCH ×2 (09:31→22:26)
[2017-04-27] MEDS: PARoxetine HCL 20 MG TAB PO SCH (09:31)
[2017-04-27] MEDS: DOCUSATE SODIUM 50 MG/SENNA 8.6 MG TAB PO SCH ×2 (09:31→21:00)
[2017-04-27] MEDS: PANTOPRAZOLE SODIUM 40 MG VIAL IV PUSH SCH ×2 (09:32→22:25)
[2017-04-27] MEDS: HEPARIN SODIUM - SQ 10,000 UNITS/ML VIAL SQ SCH ×2 (09:32→22:26)
[2017-04-27] MEDS: predniSONE 20 MG TAB G-TUBE SCH (09:32)
[2017-04-27] MEDS: oxyCODONE HCL ORAL CONC 20 MG/ML SYRINGE PO PRN ×3 (09:33→18:10)
--- NOTE | 2017-04-27 10:22 | HHI.PR ---
Subjective Remarks Complains of some pain around his trach site Denies any nausea or vomiting or diarrhea or constipation Has chronic right upper extremity weakness Move bilateral lower extremities Objective Vitals Vital Signs Date Time Temp Pulse Resp B/P (MAP) Pulse Ox O2 Delivery O2 Flow Rate FiO2 04/27/17 08:52 98 T-piece 6.00 35 04/27/17 08:00 99.0 68 19 113/71 (85) 94 04/27/17 07:15 80 04/27/17 06:15 97.9 80 20 120/80 (93) 96 04/27/17 06:11 Trach Collar 6.00 50 Humidified 04/27/17 05:58 75 04/27/17 00:40 98.9 82 21 126/54 (78) 97 04/26/17 22:07 99 T-piece 6.00 35 04/26/17 21:50 98.1 73 22 136/57 (83) 97 04/26/17 16:00 97.3 66 18 106/52 (70) 94 04/26/17 12:00 98.4 78 19 105/55 (72) 96 04/26/17 11:00 Trach Collar 6.00 50 Humidified I/O 04/26/17 04/26/17 04/26/17 04/27/17 04/27/17 04/27/17 07:00 15:00 23:00 07:00 15:00 23:00 Intake Total 2818 ml 629 ml Output Total 1650 ml 600 ml 400 ml Balance -1650 ml 2218 ml 229 ml Intake Oral 0 ml 0 ml IV Total 2818 ml 629 ml Output Urine Total 1650 ml 600 ml 400 ml # Bowel Movements 1 0 0 Result Diagram: 04/26/17 0556 04/26/17 0550 Other Results Laboratory Tests Test 04/25/17 06:59 04/26/17 05:50 04/26/17 05:56 04/26/17 17:58 White Blood Count 9.5 TH/MM3 11.0 TH/MM3 Red Blood Count 3.62 MIL/MM3 3.67 MIL/MM3 Hemoglobin 11.3 GM/DL 11.2 GM/DL Hematocrit 32.6 % 33.3 % Mean Corpuscular Volume 90.1 FL 90.6 FL Mean Corpuscular Hemoglobin 31.3 PG 30.6 PG Mean Corpuscular Hemoglobin Concent 34.7 % 33.7 % Red Cell Distribution Width 12.8 % 12.9 % Platelet Count 396 TH/MM3 449 TH/MM3 Mean Platelet Volume 6.6 FL 6.4 FL Neutrophils (%) (Auto) 69.0 % 67.2 % Lymphocytes (%) (Auto) 16.2 % 18.0 % Monocytes (%) (Auto) 9.3 % 10.3 % Eosinophils (%) (Auto) 5.3 % 3.9 % Basophils (%) (Auto) 0.2 % 0.6 % Neutrophils # (Auto) 6.6 TH/MM3 7.4 TH/MM3 Lymphocytes # (Auto) 1.5 TH/MM3 2.0 TH/MM3 Monocytes # (Auto) 0.9 TH/MM3 1.1 TH/MM3 Eosinophils # (Auto) 0.5 TH/MM3 0.4 TH/MM3 Basophils # (Auto) 0.0 TH/MM3 0.1 TH/MM3 CBC Comment DIFF FINAL DIFF FINAL Differential Comment Blood Urea Nitrogen 3 MG/DL 3 MG/DL Creatinine LESS THAN 0.15 MG/DL 0.20 MG/DL Random Glucose 135 MG/DL 121 MG/DL Calcium Level 7.8 MG/DL 7.9 MG/DL Magnesium Level 1.8 MG/DL Sodium Level 134 MEQ/L 134 MEQ/L Potassium Level 3.2 MEQ/L 3.5 MEQ/L Chloride Level 98 MEQ/L 98 MEQ/L Carbon Dioxide Level 30.0 MEQ/L 28.6 MEQ/L Anion Gap 6 MEQ/L 7 MEQ/L Estimat Glomerular Filtration Rate 660 ML/MIN 473 ML/MIN Phenytoin (Dilantin) Level 2.8 MCG/ML 5.0 MCG/ML Imaging Last Impressions Neck CT 04/24/17599 Signed Impressions: Service Date/Time: April 11:42 - CONCLUSION: Abnormal heterogeneity and thickening involving the entirety of the epiglottis and aryepiglottic folds in fairly symmetric fashion. Bilateral cervical adenopathy. Rian Moreno MD Chest CT 04/24/17599 Signed Impressions: Service Date/Time: April 11:48 - CONCLUSION: Mild bilateral parenchymal lung atelectasis and small effusions. No definite metastatic disease in the chest. Rian Moreno MD Abdomen/Pelvis CT 04/24/17 0600 Signed Impressions: Service Date/Time: April 11:51 - CONCLUSION: 1. Bilateral lower lung atelectasis/consolidation and pleural effusions. 2. Gallstones 3. Opacity in the left inguinal canal, incompletely included in [id number] exam , suggesting either testicle or hydrocele. Jalil Gregorio MD Lower Extremity Ultrasound 04/23/17 0000 Signed Impressions: Service Date/Time: Sunday, April 23, 2017 21:57 - CONCLUSION: Small amount of peripheral nonocclusive thrombus seen in the right common femoral vein. This appearance usually seen with chronic thrombus. No DVT is seen in the left lower extremity. Rian Tang MD Chest X-Ray 04/23/17 0000 Signed Impressions: Service Date/Time: Sunday, April 23, 2017 13:35 - CONCLUSION: 1. One tracheostomy at the level of the clavicles. 2. Improved diffuse interstitial prominence likely reflecting improved positive fluid balance. 3. Minimal linear opacities in the right upper and midlung zones consistent with atelectasis/scarring. Stuart Ortiz MD Abdomen X-Ray 04/23/17 0000 Signed Impressions: Service Date/Time: Sunday, April 23, 2017 17:15 - CONCLUSION: Nonspecific bowel gas pattern. Oral contrast is seen within the colon. Rian Tang MD Upper GI Series 04/16/17 0000 Signed Impressions: Service Date/Time: Sunday, April 16, 2017 17:31 - CONCLUSION: 1. No evidence of esophageal stricture. 2. Poor esophageal motility. 3. No evidence of aspiration. 4. Small hiatal hernia. 5. Delayed KUB is pending. Neeraj Alarcon MD Objective Remarks GENERAL: Awake alert trach in place has chronic right upper extremity contracture SKIN: Warm and dry. HEAD: Atraumatic. Normocephalic. EYES: Pupils equal and round. No scleral icterus. No injection or drainage. Extraocular muscles intact ENT: No nasal bleeding or discharge. Mucous membranes pink and moist. Tongue is midline NECK: Trachea midline. No JVD. Supple with tracheostomy in place CARDIOVASCULAR: Regular rate and rhythm. S1-S2 no S3 or S4 RESPIRATORY: No accessory muscle use. Few scattered rhonchi. Breath sounds equal bilaterally. GASTROINTESTINAL: Abdomen soft, non-tender, nondistended. Hepatic and splenic margins not palpable. PEG tube in place MUSCULOSKELETAL: Extremities without clubbing, cyanosis, or edema. No obvious deformities. Right upper extremity contracted NEUROLOGICAL: Awake and alert. No obvious cranial nerve deficits. Motor grossly within normal limits. 4 out of 5 muscle strength in the arms and legs other than right upper extremity that's contracted and right lower extremity with 3 out of 5. Not able to speak well due to trach PSYCHIATRIC: Appropriate mood and affect; insight and judgment normal. Procedures PROCEDURE PERFORMED Upper endoscopy with biopsy INDICATION FOR PROCEDURE Dysphagia PROCEDURE: The procedure, risks and benefits were discussed with Mr. Garcia and informed consent was obtained. Anesthesia sedated him with Diprivan. He was placed in the left lateral decubitus position. EGD: The Pentax videoscope was introduced through the oropharynx and advanced to the second portion of the duodenum under direct visualization. Retroflexion was performed in the stomach biopsy from the distal esophagus was obtained. FINDINGS: Severe grade D esophagitis biopsy was done Stomach normal Duodenum normal There was possible small mass in the larynx that could be the reason for the dysphagia questionable malignancy biopsy was not performed because of the location ESTIMATED BLOOD LOSS: 10 cc SPECIMENS REMOVED: Distal esophagus COMPLICATIONS: None IMPRESSION: Possible mass in the larynx Severe esophagitis biopsy was done PLAN: ENT consult Follow up biopsy Clear liquid EAVN BAHENA M.D. DATE OF SURGERY April 20, 2017 PREOPERATIVE DIAGNOSIS Malignant lesion of hypopharynx. POSTOPERATIVE DIAGNOSIS Malignant lesion of hypopharynx. OPERATION PERFORMED Direct laryngoscopy with biopsy. INDICATIONS Documented in the inpatient consultation of April 18, 2017 ----- April 21 PEG tube placement by Dr. GIBSON Status post tracheostomy and laryngectomy Medications and IVs Current Medications Sodium Chloride (NS Flush) 2 ml UNSCH PRN IVF FLUSH AFTER USING IV ACCESS; Start 04/16/17 at 16:15; Stop 04/16/17 at 16:53; Status DC Sodium Chloride 1,000 ml @ 1,000 mls/hr Q1H IV Last administered on 04/16/17t 19:23; Start 04/16/17 at 16:53; Stop 04/16/17 at 17:52; Status DC Sodium Chloride (NS Flush) 2 ml UNSCH PRN IV FLUSH FLUSH AFTER USING IV ACCESS ; Start 04/16/17 at 17:00; Stop 04/16/17 at 21:43; Status DC Famotidine (Pepcid Inj) 20 mg ONCE ONCE IV PUSH Last administered on 19:24; Start 04/16/17 at 17:00; Stop 04/16/17 at 17:01; Status DC Sodium Chloride 1,000 ml @ 125 mls/hr Q8H IV Last administered on 04/16/17 19 :30; Start 04/16/17 at 19:30; Stop 04/16/17 at 21:39; Status DC Sodium Polystyrene Sulfonate (Kayexalate Liq) 30 gm ONCE ONCE PO Last administered on 04/16/17 21:03; Start 04/16/17 at 19:30; Stop 04/16/17 at 19:31 ; Status DC Insulin Human Regular (NovoLIN R INJ) 10 units ONCE ONCE IV PUSH Last administered on 04/16/17 19:30; Start 04/16/17 at 19:30; Stop 04/16/17 at 19:31 ; Status DC Dextrose (D50w (Syr) Inj) 25 ml ONCE ONCE IV PUSH Last administered on 19:38; Start 04/16/17 at 19:30; Stop 04/16/17 at 19:31; Status DC Calcium Gluconate (Calcium Gluconate Inj) 1 gm ONCE ONCE IV PUSH Last administered on 04/16/17 19:38; Start 04/16/17 at 19:30; Stop 04/16/17 at 19:31 ; Status DC Dextrose (D50w (Syr) Inj) 25 ml ONCE ONCE IV PUSH Last administered on 19:45; Start 04/16/17 at 19:45; Stop 04/16/17 at 19:46; Status DC Sodium Chloride 1,000 ml @ 999 mls/hr BOLUS ONCE IV Last administered on 04/16 20:15; Start 04/16/17 at 20:15; Stop 04/16/17 at 21:15; Status DC Albumin Human (Albumin 25% Inj) 25 gm ONCE ONCE IV Last administered on 21:03; Start 04/16/17 at 20:30; Stop 04/16/17 at 20:31; Status DC Alprazolam (Xanax) 1 mg BID PO Last administered on 04/19/17 20:28; Start at 09:00; Stop 04/24/17 at 14:55; Status DC Albuterol/ Ipratropium (Duoneb Neb) 1 ampule QID NEB NEB Last administered on 04/19/17 20:17; Start 04/17/17 at 08:00; Stop 04/20/17 at 09:54; Status DC Lorazepam (Ativan) 0.5 mg Q8H PRN PO SEVERE ANXIETY OR AGITATION Last administered on 04/26/17 01:37; Start 04/16/17 at 21:45 Clonidine (Catapres) 0.1 mg Q6H PRN PO SBP>160, DBP>90 Last administered on 05:17; Start 04/16/17 at 21:45 Acetaminophen/ Hydrocodone Bitart ([place] 5-325 Mg) 1 tab Q4H PRN PO PAIN GREATER THAN 5 Last administered on 04/16/17 22:37; Start 04/16/17 at 21:45; Status Future Hold Dextrose/Sodium Chloride 1,000 ml @ 30 mls/hr Q24H IV Last administered on 22:25; Start 04/16/17 at 21:45; Stop 04/17/17 at 13:41; Status DC Sodium Chloride (NS Flush) 2 ml UNSCH PRN IV FLUSH FLUSH AFTER USING IV ACCESS ; Start 04/16/17 at 21:45 Sodium Chloride (NS Flush) 2 ml BID IV FLUSH Last administered on 04/27/17 09: 00; Start 04/17/17 at 09:00 Acetaminophen (Tylenol) 650 mg Q4H PRN PO TEMP > 100.4; Start 04/16/17 at 21:45 ; Status Future Hold Ondansetron HCl (Zofran Inj) 4 mg Q6H PRN IVP NAUSEA OR VOMITING Last administered on 04/23/17 14:54; Start 04/16/17 at 21:45 Zolpidem Tartrate (Ambien) 5 mg HS PRN PO INSOMNIA Last administered on 22:58; Start 04/16/17 at 21:45 Heparin Sodium (Porcine) (Heparin Inj) 5,000 units Q12H SQ Last administered on 04/18/17 22:14; Start 04/16/17 at 21:45; Stop 04/23/17 at 10:15; Status DC Naloxone HCl (Narcan Inj) 0.4 mg UNSCH PRN IV PUSH SEE LABEL COMMENTS; Start at 21:45 Senna/Docusate Sodium (Elidia-Colace) 1 tab BID PO Last administered on 09:31; Start 04/17/17 at 09:00 Magnesium Hydroxide (Milk Of Magnesia Liq) 30 ml Q12H PRN PO MILD - MODERATE CONSTIPATION; Start 04/16/17 at 21:45 Sennosides (Senokot) 17.2 mg Q12H PRN PO MODERATE - SEVERE CONSTIPATION; Start 04/16/17 at 21:45 Bisacodyl (Dulcolax Supp) 10 mg DAILY PRN RECTAL SEVERE CONSITIPATION; Start at 21:45 Lactulose (Lactulose Liq) 30 ml DAILY PRN PO SEVERE CONSITIPATION; Start at 21:45 Albuterol/ Ipratropium (Duoneb Neb) 1 ampule Q6HR NEB PRN NEB SHORTNESS OF BREATH Last administered on 04/17/17 00:01; Start 04/16/17 at 23:00 Pantoprazole Sodium (Protonix Inj) 40 mg Q12HR IV PUSH Last administered on 09:32; Start 04/17/17 at 21:00 Potassium Chloride/Dextrose/ Sod Cl 1,000 ml @ 20 mls/hr Q24H IV Last administered on 04/19/17 14:44; Start 04/17/17 at 16:00; Stop 04/20/17 at 13:46 ; Status DC Miscellaneous Information ALL NURSING DEPARTME... UNSCH PRN .XX SEE LABEL COMMENTS; Start 04/17/17 at 12:42; Stop 04/18/17 at 12:41; Status DC Lacosamide (Vimpat) 200 mg EVERY OTHER DAY PO ; Start 04/20/17 at 09:00; Stop 04/20/17 at 11:52; Status DC Levetriacetam (Keppra) 500 mg Q12HR PO ; Start 04/18/17 at 21:00; Stop 04/20/17 at 10:20; Status DC Levofloxacin/ Dextrose 100 ml @ 100 mls/hr Q24H IV Last administered on 12:52; Start 04/18/17 at 10:00; Stop 04/26/17 at 16:40; Status DC Miscellaneous Information NO HEPARIN,LOVENOX,ASA OR ANTICOAGULA... UNSCH PRN OTHER SEE LABEL COMMENTS; Start 04/18/17 at 17:30; Stop 04/20/17 at 07:00; Status Cancel Miscellaneous Information NO HEPARIN,LOVENOX,ASA OR ANTICOAGULA... UNSCH PRN OTHER SEE LABEL COMMENTS; Start 04/19/17 at 00:00; Stop 04/20/17 at 09:00; Status DC Metronidazole 100 ml @ 100 mls/hr Q8H IV Last administered on 04/26/17 13:33 ; Start 04/19/17 at 12:00; Stop 04/26/17 at 16:40; Status DC Potassium Chloride 100 ml @ 100 mls/hr Q1H IV Last administered on 04/19/17 14:42; Start 04/19/17 at 12:00; Stop 04/19/17 at 14:59; Status DC Levetriacetam 500 mg/Sodium Chloride 105 ml @ 420 mls/hr Q12HR IV Last administered on 04/19/17 21:32; Start 04/19/17 at 21:00; Stop 04/20/17 at 09:48 ; Status DC Phenytoin Sodium (Dilantin Inj) 50 mg Q12HR IV Last administered on 04/19/17 21:32; Start 04/19/17 at 21:00; Stop 04/20/17 at 09:48; Status DC Epinephrine HCl (EPINEPHrine (1:1000) INJ) 30 mg STK-MED ONCE .ROUTE ; Start at 07:37; Stop 04/20/17 at 07:38; Status DC Lidocaine/ Epinephrine (Xylocaine-Epi Mpf 2%-1:200,000 Inj) 20 ml STK-MED ONCE .ROUTE ; Start 04/20/17 at 07:37; Stop 04/20/17 at 07:38; Status DC Oxymetazoline HCl (Afrin 0.05% [place]) 15 spray STK-MED ONCE .ROUTE ; Start 04/20/17 at 08:01; Stop 04/20/17 at 08:02; Status DC Miscellaneous Information ALL NURSING DEPARTME... UNSCH PRN .XX SEE LABEL COMMENTS; Start 04/20/17 at 09:15; Stop 04/21/17 at 09:14; Status DC Ketamine HCl (Ketalar Inj) 500 mg STK-MED ONCE .ROUTE ; Start 04/20/17 at 09:28 ; Stop 04/20/17 at 09:29; Status DC Levetriacetam 500 mg/Sodium Chloride 105 ml @ 420 mls/hr Q6HR IV Last administered on 04/24/17 23:45; Start 04/20/17 at 12:00; Stop 04/25/17 at 06:33 ; Status DC Fosphenytoin Sodium (Cerebyx Inj) 100 mgpe BID IV Last administered on 09:24; Start 04/20/17 at 10:30; Stop 04/21/17 at 19:47; Status DC Lacosamide 100 mg/ Sodium Chloride 110 ml @ 110 mls/hr EVERY OTHER DAY IV Last administered on 04/26/17 10:16; Start 04/20/17 at 14:00 Albuterol/ Ipratropium (Duoneb Neb) 1 ampule QID NEB NEB Last administered on 04/23/17 12:36; Start 04/20/17 at 12:00; Stop 04/23/17 at 12:47; Status DC Dexamethasone Sodium Phosphate (Decadron Inj) 4 mg Q6HR IV PUSH Last administered on 04/22/17 06:50; Start 04/20/17 at 12:00; Stop 04/22/17 at 11:59 ; Status DC Insulin Aspart (NovoLOG SUPPLEMENTAL SCALE) 1 Q4H SQ ; Start 04/20/17 at 10:00 Miscellaneous Information ALL NURSING DEPARTME... UNSCH PRN .XX SEE LABEL COMMENTS; Start 04/20/17 at 12:00; Stop 04/21/17 at 11:59; Status DC Lactated Ringer's 1,000 ml @ 80 mls/hr [id number] IV Last administered on 02:16; Start 04/20/17 at 14:00; Stop 04/22/17 at 08:45; Status DC Ketamine HCl (Ketalar Inj) 500 mg STK-MED ONCE .ROUTE ; Start 04/21/17 at 13:09 ; Stop 04/21/17 at 13:10; Status DC Lidocaine HCl (Xylocaine-Mpf 1% Inj) 5 ml STK-MED ONCE OTHER ; Start 04/17/17 at 12:00; Stop 04/21/17 at 15:07; Status DC Propofol (Diprivan 200 Mg/20 ml Inj) 200 mg STK-MED ONCE IV ; Start 04/17/17 at 12:00; Stop 04/21/17 at 15:07; Status DC Phenytoin (Dilantin Liq) 100 mg DAILY PO ; Start 04/22/17 at 09:00; Stop at 09:00; Status DC Oxycodone HCl (Roxicodone Intensol Liq) 5 mg Q4H PRN PO PAIN SCALE 5 TO 10; Start 04/21/17 at 19:30; Status Cancel Fosphenytoin Sodium (Cerebyx Inj) 100 mgpe Q8HR IV Last administered on 13:51; Start 04/21/17 at 22:00; Stop 04/22/17 at 21:45; Status DC Fosphenytoin Sodium (Cerebyx Inj) 300 mgpe ONCE ONCE IV ; Start 04/21/17 at 19: 45; Stop 04/21/17 at 19:49; Status DC Oxycodone HCl (Roxicodone Intensol Liq) 5 mg Q4H PRN PO PAIN SCALE 5 TO 10 Last administered on 04/24/17 13:12; Start 04/21/17 at 20:45; Stop 04/24/17 at 14:57; Status DC Dextrose/Sodium Chloride 1,000 ml @ 50 mls/hr Q20H IV Last administered on 06:37; Start 04/22/17 at 09:00; Stop 04/23/17 at 10:14; Status DC Fosphenytoin Sodium (Cerebyx Inj) 100 mgpe Q6HR IV Last administered on 23:45; Start 04/23/17 at 00:00; Stop 04/25/17 at 06:37; Status DC Pharmacy Profile Note ml @ 0 mls/hr UNSCH OTHER ; Start 04/22/17 at 23:45; Stop 04/23/17 at 20:20; Status DC Vancomycin HCl 1500 mg/Sodium Chloride 515 ml @ 257.5 mls/ hr ONCE ONCE IV Last administered on 04/23/17 02:09; Start 04/23/17 at 01:00; Stop 04/23/17 at 02:59; Status DC Acetaminophen (Tylenol) 500 mg Q4H PRN PO TEMP > 100 Last administered on 04:41; Start 04/22/17 at 23:45 Paroxetine HCl (Paxil) 40 mg DAILY PO Last administered on 04/27/17 09:31; Start 04/23/17 at 09:00 Vancomycin HCl 1250 mg/Sodium Chloride 262.5 ml @ 250 mls/hr Q12H IV Last administered on 04/23/17 16:05; Start 04/23/17 at 14:00; Stop 04/23/17 at 20:20 ; Status DC Miscellaneous Information SPECIFIC LAB TO BE DRAWN:VANCOMYCIN TROUGH DATE TO... ONCE ONCE .XX ; Start 04/24/17 at 13:45; Stop 04/24/17 at 13:46; Status Cancel Potassium Chloride/Dextrose/ Sod Cl 1,020 ml @ 30 mls/hr Q24H IV Last administered on 04/24/17 23:23; Start 04/23/17 at 10:30 Heparin Sodium (Porcine) (Heparin Inj) 5,000 units Q12HR SQ ; Start 04/23/17 at 21:00; Stop 04/25/17 at 09:36; Status DC Albuterol/ Ipratropium (Duoneb Neb) 1 ampule QID NEB NEB Last administered on 04/27/17 08:51; Start 04/23/17 at 16:00 Prednisone (Deltasone) 20 mg DAILY G-TUBE Last administered on 04/27/17 09:32 ; Start 04/23/17 at 13:00; Stop 04/28/17 at 12:59 Diatrizoate Meglum/ Diatrizoate Sod ( Gastroview Liq) 18 ml ONCE ONCE PO Last administered on 04/24/17 10:30; Start 04/24/17 at 10:30; Stop 04/24/17 at 10:31; Status DC Midazolam HCl (Versed Inj) 2 mg STK-MED ONCE IV ; Start 04/20/17 at 12:00; Stop 04/24/17 at 11:37; Status DC Fentanyl Citrate (fentaNYL INJ) 100 mcg STK-MED ONCE IV ; Start 04/20/17 at 12: 00; Stop 04/24/17 at 11:37; Status DC Propofol (Diprivan 200 Mg/20 ml Inj) 200 mg STK-MED ONCE IV ; Start 04/20/17 at 12:00; Stop 04/24/17 at 11:37; Status DC Sodium Chloride (Sodium Chloride 0.9% Inj) 20 ml STK-MED ONCE IV ; Start at 12:00; Stop 04/24/17 at 11:37; Status DC Iohexol (Omnipaque 350 Inj) 100 ml STK-MED ONCE IVCONTRAST Last administered on 04/24/17 12:15; Start 04/24/17 at 12:15; Stop 04/24/17 at 12:16; Status DC Oxycodone HCl (Roxicodone Intensol Liq) 10 mg Q4H PRN PO PAIN SCALE 5 TO 10 Last administered on 04/27/17 09:33; Start 04/24/17 at 16:45 Lorazepam (Ativan) 0.5 mg HS PO Last administered on 04/25/17 20:26; Start at 21:00; Stop 04/26/17 at 20:59; Status DC Levetriacetam 500 mg/Sodium Chloride 105 ml @ 420 mls/hr Q6H IV Last administered on 04/27/17 09:28; Start 04/25/17 at 09:00 Fosphenytoin Sodium (Cerebyx Inj) 100 mgpe Q6H IV Last administered on 09:39; Start 04/25/17 at 09:00; Stop 04/25/17 at 16:25; Status DC Heparin Sodium (Porcine) (Heparin Inj) 5,000 units Q12HR SQ Last administered on 04/27/17 09:32; Start 04/25/17 at 11:30 Potassium Bicarb/ Potassium Chloride (K-Lyte Cl Eff) 25 meq DAILY G-TUBE Last administered on 04/27/17 09:31; Start 04/25/17 at 11:30 Sodium Chloride 1,000 ml @ 42 mls/hr [id number] IV Last administered on 03:28; Start 04/25/17 at 11:00 Lidocaine HCl (Xylocaine-Mpf 1% Inj) 5 ml STK-MED ONCE OTHER ; Start 04/21/17 at 12:00; Stop 04/25/17 at 14:20; Status DC Ephedrine Sulfate (ePHEDrine/NS 25 MG/5 ML SYR) 25 mg STK-MED ONCE IV ; Start 04/21/17 at 12:00; Stop 04/25/17 at 14:20; Status DC Midazolam HCl (Versed Inj) 2 mg STK-MED ONCE IV ; Start 04/21/17 at 12:00; Stop 04/25/17 at 14:20; Status DC Propofol (Diprivan 200 Mg/20 ml Inj) 800 mg STK-MED ONCE IV ; Start 04/21/17 at 12:00; Stop 04/25/17 at 14:20; Status DC Fosphenytoin Sodium 100 mgpe/ Sodium Chloride 52 ml @ 208 mls/hr Q6H IV Last administered on 04/27/17 03:28; Start 04/25/17 at 16:00; Stop 04/27/17 at 08:03 ; Status DC Linezolid (Zyvox) 600 mg Q12HR PEG Last administered on 04/27/17 09:31; Start 04/26/17 at 21:00 Guaifenesin (Robitussin Liq) 200 mg Q4H PRN PO congestion Last administered on 04/27/17 05:35; Start 04/26/17 at 23:30 Fosphenytoin Sodium 200 mgpe/ Sodium Chloride 54 ml @ 208 mls/hr Q8HR IV ; Start 04/27/17 at 14:00 A/P Assessment and Plan 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 Aspiration pneumonia, S/P GT BY DR GIBSON 04/22 TRACHEITIS Dysphagia Esophagitis on EGD 04/17/17 Seizures Dilantin toxicity Hyponatremia Hyperkalemia and now with hypokalemia. Cerebrovascular accident with right hemiparesis. Anemia. Depression Anxiety. Chronic pain syndrome. Lumbar degenerative disc disease. Neuropathy. CONTINUE IV ABX BLOOD CULTURES X TWO IV cerebryx, vimpat and keppra Follow up gastric biopsies and throat bx MONITOR CBC and BMP. NS IV fluids. KCL PGT DAILY PRN ATIVAN. Telemetry. Duoneb q.i.d. DVT prophylaxis - SCDs/TEDs. Heparin 5000 units subcutaneously q 12 GI prophylaxis - Protonix 40 mg IV q.12 h. CONSULTS: TO ID, PULM, ENT, ONCO, GI DISCUSSED WITH THE PATIENT, NURSEZari Steven M. DO Apr 27, 2017 10:21
--- NOTE | 2017-04-27 11:02 | HHI.PR ---
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 recent dilantin toxicity Plan recheck phenytoin level- 8 04/26 corrected for albumin dilantin dose increased yesterday to 200mg q8hrs a little more confused- check eeg to r/.o sz activity next level in am Diagnosis/Plan: (1) Impaired cognition ICD Codes: R41.89 - Other symptoms and signs involving cognitive functions and awareness Status: Chronic (2) H/O: CVA (cerebrovascular accident) ICD Codes: Z86.73 - Personal history of transient ischemic attack (TIA), and cerebral infarction without residual deficits Status: Chronic Subjective Subjective Comments No acute events reported xcover no sz Active Medications Current Medications Medications (Trade) Dose Ordered Sig/Delvis Route Start Time Stop Time Status Last Admin (Ativan) 0.5 mg Q8H PRN PO 04/16/17 21:45 04/26/17 01:37 (Catapres) 0.1 mg Q6H PRN PO 04/16/17 21:45 04/18/17 05:17 ([place] 5-325 Mg) 1 tab Q4H PRN PO 04/16/17 21:45 Future Hold 04/16/17 22:37 (NS Flush) 2 ml UNSCH PRN IV FLUSH 04/16/17 21:45 (NS Flush) 2 ml BID IV FLUSH 04/17/17 09:00 04/27/17 09:00 (Tylenol) 650 mg Q4H PRN PO 04/16/17 21:45 Future Hold (Zofran Inj) 4 mg Q6H PRN IVP 04/16/17 21:45 04/23/17 14:54 (Ambien) 5 mg HS PRN PO 04/16/17 21:45 04/25/17 22:58 (Narcan Inj) 0.4 mg UNSCH PRN IV PUSH 04/16/17 21:45 (Elidia-Colace) 1 tab BID PO 04/17/17 09:00 04/27/17 09:31 (Milk Of Magnesia Liq) 30 ml Q12H PRN PO 04/16/17 21:45 (Senokot) 17.2 mg Q12H PRN PO 04/16/17 21:45 (Dulcolax Supp) 10 mg DAILY PRN RECTAL 04/16/17 21:45 (Lactulose Liq) 30 ml DAILY PRN PO 04/16/17 21:45 (Duoneb Neb) 1 ampule Q6HR NEB PRN NEB 04/16/17 23:00 04/17/17 00:01 (Protonix Inj) 40 mg Q12HR IV PUSH 04/17/17 21:00 04/27/17 09:32 Lacosamide 100 mg/ Sodium Chloride 110 ml @ 110 mls/hr EVERY OTHER DAY IV 04/20/17 14:00 04/26/17 10:16 (NovoLOG SUPPLEMENTAL SCALE) 1 Q4H SQ 04/20/17 10:00 (Tylenol) 500 mg Q4H PRN PO 04/22/17 23:45 04/23/17 04:41 (Paxil) 40 mg DAILY PO 04/23/17 09:00 04/27/17 09:31 Potassium Chloride/Dextrose/ Sod Cl 1,020 ml @ 30 mls/hr Q24H IV 04/23/17 10:30 04/24/17 23:23 (Duoneb Neb) 1 ampule QID NEB NEB 04/23/17 16:00 04/27/17 08:51 (Deltasone) 20 mg DAILY G-TUBE 04/23/17 13:00 04/28/17 12:59 04/27/17 09:32 (Roxicodone Intensol Liq) 10 mg Q4H PRN PO 04/24/17 16:45 04/27/17 09:33 Levetriacetam 500 mg/Sodium Chloride 105 ml @ 420 mls/hr Q6H IV 04/25/17 09:00 04/27/17 09:28 (Heparin Inj) 5,000 units Q12HR SQ 04/25/17 11:30 04/27/17 09:32 (K-Lyte Cl Eff) 25 meq DAILY G-TUBE 04/25/17 11:30 04/27/17 09:31 Sodium Chloride 1,000 ml @ 42 mls/hr [id number] IV 04/25/17 11:00 04/27/17 03:28 (Zyvox) 600 mg Q12HR PEG 04/26/17 21:00 04/27/17 09:31 (Robitussin Liq) 200 mg Q4H PRN PO 04/26/17 23:30 04/27/17 05:35 Fosphenytoin Sodium 200 mgpe/ Sodium Chloride 54 ml @ 208 mls/hr Q8HR IV 04/27/17 14:00 Allergies Allergies Coded Allergies sulfamethoxazole (Verified Allergy, Unknown, 04/16/17) trimethoprim (Verified Allergy, Unknown, 04/16/17) Review of Systems All other ROS: ROS reviewed as documented in chart Exam I&O / VS Vital Signs Date Time Temp Pulse Resp B/P (MAP) Pulse Ox O2 Delivery O2 Flow Rate FiO2 04/27/17 10:00 Trach Collar 6.00 50 Humidified 04/27/17 08:52 98 T-piece 6.00 35 04/27/17 08:00 99.0 68 19 113/71 (85) 94 04/27/17 07:15 80 04/27/17 06:15 97.9 80 20 120/80 (93) 96 04/27/17 06:11 Trach Collar 6.00 50 Humidified 04/27/17 05:58 75 04/27/17 00:40 98.9 82 21 126/54 (78) 97 04/26/17 22:07 99 T-piece 6.00 35 04/26/17 21:50 98.1 73 22 136/57 (83) 97 04/26/17 16:00 97.3 66 18 106/52 (70) 94 04/26/17 12:00 98.4 78 19 105/55 (72) 96 04/26/17 11:00 Trach Collar 6.00 50 Humidified Respiratory: Non-labored respirations Cardiology: Normal rate, Regular Rhythm Musculoskeletal: Swelling, Deformity Neurologic: Alert Exam Comments follows, rt spastic hemiplegia Objective Micro and Labs Laboratory Tests Test 04/26/17 17:58 Phenytoin (Dilantin) Level 5.0 Date/Time Source Procedure Growth Status 04/23/17 12:10 Blood Peripheral Aerobic Blood Culture - Preliminary NO GROWTH IN 3 DAYS Resulted 04/23/17 12:10 Blood Peripheral Anaerobic Blood Culture - Preliminary NO GROWTH IN 3 DAYS Resulted 04/23/17 19:30 Sputum Endotracheal Gram Stain - Final Complete 04/23/17 19:30 Sputum Culture - Final S. Aureus Mrsa Complete Vivek Lei MD Apr 27, 2017 11:02
[2017-04-27] MEDS: D5-NS + KCL 40 MEQ INJ 1,000 ML IV SCH (12:20)
[2017-04-27] MEDS: FOSPHENYTOIN INJ 200 MGPE in SODIUM CHLORIDE 0.9% INJ 50 ML IV SCH ×2 (14:17→22:24)
[2017-04-27] MEDS: RESP: ALBUTEROL 2.5 MG/IPRATROPIUM 0.5 MG NEB (PRN) NEB (16:32)
--- NOTE | 2017-04-27 21:55 | MG ---
cc: JAIRO CALERO MD Lab No: Date: 04/27/2017 Age: Sex: M Race: ELECTROENCEPHALOGRAM RECORD NUMBER [id number] DATE OF 1945 HISTORY A 72-year-old history of confusion, previous stroke. DESCRIPTION Posterior rhythm demonstrates 5-7 Hz activity, 20-40 microvolts. Generalized slowing. Appearance of drowsy stage I and stage II sleep vertex waves and spindle activity. Limited driving with photic stimulation. Single EKG showing sinus rhythm. INTERPRETATION Minimal encephalopathy in sleep state. Clinical correlation. Jairo Calero MD MG/KK /9:17 PM /9:48 PM
[2017-04-27] MEDS: LORazepam 0.5 MG TAB PO PRN (22:26)
[2017-04-28] VITALS (8 sets, daily range): BP systolic 104–125; BP diastolic 56–89; PULSE 65–100; RESP 20; TEMP 97.3–98.1; O2SAT 35–100
[2017-04-28] MEDS: INSULIN ASPART SUPPLEMENTAL SCALE SQ SCH ×6 (02:00→21:17)
[2017-04-28] MEDS: levETIRAcetam INJ 500 MG in SODIUM CHLORIDE 0.9% INJ 100 ML IV SCH ×4 (03:17→21:32)
[2017-04-28] MEDS: oxyCODONE HCL ORAL CONC 20 MG/ML SYRINGE PO PRN ×5 (03:18→22:35)
[2017-04-28] MEDS: FOSPHENYTOIN INJ 200 MGPE in SODIUM CHLORIDE 0.9% INJ 50 ML IV SCH ×3 (06:16→21:31)
[2017-04-28] MEDS: SODIUM CHLOR 0.9% 1000 ML INJ 1,000 ML IV SCH (08:05)
[2017-04-28] MEDS: SODIUM CHLORIDE 0.9% FLUSH 10 ML FLUSH IV FLUSH SCH ×2 (09:00→21:00)
[2017-04-28 09:57] LABS: AUTOMATED NEUTROPHIL # 5.9 TH/MM3 (1.8-7.7); BASOPHIL # 0.1 TH/MM3 (0-0.2); BASOPHIL % 1.1 % (0.0-2.0); EOSINOPHIL # 0.7 TH/MM3 (0-0.4); EOSINOPHIL % 7.2 % (0.0-4.0); HEMATOCRIT 32.1 % (39.0-51.0); HEMO FLAGS DIFF FINAL; LYMPH % 21.3 % (9.0-44.0); LYMPHOCYTE # 2.1 TH/MM3 (1.0-4.8); MEAN CELL VOLUME 91.2 FL (80.0-100.0); MEAN CORPUSCULAR HEMOGLOBIN 30.7 PG (27.0-34.0); MEAN CORPUSCULAR HGB CONC 33.6 % (32.0-36.0); MONO % 10.8 % (0.0-8.0); NEUT % 59.6 % (16.0-70.0); PLATELET COUNT 493 TH/MM3 (150-450); RED BLOOD COUNT 3.52 MIL/MM3 (4.50-5.90); RED CELL DISTRIBUTION WIDTH 13.2 % (11.6-17.2); WHITE BLOOD COUNT 9.9 TH/MM3 (4.0-11.0)
[2017-04-28] MEDS: predniSONE 20 MG TAB G-TUBE SCH (10:03)
[2017-04-28] MEDS: HEPARIN SODIUM - SQ 10,000 UNITS/ML VIAL SQ SCH ×2 (10:04→21:31)
[2017-04-28] MEDS: PANTOPRAZOLE SODIUM 40 MG VIAL IV PUSH SCH ×2 (10:04→21:31)
[2017-04-28] MEDS: DOCUSATE SODIUM 50 MG/SENNA 8.6 MG TAB PO SCH ×2 (10:04→20:16)
[2017-04-28] MEDS: PARoxetine HCL 20 MG TAB PO SCH (10:04)
[2017-04-28] MEDS: LINEZOLID 600 MG TAB PEG SCH ×2 (10:04→21:31)
[2017-04-28] MEDS: POTASSIUM CHLORIDE 25 MEQ EFFERVESCENT TAB G-TUBE SCH (10:06)
[2017-04-28] MEDS: LACOSAMIDE INJ 100 MG in SODIUM CHLORIDE 0.9% INJ 100 ML IV SCH (10:06)
--- NOTE | 2017-04-28 10:09 | HHI.FPPN ---
Subjective Remarks CONF W PT AND C/O TRACH PAIN D/W RN Objective Vitals Vital Signs Date Time Temp Pulse Resp B/P (MAP) Pulse Ox O2 Delivery O2 Flow Rate FiO2 04/28/17 09:14 94 T-piece 35 04/28/17 09:11 97.3 70 20 119/57 (77) 97 04/28/17 05:30 98.0 100 20 125/89 (101) 96 04/28/17 04:18 20 04/27/17 21:00 97.9 80 19 129/81 (97) 97 04/27/17 20:00 Trach Collar 6.00 50 Humidified 04/27/17 16:00 97.3 80 16 92/62 (72) 97 04/27/17 12:00 98.1 80 18 114/53 (73) 95 I/O 04/27/17 04/27/17 04/27/17 04/28/17 04/28/17 04/28/17 07:00 15:00 23:00 07:00 15:00 23:00 Intake Total 629 ml 105 ml 1924 ml 0 ml Output Total 400 ml 1500 ml 300 ml 850 ml Balance 229 ml -1395 ml 1624 ml -850 ml Intake Oral 0 ml 0 ml 0 ml IV Total 629 ml 105 ml 1281 ml Tube Feeding 643 ml Output Urine Total 400 ml 1500 ml 300 ml 850 ml # Bowel Movements 0 0 0 2 Result Diagram: 04/28/17 0930 04/26/17 0550 Objective Remarks GENERAL: SKIN: Warm and dry. HEAD: Atraumatic. Normocephalic. EYES: Pupils equal and round. No scleral icterus. No injection or drainage. ENT: No nasal bleeding or discharge. Mucous membranes pink and moist. TRACH C/ DI, SL OOZING NECK: Trachea midline. No JVD. CARDIOVASCULAR: Regular rate and rhythm. RESPIRATORY: B rales and ronchi, congested cough GASTROINTESTINAL: Abdomen soft, non-tender, nondistended. Hepatic and splenic margins not palpable. MUSCULOSKELETAL: Extremities without clubbing, cyanosis, or edema. No obvious deformities. NEUROLOGICAL: Awake and alert. No obvious cranial nerve deficits. R DIOGENES PSYCHIATRIC: Appropriate mood and affect; insight and judgment normal. Medications and IVs Current Medications Medications (Trade) Dose Ordered Sig/Delvis Route Start Time Stop Time Status Last Admin (Ativan) 0.5 mg Q8H PRN PO 04/16/17 21:45 04/27/17 22:26 (Catapres) 0.1 mg Q6H PRN PO 04/16/17 21:45 04/18/17 05:17 ([place] 5-325 Mg) 1 tab Q4H PRN PO 04/16/17 21:45 Future Hold 04/16/17 22:37 (NS Flush) 2 ml UNSCH PRN IV FLUSH 04/16/17 21:45 (NS Flush) 2 ml BID IV FLUSH 04/17/17 09:00 04/27/17 09:00 (Tylenol) 650 mg Q4H PRN PO 04/16/17 21:45 Future Hold (Zofran Inj) 4 mg Q6H PRN IVP 04/16/17 21:45 04/23/17 14:54 (Ambien) 5 mg HS PRN PO 04/16/17 21:45 04/25/17 22:58 (Narcan Inj) 0.4 mg UNSCH PRN IV PUSH 04/16/17 21:45 (Elidia-Colace) 1 tab BID PO 04/17/17 09:00 04/28/17 10:04 (Milk Of Magnesia Liq) 30 ml Q12H PRN PO 04/16/17 21:45 (Senokot) 17.2 mg Q12H PRN PO 04/16/17 21:45 (Dulcolax Supp) 10 mg DAILY PRN RECTAL 04/16/17 21:45 (Lactulose Liq) 30 ml DAILY PRN PO 04/16/17 21:45 (Duoneb Neb) 1 ampule Q6HR NEB PRN NEB 04/16/17 23:00 04/27/17 16:32 (Protonix Inj) 40 mg Q12HR IV PUSH 04/17/17 21:00 04/28/17 10:04 Lacosamide 100 mg/ Sodium Chloride 110 ml @ 110 mls/hr EVERY OTHER DAY IV 04/20/17 14:00 04/28/17 10:06 (NovoLOG SUPPLEMENTAL SCALE) 1 Q4H SQ 04/20/17 10:00 04/27/17 14:00 (Tylenol) 500 mg Q4H PRN PO 04/22/17 23:45 04/23/17 04:41 (Paxil) 40 mg DAILY PO 04/23/17 09:00 04/28/17 10:04 Potassium Chloride/Dextrose/ Sod Cl 1,020 ml @ 30 mls/hr Q24H IV 04/23/17 10:30 04/24/17 23:23 (Roxicodone Intensol Liq) 10 mg Q4H PRN PO 04/24/17 16:45 04/28/17 14:28 Levetriacetam 500 mg/Sodium Chloride 105 ml @ 420 mls/hr Q6H IV 04/25/17 09:00 04/28/17 14:29 (Heparin Inj) 5,000 units Q12HR SQ 04/25/17 11:30 04/28/17 10:04 (K-Lyte Cl Eff) 25 meq DAILY G-TUBE 04/25/17 11:30 04/28/17 10:06 Sodium Chloride 1,000 ml @ 42 mls/hr [id number] IV 04/25/17 11:00 04/28/17 08:05 (Zyvox) 600 mg Q12HR PEG 04/26/17 21:00 04/28/17 10:04 (Robitussin Liq) 200 mg Q4H PRN PO 04/26/17 23:30 04/27/17 05:35 Fosphenytoin Sodium 200 mgpe/ Sodium Chloride 54 ml @ 208 mls/hr Q8HR IV 04/27/17 14:00 04/28/17 13:43 A/P Assessment and Plan ASSESSMENT: 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 Aspiration pneumonia, S/P GT BY DR GIBSON 04/22 TRACHEITIS Dysphagia Esophagitis on EGD 04/17/17 Seizures Dilantin toxicity Hyponatremia Hyperkalemia and now with hypokalemia. Cerebrovascular accident with right hemiparesis. Anemia. Depression Anxiety. Chronic pain syndrome. Lumbar degenerative disc disease. Neuropathy. PLAN- IV ABX BLOOD CULTURES X TWO IV cerebryx, vimpat and keppra Follow up gastric biopsies and throat bx A.m. CBC and BMP. NS IV fluids. KCL PGT DAILY Xanax HS FOR TWO DAYS THEN STOP. PRN ATIVAN. Telemetry. Duoneb q.i.d. DVT prophylaxis - SCDs/TEDs. Heparin 5000 units subcutaneously q 12 GI prophylaxis - Protonix 40 mg IV q.12 h. CONSULTS TO ID, PULM, ENT, ONCO, GI, WOUND, Sims,Ari Waddell MD Apr 28, 2017 10:09
[2017-04-28 10:25] LABS: ALT (GPT) 22 U/L (12-78); ANION GAP 4 MEQ/L (5-15); AST (GOT) 26 U/L (15-37); BICARBONATE 30.7 MEQ/L (21.0-32.0); BLOOD UREA NITROGEN 6 MG/DL (7-18); CHLORIDE 103 MEQ/L (98-107); GLOMERULAR FILTRATION RATE 403 ML/MIN (>89); POTASSIUM 3.8 MEQ/L (3.5-5.1); SODIUM (NA) 138 MEQ/L (136-145)
[2017-04-28 10:34] LABS: ALKALINE PHOSPHATASE 171 U/L (45-117); FREE T4 1.22 NG/DL (0.76-1.46); TOTAL BILIRUBIN ADULT 0.2 MG/DL (0.2-1.0)
[2017-04-28 10:41] LABS: HEMOGLOBIN A1a 1.2 %; HEMOGLOBIN A1b 1.7 %; HEMOGLOBIN Ao 85.2 %; HEMOGLOBIN LA1C 2.1 %; HEMOGLOBIN P3 3.6 %
[2017-04-28] MEDS: D5-NS + KCL 40 MEQ INJ 1,000 ML IV SCH (12:20)
--- NOTE | 2017-04-28 17:45 | PD.WCN.NOT ---
Wound Consult Description: Received consult from Doctor Karla Delarosa for wound management of trach site Communicated with: JIMMY Estrada and call placed to Doctor Levi for orders Recommendation: Please cleanse wound under trach site with normal saline and gently pat dry. Apply Optifoam basic and secure with paper tape. Please use skin prep before applying tape. Change dressing every other day or PRN if saturated or dislodged. Additional Information: Patient seen on [address] [place] [phone] for evaluation of wound management of trach site. Patient laying in bed with Natalie MARQUEZ [address] [place] [phone] and [employer] at bedside for assistance. JIMMY Estrada assisted patient to lay head back for wound assessment. Trach was slightly lifted up to reveal trach that is sutured on both sides. Stage 3 device related pressure injury is noted at the base of the trach at 6 o' clock. Wound presents with ~80% pale red non granulation tissue and ~20% yellow exudate. Wound measures 1cm x 3cm x ~0.3cm. Wound margins are well defined and attached. Periwound is noted with erythema. Wound has minimal yellow drainage that is without odor. Cleansed wound with normal saline and applied Optifoam basic just beneath trach over wound bed and secured with transparent tape. Applied skin prep before applying tape. Palma Davalos [facility] Apr 28, 2017 17:45
--- NOTE | 2017-04-28 18:34 | HHI.PR ---
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 recent dilantin toxicity Plan phenytoin level corrected for hypoalbuminemia today is 10.3--continue current dose Diagnosis/Plan: (1) Impaired cognition ICD Codes: R41.89 - Other symptoms and signs involving cognitive functions and awareness Status: Chronic (2) H/O: CVA (cerebrovascular accident) ICD Codes: Z86.73 - Personal history of transient ischemic attack (TIA), and cerebral infarction without residual deficits Status: Chronic Subjective Subjective Comments No acute events reported No sz Active Medications Current Medications Medications (Trade) Dose Ordered Sig/Delvis Route Start Time Stop Time Status Last Admin (Ativan) 0.5 mg Q8H PRN PO 04/16/17 21:45 04/27/17 22:26 (Catapres) 0.1 mg Q6H PRN PO 04/16/17 21:45 04/18/17 05:17 ([place] 5-325 Mg) 1 tab Q4H PRN PO 04/16/17 21:45 Future Hold 04/16/17 22:37 (NS Flush) 2 ml UNSCH PRN IV FLUSH 04/16/17 21:45 (NS Flush) 2 ml BID IV FLUSH 04/17/17 09:00 04/27/17 09:00 (Tylenol) 650 mg Q4H PRN PO 04/16/17 21:45 Future Hold (Zofran Inj) 4 mg Q6H PRN IVP 04/16/17 21:45 04/23/17 14:54 (Ambien) 5 mg HS PRN PO 04/16/17 21:45 04/25/17 22:58 (Narcan Inj) 0.4 mg UNSCH PRN IV PUSH 04/16/17 21:45 (Elidia-Colace) 1 tab BID PO 04/17/17 09:00 04/28/17 10:04 (Milk Of Magnesia Liq) 30 ml Q12H PRN PO 04/16/17 21:45 (Senokot) 17.2 mg Q12H PRN PO 04/16/17 21:45 (Dulcolax Supp) 10 mg DAILY PRN RECTAL 04/16/17 21:45 (Lactulose Liq) 30 ml DAILY PRN PO 04/16/17 21:45 (Duoneb Neb) 1 ampule Q6HR NEB PRN NEB 04/16/17 23:00 04/27/17 16:32 (Protonix Inj) 40 mg Q12HR IV PUSH 04/17/17 21:00 04/28/17 10:04 Lacosamide 100 mg/ Sodium Chloride 110 ml @ 110 mls/hr EVERY OTHER DAY IV 04/20/17 14:00 04/28/17 10:06 (NovoLOG SUPPLEMENTAL SCALE) 1 Q4H SQ 04/20/17 10:00 04/27/17 14:00 (Tylenol) 500 mg Q4H PRN PO 04/22/17 23:45 04/23/17 04:41 (Paxil) 40 mg DAILY PO 04/23/17 09:00 04/28/17 10:04 Potassium Chloride/Dextrose/ Sod Cl 1,020 ml @ 30 mls/hr Q24H IV 04/23/17 10:30 04/24/17 23:23 (Roxicodone Intensol Liq) 10 mg Q4H PRN PO 04/24/17 16:45 04/28/17 18:22 Levetriacetam 500 mg/Sodium Chloride 105 ml @ 420 mls/hr Q6H IV 04/25/17 09:00 04/28/17 14:29 (Heparin Inj) 5,000 units Q12HR SQ 04/25/17 11:30 04/28/17 10:04 (K-Lyte Cl Eff) 25 meq DAILY G-TUBE 04/25/17 11:30 04/28/17 10:06 Sodium Chloride 1,000 ml @ 42 mls/hr [id number] IV 04/25/17 11:00 04/28/17 08:05 (Zyvox) 600 mg Q12HR PEG 04/26/17 21:00 04/28/17 10:04 (Robitussin Liq) 200 mg Q4H PRN PO 04/26/17 23:30 04/27/17 05:35 Fosphenytoin Sodium 200 mgpe/ Sodium Chloride 54 ml @ 208 mls/hr Q8HR IV 04/27/17 14:00 04/28/17 13:43 Allergies Allergies Coded Allergies sulfamethoxazole (Verified Allergy, Unknown, 04/16/17) trimethoprim (Verified Allergy, Unknown, 04/16/17) Review of Systems All other ROS: ROS reviewed as documented in chart Exam I&O / VS 04/28/17 04/28/17 04/29/17 15:00 23:00 07:00 Intake Total 900 ml Output Total 900 ml Balance 900 ml -900 ml IV Total 900 ml Output Urine Total 900 ml Vital Signs Date Time Temp Pulse Resp B/P (MAP) Pulse Ox O2 Delivery O2 Flow Rate FiO2 04/28/17 16:26 97.8 66 20 107/70 (82) 99 04/28/17 12:40 98.1 67 20 109/58 (75) 100 04/28/17 09:14 94 T-piece 35 04/28/17 09:11 97.3 70 20 119/57 (77) 97 04/28/17 07:40 65 04/28/17 05:30 98.0 100 20 125/89 (101) 96 04/28/17 04:18 20 04/27/17 21:00 97.9 80 19 129/81 (97) 97 04/27/17 20:00 Trach Collar 6.00 50 Humidified Respiratory: Non-labored respirations Cardiology: Normal rate, Regular Rhythm Musculoskeletal: Swelling, Deformity Neurologic: Alert Exam Comments alert, follow commands CN--PERRL, right upper motor neuron CN 7 palsey right hemiparesis--0/5 RUE, 2/5 RLE strength Objective Micro and Labs Laboratory Tests Test 04/28/17 09:30 White Blood Count 9.9 Red Blood Count 3.52 Hemoglobin 10.8 Hematocrit 32.1 Mean Corpuscular Volume 91.2 Mean Corpuscular Hemoglobin 30.7 Mean Corpuscular Hemoglobin Concent 33.6 Red Cell Distribution Width 13.2 Platelet Count 493 Mean Platelet Volume 6.6 Neutrophils (%) (Auto) 59.6 Lymphocytes (%) (Auto) 21.3 Monocytes (%) (Auto) 10.8 Eosinophils (%) (Auto) 7.2 Basophils (%) (Auto) 1.1 Neutrophils # (Auto) 5.9 Lymphocytes # (Auto) 2.1 Monocytes # (Auto) 1.1 Eosinophils # (Auto) 0.7 Basophils # (Auto) 0.1 CBC Comment DIFF FINAL Differential Comment Blood Urea Nitrogen 6 Creatinine 0.23 Random Glucose 118 Total Protein 5.8 Albumin 2.1 Calcium Level 7.8 Phosphorus Level 3.2 Magnesium Level 2.0 Alkaline Phosphatase 171 Aspartate Amino Transf (AST/SGOT) 26 Alanine Aminotransferase (ALT/SGPT) 22 Total Bilirubin 0.2 Sodium Level 138 Potassium Level 3.8 Chloride Level 103 Carbon Dioxide Level 30.7 Anion Gap 4 Estimat Glomerular Filtration Rate 403 Hemoglobin A1c 5.8 Free Thyroxine 1.22 Thyroid Stimulating Hormone 3rd Gen 1.800 Phenytoin (Dilantin) Level 6.2 Date/Time Source Procedure Growth Status 04/23/17 12:10 Blood Peripheral Aerobic Blood Culture - Final NO GROWTH IN 5 DAYS Complete 04/23/17 12:10 Blood Peripheral Anaerobic Blood Culture - Final NO GROWTH IN 5 DAYS Complete 04/23/17 19:30 Sputum Endotracheal Gram Stain - Final Complete 04/23/17 19:30 Sputum Culture - Final S. Aureus Mrsa Complete Rinku Sun PhD MD Apr 28, 2017 18:34
[2017-04-29] VITALS (9 sets, daily range): BP systolic 109–124; BP diastolic 55–60; PULSE 65–73; RESP 20–24; TEMP 97.4–98.1; O2SAT 96–100
[2017-04-29] MEDS: INSULIN ASPART SUPPLEMENTAL SCALE SQ SCH ×6 (02:00→20:54)
[2017-04-29] MEDS: levETIRAcetam INJ 500 MG in SODIUM CHLORIDE 0.9% INJ 100 ML IV SCH ×4 (03:05→20:53)
[2017-04-29] MEDS: oxyCODONE HCL ORAL CONC 20 MG/ML SYRINGE PO PRN ×4 (06:54→20:54)
[2017-04-29] MEDS: FOSPHENYTOIN INJ 200 MGPE in SODIUM CHLORIDE 0.9% INJ 50 ML IV SCH ×3 (06:54→22:57)
[2017-04-29] MEDS: HEPARIN SODIUM - SQ 10,000 UNITS/ML VIAL SQ SCH ×2 (09:33→20:53)
[2017-04-29] MEDS: POTASSIUM CHLORIDE 25 MEQ EFFERVESCENT TAB G-TUBE SCH (09:33)
[2017-04-29] MEDS: DOCUSATE SODIUM 50 MG/SENNA 8.6 MG TAB PO SCH ×2 (09:35→20:53)
[2017-04-29] MEDS: PARoxetine HCL 20 MG TAB PO SCH (09:35)
[2017-04-29] MEDS: LINEZOLID 600 MG TAB PEG SCH ×2 (09:35→20:53)
[2017-04-29] MEDS: PANTOPRAZOLE SODIUM 40 MG VIAL IV PUSH SCH ×2 (09:37→20:53)
[2017-04-29] MEDS: SODIUM CHLORIDE 0.9% FLUSH 10 ML FLUSH IV FLUSH SCH ×2 (09:37→20:53)
[2017-04-29 09:48] LABS: BASOPHIL # 0.1 TH/MM3 (0-0.2); BASOPHIL % 0.7 % (0.0-2.0); EOSINOPHIL # 0.6 TH/MM3 (0-0.4); EOSINOPHIL % 5.9 % (0.0-4.0); HEMATOCRIT 32.2 % (39.0-51.0); HEMO FLAGS DIFF FINAL; LYMPH % 23.1 % (9.0-44.0); LYMPHOCYTE # 2.3 TH/MM3 (1.0-4.8); MEAN CELL VOLUME 92.2 FL (80.0-100.0); MEAN CORPUSCULAR HEMOGLOBIN 30.7 PG (27.0-34.0); MEAN CORPUSCULAR HGB CONC 33.3 % (32.0-36.0); MONO % 10.6 % (0.0-8.0); NEUT % 59.7 % (16.0-70.0); PLATELET COUNT 510 TH/MM3 (150-450); RED BLOOD COUNT 3.49 MIL/MM3 (4.50-5.90); RED CELL DISTRIBUTION WIDTH 13.5 % (11.6-17.2)
[2017-04-29 10:03] LABS: BICARBONATE 27.8 MEQ/L (21.0-32.0); POTASSIUM 4.2 MEQ/L (3.5-5.1)
[2017-04-29] MEDS: SODIUM CHLOR 0.9% 1000 ML INJ 1,000 ML IV SCH (10:16)
--- NOTE | 2017-04-29 10:59 | HHI.FPPN ---
Subjective Remarks INCREASED TRACH ERYTHYEMA WANTS TO SEE DR Blevins D/W PT AND REQS SNF D/W RN Objective Vitals Vital Signs Date Time Temp Pulse Resp B/P (MAP) Pulse Ox O2 Delivery O2 Flow Rate FiO2 04/29/17 08:30 97.8 72 20 117/60 (79) 96 04/29/17 05:14 97.4 72 24 121/55 (77) 100 04/29/17 01:35 98.0 73 20 112/58 (76) 98 04/28/17 21:36 35 T-piece 5.00 100 04/28/17 21:09 97.8 70 20 104/56 (72) 100 04/28/17 20:00 Trach Collar 6.00 35 T-Piece Humidified 04/28/17 16:26 97.8 66 20 107/70 (82) 99 04/28/17 12:40 98.1 67 20 109/58 (75) 100 I/O 04/28/17 04/28/17 04/28/17 04/29/17 04/29/17 04/29/17 06:59 14:59 22:59 06:59 14:59 22:59 Intake Total 0 ml 1508 ml 1280 ml Output Total 850 ml 900 ml 900 ml Balance -850 ml 1508 ml 380 ml -900 ml Intake Oral 0 ml IV Total 900 ml 688 ml Tube Feeding 608 ml 562 ml Tube Irrigant 30 ml Output Urine Total 850 ml 900 ml 900 ml # Bowel Movements 2 Result Diagram: 04/29/1793104/29/17931 Objective Remarks GENERAL: SKIN: Warm and dry. HEAD: Atraumatic. Normocephalic. EYES: Pupils equal and round. No scleral icterus. No injection or drainage. ENT: No nasal bleeding or discharge. Mucous membranes pink and moist. TRACH C/ DI, SL OOZING NECK: Trachea midline. No JVD. CARDIOVASCULAR: Regular rate and rhythm. RESPIRATORY: B rales and ronchi, congested cough GASTROINTESTINAL: Abdomen soft, non-tender, nondistended. Hepatic and splenic margins not palpable. MUSCULOSKELETAL: Extremities without clubbing, cyanosis, or edema. No obvious deformities. NEUROLOGICAL: Awake and alert. No obvious cranial nerve deficits. R DIOGENES PSYCHIATRIC: Appropriate mood and affect; insight and judgment normal. Medications and IVs Current Medications Medications (Trade) Dose Ordered Sig/Delvis Route Start Time Stop Time Status Last Admin (Ativan) 0.5 mg Q8H PRN PO 04/16/17 21:45 04/27/17 22:26 (Catapres) 0.1 mg Q6H PRN PO 04/16/17 21:45 04/18/17 05:17 ([place] 5-325 Mg) 1 tab Q4H PRN PO 04/16/17 21:45 Future Hold 04/16/17 22:37 (NS Flush) 2 ml UNSCH PRN IV FLUSH 04/16/17 21:45 (NS Flush) 2 ml BID IV FLUSH 04/17/17 09:00 04/29/17 09:37 (Tylenol) 650 mg Q4H PRN PO 04/16/17 21:45 Future Hold (Zofran Inj) 4 mg Q6H PRN IVP 04/16/17 21:45 04/23/17 14:54 (Ambien) 5 mg HS PRN PO 04/16/17 21:45 04/25/17 22:58 (Narcan Inj) 0.4 mg UNSCH PRN IV PUSH 04/16/17 21:45 (Elidia-Colace) 1 tab BID PO 04/17/17 09:00 04/29/17 09:35 (Milk Of Magnesia Liq) 30 ml Q12H PRN PO 04/16/17 21:45 (Senokot) 17.2 mg Q12H PRN PO 04/16/17 21:45 (Dulcolax Supp) 10 mg DAILY PRN RECTAL 04/16/17 21:45 (Lactulose Liq) 30 ml DAILY PRN PO 04/16/17 21:45 (Duoneb Neb) 1 ampule Q6HR NEB PRN NEB 04/16/17 23:00 04/27/17 16:32 (Protonix Inj) 40 mg Q12HR IV PUSH 04/17/17 21:00 04/29/17 09:37 Lacosamide 100 mg/ Sodium Chloride 110 ml @ 110 mls/hr EVERY OTHER DAY IV 04/20/17 14:00 04/28/17 10:06 (NovoLOG SUPPLEMENTAL SCALE) 1 Q4H SQ 04/20/17 10:00 04/27/17 14:00 (Tylenol) 500 mg Q4H PRN PO 04/22/17 23:45 04/23/17 04:41 (Paxil) 40 mg DAILY PO 04/23/17 09:00 04/29/17 09:35 Potassium Chloride/Dextrose/ Sod Cl 1,020 ml @ 30 mls/hr Q24H IV 04/23/17 10:30 04/24/17 23:23 (Roxicodone Intensol Liq) 10 mg Q4H PRN PO 04/24/17 16:45 04/29/17 06:54 Levetriacetam 500 mg/Sodium Chloride 105 ml @ 420 mls/hr Q6H IV 04/25/17 09:00 04/29/17 09:35 (Heparin Inj) 5,000 units Q12HR SQ 04/25/17 11:30 04/29/17 09:33 (K-Lyte Cl Eff) 25 meq DAILY G-TUBE 04/25/17 11:30 04/29/17 09:33 Sodium Chloride 1,000 ml @ 42 mls/hr [id number] IV 04/25/17 11:00 04/28/17 08:05 (Zyvox) 600 mg Q12HR PEG 04/26/17 21:00 04/29/17 09:35 (Robitussin Liq) 200 mg Q4H PRN PO 04/26/17 23:30 04/27/17 05:35 Fosphenytoin Sodium 200 mgpe/ Sodium Chloride 54 ml @ 208 mls/hr Q8HR IV 04/27/17 14:00 04/29/17 06:54 A/P Assessment and Plan ASSESSMENT: 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 Aspiration pneumonia, S/P GT BY DR GIBSON 04/22 TRACHEITIS Dysphagia Esophagitis on EGD 04/17/17 Seizures Dilantin toxicity Hyponatremia Hyperkalemia and now with hypokalemia. Cerebrovascular accident with right hemiparesis. Anemia. Depression Anxiety. Chronic pain syndrome. Lumbar degenerative disc disease. Neuropathy. PLAN- RECONSULT DR Blevins FOR TRACH SITE EVAL AND MAYBE DC SOON TO SNF... IV ABX FOLLOWUP BLOOD CULTURES X TWO IV cerebryx, vimpat and keppra Follow up gastric biopsies and throat bx A.m. CBC and BMP. NS IV fluids. KCL PGT DAILY Xanax HS FOR TWO DAYS THEN STOP. PRN ATIVAN. Telemetry. Duoneb q.i.d. DVT prophylaxis - SCDs/TEDs. Heparin 5000 units subcutaneously q 12 GI prophylaxis - Protonix 40 mg IV q.12 h. CONSULTS TO ID, PULM, ENT, ONCO, GI, WOUND, Sims,Ari Waddell MD Apr 29, 2017 10:59
[2017-04-29] MEDS: D5-NS + KCL 40 MEQ INJ 1,000 ML IV SCH (11:17)
--- NOTE | 2017-04-29 12:04 | PD.ONC.PN ---
Subjective Subjective Remarks Afebrile overnight. at bedside reporting patient frustration that he is unable to communicate d /t trach. No overnight events. Objective Data Date Time Temp Pulse Resp B/P (MAP) Pulse Ox O2 Delivery O2 Flow Rate FiO2 04/29/17 08:30 97.8 72 20 117/60 (79) 96 04/29/17 05:14 97.4 72 24 121/55 (77) 100 04/29/17 01:35 98.0 73 20 112/58 (76) 98 04/28/17 21:36 35 T-piece 5.00 100 04/28/17 21:09 97.8 70 20 104/56 (72) 100 04/28/17 20:00 Trach Collar 6.00 35 T-Piece Humidified 04/28/17 16:26 97.8 66 20 107/70 (82) 99 04/28/17 12:40 98.1 67 20 109/58 (75) 100 04/29/17 04/29/17 04/29/17 07:00 15:00 23:00 Output Total 900 ml Balance -900 ml Result Diagram: 04/29/17 0932 04/29/1732 Laboratory Results Laboratory Tests Test 04/29/17 09:32 White Blood Count 10.0 TH/MM3 Red Blood Count 3.49 MIL/MM3 Hemoglobin 10.7 GM/DL Hematocrit 32.2 % Mean Corpuscular Volume 92.2 FL Mean Corpuscular Hemoglobin 30.7 PG Mean Corpuscular Hemoglobin Concent 33.3 % Red Cell Distribution Width 13.5 % Platelet Count 510 TH/MM3 Mean Platelet Volume 6.4 FL Neutrophils (%) (Auto) 59.7 % Lymphocytes (%) (Auto) 23.1 % Monocytes (%) (Auto) 10.6 % Eosinophils (%) (Auto) 5.9 % Basophils (%) (Auto) 0.7 % Neutrophils # (Auto) 6.0 TH/MM3 Lymphocytes # (Auto) 2.3 TH/MM3 Monocytes # (Auto) 1.1 TH/MM3 Eosinophils # (Auto) 0.6 TH/MM3 Basophils # (Auto) 0.1 TH/MM3 CBC Comment DIFF FINAL Differential Comment Blood Urea Nitrogen 5 MG/DL Creatinine 0.18 MG/DL Random Glucose 84 MG/DL Calcium Level 8.0 MG/DL Sodium Level 135 MEQ/L Potassium Level 4.2 MEQ/L Chloride Level 101 MEQ/L Carbon Dioxide Level 27.8 MEQ/L Anion Gap 6 MEQ/L Estimat Glomerular Filtration Rate 534 ML/MIN Administered Medications Medications (Trade) Dose Ordered Sig/Delvis Route PRN Reason Start Time Stop Time Status Last Admin Dose Admin Lorazepam (Ativan) 0.5 mg Q8H PRN PO SEVERE ANXIETY OR AGITATION 04/16/17 21:45 04/27/17 22:26 Clonidine (Catapres) 0.1 mg Q6H PRN PO SBP>160, DBP>90 04/16/17 21:45 04/18/17 05:17 Acetaminophen/ Hydrocodone Bitart ([place] 5-325 Mg) 1 tab Q4H PRN PO PAIN GREATER THAN 5 04/16/17 21:45 Future Hold 04/16/17 22:37 Sodium Chloride (NS Flush) 2 ml BID IV FLUSH 04/17/17 09:00 04/29/17 09:37 Ondansetron HCl (Zofran Inj) 4 mg Q6H PRN IVP NAUSEA OR VOMITING 04/16/17 21:45 04/23/17 14:54 Zolpidem Tartrate (Ambien) 5 mg HS PRN PO INSOMNIA 04/16/17 21:45 04/25/17 22:58 Senna/Docusate Sodium (Elidia-Colace) 1 tab BID PO 04/17/17 09:00 04/29/17 09:35 Albuterol/ Ipratropium (Duoneb Neb) 1 ampule Q6HR NEB PRN NEB SHORTNESS OF BREATH 04/16/17 23:00 04/27/17 16:32 Pantoprazole Sodium (Protonix Inj) 40 mg Q12HR IV PUSH 04/17/17 21:00 04/29/17 09:37 Lacosamide 100 mg/ Sodium Chloride 110 ml @ 110 mls/hr EVERY OTHER DAY IV 04/20/17 14:00 04/28/17 10:06 Insulin Aspart (NovoLOG SUPPLEMENTAL SCALE) 1 Q4H SQ 04/20/17 10:00 04/27/17 14:00 Acetaminophen (Tylenol) 500 mg Q4H PRN PO TEMP > 100 04/22/17 23:45 04/23/17 04:41 Paroxetine HCl (Paxil) 40 mg DAILY PO 04/23/17 09:00 04/29/17 09:35 Potassium Chloride/Dextrose/ Sod Cl 1,020 ml @ 30 mls/hr Q24H IV 04/23/17 10:30 04/24/17 23:23 Oxycodone HCl (Roxicodone Intensol Liq) 10 mg Q4H PRN PO PAIN SCALE 5 TO 10 04/24/17 16:45 04/29/17 06:54 Levetriacetam 500 mg/Sodium Chloride 105 ml @ 420 mls/hr Q6H IV 04/25/17 09:00 04/29/17 09:35 Heparin Sodium (Porcine) (Heparin Inj) 5,000 units Q12HR SQ 04/25/17 11:30 04/29/17 09:33 Potassium Bicarb/ Potassium Chloride (K-Lyte Cl Eff) 25 meq DAILY G-TUBE 04/25/17 11:30 04/29/17 09:33 Sodium Chloride 1,000 ml @ 42 mls/hr [id number] IV 04/25/17 11:00 04/28/17 08:05 Linezolid (Zyvox) 600 mg Q12HR PEG 04/26/17 21:00 04/29/17 09:35 Guaifenesin (Robitussin Liq) 200 mg Q4H PRN PO congestion 04/26/17 23:30 04/27/17 05:35 Fosphenytoin Sodium 200 mgpe/ Sodium Chloride 54 ml @ 208 mls/hr Q8HR IV 04/27/17 14:00 04/29/17 06:54 Objective Remarks GENERAL: Elderly male supine in bed in nad. SKIN: Warm and dry. HEAD: Normocephalic. EYES: No injection or drainage. NECK: Supple, trachea midline. CARDIOVASCULAR: +S1/S2 RESPIRATORY: anterior bonner with occasional rhonchi GASTROINTESTINAL: Abdomen soft, non-tender, nondistended. +PEG tube in place, receiving TF. EXTREMITIES: No cyanosis MUSCULOSKELETAL: Adequate muscle tone. NEUROLOGICAL: awake and alert. right sided paresis. follows commands. Assessment/Plan Problem List: (1) Head and neck cancer ICD Codes: C76.0 - Malignant neoplasm of head, face and neck Plan: --s/p XRT simulation on 04/25 --I called XRT on 04/29 and they are still planning radiation, no start date as of yet. --CT C.A.P shows no distal mets. --plan to give Cetuximab once radiation starts. 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 He did not follow up with gastroenterology. EGD, 04/17/17. showed the severe esophagitis, possible mass in the larynx was identified. -- lesion appeared to be on the left side of the vallecula primarily originating in the vallecula and also the left hypopharyngeal wall. did not involve the endolarynx which was clear. 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 --course was complicated after the surgery that critical medicine was consulted for acute bleeding of the larynx mass. ----Dr. Grullon performed an awake trache in the OR. PEG was placed the following day. --Staging evaluation included chest x-ray that showed improved diffuse interstitial prominence. There is minimal linear opacities in the right upper lung consistent with scarring but no overt mass. --P16 negative Assessment 72y/o male with newly diagnosed locally advanced head and neck cancer. History of CVA with right-sided weakness. Aspiration. Anxiety and depression. Coronary artery disease.Hyperlipidemia.Diabetes. Headache.Hiatal herniaHypertension. Migraines. seizure. Sleep apnea. Tracheostomy.Examination under anesthesia.Vallecula biopsy. Plan 1. monitor CBC 2. await start of radiation, will dose with Cetuximab once XRT starts. 3. discussed plan of care with . reviewed CT Scans and answered questions. 4. continue supportive care Attending Statement Agree with above, as discussed. Asha Gamez Apr 29, 2017 12:04 Lauren Richter MD Apr 30, 2017 19:28
--- NOTE | 2017-04-29 17:48 | PD.CAR.PN ---
CVT Progress Note Subjective/Hospital Course: Patient status post emergency tracheostomy for pharyngeal bleeding and mass Tracheostomy in good position no bleeding noted We'll sign off 04/29/17 Requested to see Mr. 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 Since then patient did well and he is awake and alert On exam tracheostomy cannula well-positioned sutures are in place and there is some redness and irritation the right the tracheostomy skin site with some granulation 1. This patient does not have infection of skin of peritracheal area. He simply has irritation and some redness around the tracheostomy site which is inevitable considering that it is clearly connected to the trachea which is colonized with bacteria in every patient. Therefore this is simply inflammation which is expected and no infection is noted. 2. Examining the tracheostomy site its noted that there is fair amount of old inspissated secretions underneath the tracheal cannula shield and around the site. Patient has increased secretions and meticulous care has to be applied to the tracheostomy site.It is somewhat suspect that tracheal care has not been carried out quite as per established guidelines and required standards. I've discussed this with the nurses and confirmed the same. Tracheal site requires daily washing with soap and water not just brushing it a little bit with saline and leaving old inspissated secretions, foreign that case, infections do occur. I've corrected this and given orders how to wash the site 3. Stitches can be removed on Friday for I need to make sure the patient has a mature tract so of the tracheal cannula comes out by any chance it can be easily repositioned From my point patient can receive any radiation or chemotherapy any time this is appropriate as per oncology Objective: Vital Signs Date Time Temp Pulse Resp B/P (MAP) Pulse Ox O2 Delivery O2 Flow Rate FiO2 04/29/17 16:25 98.1 68 20 109/59 (76) 99 04/29/17 13:20 97 T-Piece 6.00 50 Humidified 04/29/17 13:20 97.7 65 20 116/60 (78) 97 04/29/17 08:30 97.8 72 20 117/60 (79) 96 04/29/17 08:02 67 04/29/17 07:28 96 T-piece 35 04/29/17 05:14 97.4 72 24 121/55 (77) 100 04/29/17 01:35 98.0 73 20 112/58 (76) 98 04/28/17 21:36 35 T-piece 5.00 100 04/28/17 21:09 97.8 70 20 104/56 (72) 100 04/28/17 20:00 Trach Collar 6.00 35 T-Piece Humidified Labs: Laboratory Tests Test 04/29/17 09:32 White Blood Count 10.0 TH/MM3 (4.0-11.0) Red Blood Count 3.49 MIL/MM3 (4.50-5.90) Hemoglobin 10.7 GM/DL (13.0-17.0) Hematocrit 32.2 % (39.0-51.0) Mean Corpuscular Volume 92.2 FL (80.0-100.0) Mean Corpuscular Hemoglobin 30.7 PG (27.0-34.0) Mean Corpuscular Hemoglobin Concent 33.3 % (32.0-36.0) Red Cell Distribution Width 13.5 % (11.6-17.2) Platelet Count 510 TH/MM3 (150-450) Mean Platelet Volume 6.4 FL (7.0-11.0) Neutrophils (%) (Auto) 59.7 % (16.0-70.0) Lymphocytes (%) (Auto) 23.1 % (9.0-44.0) Monocytes (%) (Auto) 10.6 % (0.0-8.0) Eosinophils (%) (Auto) 5.9 % (0.0-4.0) Basophils (%) (Auto) 0.7 % (0.0-2.0) Neutrophils # (Auto) 6.0 TH/MM3 (1.8-7.7) Lymphocytes # (Auto) 2.3 TH/MM3 (1.0-4.8) Monocytes # (Auto) 1.1 TH/MM3 (0-0.9) Eosinophils # (Auto) 0.6 TH/MM3 (0-0.4) Basophils # (Auto) 0.1 TH/MM3 (0-0.2) CBC Comment DIFF FINAL Differential Comment Blood Urea Nitrogen 5 MG/DL (7-18) Creatinine 0.18 MG/DL (0.60-1.30) Random Glucose 84 MG/DL (74-106) Calcium Level 8.0 MG/DL (8.5-10.1) Sodium Level 135 MEQ/L (136-145) Potassium Level 4.2 MEQ/L (3.5-5.1) Chloride Level 101 MEQ/L (98-107) Carbon Dioxide Level 27.8 MEQ/L (21.0-32.0) Anion Gap 6 MEQ/L (5-15) Estimat Glomerular Filtration Rate 534 ML/MIN (>89) Result Diagram: 04/29/17 0932 04/29/17 0932 Angel Grullon MD Apr 29, 2017 17:48
[2017-04-30] VITALS (11 sets, daily range): BP systolic 95–125; BP diastolic 53–66; PULSE 63–73; RESP 18–20; TEMP 97.5–98.3; O2SAT 92–100
[2017-04-30] MEDS: INSULIN ASPART SUPPLEMENTAL SCALE SQ SCH ×4 (02:00→13:13)
[2017-04-30] MEDS: levETIRAcetam INJ 500 MG in SODIUM CHLORIDE 0.9% INJ 100 ML IV SCH ×4 (02:05→21:48)
[2017-04-30] MEDS: FOSPHENYTOIN INJ 200 MGPE in SODIUM CHLORIDE 0.9% INJ 50 ML IV SCH ×3 (06:12→21:47)
[2017-04-30] MEDS: RESP: ALBUTEROL 2.5 MG/IPRATROPIUM 0.5 MG NEB (SCH) INH ×3 (08:32→20:20)
[2017-04-30] MEDS: PANTOPRAZOLE SODIUM 40 MG VIAL IV PUSH SCH ×2 (08:47→21:46)
[2017-04-30] MEDS: SODIUM CHLORIDE 0.9% FLUSH 10 ML FLUSH IV FLUSH SCH ×2 (08:47→21:00)
[2017-04-30] MEDS: HEPARIN SODIUM - SQ 10,000 UNITS/ML VIAL SQ SCH ×2 (08:48→21:47)
[2017-04-30] MEDS: POTASSIUM CHLORIDE 25 MEQ EFFERVESCENT TAB G-TUBE SCH (08:49)
[2017-04-30] MEDS: DOCUSATE SODIUM 50 MG/SENNA 8.6 MG TAB PO SCH ×2 (08:50→21:47)
[2017-04-30] MEDS: LINEZOLID 600 MG TAB PEG SCH ×2 (08:50→21:47)
[2017-04-30] MEDS: SODIUM CHLOR 0.9% 1000 ML INJ 1,000 ML IV SCH (08:50)
[2017-04-30] MEDS: PARoxetine HCL 20 MG TAB PO SCH (08:50)
[2017-04-30] MEDS: oxyCODONE HCL ORAL CONC 5 MG/0.25 ML SYRINGE PO PRN ×4 (08:52→21:47)
[2017-04-30] MEDS: LACOSAMIDE INJ 100 MG in SODIUM CHLORIDE 0.9% INJ 100 ML IV SCH (09:09)
[2017-04-30] MEDS: D5-NS + KCL 40 MEQ INJ 1,000 ML IV SCH (09:50)
--- NOTE | 2017-04-30 10:22 | HHI.FPPN ---
Subjective Remarks LONG CONF W , NUMEROUS QUESTIONS. D/W THERAPY D/W RN INCR TRACH CONGESTION, D/W SUCTIONING Objective Vitals Vital Signs Date Time Temp Pulse Resp B/P (MAP) Pulse Ox O2 Delivery O2 Flow Rate FiO2 04/30/17 08:32 100 T-piece 6.00 50 04/30/17 08:01 70 04/30/17 08:00 97.6 63 18 95/57 (70) 92 Manual Cuff/Palpation 04/30/17 05:43 97.5 66 20 125/58 (80) 99 04/30/17 00:57 97.9 73 20 122/66 (84) 98 04/30/17 00:01 98 T-piece 6.00 50 04/29/17 21:22 98.1 69 20 124/58 (80) 98 04/29/17 21:14 96 T-Piece 6.00 50 Humidified 04/29/17 21:14 66 04/29/17 16:25 98.1 68 20 109/59 (76) 99 04/29/17 13:20 97 T-Piece 6.00 50 Humidified 04/29/17 13:20 97.7 65 20 116/60 (78) 97 I/O 04/29/17 04/29/17 04/29/17 04/30/17 04/30/17 04/30/17 06:59 14:59 22:59 06:59 14:59 22:59 Intake Total 105 ml 1891 ml 1323 ml 105 ml Output Total 900 ml 1000 ml 2450.0 ml 1300 ml Balance -900 ml -895 ml -559.0 ml 23 ml 105 ml IV Total 105 ml 642 ml 836 ml 105 ml Tube Feeding 1249 ml 487 ml Output Urine Total 900 ml 1000 ml 2450 ml 1300 ml Tube Feeding Residual Discard 0 ml Result Diagram: 04/29/1793104/29/17931 Objective Remarks GENERAL: SKIN: Warm and dry. HEAD: Atraumatic. Normocephalic. EYES: Pupils equal and round. No scleral icterus. No injection or drainage. ENT: No nasal bleeding or discharge. Mucous membranes pink and moist. TRACH C/ DI, SL OOZING NECK: Trachea midline. No JVD. CARDIOVASCULAR: Regular rate and rhythm. RESPIRATORY: B rales and ronchi, congested cough GASTROINTESTINAL: Abdomen soft, non-tender, nondistended. Hepatic and splenic margins not palpable. MUSCULOSKELETAL: Extremities without clubbing, cyanosis, or edema. No obvious deformities. NEUROLOGICAL: Awake and alert. No obvious cranial nerve deficits. R DIOGENES PSYCHIATRIC: Appropriate mood and affect; insight and judgment normal. Medications and IVs Current Medications Medications (Trade) Dose Ordered Sig/Delvis Route Start Time Stop Time Status Last Admin (Ativan) 0.5 mg Q8H PRN PO 04/16/17 21:45 04/27/17 22:26 (Catapres) 0.1 mg Q6H PRN PO 04/16/17 21:45 04/18/17 05:17 ([place] 5-325 Mg) 1 tab Q4H PRN PO 04/16/17 21:45 Future Hold 04/16/17 22:37 (NS Flush) 2 ml UNSCH PRN IV FLUSH 04/16/17 21:45 (NS Flush) 2 ml BID IV FLUSH 04/17/17 09:00 04/30/17 08:47 (Tylenol) 650 mg Q4H PRN PO 04/16/17 21:45 Future Hold (Zofran Inj) 4 mg Q6H PRN IVP 04/16/17 21:45 04/23/17 14:54 (Ambien) 5 mg HS PRN PO 04/16/17 21:45 04/25/17 22:58 (Narcan Inj) 0.4 mg UNSCH PRN IV PUSH 04/16/17 21:45 (Elidia-Colace) 1 tab BID PO 04/17/17 09:00 04/30/17 08:50 (Milk Of Magnesia Liq) 30 ml Q12H PRN PO 04/16/17 21:45 (Senokot) 17.2 mg Q12H PRN PO 04/16/17 21:45 (Dulcolax Supp) 10 mg DAILY PRN RECTAL 04/16/17 21:45 (Lactulose Liq) 30 ml DAILY PRN PO 04/16/17 21:45 (Duoneb Neb) 1 ampule Q6HR NEB PRN NEB 04/16/17 23:00 04/27/17 16:32 (Protonix Inj) 40 mg Q12HR IV PUSH 04/17/17 21:00 04/30/17 08:47 Lacosamide 100 mg/ Sodium Chloride 110 ml @ 110 mls/hr EVERY OTHER DAY IV 04/20/17 14:00 04/30/17 09:09 (NovoLOG SUPPLEMENTAL SCALE) 1 Q4H SQ 04/20/17 10:00 04/27/17 14:00 (Tylenol) 500 mg Q4H PRN PO 04/22/17 23:45 04/23/17 04:41 (Paxil) 40 mg DAILY PO 04/23/17 09:00 04/30/17 08:50 Potassium Chloride/Dextrose/ Sod Cl 1,020 ml @ 30 mls/hr Q24H IV 04/23/17 10:30 04/24/17 23:23 Levetriacetam 500 mg/Sodium Chloride 105 ml @ 420 mls/hr Q6H IV 04/25/17 09:00 04/30/17 08:45 (Heparin Inj) 5,000 units Q12HR SQ 04/25/17 11:30 04/30/17 08:48 (K-Lyte Cl Eff) 25 meq DAILY G-TUBE 04/25/17 11:30 04/30/17 08:49 Sodium Chloride 1,000 ml @ 42 mls/hr [id number] IV 04/25/17 11:00 04/30/17 08:50 (Zyvox) 600 mg Q12HR PEG 04/26/17 21:00 04/30/17 08:50 (Robitussin Liq) 200 mg Q4H PRN PO 04/26/17 23:30 04/27/17 05:35 Fosphenytoin Sodium 200 mgpe/ Sodium Chloride 54 ml @ 208 mls/hr Q8HR IV 04/27/17 14:00 04/30/17 06:12 (Duoneb Neb) 1 ampule TID NEB INH 04/29/17 20:00 04/30/17 08:32 (Roxicodone Intensol Liq) 10 mg Q4H PRN PO 04/30/17 08:15 04/30/17 08:52 A/P Assessment and Plan ASSESSMENT: 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 Aspiration pneumonia, S/P GT BY DR GIBSON 04/22 TRACHEITIS Dysphagia Esophagitis on EGD 04/17/17 Seizures Dilantin toxicity Hyponatremia Hyperkalemia and now with hypokalemia. Cerebrovascular accident with right hemiparesis. Anemia. Depression Anxiety. Chronic pain syndrome. Lumbar degenerative disc disease. Neuropathy. PLAN- FRI RECONSULT DR Blevins FOR TRACH SITE EVAL AND MAYBE DC SOON TO SNF IF SUTURES OUT ON FRI IV ABX FOLLOWUP BLOOD CULTURES X TWO IV cerebryx, vimpat and keppra Follow up gastric biopsies and throat bx A.m. CBC and BMP. NS IV fluids. KCL PGT DAILY Xanax HS FOR TWO DAYS THEN STOP. PRN ATIVAN. Telemetry. Duoneb q.i.d. DVT prophylaxis - SCDs/TEDs. Heparin 5000 units subcutaneously q 12 GI prophylaxis - Protonix 40 mg IV q.12 h. CONSULTS TO ID, PULM, ENT, ONCO, GI, WOUND, Levi,Ari Waddell MD Apr 30, 2017 10:22
[2017-04-30 10:28] LABS: AUTOMATED NEUTROPHIL # 4.5 TH/MM3 (1.8-7.7); BASOPHIL # 0.1 TH/MM3 (0-0.2); BASOPHIL % 1.3 % (0.0-2.0); EOSINOPHIL # 0.6 TH/MM3 (0-0.4); EOSINOPHIL % 6.1 % (0.0-4.0); HEMATOCRIT 33.5 % (39.0-51.0); HEMO FLAGS DIFF FINAL; LYMPH % 36.7 % (9.0-44.0); LYMPHOCYTE # 3.5 TH/MM3 (1.0-4.8); MEAN CELL VOLUME 92.7 FL (80.0-100.0); MEAN CORPUSCULAR HEMOGLOBIN 30.3 PG (27.0-34.0); MEAN CORPUSCULAR HGB CONC 32.7 % (32.0-36.0); MONO % 9.1 % (0.0-8.0); NEUT % 46.8 % (16.0-70.0); PLATELET COUNT 559 TH/MM3 (150-450); RED BLOOD COUNT 3.61 MIL/MM3 (4.50-5.90); RED CELL DISTRIBUTION WIDTH 13.5 % (11.6-17.2); WHITE BLOOD COUNT 9.6 TH/MM3 (4.0-11.0)
[2017-04-30 10:54] LABS: BICARBONATE 29.6 MEQ/L (21.0-32.0); POTASSIUM 4.4 MEQ/L (3.5-5.1)
--- NOTE | 2017-04-30 12:53 | PD.ONC.PN ---
Subjective Subjective Remarks Afebrile Happy to be starting radiation tomorrow Has been working with physical therapy Objective Data Date Time Temp Pulse Resp B/P (MAP) Pulse Ox O2 Delivery O2 Flow Rate FiO2 04/30/17 08:32 100 T-Piece 6.00 40 Humidified 04/30/17 08:32 100 T-piece 6.00 50 04/30/17 08:01 70 04/30/17 08:00 97.6 63 18 95/57 (70) 92 Manual Cuff/Palpation 04/30/17 05:43 97.5 66 20 125/58 (80) 99 04/30/17 00:57 97.9 73 20 122/66 (84) 98 04/30/17 00:01 98 T-piece 6.00 50 04/29/17 21:22 98.1 69 20 124/58 (80) 98 04/29/17 21:14 96 T-Piece 6.00 50 Humidified 04/29/17 21:14 66 04/29/17 16:25 98.1 68 20 109/59 (76) 99 04/29/17 13:20 97 T-Piece 6.00 50 Humidified 04/29/17 13:20 97.7 65 20 116/60 (78) 97 04/30/17 04/30/17 04/30/17 07:00 15:00 23:00 Intake Total 1223 ml 215 ml Output Total 1300 ml Balance -77 ml 215 ml Result Diagram: 04/30/17 0900 04/30/17 0900 Laboratory Results Laboratory Tests Test 04/30/17 09:00 White Blood Count 9.6 TH/MM3 Red Blood Count 3.61 MIL/MM3 Hemoglobin 11.0 GM/DL Hematocrit 33.5 % Mean Corpuscular Volume 92.7 FL Mean Corpuscular Hemoglobin 30.3 PG Mean Corpuscular Hemoglobin Concent 32.7 % Red Cell Distribution Width 13.5 % Platelet Count 559 TH/MM3 Mean Platelet Volume 6.8 FL Neutrophils (%) (Auto) 46.8 % Lymphocytes (%) (Auto) 36.7 % Monocytes (%) (Auto) 9.1 % Eosinophils (%) (Auto) 6.1 % Basophils (%) (Auto) 1.3 % Neutrophils # (Auto) 4.5 TH/MM3 Lymphocytes # (Auto) 3.5 TH/MM3 Monocytes # (Auto) 0.9 TH/MM3 Eosinophils # (Auto) 0.6 TH/MM3 Basophils # (Auto) 0.1 TH/MM3 CBC Comment DIFF FINAL Differential Comment Blood Urea Nitrogen 6 MG/DL Creatinine 0.23 MG/DL Random Glucose 103 MG/DL Calcium Level 8.6 MG/DL Sodium Level 136 MEQ/L Potassium Level 4.4 MEQ/L Chloride Level 99 MEQ/L Carbon Dioxide Level 29.6 MEQ/L Anion Gap 7 MEQ/L Estimat Glomerular Filtration Rate 403 ML/MIN Administered Medications Medications (Trade) Dose Ordered Sig/Delvis Route PRN Reason Start Time Stop Time Status Last Admin Dose Admin Lorazepam (Ativan) 0.5 mg Q8H PRN PO SEVERE ANXIETY OR AGITATION 04/16/17 21:45 04/27/17 22:26 Clonidine (Catapres) 0.1 mg Q6H PRN PO SBP>160, DBP>90 04/16/17 21:45 04/18/17 05:17 Acetaminophen/ Hydrocodone Bitart ([place] 5-325 Mg) 1 tab Q4H PRN PO PAIN GREATER THAN 5 04/16/17 21:45 Future Hold 04/16/17 22:37 Sodium Chloride (NS Flush) 2 ml BID IV FLUSH 04/17/17 09:00 04/30/17 08:47 Ondansetron HCl (Zofran Inj) 4 mg Q6H PRN IVP NAUSEA OR VOMITING 04/16/17 21:45 04/23/17 14:54 Zolpidem Tartrate (Ambien) 5 mg HS PRN PO INSOMNIA 04/16/17 21:45 04/25/17 22:58 Senna/Docusate Sodium (Elidia-Colace) 1 tab BID PO 04/17/17 09:00 04/30/17 08:50 Albuterol/ Ipratropium (Duoneb Neb) 1 ampule Q6HR NEB PRN NEB SHORTNESS OF BREATH 04/16/17 23:00 04/27/17 16:32 Pantoprazole Sodium (Protonix Inj) 40 mg Q12HR IV PUSH 04/17/17 21:00 04/30/17 08:47 Lacosamide 100 mg/ Sodium Chloride 110 ml @ 110 mls/hr EVERY OTHER DAY IV 04/20/17 14:00 04/30/17 09:09 Insulin Aspart (NovoLOG SUPPLEMENTAL SCALE) 1 Q4H SQ 04/20/17 10:00 04/27/17 14:00 Acetaminophen (Tylenol) 500 mg Q4H PRN PO TEMP > 100 04/22/17 23:45 04/23/17 04:41 Paroxetine HCl (Paxil) 40 mg DAILY PO 04/23/17 09:00 04/30/17 08:50 Potassium Chloride/Dextrose/ Sod Cl 1,020 ml @ 30 mls/hr Q24H IV 04/23/17 10:30 04/24/17 23:23 Levetriacetam 500 mg/Sodium Chloride 105 ml @ 420 mls/hr Q6H IV 04/25/17 09:00 04/30/17 08:45 Heparin Sodium (Porcine) (Heparin Inj) 5,000 units Q12HR SQ 04/25/17 11:30 04/30/17 08:48 Potassium Bicarb/ Potassium Chloride (K-Lyte Cl Eff) 25 meq DAILY G-TUBE 04/25/17 11:30 04/30/17 08:49 Sodium Chloride 1,000 ml @ 42 mls/hr [id number] IV 04/25/17 11:00 04/30/17 08:50 Linezolid (Zyvox) 600 mg Q12HR PEG 04/26/17 21:00 04/30/17 08:50 Guaifenesin (Robitussin Liq) 200 mg Q4H PRN PO congestion 04/26/17 23:30 04/27/17 05:35 Fosphenytoin Sodium 200 mgpe/ Sodium Chloride 54 ml @ 208 mls/hr Q8HR IV 04/27/17 14:00 04/30/17 06:12 Albuterol/ Ipratropium (Duoneb Neb) 1 ampule TID NEB INH 04/29/17 20:00 04/30/17 08:32 Oxycodone HCl (Roxicodone Intensol Liq) 10 mg Q4H PRN PO PAIN SCALE 5 TO 10 04/30/17 08:15 04/30/17 08:52 Objective Remarks GENERAL: Elderly male sitting up in chair at bedside in no acute distress with present SKIN: Warm and dry. HEAD: Normocephalic. EYES: No injection or drainage. NECK: Supple, trachea midline. CARDIOVASCULAR: +S1/S2 RESPIRATORY: Scattered rhonchi posteriorly. On 6 L T piece GASTROINTESTINAL: Abdomen soft, non-tender, nondistended. +PEG tube in place, receiving TF. EXTREMITIES: No cyanosis NEUROLOGICAL: Following commands. Awake and alert. Right-sided weakness Assessment/Plan Problem List: (1) Head and neck cancer ICD Codes: C76.0 - Malignant neoplasm of head, face and neck Plan: --s/p XRT simulation on 04/25 --CT C.A.P shows no distal mets. 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 He did not follow up with gastroenterology. EGD, 04/17/17. showed the severe esophagitis, possible mass in the larynx was identified. -- lesion appeared to be on the left side of the vallecula primarily originating in the vallecula and also the left hypopharyngeal wall. did not involve the endolarynx which was clear. 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 --course was complicated after the surgery that critical medicine was consulted for acute bleeding of the larynx mass. ----Dr. Grullon performed an awake trache in the OR. PEG was placed the following day. --Staging evaluation included chest x-ray that showed improved diffuse interstitial prominence. There is minimal linear opacities in the right upper lung consistent with scarring but no overt mass. --P16 negative Assessment 72y/o male with newly diagnosed locally advanced head and neck cancer. History of CVA with right-sided weakness. Aspiration. Anxiety and depression. Coronary artery disease.Hyperlipidemia.Diabetes. Headache.Hiatal herniaHypertension. Migraines. seizure. Sleep apnea. Tracheostomy.Examination under anesthesia.Vallecula biopsy. Plan 1. Radiation therapy to start tomorrow at 1045 2. The patient will get concurrent chemotherapy and radiation however the chemotherapy will have to be given outpatient 3. Monitor CBC 4. Supportive care Attending Statement The exam, history, and the medical decision-making described in the above note were completed with the assistance of the mid-level provider. I reviewed and agree with the findings presented. I attest that I had a [id number] encounter with the patient on the same day, and personally performed and documented my assessment and findings in the medical record. Events noted. Concern for tracheitis/tracheobronchitis, culture + MRSA, BC x 2 neg from 04/23. Pt on Zyvoxx until 05/02/17 as recommended by ID. Seen by Dr. Blevins regarding integrity of the tracheostomy and safety to start XRT. As discussed w/ Dr. Guzman, plan to treat with Cetuximab. Unable to obtain Cetuximab in hospital, we will need to see pt and follow up in clinic when DC. However while in hospital consider radiation photo mask inspector with Cisplatin, low dose. Give information to pt and family. Plan to start chemo after completion abx and when XRT start, possible Mon 05/05 , if pt still here and not at SNF. Risk and benefits/toxicity of chemo was discussed. Adrianne Pardo Apr 30, 2017 12:53 Lauren Richter MD Apr 30, 2017 19:32
--- NOTE | 2017-04-30 12:54 | HHI.PR ---
Addendum to Inpatient Note Addendum Reason: Additional Documentation Additional Information Clinically doing well. evaluated the trach site does not think active infection. Will treat few more days as tracheobronchitis with Zyvox (stop date in chart) Will sign off please call back if any change in clinical condition or questions. Karla Delarosa MD Apr 30, 2017 12:54
[2017-05-01] VITALS (9 sets, daily range): BP systolic 109–146; BP diastolic 53–70; PULSE 70–89; RESP 18–20; TEMP 97.8–99.2; O2SAT 96–100
[2017-05-01] MEDS: oxyCODONE HCL ORAL CONC 5 MG/0.25 ML SYRINGE PO PRN ×3 (03:18→22:24)
[2017-05-01] MEDS: levETIRAcetam INJ 500 MG in SODIUM CHLORIDE 0.9% INJ 100 ML IV SCH ×4 (03:18→22:27)
[2017-05-01] MEDS: FOSPHENYTOIN INJ 200 MGPE in SODIUM CHLORIDE 0.9% INJ 50 ML IV SCH ×3 (05:47→22:28)
[2017-05-01] MEDS: POTASSIUM CHLORIDE 25 MEQ EFFERVESCENT TAB G-TUBE SCH (08:50)
[2017-05-01] MEDS: LINEZOLID 600 MG TAB PEG SCH ×2 (08:51→22:25)
[2017-05-01] MEDS: PANTOPRAZOLE SODIUM 40 MG VIAL IV PUSH SCH ×2 (08:51→22:24)
[2017-05-01] MEDS: PARoxetine HCL 20 MG TAB PO SCH (08:51)
[2017-05-01] MEDS: HEPARIN SODIUM - SQ 10,000 UNITS/ML VIAL SQ SCH ×2 (09:00→22:28)
[2017-05-01] MEDS: DOCUSATE SODIUM 50 MG/SENNA 8.6 MG TAB PO SCH ×2 (09:00→22:25)
[2017-05-01] MEDS: SODIUM CHLORIDE 0.9% FLUSH 10 ML FLUSH IV FLUSH SCH ×2 (09:00→21:00)
[2017-05-01 09:04] LABS: AUTOMATED NEUTROPHIL # 5.7 TH/MM3 (1.8-7.7); BASOPHIL # 0.1 TH/MM3 (0-0.2); BASOPHIL % 1.3 % (0.0-2.0); EOSINOPHIL # 0.9 TH/MM3 (0-0.4); EOSINOPHIL % 8.7 % (0.0-4.0); HEMATOCRIT 33.2 % (39.0-51.0); HEMO FLAGS DIFF FINAL; LYMPH % 20.8 % (9.0-44.0); LYMPHOCYTE # 2.1 TH/MM3 (1.0-4.8); MEAN CELL VOLUME 92.6 FL (80.0-100.0); MEAN CORPUSCULAR HEMOGLOBIN 30.7 PG (27.0-34.0); MEAN CORPUSCULAR HGB CONC 33.1 % (32.0-36.0); MONO % 11.9 % (0.0-8.0); NEUT % 57.3 % (16.0-70.0); PLATELET COUNT 587 TH/MM3 (150-450); RED BLOOD COUNT 3.59 MIL/MM3 (4.50-5.90); RED CELL DISTRIBUTION WIDTH 13.5 % (11.6-17.2)
[2017-05-01 09:24] LABS: BICARBONATE 29.7 MEQ/L (21.0-32.0); POTASSIUM 4.3 MEQ/L (3.5-5.1)
[2017-05-01] MEDS: RESP: ALBUTEROL 2.5 MG/IPRATROPIUM 0.5 MG NEB (SCH) INH ×3 (09:42→19:54)
[2017-05-01] MEDS: SODIUM CHLOR 0.9% 1000 ML INJ 1,000 ML IV SCH (09:54)
[2017-05-01] MEDS: D5-NS + KCL 40 MEQ INJ 1,000 ML IV SCH (12:20)
--- NOTE | 2017-05-01 15:55 | HHI.FPPN ---
Subjective Remarks RN REPORTS TRACH INFXN D/W RN C/O COUGH ANXIOUS Objective Vitals Vital Signs Date Time Temp Pulse Resp B/P (MAP) Pulse Ox O2 Delivery O2 Flow Rate FiO2 05/01/17 12:38 97.8 78 18 134/67 (89) 98 05/01/17 09:48 96 T-piece 6.00 40 05/01/17 08:00 98.0 79 18 116/58 (77) 100 05/01/17 05:15 98.0 77 18 146/65 (92) 97 05/01/17 00:06 98.0 70 18 109/53 (71) 98 04/30/17 22:00 68 04/30/17 22:00 98 T-Piece 6.00 50 Humidified 04/30/17 21:16 98.1 68 20 121/58 (79) 99 04/30/17 20:22 98 T-piece 6.00 40 04/30/17 16:00 98.1 72 18 104/53 (70) 98 I/O 04/30/17 04/30/17 04/30/17 05/01/17 05/01/17 05/01/17 07:00 15:00 23:00 07:00 15:00 23:00 Intake Total 1223 ml 269 ml 2062 ml 689 ml Output Total 1300 ml 30.0 ml 100 ml Balance -77 ml 269 ml 2032.0 ml 589 ml IV Total 736 ml 269 ml 993 ml 689 ml Tube Feeding 487 ml 869 ml Other 200 ml Output Urine Total 1300 ml 30 ml 100 ml Tube Feeding Residual Discard 0 ml # Bowel Movements 1 Result Diagram: 05/01/1730 05/01/17 0820 Objective Remarks GENERAL: SKIN: Warm and dry. HEAD: Atraumatic. Normocephalic. EYES: Pupils equal and round. No scleral icterus. No injection or drainage. ENT: No nasal bleeding or discharge. Mucous membranes pink and moist. TRACH C/ DI, SL ERYTHEMA ONE CM RIM NECK: Trachea midline. No JVD. CARDIOVASCULAR: Regular rate and rhythm. RESPIRATORY: B rales and ronchi, congested cough GASTROINTESTINAL: Abdomen soft, non-tender, nondistended. Hepatic and splenic margins not palpable. MUSCULOSKELETAL: Extremities without clubbing, cyanosis, or edema. No obvious deformities. NEUROLOGICAL: Awake and alert. No obvious cranial nerve deficits. R DIOGENES PSYCHIATRIC: Appropriate mood and affect; insight and judgment normal. Medications and IVs Current Medications Medications (Trade) Dose Ordered Sig/Delvis Route Start Time Stop Time Status Last Admin (Ativan) 0.5 mg Q8H PRN PO 04/16/17 21:45 04/27/17 22:26 (Catapres) 0.1 mg Q6H PRN PO 04/16/17 21:45 04/18/17 05:17 ([place] 5-325 Mg) 1 tab Q4H PRN PO 04/16/17 21:45 Future Hold 04/16/17 22:37 (NS Flush) 2 ml UNSCH PRN IV FLUSH 04/16/17 21:45 (NS Flush) 2 ml BID IV FLUSH 04/17/17 09:00 04/30/17 21:00 (Tylenol) 650 mg Q4H PRN PO 04/16/17 21:45 Future Hold (Zofran Inj) 4 mg Q6H PRN IVP 04/16/17 21:45 04/23/17 14:54 (Ambien) 5 mg HS PRN PO 04/16/17 21:45 04/25/17 22:58 (Narcan Inj) 0.4 mg UNSCH PRN IV PUSH 04/16/17 21:45 (Elidia-Colace) 1 tab BID PO 04/17/17 09:00 04/30/17 21:47 (Milk Of Magnesia Liq) 30 ml Q12H PRN PO 04/16/17 21:45 (Senokot) 17.2 mg Q12H PRN PO 04/16/17 21:45 (Dulcolax Supp) 10 mg DAILY PRN RECTAL 04/16/17 21:45 (Lactulose Liq) 30 ml DAILY PRN PO 04/16/17 21:45 (Duoneb Neb) 1 ampule Q6HR NEB PRN NEB 04/16/17 23:00 04/27/17 16:32 (Protonix Inj) 40 mg Q12HR IV PUSH 04/17/17 21:00 05/01/17 08:51 Lacosamide 100 mg/ Sodium Chloride 110 ml @ 110 mls/hr EVERY OTHER DAY IV 04/20/17 14:00 04/30/17 09:09 (Tylenol) 500 mg Q4H PRN PO 04/22/17 23:45 04/23/17 04:41 (Paxil) 40 mg DAILY PO 04/23/17 09:00 05/01/17 08:51 Potassium Chloride/Dextrose/ Sod Cl 1,020 ml @ 30 mls/hr Q24H IV 04/23/17 10:30 04/24/17 23:23 Levetriacetam 500 mg/Sodium Chloride 105 ml @ 420 mls/hr Q6H IV 04/25/17 09:00 05/01/17 15:19 (Heparin Inj) 5,000 units Q12HR SQ 04/25/17 11:30 05/01/17 09:00 (K-Lyte Cl Eff) 25 meq DAILY G-TUBE 04/25/17 11:30 05/01/17 08:50 Sodium Chloride 1,000 ml @ 42 mls/hr [id number] IV 04/25/17 11:00 04/30/17 08:50 (Zyvox) 600 mg Q12HR PEG 04/26/17 21:00 05/02/17 20:59 05/01/17 08:51 (Robitussin Liq) 200 mg Q4H PRN PO 04/26/17 23:30 04/27/17 05:35 Fosphenytoin Sodium 200 mgpe/ Sodium Chloride 54 ml @ 208 mls/hr Q8HR IV 04/27/17 14:00 05/01/17 14:10 (Duoneb Neb) 1 ampule TID NEB INH 04/29/17 20:00 05/01/17 14:02 (Roxicodone Intensol Liq) 10 mg Q4H PRN PO 04/30/17 08:15 05/01/17 12:24 A/P Assessment and Plan ASSESSMENT: 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 Aspiration pneumonia, S/P GT BY DR GIBSON 04/22 TRACHEITIS Dysphagia Esophagitis on EGD 04/17/17 Seizures Dilantin toxicity Hyponatremia Hyperkalemia and now with hypokalemia. Cerebrovascular accident with right hemiparesis. Anemia. Depression Anxiety. Chronic pain syndrome. Lumbar degenerative disc disease. Neuropathy. PLAN- FRI RECONSULT DR Blevins FOR TRACH SITE EVAL AND MAYBE DC SOON TO SNF IF SUTURES OUT ON FRI IV ABX FOLLOWUP BLOOD CULTURES X TWO IV cerebryx, vimpat and keppra Follow up gastric biopsies and throat bx A.m. CBC and BMP. NS IV fluids. KCL PGT DAILY Xanax HS FOR TWO DAYS THEN STOP. PRN ATIVAN. Telemetry. Duoneb q.i.d. DVT prophylaxis - SCDs/TEDs. Heparin 5000 units subcutaneously q 12 GI prophylaxis - Protonix 40 mg IV q.12 h. CONSULTS TO ID, PULM, ENT, ONCO, GI, WOUND, SimsAri melgar MD May 01, 2017 15:55
[2017-05-01] MEDS: ZOLPIDEM TARTRATE 5 MG TAB PO PRN (22:27)
[2017-05-02] VITALS (9 sets, daily range): BP systolic 90–140; BP diastolic 50–65; PULSE 69–78; RESP 16–18; TEMP 97.5–98.4; O2SAT 94–100
[2017-05-02] MEDS: levETIRAcetam INJ 500 MG in SODIUM CHLORIDE 0.9% INJ 100 ML IV SCH ×4 (04:11→21:41)
[2017-05-02] MEDS: FOSPHENYTOIN INJ 200 MGPE in SODIUM CHLORIDE 0.9% INJ 50 ML IV SCH ×3 (05:35→21:40)
[2017-05-02 08:34] LABS: AUTOMATED NEUTROPHIL # 5.6 TH/MM3 (1.8-7.7); BASOPHIL # 0.1 TH/MM3 (0-0.2); BASOPHIL % 1.1 % (0.0-2.0); EOSINOPHIL # 0.8 TH/MM3 (0-0.4); EOSINOPHIL % 8.1 % (0.0-4.0); HEMATOCRIT 29.9 % (39.0-51.0); LYMPH % 20.7 % (9.0-44.0); MEAN CELL VOLUME 91.7 FL (80.0-100.0); MEAN CORPUSCULAR HEMOGLOBIN 33.1 PG (27.0-34.0); MONO % 11.8 % (0.0-8.0); NEUT % 58.3 % (16.0-70.0); PLATELET COUNT 532 TH/MM3 (150-450); RED BLOOD COUNT 3.26 MIL/MM3 (4.50-5.90); RED CELL DISTRIBUTION WIDTH 13.5 % (11.6-17.2); WHITE BLOOD COUNT 9.6 TH/MM3 (4.0-11.0)
[2017-05-02 08:36] LABS: HEMO FLAGS AUTO DIFF
[2017-05-02] MEDS: RESP: ALBUTEROL 2.5 MG/IPRATROPIUM 0.5 MG NEB (SCH) INH ×3 (08:36→19:58)
[2017-05-02 09:17] LABS: BICARBONATE 27.1 MEQ/L (21.0-32.0); POTASSIUM 4.4 MEQ/L (3.5-5.1)
[2017-05-02] MEDS: POTASSIUM CHLORIDE 25 MEQ EFFERVESCENT TAB G-TUBE SCH (09:19)
[2017-05-02] MEDS: PARoxetine HCL 20 MG TAB PO SCH (09:20)
[2017-05-02] MEDS: HEPARIN SODIUM - SQ 10,000 UNITS/ML VIAL SQ SCH ×2 (09:20→21:41)
[2017-05-02] MEDS: LINEZOLID 600 MG TAB PEG SCH (09:20)
[2017-05-02] MEDS: DOCUSATE SODIUM 50 MG/SENNA 8.6 MG TAB PO SCH ×2 (09:20→21:41)
[2017-05-02 09:27] LABS: SCAN/DIFF AUTO DIFF CONFIRMED
[2017-05-02] MEDS: SODIUM CHLOR 0.9% 1000 ML INJ 1,000 ML IV SCH (09:43)
[2017-05-02] MEDS: PANTOPRAZOLE SODIUM 40 MG VIAL IV PUSH SCH ×2 (09:50→21:38)
[2017-05-02] MEDS: SODIUM CHLORIDE 0.9% FLUSH 10 ML FLUSH IV FLUSH SCH ×2 (09:52→21:00)
--- NOTE | 2017-05-02 10:36 | HHI.FPPN ---
Subjective Remarks d/w c/o trach pain d/w RN Objective Vitals Vital Signs Date Time Temp Pulse Resp B/P (MAP) Pulse Ox O2 Delivery O2 Flow Rate FiO2 05/02/17 08:36 95 T-piece 6.00 40 05/02/17 08:00 97.5 75 18 107/61 (76) 94 05/02/17 05:17 98.4 78 18 121/56 (77) 98 05/02/17 01:12 98.4 74 18 140/65 (90) 94 05/01/17 20:46 99.2 89 20 137/70 (92) 100 05/01/17 19:54 96 T-piece 6.00 40 05/01/17 19:40 T-Piece 6.00 50 Humidified 05/01/17 19:00 74 05/01/17 16:40 98.2 79 18 122/56 (78) 99 05/01/17 12:38 97.8 78 18 134/67 (89) 98 I/O 05/01/17 05/01/17 05/01/17 05/02/17 05/02/17 05/02/17 07:00 15:00 23:00 07:00 15:00 23:00 Intake Total 689 ml Output Total 100 ml 700 ml 400 ml Balance 589 ml -700 ml -400 ml IV Total 689 ml Output Urine Total 100 ml 700 ml 400 ml # Bowel Movements 1 0 Result Diagram: 05/02/17 0756 05/02/17 0756 Objective Remarks GENERAL: SKIN: Warm and dry. HEAD: Atraumatic. Normocephalic. EYES: Pupils equal and round. No scleral icterus. No injection or drainage. ENT: No nasal bleeding or discharge. Mucous membranes pink and moist. TRACH C/ DI, SL ERYTHEMA ONE CM RIM NECK: Trachea midline. No JVD. CARDIOVASCULAR: Regular rate and rhythm. RESPIRATORY: B rales and ronchi, congested cough GASTROINTESTINAL: Abdomen soft, non-tender, nondistended. Hepatic and splenic margins not palpable. MUSCULOSKELETAL: Extremities without clubbing, cyanosis, or edema. No obvious deformities. NEUROLOGICAL: Awake and alert. No obvious cranial nerve deficits. R DIOGENES PSYCHIATRIC: Appropriate mood and affect; insight and judgment normal. Medications and IVs Current Medications Medications (Trade) Dose Ordered Sig/Delvis Route Start Time Stop Time Status Last Admin (Ativan) 0.5 mg Q8H PRN PO 04/16/17 21:45 04/27/17 22:26 (Catapres) 0.1 mg Q6H PRN PO 04/16/17 21:45 04/18/17 05:17 (Breeding 5-325 Mg) 1 tab Q4H PRN PO 04/16/17 21:45 Future Hold 04/16/17 22:37 (NS Flush) 2 ml UNSCH PRN IV FLUSH 04/16/17 21:45 (NS Flush) 2 ml BID IV FLUSH 04/17/17 09:00 05/02/17 09:52 (Tylenol) 650 mg Q4H PRN PO 04/16/17 21:45 Future Hold (Zofran Inj) 4 mg Q6H PRN IVP 04/16/17 21:45 04/23/17 14:54 (Ambien) 5 mg HS PRN PO 04/16/17 21:45 05/01/17 22:27 (Narcan Inj) 0.4 mg UNSCH PRN IV PUSH 04/16/17 21:45 (Elidia-Colace) 1 tab BID PO 04/17/17 09:00 05/02/17 09:20 (Milk Of Magnesia Liq) 30 ml Q12H PRN PO 04/16/17 21:45 (Senokot) 17.2 mg Q12H PRN PO 04/16/17 21:45 (Dulcolax Supp) 10 mg DAILY PRN RECTAL 04/16/17 21:45 (Lactulose Liq) 30 ml DAILY PRN PO 04/16/17 21:45 (Duoneb Neb) 1 ampule Q6HR NEB PRN NEB 04/16/17 23:00 04/27/17 16:32 (Protonix Inj) 40 mg Q12HR IV PUSH 04/17/17 21:00 05/02/17 09:50 Lacosamide 100 mg/ Sodium Chloride 110 ml @ 110 mls/hr EVERY OTHER DAY IV 04/20/17 14:00 05/02/17 10:46 (Tylenol) 500 mg Q4H PRN PO 04/22/17 23:45 04/23/17 04:41 (Paxil) 40 mg DAILY PO 04/23/17 09:00 05/02/17 09:20 Potassium Chloride/Dextrose/ Sod Cl 1,020 ml @ 30 mls/hr Q24H IV 04/23/17 10:30 04/24/17 23:23 Levetriacetam 500 mg/Sodium Chloride 105 ml @ 420 mls/hr Q6H IV 04/25/17 09:00 05/02/17 17:37 (Heparin Inj) 5,000 units Q12HR SQ 04/25/17 11:30 05/02/17 09:20 (K-Lyte Cl Eff) 25 meq DAILY G-TUBE 04/25/17 11:30 05/02/17 09:19 Sodium Chloride 1,000 ml @ 42 mls/hr [id number] IV 04/25/17 11:00 04/30/17 08:50 (Zyvox) 600 mg Q12HR PEG 04/26/17 21:00 05/02/17 20:59 05/02/17 09:20 (Robitussin Liq) 200 mg Q4H PRN PO 04/26/17 23:30 04/27/17 05:35 Fosphenytoin Sodium 200 mgpe/ Sodium Chloride 54 ml @ 208 mls/hr Q8HR IV 04/27/17 14:00 05/02/17 16:47 (Duoneb Neb) 1 ampule TID NEB INH 04/29/17 20:00 05/02/17 11:12 (Roxicodone Intensol Liq) 10 mg Q4H PRN PO 04/30/17 08:15 05/02/17 17:38 Iron Sucrose 100 mg/Sodium Chloride 105 ml @ 105 mls/hr ONCE ONCE IV 05/02/17 20:00 05/02/17 20:59 A/P Assessment and Plan ASSESSMENT: 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 Aspiration pneumonia, S/P GT BY DR GIBSON 04/22 TRACHEITIS Dysphagia Esophagitis on EGD 04/17/17 Seizures Dilantin toxicity Hyponatremia Hyperkalemia and now with hypokalemia. Cerebrovascular accident with right hemiparesis. Anemia. Depression Anxiety. Chronic pain syndrome. Lumbar degenerative disc disease. Neuropathy. PLAN- FRI RECONSULT DR Blevins FOR TRACH SITE EVAL AND MAYBE DC SOON TO SNF AFTER RADIATION STARTED ON FRIDAY IV ABX FOLLOWUP BLOOD CULTURES X TWO IV cerebryx, vimpat and keppra Follow up gastric biopsies and throat bx A.m. CBC and BMP. NS IV fluids. KCL PGT DAILY Xanax HS FOR TWO DAYS THEN STOP. PRN ATIVAN. Telemetry. Duoneb q.i.d. DVT prophylaxis - SCDs/TEDs. Heparin 5000 units subcutaneously q 12 GI prophylaxis - Protonix 40 mg IV q.12 h. CONSULTS TO ID, PULM, ENT, ONCO, GI, WOUND, SimsAri melgar MD May 02, 2017 10:36
[2017-05-02] MEDS: LACOSAMIDE INJ 100 MG in SODIUM CHLORIDE 0.9% INJ 100 ML IV SCH (10:46)
--- NOTE | 2017-05-02 10:54 | PD.ONC.PN ---
Subjective Subjective Remarks Afebrile overnight. Tolerated first radiation yesterday. Now with sore throat. at bedside. Objective Data Date Time Temp Pulse Resp B/P (MAP) Pulse Ox O2 Delivery O2 Flow Rate FiO2 05/02/17 08:36 95 T-piece 6.00 40 05/02/17 08:00 97.5 75 18 107/61 (76) 94 05/02/17 05:17 98.4 78 18 121/56 (77) 98 05/02/17 01:12 98.4 74 18 140/65 (90) 94 05/01/17 20:46 99.2 89 20 137/70 (92) 100 05/01/17 19:54 96 T-piece 6.00 40 05/01/17 19:40 T-Piece 6.00 50 Humidified 05/01/17 19:00 74 05/01/17 16:40 98.2 79 18 122/56 (78) 99 05/01/17 12:38 97.8 78 18 134/67 (89) 98 05/02/17 05/02/17 05/02/17 07:00 15:00 23:00 Output Total 400 ml Balance -400 ml Result Diagram: 05/02/17 0756 05/02/17 0756 Laboratory Results Laboratory Tests Test 05/02/17 07:56 White Blood Count 9.6 TH/MM3 Red Blood Count 3.26 MIL/MM3 Hemoglobin 10.8 GM/DL Hematocrit 29.9 % Mean Corpuscular Volume 91.7 FL Mean Corpuscular Hemoglobin 33.1 PG Mean Corpuscular Hemoglobin Concent 36.0 % Red Cell Distribution Width 13.5 % Platelet Count 532 TH/MM3 Mean Platelet Volume 6.5 FL Neutrophils (%) (Auto) 58.3 % Lymphocytes (%) (Auto) 20.7 % Monocytes (%) (Auto) 11.8 % Eosinophils (%) (Auto) 8.1 % Basophils (%) (Auto) 1.1 % Neutrophils # (Auto) 5.6 TH/MM3 Lymphocytes # (Auto) 2.0 TH/MM3 Monocytes # (Auto) 1.1 TH/MM3 Eosinophils # (Auto) 0.8 TH/MM3 Basophils # (Auto) 0.1 TH/MM3 CBC Comment AUTO DIFF Differential Comment AUTO DIFF CONFIRMED Blood Urea Nitrogen 7 MG/DL Creatinine 0.22 MG/DL Random Glucose 88 MG/DL Calcium Level 8.6 MG/DL Sodium Level 132 MEQ/L Potassium Level 4.4 MEQ/L Chloride Level 97 MEQ/L Carbon Dioxide Level 27.1 MEQ/L Anion Gap 8 MEQ/L Estimat Glomerular Filtration Rate 424 ML/MIN Administered Medications Medications (Trade) Dose Ordered Sig/Delvis Route PRN Reason Start Time Stop Time Status Last Admin Dose Admin Lorazepam (Ativan) 0.5 mg Q8H PRN PO SEVERE ANXIETY OR AGITATION 04/16/17 21:45 04/27/17 22:26 Clonidine (Catapres) 0.1 mg Q6H PRN PO SBP>160, DBP>90 04/16/17 21:45 04/18/17 05:17 Acetaminophen/ Hydrocodone Bitart ([place] 5-325 Mg) 1 tab Q4H PRN PO PAIN GREATER THAN 5 04/16/17 21:45 Future Hold 04/16/17 22:37 Sodium Chloride (NS Flush) 2 ml BID IV FLUSH 04/17/17 09:00 05/02/17 09:52 Ondansetron HCl (Zofran Inj) 4 mg Q6H PRN IVP NAUSEA OR VOMITING 04/16/17 21:45 04/23/17 14:54 Zolpidem Tartrate (Ambien) 5 mg HS PRN PO INSOMNIA 04/16/17 21:45 05/01/17 22:27 Senna/Docusate Sodium (Elidia-Colace) 1 tab BID PO 04/17/17 09:00 05/02/17 09:20 Albuterol/ Ipratropium (Duoneb Neb) 1 ampule Q6HR NEB PRN NEB SHORTNESS OF BREATH 04/16/17 23:00 04/27/17 16:32 Pantoprazole Sodium (Protonix Inj) 40 mg Q12HR IV PUSH 04/17/17 21:00 05/02/17 09:50 Lacosamide 100 mg/ Sodium Chloride 110 ml @ 110 mls/hr EVERY OTHER DAY IV 04/20/17 14:00 04/30/17 09:09 Acetaminophen (Tylenol) 500 mg Q4H PRN PO TEMP > 100 04/22/17 23:45 04/23/17 04:41 Paroxetine HCl (Paxil) 40 mg DAILY PO 04/23/17 09:00 05/02/17 09:20 Potassium Chloride/Dextrose/ Sod Cl 1,020 ml @ 30 mls/hr Q24H IV 04/23/17 10:30 04/24/17 23:23 Levetriacetam 500 mg/Sodium Chloride 105 ml @ 420 mls/hr Q6H IV 04/25/17 09:00 05/02/17 09:21 Heparin Sodium (Porcine) (Heparin Inj) 5,000 units Q12HR SQ 04/25/17 11:30 05/02/17 09:20 Potassium Bicarb/ Potassium Chloride (K-Lyte Cl Eff) 25 meq DAILY G-TUBE 04/25/17 11:30 05/02/17 09:19 Sodium Chloride 1,000 ml @ 42 mls/hr [id number] IV 04/25/17 11:00 04/30/17 08:50 Linezolid (Zyvox) 600 mg Q12HR PEG 04/26/17 21:00 05/02/17 20:59 05/02/17 09:20 Guaifenesin (Robitussin Liq) 200 mg Q4H PRN PO congestion 04/26/17 23:30 04/27/17 05:35 Fosphenytoin Sodium 200 mgpe/ Sodium Chloride 54 ml @ 208 mls/hr Q8HR IV 04/27/17 14:00 05/02/17 05:35 Albuterol/ Ipratropium (Duoneb Neb) 1 ampule TID NEB INH 04/29/17 20:00 05/02/17 08:36 Oxycodone HCl (Roxicodone Intensol Liq) 10 mg Q4H PRN PO PAIN SCALE 5 TO 10 04/30/17 08:15 05/01/17 22:24 Objective Remarks GENERAL: Elderly male lying in bed resting. appears fatigued. On 6L O2 via trach. SKIN: Warm and dry. HEAD: Normocephalic. EYES: No injection or drainage. NECK: Supple, trachea midline. trach in place. CARDIOVASCULAR: +S1/S2 RESPIRATORY: anterior bonner with scattered rhonchi GASTROINTESTINAL: Abdomen soft, non-tender, nondistended. receiving TF @60cc/hr via G-tube EXTREMITIES: No cyanosis MUSCULOSKELETAL: Adequate muscle tone. NEUROLOGICAL: awake and alert. right sided paralysis. Assessment/Plan Problem List: (1) Head and neck cancer ICD Codes: C76.0 - Malignant neoplasm of head, face and neck Plan: --s/p XRT simulation on 04/25 --CT C.A.P shows no distal mets. --plan to give Cetuximab outpatient with chemoradiation --plan to give Cisplatinum as radiation candle maker if still inpatient on Friday. 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 He did not follow up with gastroenterology. EGD, 04/17/17. showed the severe esophagitis, possible mass in the larynx was identified. -- lesion appeared to be on the left side of the vallecula primarily originating in the vallecula and also the left hypopharyngeal wall. did not involve the endolarynx which was clear. 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 --course was complicated after the surgery that critical medicine was consulted for acute bleeding of the larynx mass. ----Dr. Grullon performed an awake trache in the OR. PEG was placed the following day. --Staging evaluation included chest x-ray that showed improved diffuse interstitial prominence. There is minimal linear opacities in the right upper lung consistent with scarring but no overt mass. --P16 negative Assessment 72y/o male with newly diagnosed locally advanced head and neck cancer. History of CVA with right-sided weakness. Aspiration. Anxiety and depression. Coronary artery disease.Hyperlipidemia.Diabetes. Headache.Hiatal herniaHypertension. Migraines. seizure. Sleep apnea. Tracheostomy.Examination under anesthesia.Vallecula biopsy. Plan 1. continue radiation 2. transfer to oncology unit 3. chemotherapy planned for Friday (weekly dose cisplatinum) Attending Statement The exam, history, and the medical decision-making described in the above note were completed with the assistance of the mid-level provider. I reviewed and agree with the findings presented. I attest that I had a qkgw-by-[id number] encounter with the patient on the same day, and personally performed and documented my assessment and findings in the medical record. Pt seen and examined, at bedside, tired but seen in good humor, making humor. Noted PT/OT evaluation, PT continues to work with patient. Discussed completion of Zyvox, tracheostomy site more comfortable. Discussed w/ Dr. Guzman XRT, pt may be experiencing some relief already. Concurrent chemo with cisplatin if still in hospital next week. Discussed w/ pt and risk and benefits associated with cisplatin. Plan ultimately to use Cetuximab. Monitor for fever over weekend. Trial parenteral iron for anemia and reactive thrombocytosis, NL ferritin does not exclude iron deficiency. Therapeutic trial Venofer. Asha Gamez May 02, 2017 10:54 Lauren Richter MD May 02, 2017 18:09
[2017-05-02] MEDS: oxyCODONE HCL ORAL CONC 5 MG/0.25 ML SYRINGE PO PRN ×3 (12:01→21:39)
[2017-05-02] MEDS: D5-NS + KCL 40 MEQ INJ 1,000 ML IV SCH (12:20)
[2017-05-02] MEDS ORDERED: IRON SUCROSE INJ 100 MG in SODIUM CHLORIDE 0.9% INJ 100 ML IV ONE (20:00)
[2017-05-03] VITALS (9 sets, daily range): BP systolic 107–128; BP diastolic 53–67; PULSE 73–87; RESP 18–20; TEMP 97.4–98.9; O2SAT 93–100
[2017-05-03] MEDS: levETIRAcetam INJ 500 MG in SODIUM CHLORIDE 0.9% INJ 100 ML IV SCH ×4 (03:25→21:00)
[2017-05-03] MEDS: FOSPHENYTOIN INJ 200 MGPE in SODIUM CHLORIDE 0.9% INJ 50 ML IV SCH ×3 (06:11→22:08)
[2017-05-03] MEDS: RESP: ALBUTEROL 2.5 MG/IPRATROPIUM 0.5 MG NEB (SCH) INH ×3 (07:50→19:27)
[2017-05-03 08:21] LABS: AUTOMATED NEUTROPHIL # 6.3 TH/MM3 (1.8-7.7); BASOPHIL # 0.1 TH/MM3 (0-0.2); EOSINOPHIL # 0.7 TH/MM3 (0-0.4); EOSINOPHIL % 7.5 % (0.0-4.0); HEMATOCRIT 29.7 % (39.0-51.0); HEMO FLAGS DIFF FINAL; LYMPHOCYTE # 1.7 TH/MM3 (1.0-4.8); MEAN CELL VOLUME 91.5 FL (80.0-100.0); MEAN CORPUSCULAR HEMOGLOBIN 31.8 PG (27.0-34.0); MEAN CORPUSCULAR HGB CONC 34.8 % (32.0-36.0); MONO % 10.3 % (0.0-8.0); NEUT % 64.2 % (16.0-70.0); PLATELET COUNT 529 TH/MM3 (150-450); RED BLOOD COUNT 3.25 MIL/MM3 (4.50-5.90); RED CELL DISTRIBUTION WIDTH 13.9 % (11.6-17.2); WHITE BLOOD COUNT 9.8 TH/MM3 (4.0-11.0)
[2017-05-03 08:43] LABS: BICARBONATE 29.1 MEQ/L (21.0-32.0); POTASSIUM 4.3 MEQ/L (3.5-5.1)
[2017-05-03] MEDS: DOCUSATE SODIUM 50 MG/SENNA 8.6 MG TAB PO SCH ×2 (09:00→22:09)
[2017-05-03] MEDS: SODIUM CHLOR 0.9% 1000 ML INJ 1,000 ML IV SCH (09:32)
[2017-05-03] MEDS: POTASSIUM CHLORIDE 25 MEQ EFFERVESCENT TAB G-TUBE SCH (09:51)
[2017-05-03] MEDS: PARoxetine HCL 20 MG TAB PO SCH (09:53)
[2017-05-03] MEDS: PANTOPRAZOLE SODIUM 40 MG VIAL IV PUSH SCH ×2 (09:56→22:09)
[2017-05-03] MEDS: HEPARIN SODIUM - SQ 10,000 UNITS/ML VIAL SQ SCH ×2 (09:56→22:08)
[2017-05-03] MEDS: SODIUM CHLORIDE 0.9% FLUSH 10 ML FLUSH IV FLUSH SCH ×2 (09:56→22:09)
[2017-05-03] MEDS: D5-NS + KCL 40 MEQ INJ 1,000 ML IV SCH (12:30)
--- NOTE | 2017-05-03 15:43 | HHI.PR ---
Subjective Remarks Follow up laryngeal cancer. Patient complaining of discomfort at site of radiation therapy. Has required suctioning. Denies dyspnea. Occasional chest pain with deep breaths. Objective Vitals Vital Signs Date Time Temp Pulse Resp B/P (MAP) Pulse Ox O2 Delivery O2 Flow Rate FiO2 05/03/17 12:00 98.4 76 20 119/57 (77) 98 05/03/17 08:00 98.4 82 20 124/58 (80) 96 05/03/17 07:50 96 T-piece 28 05/03/17 06:11 97.5 80 18 121/54 (76) 94 05/03/17 01:10 97.4 78 18 107/53 (71) 93 05/02/17 21:40 T-Piece 6.00 50 Humidified 05/02/17 20:47 98.2 70 16 90/50 (63) 97 05/02/17 20:14 100 T-piece 6.00 40 05/02/17 19:00 73 05/02/17 16:00 98.0 71 18 139/63 (88) 100 I/O 05/02/17 05/02/17 05/02/17 05/03/17 05/03/17 05/03/17 06:59 14:59 22:59 06:59 14:59 22:59 Output Total 400 ml 1000 ml 250 ml Balance -400 ml -1000 ml -250 ml Output Urine Total 400 ml 1000 ml 250 ml # Bowel Movements 0 2 Result Diagram: 05/03/17 0732 05/03/17 0732 Imaging Last Impressions Neck CT 04/24/17599 Signed Impressions: Service Date/Time: April 11:42 - CONCLUSION: Abnormal heterogeneity and thickening involving the entirety of the epiglottis and aryepiglottic folds in fairly symmetric fashion. Bilateral cervical adenopathy. Rian Moreno MD Chest CT 04/24/17599 Signed Impressions: Service Date/Time: April 11:48 - CONCLUSION: Mild bilateral parenchymal lung atelectasis and small effusions. No definite metastatic disease in the chest. Rian Moreno MD Abdomen/Pelvis CT 04/24/17599 Signed Impressions: Service Date/Time: April 11:51 - CONCLUSION: 1. Bilateral lower lung atelectasis/consolidation and pleural effusions. 2. Gallstones 3. Opacity in the left inguinal canal, incompletely included in [id number]-[id number] exam , suggesting either testicle or hydrocele. Jalil Gregorio MD Lower Extremity Ultrasound 04/23/17 Signed Impressions: Service Date/Time: Sunday, April 23, 2017 21:57 - CONCLUSION: Small amount of peripheral nonocclusive thrombus seen in the right common femoral vein. This appearance usually seen with chronic thrombus. No DVT is seen in the left lower extremity. Rian Tang MD Chest X-Ray 04/23/17 Signed Impressions: Service Date/Time: Sunday, April 23, 2017 13:35 - CONCLUSION: 1. One tracheostomy at the level of the clavicles. 2. Improved diffuse interstitial prominence likely reflecting improved positive fluid balance. 3. Minimal linear opacities in the right upper and midlung zones consistent with atelectasis/scarring. Stuart Ortiz MD Abdomen X-Ray 04/23/17 Signed Impressions: Service Date/Time: Sunday, April 23, 2017 17:15 - CONCLUSION: Nonspecific bowel gas pattern. Oral contrast is seen within the colon. Rian Tang MD Upper GI Series 04/16/17 Signed Impressions: Service Date/Time: Sunday, April 16, 2017 17:31 - CONCLUSION: 1. No evidence of esophageal stricture. 2. Poor esophageal motility. 3. No evidence of aspiration. 4. Small hiatal hernia. 5. Delayed KUB is pending. Neerja Alarcon MD Objective Remarks General: Elderly male in no acute distress. Tracheostomy. Heart: Regular rate and rhythm. No murmur. Lungs: Coarse breath sounds bilaterally. Breathing is nonlabored. Abdomen: Soft, nontender, nondistended. Extremities: No lower extremity edema. Psych: Alert and oriented. Procedures PROCEDURE PERFORMED Upper endoscopy with biopsy INDICATION FOR PROCEDURE Dysphagia PROCEDURE: The procedure, risks and benefits were discussed with Mr. Garcia and informed consent was obtained. Anesthesia sedated him with Diprivan. He was placed in the left lateral decubitus position. EGD: The Pentax videoscope was introduced through the oropharynx and advanced to the second portion of the duodenum under direct visualization. Retroflexion was performed in the stomach biopsy from the distal esophagus was obtained. FINDINGS: Severe grade D esophagitis biopsy was done Stomach normal Duodenum normal There was possible small mass in the larynx that could be the reason for the dysphagia questionable malignancy biopsy was not performed because of the location ESTIMATED BLOOD LOSS: 10 cc SPECIMENS REMOVED: Distal esophagus COMPLICATIONS: None IMPRESSION: Possible mass in the larynx Severe esophagitis biopsy was done PLAN: ENT consult Follow up biopsy Clear liquid EVAN BAHENA M.D. DATE OF SURGERY April 20, 2017 PREOPERATIVE DIAGNOSIS Malignant lesion of hypopharynx. POSTOPERATIVE DIAGNOSIS Malignant lesion of hypopharynx. OPERATION PERFORMED Direct laryngoscopy with biopsy. INDICATIONS Documented in the inpatient consultation of April 18, 2017 ----- April 21 PEG tube placement by Dr. GIBSON Status post tracheostomy and laryngectomy Urinary Catheter: No Vascular Central Line Catheter: No A/P Assessment and Plan 1. 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 Appreciate oncology recommendations. 2. Seizure disorder: Continue Cerebyx, Vimpat, Keppra. 3. Sepsis: Resolved. Secondary to pneumonia. 4. Dysphagia: G-tube placed 04/22/17. Continue tube feeds. 5. Esophagitis: Continue PPI. 6. History of CVA with right hemiparesis 7. DVT prophylaxis: Heparin, SCDs, JERRY hose. Stanley Basilio MD May 03, 2017 15:43
[2017-05-03] MEDS: oxyCODONE HCL ORAL CONC 5 MG/0.25 ML SYRINGE PO PRN ×2 (17:34→22:13)
[2017-05-04] VITALS (12 sets, daily range): BP systolic 105–142; BP diastolic 58–83; PULSE 75–87; RESP 16–18; TEMP 98.1–99.5; O2SAT 96–99
[2017-05-04] MEDS: levETIRAcetam INJ 500 MG in SODIUM CHLORIDE 0.9% INJ 100 ML IV SCH ×4 (03:00→19:53)
[2017-05-04] MEDS: SODIUM CHLOR 0.9% 1000 ML INJ 1,000 ML IV SCH (03:43)
[2017-05-04] MEDS: FOSPHENYTOIN INJ 200 MGPE in SODIUM CHLORIDE 0.9% INJ 50 ML IV SCH ×3 (08:27→22:48)
[2017-05-04] MEDS: PARoxetine HCL 20 MG TAB PO SCH (08:28)
[2017-05-04] MEDS: DOCUSATE SODIUM 50 MG/SENNA 8.6 MG TAB PO SCH ×2 (08:28→19:58)
[2017-05-04] MEDS: PANTOPRAZOLE SODIUM 40 MG VIAL IV PUSH SCH ×2 (08:28→19:53)
[2017-05-04] MEDS: HEPARIN SODIUM - SQ 10,000 UNITS/ML VIAL SQ SCH ×2 (08:29→20:00)
[2017-05-04] MEDS: POTASSIUM CHLORIDE 25 MEQ EFFERVESCENT TAB G-TUBE SCH (08:29)
[2017-05-04] MEDS: oxyCODONE HCL ORAL CONC 5 MG/0.25 ML SYRINGE PO PRN ×4 (08:29→23:27)
[2017-05-04] MEDS: SODIUM CHLORIDE 0.9% FLUSH 10 ML FLUSH IV FLUSH SCH ×2 (08:29→20:01)
[2017-05-04] MEDS: LACOSAMIDE INJ 100 MG in SODIUM CHLORIDE 0.9% INJ 100 ML IV SCH (10:33)
--- NOTE | 2017-05-04 10:37 | HHI.PR ---
Subjective Remarks Follow up laryngeal cancer. Patient having pain in his neck/throat. No other complaints at this time. Denies chest pain, dyspnea, nausea, vomiting. Objective Vitals Vital Signs Date Time Temp Pulse Resp B/P (MAP) Pulse Ox O2 Delivery O2 Flow Rate FiO2 05/04/17 09:50 98 T-piece 6.00 40 05/04/17 08:26 98.4 83 18 142/79 (100) 97 05/04/17 06:56 98.2 84 16 141/81 (101) 96 05/04/17 05:25 98.1 81 18 131/67 (88) 98 05/04/17 01:52 T-Piece 50 Humidified 05/04/17 00:40 98.4 79 16 120/58 (78) 97 05/03/17 20:56 98.3 87 18 127/62 (83) 100 05/03/17 20:00 79 05/03/17 19:27 99 T-piece 6.00 40 05/03/17 16:00 98.9 77 20 128/67 (87) 99 05/03/17 12:00 98.4 76 20 119/57 (77) 98 I/O 05/03/17 05/03/17 05/03/17 05/04/17 05/04/17 05/04/17 07:00 15:00 23:00 07:00 15:00 23:00 Intake Total 609 ml 782 ml Output Total 250 ml 775 ml 1350 ml Balance -250 ml -166 ml -568 ml IV Total 154 ml 260 ml Tube Feeding 255 ml 422 ml Other 200 ml 100 ml Output Urine Total 250 ml 775 ml 1350 ml # Bowel Movements 1 1 Result Diagram: 05/03/1773105/03/17731 Imaging Last Impressions Neck CT 04/24/17599 Signed Impressions: Service Date/Time: April 11:42 - CONCLUSION: Abnormal heterogeneity and thickening involving the entirety of the epiglottis and aryepiglottic folds in fairly symmetric fashion. Bilateral cervical adenopathy. Rian Moreno MD Chest CT 04/24/17 06 Signed Impressions: Service Date/Time: April 11:48 - CONCLUSION: Mild bilateral parenchymal lung atelectasis and small effusions. No definite metastatic disease in the chest. Rian Moreno MD Abdomen/Pelvis CT 04/24/17 0600 Signed Impressions: Service Date/Time: April 11:51 - CONCLUSION: 1. Bilateral lower lung atelectasis/consolidation and pleural effusions. 2. Gallstones 3. Opacity in the left inguinal canal, incompletely included in [id number] exam , suggesting either testicle or hydrocele. Jalil Gregorio MD Lower Extremity Ultrasound 04/23/17 Signed Impressions: Service Date/Time: Sunday, April 23, 2017 21:57 - CONCLUSION: Small amount of peripheral nonocclusive thrombus seen in the right common femoral vein. This appearance usually seen with chronic thrombus. No DVT is seen in the left lower extremity. Rian Tang MD Chest X-Ray 04/23/17 Signed Impressions: Service Date/Time: Sunday, April 23, 2017 13:35 - CONCLUSION: 1. One tracheostomy at the level of the clavicles. 2. Improved diffuse interstitial prominence likely reflecting improved positive fluid balance. 3. Minimal linear opacities in the right upper and midlung zones consistent with atelectasis/scarring. Stuart Ortiz MD Abdomen X-Ray 04/23/17 Signed Impressions: Service Date/Time: Sunday, April 23, 2017 17:15 - CONCLUSION: Nonspecific bowel gas pattern. Oral contrast is seen within the colon. Rian Tang MD Upper GI Series 04/16/17 0000 Signed Impressions: Service Date/Time: Sunday, April 16, 2017 17:31 - CONCLUSION: 1. No evidence of esophageal stricture. 2. Poor esophageal motility. 3. No evidence of aspiration. 4. Small hiatal hernia. 5. Delayed KUB is pending. Neeraj Alarcon MD Objective Remarks General: Elderly male in no acute distress. Tracheostomy. Heart: Regular rate and rhythm. No murmur. Lungs: Coarse breath sounds bilaterally. Breathing is nonlabored. Abdomen: Soft, nontender, nondistended. Extremities: No lower extremity edema. Psych: Alert and oriented. Procedures PROCEDURE PERFORMED Upper endoscopy with biopsy INDICATION FOR PROCEDURE Dysphagia PROCEDURE: The procedure, risks and benefits were discussed with Mr. Garcia and informed consent was obtained. Anesthesia sedated him with Diprivan. He was placed in the left lateral decubitus position. EGD: The Pentax videoscope was introduced through the oropharynx and advanced to the second portion of the duodenum under direct visualization. Retroflexion was performed in the stomach biopsy from the distal esophagus was obtained. FINDINGS: Severe grade D esophagitis biopsy was done Stomach normal Duodenum normal There was possible small mass in the larynx that could be the reason for the dysphagia questionable malignancy biopsy was not performed because of the location ESTIMATED BLOOD LOSS: 10 cc SPECIMENS REMOVED: Distal esophagus COMPLICATIONS: None IMPRESSION: Possible mass in the larynx Severe esophagitis biopsy was done PLAN: ENT consult Follow up biopsy Clear liquid EVAN BAHENA M.D. DATE OF SURGERY April 20, 2017 PREOPERATIVE DIAGNOSIS Malignant lesion of hypopharynx. POSTOPERATIVE DIAGNOSIS Malignant lesion of hypopharynx. OPERATION PERFORMED Direct laryngoscopy with biopsy. INDICATIONS Documented in the inpatient consultation of April 18, 2017 ----- April 21 PEG tube placement by Dr. GIBSON Status post tracheostomy and laryngectomy Urinary Catheter: No Vascular Central Line Catheter: No A/P Assessment and Plan 1. 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 Appreciate oncology recommendations. Discussed with Asha AGUILLON. Due for chemotherapy tomorrow. 2. Seizure disorder: Continue Cerebyx, Vimpat, Keppra. 3. Sepsis: Resolved. Secondary to pneumonia. 4. Dysphagia: G-tube placed 04/22/17. Continue tube feeds. 5. Esophagitis: Continue PPI. 6. History of CVA with right hemiparesis 7. DVT prophylaxis: Heparin, SCDs, JERRY villarreal. Stanley Basilio MD May 04, 2017 10:37
[2017-05-04] MEDS ORDERED: D5-NS + KCL 40 MEQ INJ 1,000 ML IV SCH (13:00)
[2017-05-04 13:39] LABS: AUTOMATED NEUTROPHIL # 7.8 TH/MM3 (1.8-7.7); BASOPHIL # 0.1 TH/MM3 (0-0.2); BASOPHIL % 0.9 % (0.0-2.0); EOSINOPHIL # 0.8 TH/MM3 (0-0.4); EOSINOPHIL % 6.9 % (0.0-4.0); HEMATOCRIT 33.6 % (39.0-51.0); HEMO FLAGS DIFF FINAL; LYMPH % 16.9 % (9.0-44.0); MEAN CELL VOLUME 92.6 FL (80.0-100.0); MEAN CORPUSCULAR HEMOGLOBIN 31.1 PG (27.0-34.0); MEAN CORPUSCULAR HGB CONC 33.6 % (32.0-36.0); MONO % 8.8 % (0.0-8.0); NEUT % 66.5 % (16.0-70.0); PLATELET COUNT 549 TH/MM3 (150-450); RED BLOOD COUNT 3.62 MIL/MM3 (4.50-5.90); RED CELL DISTRIBUTION WIDTH 13.6 % (11.6-17.2); WHITE BLOOD COUNT 11.7 TH/MM3 (4.0-11.0)
[2017-05-04 14:04] LABS: BICARBONATE 29.1 MEQ/L (21.0-32.0); POTASSIUM 4.3 MEQ/L (3.5-5.1)
[2017-05-04] MEDS: HYOSCYAMINE 0.125 MG TAB PO PRN (21:27)
[2017-05-05] VITALS (11 sets, daily range): BP systolic 99–139; BP diastolic 45–80; PULSE 69–100; RESP 16–21; TEMP 98.6–99.5; O2SAT 84–98
[2017-05-05] MEDS ORDERED: MORPHINE SULFATE 2 MG/ML INJ IV PUSH ONE (00:15)
[2017-05-05] MEDS: ZOLPIDEM TARTRATE 5 MG TAB PO PRN (01:03)
[2017-05-05] MEDS: HYOSCYAMINE 0.125 MG TAB PO PRN ×4 (03:02→20:58)
[2017-05-05] MEDS: levETIRAcetam INJ 500 MG in SODIUM CHLORIDE 0.9% INJ 100 ML IV SCH ×4 (03:02→20:59)
[2017-05-05] MEDS: oxyCODONE HCL ORAL CONC 5 MG/0.25 ML SYRINGE PO PRN ×2 (03:03→06:32)
[2017-05-05] MEDS: FOSPHENYTOIN INJ 200 MGPE in SODIUM CHLORIDE 0.9% INJ 50 ML IV SCH ×3 (06:02→22:39)
[2017-05-05 06:25] LABS: AUTOMATED NEUTROPHIL # 7.4 TH/MM3 (1.8-7.7); BASOPHIL # 0.1 TH/MM3 (0-0.2); BASOPHIL % 0.9 % (0.0-2.0); EOSINOPHIL # 0.6 TH/MM3 (0-0.4); EOSINOPHIL % 5.6 % (0.0-4.0); HEMATOCRIT 30.3 % (39.0-51.0); HEMO FLAGS DIFF FINAL; LYMPHOCYTE # 1.7 TH/MM3 (1.0-4.8); MEAN CELL VOLUME 91.9 FL (80.0-100.0); MEAN CORPUSCULAR HEMOGLOBIN 31.7 PG (27.0-34.0); MEAN CORPUSCULAR HGB CONC 34.5 % (32.0-36.0); MONO % 10.1 % (0.0-8.0); NEUT % 67.4 % (16.0-70.0); PLATELET COUNT 514 TH/MM3 (150-450); RED CELL DISTRIBUTION WIDTH 13.7 % (11.6-17.2); WHITE BLOOD COUNT 10.9 TH/MM3 (4.0-11.0)
[2017-05-05 06:39] LABS: ANION GAP 7 MEQ/L (5-15); AST (GOT) 23 U/L (15-37); BICARBONATE 29.8 MEQ/L (21.0-32.0); BLOOD UREA NITROGEN 9 MG/DL (7-18); CHLORIDE 93 MEQ/L (98-107); GLOMERULAR FILTRATION RATE 473 ML/MIN (>89); SODIUM (NA) 130 MEQ/L (136-145)
[2017-05-05 06:44] LABS: ALKALINE PHOSPHATASE 209 U/L (45-117); ALT (GPT) 21 U/L (12-78); TOTAL BILIRUBIN ADULT 0.2 MG/DL (0.2-1.0)
--- NOTE | 2017-05-05 10:34 | HHI.FPPN ---
Subjective Remarks CALLED W HYPOXIA AND TRACH BLEED. I D/W DR Blevins D/W [employer] REVIEWED Objective Vitals Vital Signs Date Time Temp Pulse Resp B/P (MAP) Pulse Ox O2 Delivery O2 Flow Rate FiO2 05/05/17 03:00 99.5 79 16 111/45 (67) 94 05/04/17 23:30 99.4 86 18 105/66 (79) 96 05/04/17 21:44 96 T-piece 6.00 40 05/04/17 20:30 75 05/04/17 20:30 Humidified 6.00 40 05/04/17 20:00 99.5 87 16 114/63 (80) 97 05/04/17 15:21 98.4 84 18 130/71 (90) 99 05/04/17 12:25 98.4 86 18 112/83 (93) 96 I/O 05/04/17 05/04/17 05/04/17 05/05/17 05/05/17 05/05/17 07:00 15:00 23:00 07:00 15:00 23:00 Intake Total 782 ml 105 ml 954 ml Output Total 1350 ml 300 ml 500 ml 450 ml Balance -568 ml -300 ml -395 ml 504 ml IV Total 260 ml 105 ml 54 ml Tube Feeding 422 ml 700 ml Other 100 ml 200 ml Output Urine Total 1350 ml 300 ml 500 ml 450 ml # Bowel Movements 1 Result Diagram: 05/05/17 0501 05/05/17 0501 Objective Remarks GENERAL: SKIN: Warm and dry. HEAD: Atraumatic. Normocephalic. EYES: Pupils equal and round. No scleral icterus. No injection or drainage. ENT: No nasal bleeding or discharge. Mucous membranes pink and moist. TRACH C/ DI, NECK: Trachea midline. No JVD. CARDIOVASCULAR: Regular rate and rhythm. RESPIRATORY: B rales and ronchi, congested cough GASTROINTESTINAL: Abdomen soft, non-tender, nondistended. Hepatic and splenic margins not palpable. MUSCULOSKELETAL: Extremities without clubbing, cyanosis, or edema. No obvious deformities. NEUROLOGICAL: Awake and alert. No obvious cranial nerve deficits. R DIOGENES PSYCHIATRIC: Appropriate mood and affect; insight and judgment normal. Medications and IVs Current Medications Medications (Trade) Dose Ordered Sig/Delvis Route Start Time Stop Time Status Last Admin (Ativan) 0.5 mg Q8H PRN PO 9/27/17 21:45 04/27/17 22:26 (Catapres) 0.1 mg Q6H PRN PO 04/16/17 21:45 04/18/17 05:17 ([place] 5-325 Mg) 1 tab Q4H PRN PO 04/16/17 21:45 Future Hold 04/16/17 22:37 (NS Flush) 2 ml UNSCH PRN IV FLUSH 04/16/17 21:45 (NS Flush) 2 ml BID IV FLUSH 04/17/17 09:00 05/04/17 20:01 (Tylenol) 650 mg Q4H PRN PO 04/16/17 21:45 Future Hold (Zofran Inj) 4 mg Q6H PRN IVP 04/16/17 21:45 04/23/17 14:54 (Ambien) 5 mg HS PRN PO 04/16/17 21:45 05/05/17 01:03 (Narcan Inj) 0.4 mg UNSCH PRN IV PUSH 04/16/17 21:45 (Elidia-Colace) 1 tab BID PO 04/17/17 09:00 05/04/17 19:58 (Milk Of Magnesia Liq) 30 ml Q12H PRN PO 04/16/17 21:45 (Senokot) 17.2 mg Q12H PRN PO 04/16/17 21:45 (Dulcolax Supp) 10 mg DAILY PRN RECTAL 04/16/17 21:45 (Lactulose Liq) 30 ml DAILY PRN PO 04/16/17 21:45 (Duoneb Neb) 1 ampule Q6HR NEB PRN NEB 04/16/17 23:00 04/27/17 16:32 (Protonix Inj) 40 mg Q12HR IV PUSH 04/17/17 21:00 05/04/17 19:53 Lacosamide 100 mg/ Sodium Chloride 110 ml @ 110 mls/hr EVERY OTHER DAY IV 04/20/17 14:00 05/04/17 10:33 (Tylenol) 500 mg Q4H PRN PO 04/22/17 23:45 04/23/17 04:41 (Paxil) 40 mg DAILY PO 04/23/17 09:00 05/04/17 08:28 Levetriacetam 500 mg/Sodium Chloride 105 ml @ 420 mls/hr Q6H IV 04/25/17 09:00 05/05/17 03:02 (Heparin Inj) 5,000 units Q12HR SQ 04/25/17 11:30 05/04/17 20:00 (K-Lyte Cl Eff) 25 meq DAILY G-TUBE 04/25/17 11:30 05/04/17 08:29 Sodium Chloride 1,000 ml @ 42 mls/hr [id number] IV 04/25/17 11:00 05/04/17 03:43 (Robitussin Liq) 200 mg Q4H PRN PO 04/26/17 23:30 04/27/17 05:35 Fosphenytoin Sodium 200 mgpe/ Sodium Chloride 54 ml @ 208 mls/hr Q8HR IV 04/27/17 14:00 05/05/17 06:02 (Roxicodone Intensol Liq) 10 mg Q4H PRN PO 04/30/17 08:15 05/05/17 06:32 Potassium Chloride/Dextrose/ Sod Cl 1,000 ml @ 30 mls/hr Q24H IV 05/04/17 13:00 (Levsin) 0.25 mg Q4H PRN PO 05/04/17 20:45 05/05/17 06:32 A/P Assessment and Plan ASSESSMENT: 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 Acute bleeding s/p phayrnx bx w airway compromise Respiratory failure s/p Trach SEPSIS, RESOLVED. Aspiration pneumonia, S/P GT BY DR GIBSON 04/22 TRACHEITIS Dysphagia Esophagitis on EGD 04/17/17 Seizures Dilantin toxicity Hyponatremia Hyperkalemia and now with hypokalemia. Cerebrovascular accident with right hemiparesis. Anemia. Depression Anxiety. Chronic pain syndrome. Lumbar degenerative disc disease. Neuropathy. PLAN- NEB NOW, REPOSTION AND MONITOR HYPOXIA CONTINUE RT AND CT. IV ABX TF'S FOLLOWUP BLOOD CULTURES X TWO IV cerebryx, vimpat and keppra A.m. CBC and BMP. PRN ATIVAN. Telemetry. Duoneb q.i.d. DVT prophylaxis - SCDs/TEDs. Heparin 5000 units subcutaneously q 12 GI prophylaxis - Protonix 40 mg IV q.12 h. CONSULTS TO ID, PULM, ENT, ONCO, GI, WOUND, Ari Sims MD May 05, 2017 10:34
[2017-05-05] MEDS: RESP: ALBUTEROL 2.5 MG/IPRATROPIUM 0.5 MG NEB (PRN) NEB (10:40)
[2017-05-05] MEDS: PANTOPRAZOLE SODIUM 40 MG VIAL IV PUSH SCH ×2 (11:01→20:58)
[2017-05-05] MEDS: HEPARIN SODIUM - SQ 10,000 UNITS/ML VIAL SQ SCH ×2 (11:01→20:59)
[2017-05-05] MEDS: DOCUSATE SODIUM 50 MG/SENNA 8.6 MG TAB PO SCH ×2 (11:03→20:58)
[2017-05-05] MEDS: PARoxetine HCL 20 MG TAB PO SCH (11:04)
[2017-05-05] MEDS: SODIUM CHLORIDE 0.9% FLUSH 10 ML FLUSH IV FLUSH SCH ×2 (11:04→20:59)
[2017-05-05] MEDS: POTASSIUM CHLORIDE 25 MEQ EFFERVESCENT TAB G-TUBE SCH (11:04)
[2017-05-05] MEDS: SODIUM CHLOR 0.9% 1000 ML INJ 1,000 ML IV SCH (11:05)
--- NOTE | 2017-05-05 13:40 | PD.ONC.PN ---
Subjective Subjective Remarks Afebrile overnight. This morning had bloody secretions from trach. Now with thick white secretions. maintaining O2 94-99%. Objective Data Date Time Temp Pulse Resp B/P (MAP) Pulse Ox O2 Delivery O2 Flow Rate FiO2 05/05/17 13:20 99.5 77 17 102/58 (73) 92 05/05/17 10:59 98.6 80 18 99/65 (76) 97 05/05/17 10:53 97 T-piece 5.00 40 05/05/17 08:15 95 16 84 05/05/17 03:00 99.5 79 16 111/45 (67) 94 05/04/17 23:30 99.4 86 18 105/66 (79) 96 05/04/17 21:44 96 T-piece 6.00 40 05/04/17 20:30 75 05/04/17 20:30 Humidified 6.00 40 05/04/17 20:00 99.5 87 16 114/63 (80) 97 05/04/17 15:21 98.4 84 18 130/71 (90) 99 05/05/17 05/05/17 05/05/17 06:59 14:59 22:59 Intake Total 954 ml Output Total 450 ml Balance 504 ml Result Diagram: 05/05/17 0501 05/05/17 0501 Laboratory Results Laboratory Tests Test 05/05/17 05:01 White Blood Count 10.9 TH/MM3 Red Blood Count 3.30 MIL/MM3 Hemoglobin 10.4 GM/DL Hematocrit 30.3 % Mean Corpuscular Volume 91.9 FL Mean Corpuscular Hemoglobin 31.7 PG Mean Corpuscular Hemoglobin Concent 34.5 % Red Cell Distribution Width 13.7 % Platelet Count 514 TH/MM3 Mean Platelet Volume 6.6 FL Neutrophils (%) (Auto) 67.4 % Lymphocytes (%) (Auto) 16.0 % Monocytes (%) (Auto) 10.1 % Eosinophils (%) (Auto) 5.6 % Basophils (%) (Auto) 0.9 % Neutrophils # (Auto) 7.4 TH/MM3 Lymphocytes # (Auto) 1.7 TH/MM3 Monocytes # (Auto) 1.1 TH/MM3 Eosinophils # (Auto) 0.6 TH/MM3 Basophils # (Auto) 0.1 TH/MM3 CBC Comment DIFF FINAL Differential Comment Blood Urea Nitrogen 9 MG/DL Creatinine 0.20 MG/DL Random Glucose 109 MG/DL Total Protein 6.3 GM/DL Albumin 2.3 GM/DL Calcium Level 8.3 MG/DL Alkaline Phosphatase 209 U/L Aspartate Amino Transf (AST/SGOT) 23 U/L Alanine Aminotransferase (ALT/SGPT) 21 U/L Total Bilirubin 0.2 MG/DL Sodium Level 130 MEQ/L Potassium Level 4.0 MEQ/L Chloride Level 93 MEQ/L Carbon Dioxide Level 29.8 MEQ/L Anion Gap 7 MEQ/L Estimat Glomerular Filtration Rate 473 ML/MIN Administered Medications Medications (Trade) Dose Ordered Sig/Delvis Route PRN Reason Start Time Stop Time Status Last Admin Dose Admin Lorazepam (Ativan) 0.5 mg Q8H PRN PO SEVERE ANXIETY OR AGITATION 04/16/17 21:45 04/27/17 22:26 Clonidine (Catapres) 0.1 mg Q6H PRN PO SBP>160, DBP>90 04/16/17 21:45 04/18/17 05:17 Acetaminophen/ Hydrocodone Bitart ([place] 5-325 Mg) 1 tab Q4H PRN PO PAIN GREATER THAN 5 04/16/17 21:45 Future Hold 04/16/17 22:37 Sodium Chloride (NS Flush) 2 ml BID IV FLUSH 04/17/17 09:00 05/05/17 11:04 Ondansetron HCl (Zofran Inj) 4 mg Q6H PRN IVP NAUSEA OR VOMITING 04/16/17 21:45 04/23/17 14:54 Zolpidem Tartrate (Ambien) 5 mg HS PRN PO INSOMNIA 04/16/17 21:45 05/05/17 01:03 Senna/Docusate Sodium (Elidia-Colace) 1 tab BID PO 04/17/17 09:00 05/05/17 11:03 Albuterol/ Ipratropium (Duoneb Neb) 1 ampule Q6HR NEB PRN NEB SHORTNESS OF BREATH 04/16/17 23:00 05/05/17 10:40 Pantoprazole Sodium (Protonix Inj) 40 mg Q12HR IV PUSH 04/17/17 21:00 05/05/17 11:01 Lacosamide 100 mg/ Sodium Chloride 110 ml @ 110 mls/hr EVERY OTHER DAY IV 04/20/17 14:00 05/04/17 10:33 Acetaminophen (Tylenol) 500 mg Q4H PRN PO TEMP > 100 04/22/17 23:45 04/23/17 04:41 Paroxetine HCl (Paxil) 40 mg DAILY PO 04/23/17 09:00 05/05/17 11:04 Levetriacetam 500 mg/Sodium Chloride 105 ml @ 420 mls/hr Q6H IV 04/25/17 09:00 05/05/17 11:02 Heparin Sodium (Porcine) (Heparin Inj) 5,000 units Q12HR SQ 04/25/17 11:30 05/05/17 11:01 Potassium Bicarb/ Potassium Chloride (K-Lyte Cl Eff) 25 meq DAILY G-TUBE 04/25/17 11:30 05/05/17 11:04 Sodium Chloride 1,000 ml @ 42 mls/hr [id number] IV 04/25/17 11:00 05/05/17 11:05 Guaifenesin (Robitussin Liq) 200 mg Q4H PRN PO congestion 04/26/17 23:30 04/27/17 05:35 Fosphenytoin Sodium 200 mgpe/ Sodium Chloride 54 ml @ 208 mls/hr Q8HR IV 04/27/17 14:00 05/05/17 13:17 Oxycodone HCl (Roxicodone Intensol Liq) 10 mg Q4H PRN PO PAIN SCALE 5 TO 10 04/30/17 08:15 05/05/17 06:32 Hyoscyamine Sulfate (Levsin) 0.25 mg Q4H PRN PO SECRETIONS 05/04/17 20:45 05/05/17 06:32 Objective Remarks GENERAL: Elderly male lying in bed resting in nad. SKIN: Warm and dry. HEAD: Normocephalic. EYES: No injection or drainage. NECK: Supple, trachea midline. CARDIOVASCULAR: +S1/S2 RESPIRATORY: anterior bonner with occasional rhonchi GASTROINTESTINAL: Abdomen non-distended. receiving TF via PEG tube EXTREMITIES: No cyanosis MUSCULOSKELETAL: Adequate muscle tone. NEUROLOGICAL: awake and alert. right sided paresis. follows commands. Assessment/Plan Problem List: (1) Head and neck cancer ICD Codes: C76.0 - Malignant neoplasm of head, face and neck Plan: --s/p XRT simulation on 04/25 --CT C.A.P shows no distal mets. 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 He did not follow up with gastroenterology. EGD, 04/17/17. showed the severe esophagitis, possible mass in the larynx was identified. -- lesion appeared to be on the left side of the vallecula primarily originating in the vallecula and also the left hypopharyngeal wall. did not involve the endolarynx which was clear. 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 --course was complicated after the surgery that critical medicine was consulted for acute bleeding of the larynx mass. ----Dr. Grullon performed an awake trache in the OR. PEG was placed the following day. --Staging evaluation included chest x-ray that showed improved diffuse interstitial prominence. There is minimal linear opacities in the right upper lung consistent with scarring but no overt mass. --P16 negative Assessment 72y/o male with newly diagnosed locally advanced head and neck cancer. History of CVA with right-sided weakness. Aspiration. Anxiety and depression. Coronary artery disease.Hyperlipidemia.Diabetes. Headache.Hiatal herniaHypertension. Migraines. seizure. Sleep apnea. Tracheostomy.Examination under anesthesia.Vallecula biopsy. Plan 1. continue radiation 2. hold Cisplatin dose today d/t bloody secretions this AM. monitor Attending Statement The exam, history, and the medical decision-making described in the above note were completed with the assistance of the mid-level provider. I reviewed and agree with the findings presented. I attest that I had a [id number] encounter with the patient on the same day, and personally performed and documented my assessment and findings in the medical record. Events noted, this AM, continue to have blood tinge sputum, small amount. Discussed w/ pt concern, risks/benefits with concurrent chemo, motioned he wish to continue. Dose adjustment for frail patient. Monitor renal function. Antiemetic available prn. Hyponatremia, paraneoplastic, asymptomatic, monitor response. Asha Gamez May 05, 2017 13:40 Lauren Richter MD May 05, 2017 18:54
[2017-05-05] MEDS: LORazepam 0.5 MG TAB PO PRN (20:58)
[2017-05-05] MEDS: ONDANSETRON HCL 4 MG/2 ML VIAL IVP PRN (20:59)
[2017-05-06] VITALS (9 sets, daily range): BP systolic 103–155; BP diastolic 56–71; PULSE 72–78; RESP 16–20; TEMP 98.9–99.3; O2SAT 93–100
[2017-05-06] MEDS: levETIRAcetam INJ 500 MG in SODIUM CHLORIDE 0.9% INJ 100 ML IV SCH ×4 (03:38→22:31)
[2017-05-06] MEDS: FOSPHENYTOIN INJ 200 MGPE in SODIUM CHLORIDE 0.9% INJ 50 ML IV SCH ×3 (05:34→22:31)
[2017-05-06 07:03] LABS: AUTOMATED NEUTROPHIL # 8.8 TH/MM3 (1.8-7.7); BASOPHIL # 0.1 TH/MM3 (0-0.2); BASOPHIL % 1.1 % (0.0-2.0); EOSINOPHIL # 0.6 TH/MM3 (0-0.4); HEMATOCRIT 30.8 % (39.0-51.0); HEMO FLAGS DIFF FINAL; LYMPH % 14.4 % (9.0-44.0); LYMPHOCYTE # 1.8 TH/MM3 (1.0-4.8); MEAN CELL VOLUME 91.1 FL (80.0-100.0); MEAN CORPUSCULAR HEMOGLOBIN 30.6 PG (27.0-34.0); MEAN CORPUSCULAR HGB CONC 33.5 % (32.0-36.0); MONO % 7.9 % (0.0-8.0); NEUT % 71.6 % (16.0-70.0); PLATELET COUNT 512 TH/MM3 (150-450); RED BLOOD COUNT 3.38 MIL/MM3 (4.50-5.90); RED CELL DISTRIBUTION WIDTH 13.8 % (11.6-17.2); WHITE BLOOD COUNT 12.3 TH/MM3 (4.0-11.0)
[2017-05-06 07:31] LABS: BICARBONATE 28.5 MEQ/L (21.0-32.0); POTASSIUM 4.1 MEQ/L (3.5-5.1)
[2017-05-06] MEDS: PANTOPRAZOLE SODIUM 40 MG VIAL IV PUSH SCH ×2 (08:39→21:07)
[2017-05-06] MEDS: POTASSIUM CHLORIDE 25 MEQ EFFERVESCENT TAB G-TUBE SCH (08:39)
[2017-05-06] MEDS: PARoxetine HCL 20 MG TAB PO SCH (08:39)
[2017-05-06] MEDS: HEPARIN SODIUM - SQ 10,000 UNITS/ML VIAL SQ SCH ×2 (08:39→21:08)
[2017-05-06] MEDS: HYOSCYAMINE 0.125 MG TAB PO PRN ×2 (08:40→21:08)
[2017-05-06] MEDS: SODIUM CHLORIDE 0.9% FLUSH 10 ML FLUSH IV FLUSH SCH ×2 (08:40→21:09)
[2017-05-06] MEDS: DOCUSATE SODIUM 50 MG/SENNA 8.6 MG TAB PO SCH ×2 (08:40→21:08)
[2017-05-06] MEDS: SODIUM CHLOR 0.9% 1000 ML INJ 1,000 ML IV SCH (08:59)
[2017-05-06] MEDS: LACOSAMIDE INJ 100 MG in SODIUM CHLORIDE 0.9% INJ 100 ML IV SCH (09:49)
--- NOTE | 2017-05-06 09:53 | PD.ONC.PN ---
Subjective Subjective Remarks Afebrile overnight. No further bleeding. Ready to begin chemotherapy today. Tolerating radiation. Objective Data Date Time Temp Pulse Resp B/P (MAP) Pulse Ox O2 Delivery O2 Flow Rate FiO2 05/06/17 08:36 99.1 77 16 155/71 (99) 100 05/06/17 05:38 99.1 72 16 103/63 (76) 93 05/06/17 04:10 76 05/06/17 00:03 78 05/05/17 23:45 99.0 83 20 139/80 (99) 96 05/05/17 21:17 98.8 69 21 122/66 (84) 98 05/05/17 21:17 Humidified 6.00 40 05/05/17 20:08 77 05/05/17 20:02 98 T-piece 6.00 40 05/05/17 16:14 99.2 78 17 99/60 (73) 93 05/05/17 13:20 99.5 77 17 102/58 (73) 92 05/05/17 10:59 98.6 80 18 99/65 (76) 97 05/05/17 10:53 97 T-piece 5.00 40 05/06/17 05/06/17 05/06/17 07:00 15:00 23:00 Intake Total 422 ml Balance 422 ml Result Diagram: 05/06/1751205/06/17512 Laboratory Results Laboratory Tests Test 05/06/17 05:13 White Blood Count 12.3 TH/MM3 Red Blood Count 3.38 MIL/MM3 Hemoglobin 10.3 GM/DL Hematocrit 30.8 % Mean Corpuscular Volume 91.1 FL Mean Corpuscular Hemoglobin 30.6 PG Mean Corpuscular Hemoglobin Concent 33.5 % Red Cell Distribution Width 13.8 % Platelet Count 512 TH/MM3 Mean Platelet Volume 6.7 FL Neutrophils (%) (Auto) 71.6 % Lymphocytes (%) (Auto) 14.4 % Monocytes (%) (Auto) 7.9 % Eosinophils (%) (Auto) 5.0 % Basophils (%) (Auto) 1.1 % Neutrophils # (Auto) 8.8 TH/MM3 Lymphocytes # (Auto) 1.8 TH/MM3 Monocytes # (Auto) 1.0 TH/MM3 Eosinophils # (Auto) 0.6 TH/MM3 Basophils # (Auto) 0.1 TH/MM3 CBC Comment DIFF FINAL Differential Comment Blood Urea Nitrogen 9 MG/DL Creatinine 0.21 MG/DL Random Glucose 109 MG/DL Calcium Level 8.4 MG/DL Sodium Level 130 MEQ/L Potassium Level 4.1 MEQ/L Chloride Level 95 MEQ/L Carbon Dioxide Level 28.5 MEQ/L Anion Gap 7 MEQ/L Estimat Glomerular Filtration Rate 447 ML/MIN Administered Medications Medications (Trade) Dose Ordered Sig/Delvis Route PRN Reason Start Time Stop Time Status Last Admin Dose Admin Lorazepam (Ativan) 0.5 mg Q8H PRN PO SEVERE ANXIETY OR AGITATION 04/16/17 21:45 05/05/17 20:58 Clonidine (Catapres) 0.1 mg Q6H PRN PO SBP>160, DBP>90 04/16/17 21:45 04/18/17 05:17 Acetaminophen/ Hydrocodone Bitart ([place] 5-325 Mg) 1 tab Q4H PRN PO PAIN GREATER THAN 5 04/16/17 21:45 Future Hold 04/16/17 22:37 Sodium Chloride (NS Flush) 2 ml BID IV FLUSH 04/17/17 09:00 05/06/17 08:40 Ondansetron HCl (Zofran Inj) 4 mg Q6H PRN IVP NAUSEA OR VOMITING 04/16/17 21:45 05/05/17 20:59 Zolpidem Tartrate (Ambien) 5 mg HS PRN PO INSOMNIA 04/16/17 21:45 05/05/17 01:03 Senna/Docusate Sodium (Elidia-Colace) 1 tab BID PO 04/17/17 09:00 05/06/17 08:40 Albuterol/ Ipratropium (Duoneb Neb) 1 ampule Q6HR NEB PRN NEB SHORTNESS OF BREATH 04/16/17 23:00 05/05/17 10:40 Pantoprazole Sodium (Protonix Inj) 40 mg Q12HR IV PUSH 04/17/17 21:00 05/06/17 08:39 Lacosamide 100 mg/ Sodium Chloride 110 ml @ 110 mls/hr EVERY OTHER DAY IV 04/20/17 14:00 05/04/17 10:33 Acetaminophen (Tylenol) 500 mg Q4H PRN PO TEMP > 100 04/22/17 23:45 04/23/17 04:41 Paroxetine HCl (Paxil) 40 mg DAILY PO 04/23/17 09:00 05/06/17 08:39 Levetriacetam 500 mg/Sodium Chloride 105 ml @ 420 mls/hr Q6H IV 04/25/17 09:00 05/06/17 08:39 Heparin Sodium (Porcine) (Heparin Inj) 5,000 units Q12HR SQ 04/25/17 11:30 05/06/17 08:39 Potassium Bicarb/ Potassium Chloride (K-Lyte Cl Eff) 25 meq DAILY G-TUBE 04/25/17 11:30 05/06/17 08:39 Sodium Chloride 1,000 ml @ 42 mls/hr [id number] IV 04/25/17 11:00 05/05/17 11:05 Guaifenesin (Robitussin Liq) 200 mg Q4H PRN PO congestion 04/26/17 23:30 04/27/17 05:35 Fosphenytoin Sodium 200 mgpe/ Sodium Chloride 54 ml @ 208 mls/hr Q8HR IV 04/27/17 14:00 05/06/17 05:34 Oxycodone HCl (Roxicodone Intensol Liq) 10 mg Q4H PRN PO PAIN SCALE 5 TO 10 04/30/17 08:15 05/05/17 06:32 Hyoscyamine Sulfate (Levsin) 0.25 mg Q4H PRN PO SECRETIONS 05/04/17 20:45 05/06/17 08:40 Objective Remarks GENERAL: chronically ill appearing male supine in bed, resting. SKIN: Warm and dry. HEAD: Normocephalic. EYES: No injection or drainage. NECK: Supple, trachea midline. on 6L via trach. LYMPHATIC: No adenopathy. CARDIOVASCULAR: +S1/S2 RESPIRATORY: anterior bonner with occasional rhonchi. GASTROINTESTINAL: Abdomen soft, non-tender, nondistended. EXTREMITIES: No cyanosis NEUROLOGICAL: awake, following commands. unable to speak d/t trach. Assessment/Plan Problem List: (1) Head and neck cancer ICD Codes: C76.0 - Malignant neoplasm of head, face and neck Plan: --XRT started on 05/01--radiation is given Friday through Friday and 23 treatments total are planned. --radiation sensitizing dose of Cisplatinum given on 05/06/17 --s/p XRT simulation on 04/25 --CT C.A.P shows no distal mets. 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 He did not follow up with gastroenterology. EGD, 04/17/17. showed the severe esophagitis, possible mass in the larynx was identified. -- lesion appeared to be on the left side of the vallecula primarily originating in the vallecula and also the left hypopharyngeal wall. did not involve the endolarynx which was clear. 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 --course was complicated after the surgery that critical medicine was consulted for acute bleeding of the larynx mass. ----Dr. Grullon performed an awake trache in the OR. PEG was placed the following day. --Staging evaluation included chest x-ray that showed improved diffuse interstitial prominence. There is minimal linear opacities in the right upper lung consistent with scarring but no overt mass. --P16 negative (2) DVT prophylaxi Plan: --on heparin 5000U SQ q 12 Assessment 72y/o male with newly diagnosed locally advanced head and neck cancer. History of CVA with right-sided weakness. Aspiration. Anxiety and depression. Coronary artery disease. Hyperlipidemia. Diabetes. Headache. Hiatal hernia. Hypertension. Migraines. seizure. Sleep apnea. Tracheostomy. Examination under anesthesia. Vallecula biopsy. Plan 1. give Cisplatinum today 2. monitor CBC, magnesium 3. continue XRT. Attending Statement The exam, history, and the medical decision-making described in the above note were completed with the assistance of the mid-level provider. I reviewed and agree with the findings presented. I attest that I had a [id number] encounter with the patient on the same day, and personally performed and documented my assessment and findings in the medical record. Discussed treatment course so far, appears to tolerate Cisplatin. Discharge/sputum now only pinkish, no longer bloody. Monitor for nausea and vomiting. XRT per radiation. Anticipate DC to SNF, coordinate tx as out pt. OK to DC to SNF from heme/onc standpoint and fu as outpt. Monitor hyponatremia. Asha Gamez May 06, 2017 09:53 Lauren Richter MD May 06, 2017 19:02
--- NOTE | 2017-05-06 10:34 | HHI.FPPN ---
Subjective Remarks CONF W FAMILY C/O GENERAL PAIN REQUESTING PAIN MEDS WANTS HIM ON MORE PAIN MEDS TELE REVIEWED D/W RN Objective Vitals Vital Signs Date Time Temp Pulse Resp B/P (MAP) Pulse Ox O2 Delivery O2 Flow Rate FiO2 05/06/17 08:36 99.1 77 16 155/71 (99) 100 05/06/17 05:38 99.1 72 16 103/63 (76) 93 05/06/17 04:10 76 05/06/17 00:03 78 05/05/17 23:45 99.0 83 20 139/80 (99) 96 05/05/17 21:17 98.8 69 21 122/66 (84) 98 05/05/17 21:17 Humidified 6.00 40 05/05/17 20:08 77 05/05/17 20:02 98 T-piece 6.00 40 05/05/17 16:14 99.2 78 17 99/60 (73) 93 05/05/17 13:20 99.5 77 17 102/58 (73) 92 05/05/17 10:59 98.6 80 18 99/65 (76) 97 05/05/17 10:53 97 T-piece 5.00 40 I/O 05/05/17 05/05/17 05/05/17 05/06/17 05/06/17 05/06/17 06:59 14:59 22:59 06:59 14:59 22:59 Intake Total 954 ml 422 ml Output Total 450 ml Balance 504 ml 422 ml IV Total 54 ml 422 ml Tube Feeding 700 ml Other 200 ml Output Urine Total 450 ml # Voids 1 2 Result Diagram: 05/06/1751205/06/17512 Objective Remarks GENERAL: SKIN: Warm and dry. HEAD: Atraumatic. Normocephalic. EYES: Pupils equal and round. No scleral icterus. No injection or drainage. ENT: No nasal bleeding or discharge. Mucous membranes pink and moist. TRACH C/ DI, NECK: Trachea midline. No JVD. CARDIOVASCULAR: Regular rate and rhythm. RESPIRATORY: B rales and ronchi, congested cough GASTROINTESTINAL: Abdomen soft, non-tender, nondistended. Hepatic and splenic margins not palpable. MUSCULOSKELETAL: Extremities without clubbing, cyanosis, or edema. No obvious deformities. NEUROLOGICAL: Awake and alert. No obvious cranial nerve deficits. R DIOGENES PSYCHIATRIC: Appropriate mood and affect; insight and judgment normal. Medications and IVs Current Medications Medications (Trade) Dose Ordered Sig/Delvis Route Start Time Stop Time Status Last Admin (Ativan) 0.5 mg Q8H PRN PO 04/16/17 21:45 05/05/17 20:58 (Catapres) 0.1 mg Q6H PRN PO 04/16/17 21:45 04/18/17 05:17 ([place] 5-325 Mg) 1 tab Q4H PRN PO 04/16/17 21:45 Future Hold 04/16/17 22:37 (NS Flush) 2 ml UNSCH PRN IV FLUSH 04/16/17 21:45 (NS Flush) 2 ml BID IV FLUSH 04/17/17 09:00 05/06/17 08:40 (Tylenol) 650 mg Q4H PRN PO 04/16/17 21:45 Future Hold (Zofran Inj) 4 mg Q6H PRN IVP 04/16/17 21:45 05/05/17 20:59 (Ambien) 5 mg HS PRN PO 04/16/17 21:45 05/05/17 01:03 (Narcan Inj) 0.4 mg UNSCH PRN IV PUSH 04/16/17 21:45 (Elidia-Colace) 1 tab BID PO 04/17/17 09:00 05/06/17 08:40 (Milk Of Magnesia Liq) 30 ml Q12H PRN PO 04/16/17 21:45 (Senokot) 17.2 mg Q12H PRN PO 04/16/17 21:45 (Dulcolax Supp) 10 mg DAILY PRN RECTAL 04/16/17 21:45 (Lactulose Liq) 30 ml DAILY PRN PO 04/16/17 21:45 (Duoneb Neb) 1 ampule Q6HR NEB PRN NEB 04/16/17 23:00 05/05/17 10:40 (Protonix Inj) 40 mg Q12HR IV PUSH 04/17/17 21:00 05/06/17 08:39 Lacosamide 100 mg/ Sodium Chloride 110 ml @ 110 mls/hr EVERY OTHER DAY IV 04/20/17 14:00 05/06/17 09:49 (Tylenol) 500 mg Q4H PRN PO 04/22/17 23:45 04/23/17 04:41 (Paxil) 40 mg DAILY PO 04/23/17 09:00 05/06/17 08:39 Levetriacetam 500 mg/Sodium Chloride 105 ml @ 420 mls/hr Q6H IV 04/25/17 09:00 05/06/17 08:39 (Heparin Inj) 5,000 units Q12HR SQ 04/25/17 11:30 05/06/17 08:39 (K-Lyte Cl Eff) 25 meq DAILY G-TUBE 04/25/17 11:30 05/06/17 08:39 Sodium Chloride 1,000 ml @ 42 mls/hr [id number] IV 04/25/17 11:00 05/05/17 11:05 (Robitussin Liq) 200 mg Q4H PRN PO 04/26/17 23:30 04/27/17 05:35 Fosphenytoin Sodium 200 mgpe/ Sodium Chloride 54 ml @ 208 mls/hr Q8HR IV 04/27/17 14:00 05/06/17 05:34 (Roxicodone Intensol Liq) 10 mg Q4H PRN PO 04/30/17 08:15 05/05/17 06:32 (Levsin) 0.25 mg Q4H PRN PO 05/04/17 20:45 05/06/17 08:40 Potassium Chloride 10 meq/ Magnesium Sulfate 4 meq/Sodium Chloride 506 ml @ 500 mls/hr Q7D IV 05/06/17 12:00 05/13/17 13:01 Potassium Chloride 10 meq/ Magnesium Sulfate 4 meq/Sodium Chloride 506 ml @ 500 mls/hr Q7D IV 05/06/17 15:00 05/13/17 16:01 (Kytril Inj) 1 mg Q7D IV PUSH 05/06/17 13:00 05/13/17 13:01 Dexamethasone Sodium Phosphate 20 mg/Sodium Chloride 55 ml @ 220 mls/hr Q7D IV 05/06/17 13:00 05/13/17 13:14 (Mannitol Inj) 25 gm Q7D IV PUSH 05/06/17 13:30 05/13/17 13:31 Cisplatin 52 mg/ Sodium Chloride 302 ml @ 302 mls/hr Q7D IV 05/06/17 14:00 05/13/17 14:59 A/P Assessment and Plan ASSESSMENT: 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 Acute bleeding s/p phayrnx bx w airway compromise Respiratory failure s/p Trach SEPSIS, RESOLVED. Aspiration pneumonia, S/P GT BY DR GIBSON 04/22 TRACHEITIS Dysphagia Esophagitis on EGD 04/17/17 Seizures Dilantin toxicity Hyponatremia Hyperkalemia and now with hypokalemia. Cerebrovascular accident with right hemiparesis. Anemia. Depression Anxiety. Chronic pain syndrome. Lumbar degenerative disc disease. Neuropathy. PLAN- CONTINUE RT AND CT. IV ABX TF'S FOLLOWUP BLOOD CULTURES X TWO IV cerebryx, vimpat and keppra A.m. CBC and BMP. PRN ATIVAN. Telemetry. Duoneb q.i.d. DVT prophylaxis - SCDs/TEDs. Heparin 5000 units subcutaneously q 12 GI prophylaxis - Protonix 40 mg IV q.12 h. CONSULTS TO ID, PULM, ENT, ONCO, GI, WOUND, SimsAri melgar MD May 06, 2017 10:34
[2017-05-06] MEDS: oxyCODONE HCL ORAL CONC 5 MG/0.25 ML SYRINGE PO PRN (10:47)
[2017-05-06] MEDS ORDERED: POTASSIUM CHLORIDE INJ 10 MEQ, MAGNESIUM SULFATE INJ 4 MEQ in SODIUM CHLORID 0.9% 500 M... IV SCH ×2 (12:00→15:00)
[2017-05-06] MEDS ORDERED: DEXAMETHASONE INJ 20 MG in SODIUM CHLORIDE 0.9% INJ 50 ML IV SCH (13:00)
[2017-05-06] MEDS ORDERED: GRANISETRON HCL 1 MG/ML VIAL IV PUSH SCH (13:00)
[2017-05-06] MEDS ORDERED: MANNITOL 12.5 GM/50 ML VIAL IV PUSH SCH (13:30)
[2017-05-06] MEDS ORDERED: SODIUM CHLOR 0.9% IV SCH (14:00)
[2017-05-06] MEDS ORDERED: CISPLATIN IV SCH (14:00)
[2017-05-06] MEDS: LORazepam 0.5 MG TAB PO PRN (21:08)
[2017-05-07] VITALS (9 sets, daily range): BP systolic 96–141; BP diastolic 51–59; PULSE 75–81; RESP 17–22; TEMP 76–98.6; O2SAT 94–98
[2017-05-07] MEDS: ZOLPIDEM TARTRATE 5 MG TAB PO PRN (00:13)
[2017-05-07] MEDS: levETIRAcetam INJ 500 MG in SODIUM CHLORIDE 0.9% INJ 100 ML IV SCH ×4 (02:37→21:02)
[2017-05-07] MEDS: FOSPHENYTOIN INJ 200 MGPE in SODIUM CHLORIDE 0.9% INJ 50 ML IV SCH ×3 (05:25→22:39)
[2017-05-07 06:31] LABS: AUTOMATED NEUTROPHIL # 5.3 TH/MM3 (1.8-7.7); BASOPHIL % 0.3 % (0.0-2.0); EOSINOPHIL % 0.3 % (0.0-4.0); HEMO FLAGS DIFF FINAL; LYMPH % 14.6 % (9.0-44.0); MEAN CELL VOLUME 91.3 FL (80.0-100.0); MEAN CORPUSCULAR HEMOGLOBIN 31.5 PG (27.0-34.0); MEAN CORPUSCULAR HGB CONC 34.5 % (32.0-36.0); MONO % 7.8 % (0.0-8.0); PLATELET COUNT 448 TH/MM3 (150-450); RED BLOOD COUNT 3.18 MIL/MM3 (4.50-5.90); RED CELL DISTRIBUTION WIDTH 13.9 % (11.6-17.2); WHITE BLOOD COUNT 6.8 TH/MM3 (4.0-11.0)
[2017-05-07 06:59] LABS: BICARBONATE 28.7 MEQ/L (21.0-32.0); MAGNESIUM 2.1 MG/DL (1.5-2.5); POTASSIUM 3.9 MEQ/L (3.5-5.1)
[2017-05-07 07:00] LABS: INDIRECT BILIRUBIN 0.1 MG/DL (0.0-0.8); TOTAL BILIRUBIN ADULT 0.2 MG/DL (0.2-1.0)
[2017-05-07] MEDS: SODIUM CHLORIDE 0.9% FLUSH 10 ML FLUSH IV FLUSH SCH ×2 (09:19→21:00)
[2017-05-07] MEDS: PANTOPRAZOLE SODIUM 40 MG VIAL IV PUSH SCH ×2 (09:19→21:03)
[2017-05-07] MEDS: POTASSIUM CHLORIDE 25 MEQ EFFERVESCENT TAB G-TUBE SCH (09:20)
[2017-05-07] MEDS: DOCUSATE SODIUM 50 MG/SENNA 8.6 MG TAB PO SCH ×2 (09:21→21:00)
[2017-05-07] MEDS: PARoxetine HCL 20 MG TAB PO SCH (09:21)
[2017-05-07] MEDS: HEPARIN SODIUM - SQ 10,000 UNITS/ML VIAL SQ SCH ×2 (09:22→21:03)
--- NOTE | 2017-05-07 11:47 | HHI.FPPN ---
Subjective Remarks INCREASED CONGESTION AND TRACH SITE PURULENCE D/W RN Objective Vitals Vital Signs Date Time Temp Pulse Resp B/P (MAP) Pulse Ox O2 Delivery O2 Flow Rate FiO2 05/07/17 05:30 98.1 77 17 98/58 (71) 97 05/07/17 04:03 75 05/07/17 01:17 98.6 78 22 103/56 (72) 94 05/07/17 00:17 78 05/06/17 21:50 98.9 20 107/56 (73) 96 05/06/17 21:10 Trach Collar 6.00 50 Humidified 05/06/17 20:30 98 T-piece 6.00 50 05/06/17 20:12 72 05/06/17 15:34 99.3 73 17 154/70 (98) 100 05/06/17 12:29 99.3 72 17 128/65 (86) 100 I/O 05/06/17 05/06/17 05/06/17 05/07/17 05/07/17 05/07/17 07:00 15:00 23:00 07:00 15:00 23:00 Intake Total 422 ml Output Total 1850 ml Balance 422 ml -1850 ml IV Total 422 ml Output Urine Total 1850 ml # Voids 2 3 1 # Bowel Movements 1 Result Diagram: 05/07/1751905/07/17519 Objective Remarks GENERAL: SKIN: Warm and dry. HEAD: Atraumatic. Normocephalic. EYES: Pupils equal and round. No scleral icterus. No injection or drainage. ENT: No nasal bleeding or discharge. Mucous membranes pink and moist. TRACH C/ DI, NECK: Trachea midline. No JVD. CARDIOVASCULAR: Regular rate and rhythm. RESPIRATORY: B rales and ronchi, congested cough GASTROINTESTINAL: Abdomen soft, non-tender, nondistended. Hepatic and splenic margins not palpable. MUSCULOSKELETAL: Extremities without clubbing, cyanosis, or edema. No obvious deformities. NEUROLOGICAL: Awake and alert. No obvious cranial nerve deficits. R DIOGENES PSYCHIATRIC: Appropriate mood and affect; insight and judgment normal. Medications and IVs Current Medications Medications (Trade) Dose Ordered Sig/Delvis Route Start Time Stop Time Status Last Admin (Ativan) 0.5 mg Q8H PRN PO 04/16/17 21:45 05/06/17 21:08 (Catapres) 0.1 mg Q6H PRN PO 04/16/17 21:45 04/18/17 05:17 ([place] 5-325 Mg) 1 tab Q4H PRN PO 04/16/17 21:45 Future Hold 04/16/17 22:37 (NS Flush) 2 ml UNSCH PRN IV FLUSH 04/16/17 21:45 (NS Flush) 2 ml BID IV FLUSH 04/17/17 09:00 05/07/17 09:19 (Tylenol) 650 mg Q4H PRN PO 04/16/17 21:45 Future Hold (Zofran Inj) 4 mg Q6H PRN IVP 04/16/17 21:45 05/05/17 20:59 (Ambien) 5 mg HS PRN PO 04/16/17 21:45 05/07/17 00:13 (Narcan Inj) 0.4 mg UNSCH PRN IV PUSH 04/16/17 21:45 (Elidia-Colace) 1 tab BID PO 04/17/17 09:00 05/07/17 09:21 (Milk Of Magnesia Liq) 30 ml Q12H PRN PO 04/16/17 21:45 (Senokot) 17.2 mg Q12H PRN PO 04/16/17 21:45 (Dulcolax Supp) 10 mg DAILY PRN RECTAL 04/16/17 21:45 (Lactulose Liq) 30 ml DAILY PRN PO 04/16/17 21:45 (Duoneb Neb) 1 ampule Q6HR NEB PRN NEB 04/16/17 23:00 05/05/17 10:40 (Protonix Inj) 40 mg Q12HR IV PUSH 04/17/17 21:00 05/07/17 09:19 Lacosamide 100 mg/ Sodium Chloride 110 ml @ 110 mls/hr EVERY OTHER DAY IV 04/20/17 14:00 05/06/17 09:49 (Tylenol) 500 mg Q4H PRN PO 04/22/17 23:45 04/23/17 04:41 (Paxil) 40 mg DAILY PO 04/23/17 09:00 05/07/17 09:21 Levetriacetam 500 mg/Sodium Chloride 105 ml @ 420 mls/hr Q6H IV 04/25/17 09:00 05/07/17 09:20 (Heparin Inj) 5,000 units Q12HR SQ 04/25/17 11:30 05/07/17 09:22 (K-Lyte Cl Eff) 25 meq DAILY G-TUBE 04/25/17 11:30 05/07/17 09:20 Sodium Chloride 1,000 ml @ 42 mls/hr [id number] IV 04/25/17 11:00 05/05/17 11:05 (Robitussin Liq) 200 mg Q4H PRN PO 04/26/17 23:30 04/27/17 05:35 Fosphenytoin Sodium 200 mgpe/ Sodium Chloride 54 ml @ 208 mls/hr Q8HR IV 04/27/17 14:00 05/07/17 05:25 (Roxicodone Intensol Liq) 10 mg Q4H PRN PO 04/30/17 08:15 05/06/17 10:47 (Levsin) 0.25 mg Q4H PRN PO 05/04/17 20:45 05/06/17 21:08 Potassium Chloride 10 meq/ Magnesium Sulfate 4 meq/Sodium Chloride 506 ml @ 500 mls/hr Q7D IV 05/06/17 12:00 05/13/17 13:01 05/06/17 15:31 Potassium Chloride 10 meq/ Magnesium Sulfate 4 meq/Sodium Chloride 506 ml @ 500 mls/hr Q7D IV 05/06/17 15:00 05/13/17 16:01 05/07/17 00:20 (Kytril Inj) 1 mg Q7D IV PUSH 05/06/17 13:00 05/13/17 13:01 05/06/17 19:33 Dexamethasone Sodium Phosphate 20 mg/Sodium Chloride 55 ml @ 220 mls/hr Q7D IV 05/06/17 13:00 05/13/17 13:14 05/06/17 19:31 (Mannitol Inj) 25 gm Q7D IV PUSH 05/06/17 13:30 05/13/17 13:31 05/06/17 21:09 Cisplatin 52 mg/ Sodium Chloride 302 ml @ 302 mls/hr Q7D IV 05/06/17 14:00 05/13/17 14:59 05/06/17 22:54 A/P Assessment and Plan ASSESSMENT: 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 Acute bleeding s/p phayrnx bx w airway compromise Respiratory failure s/p Trach SEPSIS, RESOLVED. Aspiration pneumonia, S/P GT BY DR GIBSON 04/22 TRACHEITIS Dysphagia Esophagitis on EGD 04/17/17 Seizures Dilantin toxicity Hyponatremia Hyperkalemia and now with hypokalemia. Cerebrovascular accident with right hemiparesis. Anemia. Depression Anxiety. Chronic pain syndrome. Lumbar degenerative disc disease. Neuropathy. PLAN- CULTURE TRACH PURULENCE RECONSULT WOUND CARE MAYBE DC SOON TO SNF. CONTINUE RT AND CT. TF'S FOLLOWUP BLOOD CULTURES X TWO IV cerebryx, vimpat and keppra A.m. CBC and BMP. PRN ATIVAN. Telemetry. Duoneb q.i.d. DVT prophylaxis - SCDs/TEDs. Heparin 5000 units subcutaneously q 12 GI prophylaxis - Protonix 40 mg IV q.12 h. CONSULTS TO ID, PULM, ENT, ONCO, GI, WOUND, Ari Sims MD May 07, 2017 11:47
[2017-05-07] MEDS: oxyCODONE HCL ORAL CONC 5 MG/0.25 ML SYRINGE PO PRN ×3 (12:52→21:51)
[2017-05-07] MEDS: LORazepam 0.5 MG TAB PO PRN (12:52)
[2017-05-07] MEDS: ONDANSETRON HCL 4 MG/2 ML VIAL IVP PRN ×2 (12:53→21:13)
[2017-05-07] MEDS: HYOSCYAMINE 0.125 MG TAB PO PRN ×2 (12:53→15:31)
[2017-05-07] MEDS: SODIUM CHLOR 0.9% 1000 ML INJ 1,000 ML IV SCH (15:20)
--- NOTE | 2017-05-07 15:53 | PD.ONC.PN ---
Subjective Subjective Remarks Afebrile overnight. Patient resting in bed with at bedside. Nursing staff reporting worsening wound at trach site. Patient in good spirits today. feels his color is better. Objective Data Date Time Temp Pulse Resp B/P (MAP) Pulse Ox O2 Delivery O2 Flow Rate FiO2 05/07/17 13:55 18 05/07/17 12:57 95 T-piece 50 05/07/17 05:30 98.1 77 17 98/58 (71) 97 05/07/17 04:03 75 05/07/17 01:17 98.6 78 22 103/56 (72) 94 05/07/17 00:17 78 05/06/17 21:50 98.9 20 107/56 (73) 96 05/06/17 21:10 Trach Collar 6.00 50 Humidified 05/06/17 20:30 98 T-piece 6.00 50 05/06/17 20:12 72 05/07/17 05/07/17 05/07/17 07:00 15:00 23:00 Output Total 1850 ml Balance -1850 ml Result Diagram: 05/07/17 0520 05/07/17 0520 Laboratory Results Laboratory Tests Test 05/07/17 05:20 White Blood Count 6.8 TH/MM3 Red Blood Count 3.18 MIL/MM3 Hemoglobin 10.0 GM/DL Hematocrit 29.0 % Mean Corpuscular Volume 91.3 FL Mean Corpuscular Hemoglobin 31.5 PG Mean Corpuscular Hemoglobin Concent 34.5 % Red Cell Distribution Width 13.9 % Platelet Count 448 TH/MM3 Mean Platelet Volume 6.7 FL Neutrophils (%) (Auto) 77.0 % Lymphocytes (%) (Auto) 14.6 % Monocytes (%) (Auto) 7.8 % Eosinophils (%) (Auto) 0.3 % Basophils (%) (Auto) 0.3 % Neutrophils # (Auto) 5.3 TH/MM3 Lymphocytes # (Auto) 1.0 TH/MM3 Monocytes # (Auto) 0.5 TH/MM3 Eosinophils # (Auto) 0.0 TH/MM3 Basophils # (Auto) 0.0 TH/MM3 CBC Comment DIFF FINAL Differential Comment Blood Urea Nitrogen 7 MG/DL Creatinine 0.22 MG/DL Random Glucose 114 MG/DL Total Protein 6.6 GM/DL Albumin 2.2 GM/DL Calcium Level 7.9 MG/DL Magnesium Level 2.1 MG/DL Alkaline Phosphatase 218 U/L Aspartate Amino Transf (AST/SGOT) 33 U/L Alanine Aminotransferase (ALT/SGPT) 27 U/L Total Bilirubin 0.2 MG/DL Direct Bilirubin 0.1 MG/DL Sodium Level 134 MEQ/L Potassium Level 3.9 MEQ/L Chloride Level 101 MEQ/L Carbon Dioxide Level 28.7 MEQ/L Anion Gap 4 MEQ/L Estimat Glomerular Filtration Rate 424 ML/MIN Indirect Bilirubin 0.1 MG/DL Administered Medications Medications (Trade) Dose Ordered Sig/Delvis Route PRN Reason Start Time Stop Time Status Last Admin Dose Admin Lorazepam (Ativan) 0.5 mg Q8H PRN PO SEVERE ANXIETY OR AGITATION 04/16/17 21:45 05/06/17 21:08 Clonidine (Catapres) 0.1 mg Q6H PRN PO SBP>160, DBP>90 04/16/17 21:45 04/18/17 05:17 Acetaminophen/ Hydrocodone Bitart ([place] 5-325 Mg) 1 tab Q4H PRN PO PAIN GREATER THAN 5 04/16/17 21:45 Future Hold 04/16/17 22:37 Sodium Chloride (NS Flush) 2 ml BID IV FLUSH 04/17/17 09:00 05/07/17 09:19 Ondansetron HCl (Zofran Inj) 4 mg Q6H PRN IVP NAUSEA OR VOMITING 04/16/17 21:45 05/07/17 12:53 Zolpidem Tartrate (Ambien) 5 mg HS PRN PO INSOMNIA 04/16/17 21:45 05/07/17 00:13 Senna/Docusate Sodium (Elidia-Colace) 1 tab BID PO 04/17/17 09:00 05/07/17 09:21 Albuterol/ Ipratropium (Duoneb Neb) 1 ampule Q6HR NEB PRN NEB SHORTNESS OF BREATH 04/16/17 23:00 05/05/17 10:40 Pantoprazole Sodium (Protonix Inj) 40 mg Q12HR IV PUSH 04/17/17 21:00 05/07/17 09:19 Lacosamide 100 mg/ Sodium Chloride 110 ml @ 110 mls/hr EVERY OTHER DAY IV 04/20/17 14:00 05/06/17 09:49 Acetaminophen (Tylenol) 500 mg Q4H PRN PO TEMP > 100 04/22/17 23:45 04/23/17 04:41 Paroxetine HCl (Paxil) 40 mg DAILY PO 04/23/17 09:00 05/07/17 09:21 Levetriacetam 500 mg/Sodium Chloride 105 ml @ 420 mls/hr Q6H IV 04/25/17 09:00 05/07/17 09:20 Heparin Sodium (Porcine) (Heparin Inj) 5,000 units Q12HR SQ 04/25/17 11:30 05/07/17 09:22 Potassium Bicarb/ Potassium Chloride (K-Lyte Cl Eff) 25 meq DAILY G-TUBE 04/25/17 11:30 05/07/17 09:20 Sodium Chloride 1,000 ml @ 42 mls/hr [id number] IV 04/25/17 11:00 05/07/17 15:20 Guaifenesin (Robitussin Liq) 200 mg Q4H PRN PO congestion 04/26/17 23:30 04/27/17 05:35 Fosphenytoin Sodium 200 mgpe/ Sodium Chloride 54 ml @ 208 mls/hr Q8HR IV 04/27/17 14:00 05/07/17 15:25 Oxycodone HCl (Roxicodone Intensol Liq) 10 mg Q4H PRN PO PAIN SCALE 5 TO 10 04/30/17 08:15 05/07/17 12:52 Hyoscyamine Sulfate (Levsin) 0.25 mg Q4H PRN PO SECRETIONS 05/04/17 20:45 05/07/17 15:31 Potassium Chloride 10 meq/ Magnesium Sulfate 4 meq/Sodium Chloride 506 ml @ 500 mls/hr Q7D IV 05/06/17 12:00 05/13/17 13:01 05/06/17 15:31 Potassium Chloride 10 meq/ Magnesium Sulfate 4 meq/Sodium Chloride 506 ml @ 500 mls/hr Q7D IV 05/06/17 15:00 05/13/17 16:01 05/07/17 00:20 Granisetron HCl (Kytril Inj) 1 mg Q7D IV PUSH 05/06/17 13:00 05/13/17 13:01 05/06/17 19:33 Dexamethasone Sodium Phosphate 20 mg/Sodium Chloride 55 ml @ 220 mls/hr Q7D IV 05/06/17 13:00 05/13/17 13:14 05/06/17 19:31 Mannitol (Mannitol Inj) 25 gm Q7D IV PUSH 05/06/17 13:30 05/13/17 13:31 05/06/17 21:09 Cisplatin 52 mg/ Sodium Chloride 302 ml @ 302 mls/hr Q7D IV 05/06/17 14:00 05/13/17 14:59 05/06/17 22:54 Objective Remarks GENERAL: chronically ill male supine in bed in nad. SKIN: Warm and dry. redness/irritation and wound forming inferior to trach HEAD: Normocephalic. EYES: No injection or drainage. NECK: Supple, trachea midline. on 6L O2 via trach. LYMPHATIC: No adenopathy. CARDIOVASCULAR: +S1/S2 RESPIRATORY: anterior bonner with scattered rhonchi. GASTROINTESTINAL: Abdomen soft, non-tender, nondistended. EXTREMITIES: No cyanosis NEUROLOGICAL: awake, following commands. right sided paresis Assessment/Plan Problem List: (1) Head and neck cancer ICD Codes: C76.0 - Malignant neoplasm of head, face and neck Plan: --XRT started on 05/01--radiation is given Friday through Friday and 23 treatments total are planned. --radiation sensitizing dose of Cisplatinum given on 05/06/17 --s/p XRT simulation on 04/25 --CT C.A.P shows no distal mets. 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 He did not follow up with gastroenterology. EGD, 04/17/17. showed the severe esophagitis, possible mass in the larynx was identified. -- lesion appeared to be on the left side of the vallecula primarily originating in the vallecula and also the left hypopharyngeal wall. did not involve the endolarynx which was clear. 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 --course was complicated after the surgery that critical medicine was consulted for acute bleeding of the larynx mass. ----Dr. Grullon performed an awake trache in the OR. PEG was placed the following day. --Staging evaluation included chest x-ray that showed improved diffuse interstitial prominence. There is minimal linear opacities in the right upper lung consistent with scarring but no overt mass. --P16 negative (2) DVT prophylaxi Plan: --on heparin 5000U SQ q 12 Assessment 72y/o male with newly diagnosed locally advanced head and neck cancer. History of CVA with right-sided weakness. Aspiration. Anxiety and depression. Coronary artery disease. Hyperlipidemia. Diabetes. Headache. Hiatal hernia. Hypertension. Migraines. seizure. Sleep apnea. Tracheostomy. Examination under anesthesia. Vallecula biopsy. Plan 1. agree with wound care consult for forming wound d/t trach cuff 2. monitor magnesium, CMP post-cisplatin 3. continue radiation Attending Statement The exam, history, and the medical decision-making described in the above note were completed with the assistance of the mid-level provider. I reviewed and agree with the findings presented. I attest that I had a [id number] encounter with the patient on the same day, and personally performed and documented my assessment and findings in the medical record. Pt seen and examined, at bedside. Seems to have perked up today. Discussed with his nurse, padding for tracheostomy, erythema noted No bleeding noted Discussed his tx and anticipatory guidance on toxicity to expect. Asha Gamez May 07, 2017 15:53 Lauren Richter MD May 07, 2017 17:40
--- NOTE | 2017-05-07 16:46 | PD.WCN.NOT ---
Wound Consult Description: Received consult from Doctor Sims for wound management of trach Revealuate trach wound, needs barrier between trach and skin erosion. Patient seen previously on 04/28 for trach wound Communicated with: JIMMY De Paz [facility], CIC/oncology, and call placed to Doctor Sims Recommendation: Please cleanse wound under trach with normal saline and gently pat dry. Apply Optifoam basic and secure with paper tape if needed.Please use skin prep before applying tape. Change dressing every other day or PRN if saturated or dislodged.Please also use foam to prevent breakdown above trach. Additional Information: Patient seen on CIC/oncology for evaluation of wound management of trach. 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 Patient assessed today with Zandra MARQUEZwind turbine installer at bedside for assistance.Removed disposable wash cloth in place under trach to reveal wound that has improved from previous assessment. Wound bed presents with ~80% yellow thin exudate and ~ 20% pink tissue.Periwound is is noted with blanching erythema, but is without induration. Wound drainage is minimal, thin and yellow without foul odor. Wound measures 0.6 cm x 2.3cm x ~0.2cm. Wound is still full thickness, but is measuring smaller. Cleansed wound with normal saline and pat dry before applying Optifoam basic non adhesive over wound bed secured in place by trach and patient's anatomy. Optifoam basic also applied just above the trach to prevent skin breakdown. Palma Davalos [facility] May 07, 2017 16:46
[2017-05-08] VITALS (9 sets, daily range): BP systolic 113–146; BP diastolic 55–72; PULSE 70–105; RESP 18–19; TEMP 97.7–100.4; O2SAT 92–100
[2017-05-08] MEDS: levETIRAcetam INJ 500 MG in SODIUM CHLORIDE 0.9% INJ 100 ML IV SCH ×4 (03:27→21:20)
[2017-05-08] MEDS: FOSPHENYTOIN INJ 200 MGPE in SODIUM CHLORIDE 0.9% INJ 50 ML IV SCH ×3 (06:03→21:44)
[2017-05-08 06:56] LABS: AUTOMATED NEUTROPHIL # 6.6 TH/MM3 (1.8-7.7); BASOPHIL # 0.1 TH/MM3 (0-0.2); BASOPHIL % 0.6 % (0.0-2.0); EOSINOPHIL # 0.3 TH/MM3 (0-0.4); EOSINOPHIL % 3.3 % (0.0-4.0); HEMATOCRIT 28.9 % (39.0-51.0); HEMO FLAGS DIFF FINAL; LYMPHOCYTE # 1.2 TH/MM3 (1.0-4.8); MEAN CELL VOLUME 91.4 FL (80.0-100.0); MEAN CORPUSCULAR HEMOGLOBIN 31.8 PG (27.0-34.0); MEAN CORPUSCULAR HGB CONC 34.8 % (32.0-36.0); MONO % 9.8 % (0.0-8.0); NEUT % 73.3 % (16.0-70.0); PLATELET COUNT 408 TH/MM3 (150-450); RED BLOOD COUNT 3.16 MIL/MM3 (4.50-5.90); RED CELL DISTRIBUTION WIDTH 14.1 % (11.6-17.2)
[2017-05-08 07:20] LABS: BICARBONATE 27.6 MEQ/L (21.0-32.0); POTASSIUM 4.3 MEQ/L (3.5-5.1)
[2017-05-08] MEDS: SODIUM CHLOR 0.9% 1000 ML INJ 1,000 ML IV SCH (08:37)
[2017-05-08] MEDS: SODIUM CHLORIDE 0.9% FLUSH 10 ML FLUSH IV FLUSH SCH ×2 (09:00→21:21)
[2017-05-08] MEDS: DOCUSATE SODIUM 50 MG/SENNA 8.6 MG TAB PO SCH ×2 (09:00→21:00)
[2017-05-08] MEDS: POTASSIUM CHLORIDE 25 MEQ EFFERVESCENT TAB G-TUBE SCH (09:31)
[2017-05-08] MEDS: PARoxetine HCL 20 MG TAB PO SCH (09:31)
[2017-05-08] MEDS: LACOSAMIDE INJ 100 MG in SODIUM CHLORIDE 0.9% INJ 100 ML IV SCH (09:32)
[2017-05-08] MEDS: PANTOPRAZOLE SODIUM 40 MG VIAL IV PUSH SCH ×2 (09:32→21:21)
[2017-05-08] MEDS: HEPARIN SODIUM - SQ 10,000 UNITS/ML VIAL SQ SCH ×2 (09:33→21:21)
--- NOTE | 2017-05-08 10:47 | PD.ONC.PN ---
Subjective Subjective Remarks Tmax 99.7 overnight. Patient seen by wound care yesterday and new dressing placed. No overnight events. Objective Data Date Time Temp Pulse Resp B/P (MAP) Pulse Ox O2 Delivery O2 Flow Rate FiO2 05/08/17 10:42 70 05/08/17 09:38 98 Trach Collar 6.00 50 T-Piece 05/08/17 09:30 98.6 86 18 113/58 (76) 05/08/17 04:00 99.7 91 19 146/67 (93) 97 05/08/17 00:00 99.2 82 18 128/65 (86) 92 05/07/17 20:53 98 T-Piece 6.00 50 05/07/17 20:00 97.0 76 20 96/51 (66) 98 05/07/17 20:00 78 05/07/17 19:31 98 T-piece 50 05/07/17 18:40 20 05/07/17 15:49 98.6 76 20 141/59 (86) 05/07/17 12:57 95 T-piece 50 05/08/17 05/08/17 05/08/17 06:59 14:59 22:59 Intake Total 970 ml Output Total 350 ml Balance 620 ml Result Diagram: 05/08/17 0535 05/08/17 0535 Laboratory Results Laboratory Tests Test 05/08/17 05:35 White Blood Count 9.0 TH/MM3 Red Blood Count 3.16 MIL/MM3 Hemoglobin 10.0 GM/DL Hematocrit 28.9 % Mean Corpuscular Volume 91.4 FL Mean Corpuscular Hemoglobin 31.8 PG Mean Corpuscular Hemoglobin Concent 34.8 % Red Cell Distribution Width 14.1 % Platelet Count 408 TH/MM3 Mean Platelet Volume 6.8 FL Neutrophils (%) (Auto) 73.3 % Lymphocytes (%) (Auto) 13.0 % Monocytes (%) (Auto) 9.8 % Eosinophils (%) (Auto) 3.3 % Basophils (%) (Auto) 0.6 % Neutrophils # (Auto) 6.6 TH/MM3 Lymphocytes # (Auto) 1.2 TH/MM3 Monocytes # (Auto) 0.9 TH/MM3 Eosinophils # (Auto) 0.3 TH/MM3 Basophils # (Auto) 0.1 TH/MM3 CBC Comment DIFF FINAL Differential Comment Blood Urea Nitrogen 10 MG/DL Creatinine 0.21 MG/DL Random Glucose 100 MG/DL Calcium Level 7.9 MG/DL Sodium Level 133 MEQ/L Potassium Level 4.3 MEQ/L Chloride Level 98 MEQ/L Carbon Dioxide Level 27.6 MEQ/L Anion Gap 7 MEQ/L Estimat Glomerular Filtration Rate 447 ML/MIN Culture Results Microbiology Date/Time Source Procedure Growth Status 05/07/17 20:50 Wound Neck Gram Stain - Final Resulted 05/07/17 20:50 Wound Neck Wound Culture Pending Resulted Administered Medications Medications (Trade) Dose Ordered Sig/Delvis Route PRN Reason Start Time Stop Time Status Last Admin Dose Admin Lorazepam (Ativan) 0.5 mg Q8H PRN PO SEVERE ANXIETY OR AGITATION 04/16/17 21:45 05/06/17 21:08 Clonidine (Catapres) 0.1 mg Q6H PRN PO SBP>160, DBP>90 04/16/17 21:45 04/18/17 05:17 Acetaminophen/ Hydrocodone Bitart ([place] 5-325 Mg) 1 tab Q4H PRN PO PAIN GREATER THAN 5 04/16/17 21:45 Future Hold 04/16/17 22:37 Sodium Chloride (NS Flush) 2 ml BID IV FLUSH 04/17/17 09:00 05/07/17 09:19 Ondansetron HCl (Zofran Inj) 4 mg Q6H PRN IVP NAUSEA OR VOMITING 04/16/17 21:45 05/07/17 21:13 Zolpidem Tartrate (Ambien) 5 mg HS PRN PO INSOMNIA 04/16/17 21:45 05/07/17 00:13 Senna/Docusate Sodium (Elidia-Colace) 1 tab BID PO 04/17/17 09:00 05/07/17 09:21 Albuterol/ Ipratropium (Duoneb Neb) 1 ampule Q6HR NEB PRN NEB SHORTNESS OF BREATH 04/16/17 23:00 05/05/17 10:40 Pantoprazole Sodium (Protonix Inj) 40 mg Q12HR IV PUSH 04/17/17 21:00 05/08/17 09:32 Lacosamide 100 mg/ Sodium Chloride 110 ml @ 110 mls/hr EVERY OTHER DAY IV 04/20/17 14:00 05/08/17 09:32 Acetaminophen (Tylenol) 500 mg Q4H PRN PO TEMP > 100 04/22/17 23:45 04/23/17 04:41 Paroxetine HCl (Paxil) 40 mg DAILY PO 04/23/17 09:00 05/08/17 09:31 Levetriacetam 500 mg/Sodium Chloride 105 ml @ 420 mls/hr Q6H IV 04/25/17 09:00 05/08/17 10:05 Heparin Sodium (Porcine) (Heparin Inj) 5,000 units Q12HR SQ 04/25/17 11:30 05/08/17 09:33 Potassium Bicarb/ Potassium Chloride (K-Lyte Cl Eff) 25 meq DAILY G-TUBE 04/25/17 11:30 05/08/17 09:31 Sodium Chloride 1,000 ml @ 42 mls/hr [id number] IV 04/25/17 11:00 05/07/17 15:20 Guaifenesin (Robitussin Liq) 200 mg Q4H PRN PO congestion 04/26/17 23:30 04/27/17 05:35 Fosphenytoin Sodium 200 mgpe/ Sodium Chloride 54 ml @ 208 mls/hr Q8HR IV 04/27/17 14:00 05/08/17 06:03 Oxycodone HCl (Roxicodone Intensol Liq) 10 mg Q4H PRN PO PAIN SCALE 5 TO 10 04/30/17 08:15 05/07/17 21:51 Hyoscyamine Sulfate (Levsin) 0.25 mg Q4H PRN PO SECRETIONS 05/04/17 20:45 05/07/17 15:31 Potassium Chloride 10 meq/ Magnesium Sulfate 4 meq/Sodium Chloride 506 ml @ 500 mls/hr Q7D IV 05/06/17 12:00 05/13/17 13:01 05/06/17 15:31 Potassium Chloride 10 meq/ Magnesium Sulfate 4 meq/Sodium Chloride 506 ml @ 500 mls/hr Q7D IV 05/06/17 15:00 05/13/17 16:01 05/07/17 00:20 Granisetron HCl (Kytril Inj) 1 mg Q7D IV PUSH 05/06/17 13:00 05/13/17 13:01 05/06/17 19:33 Dexamethasone Sodium Phosphate 20 mg/Sodium Chloride 55 ml @ 220 mls/hr Q7D IV 05/06/17 13:00 05/13/17 13:14 05/06/17 19:31 Mannitol (Mannitol Inj) 25 gm Q7D IV PUSH 05/06/17 13:30 05/13/17 13:31 05/06/17 21:09 Cisplatin 52 mg/ Sodium Chloride 302 ml @ 302 mls/hr Q7D IV 05/06/17 14:00 05/13/17 14:59 05/06/17 22:54 Objective Remarks GENERAL: chronically ill male, lying in bed resting. SKIN: Warm and dry. redness/irritation and wound forming inferior to trach HEAD: Normocephalic. EYES: No injection or drainage. NECK: Supple, trachea midline. on 6L O2 via trach. LYMPHATIC: No adenopathy. CARDIOVASCULAR: +S1/S2 RESPIRATORY: anterior bonner with scattered rhonchi. GASTROINTESTINAL: Abdomen soft, non-tender, nondistended. EXTREMITIES: No cyanosis NEUROLOGICAL: right sided paresis. awake. nods or shakes head in answer to questions. follows commands. Assessment/Plan Problem List: (1) Head and neck cancer ICD Codes: C76.0 - Malignant neoplasm of head, face and neck Plan: --XRT started on 05/01--radiation is given Friday through Friday and 23 treatments total are planned. --radiation sensitizing dose of Cisplatinum given on 05/06/17 --s/p XRT simulation on 04/25 --CT C.A.P shows no distal mets. 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 He did not follow up with gastroenterology. EGD, 04/17/17. showed the severe esophagitis, possible mass in the larynx was identified. -- lesion appeared to be on the left side of the vallecula primarily originating in the vallecula and also the left hypopharyngeal wall. did not involve the endolarynx which was clear. 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 --course was complicated after the surgery that critical medicine was consulted for acute bleeding of the larynx mass. ----Dr. Grullon performed an awake trache in the OR. PEG was placed the following day. --Staging evaluation included chest x-ray that showed improved diffuse interstitial prominence. There is minimal linear opacities in the right upper lung consistent with scarring but no overt mass. --P16 negative (2) DVT prophylaxi Plan: --on heparin 5000U SQ q 12 Assessment 72y/o male with newly diagnosed locally advanced head and neck cancer. History of CVA with right-sided weakness. Aspiration. Anxiety and depression. Coronary artery disease. Hyperlipidemia. Diabetes. Headache. Hiatal hernia. Hypertension. Migraines. seizure. Sleep apnea. Tracheostomy. Examination under anesthesia. Vallecula biopsy. Plan 1. continue radiation 2. monitor CBC 3. plan for repeat dose Cisplatin on 05/13 if still inpatient. Asha Gamez May 08, 2017 10:47
[2017-05-08] MEDS: oxyCODONE HCL ORAL CONC 5 MG/0.25 ML SYRINGE PO PRN ×2 (12:13→21:41)
[2017-05-08] MEDS: HYOSCYAMINE 0.125 MG TAB PO PRN ×2 (12:13→21:40)
[2017-05-08] MEDS: LORazepam 0.5 MG TAB PO PRN ×2 (12:19→21:22)
--- NOTE | 2017-05-08 16:09 | HHI.FPPN ---
Objective Vitals Vital Signs Date Time Temp Pulse Resp B/P (MAP) Pulse Ox O2 Delivery O2 Flow Rate FiO2 05/08/17 12:03 97.7 78 18 134/72 (92) 100 05/08/17 10:42 70 05/08/17 09:38 98 Trach Collar 6.00 50 T-Piece 05/08/17 09:30 98.6 86 18 113/58 (76) 05/08/17 04:00 99.7 91 19 146/67 (93) 97 05/08/17 00:00 99.2 82 18 128/65 (86) 92 05/07/17 20:53 98 T-Piece 6.00 50 05/07/17 20:00 97.0 76 20 96/51 (66) 98 05/07/17 20:00 78 05/07/17 19:31 98 T-piece 50 05/07/17 18:40 20 I/O 05/07/17 05/07/17 05/07/17 05/08/17 05/08/17 05/08/17 07:00 15:00 23:00 07:00 15:00 23:00 Intake Total 970 ml Output Total 1850 ml 350 ml Balance -1850 ml 620 ml Tube Feeding 720 ml Other 250 ml Output Urine Total 1850 ml 350 ml # Voids 1 Result Diagram: 05/08/1735 05/08/17534 Objective Remarks GENERAL: SKIN: Warm and dry. HEAD: Atraumatic. Normocephalic. EYES: Pupils equal and round. No scleral icterus. No injection or drainage. ENT: No nasal bleeding or discharge. Mucous membranes pink and moist. TRACH C/ DI, NECK: Trachea midline. No JVD. CARDIOVASCULAR: Regular rate and rhythm. RESPIRATORY: B rales and ronchi, congested cough GASTROINTESTINAL: Abdomen soft, non-tender, nondistended. Hepatic and splenic margins not palpable. MUSCULOSKELETAL: Extremities without clubbing, cyanosis, or edema. No obvious deformities. NEUROLOGICAL: Awake and alert. No obvious cranial nerve deficits. R DIOGENES PSYCHIATRIC: Appropriate mood and affect; insight and judgment normal. A/P Assessment and Plan ASSESSMENT: 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 MRSA TRACHEITIS Acute bleeding s/p phayrnx bx w airway compromise Respiratory failure s/p Trach SEPSIS, RESOLVED. Aspiration pneumonia, S/P GT BY DR GIBSON 04/22 Dysphagia Esophagitis on EGD 04/17/17 Seizures Dilantin toxicity Hyponatremia Hyperkalemia and now with hypokalemia. Cerebrovascular accident with right hemiparesis. Anemia. Depression Anxiety. Chronic pain syndrome. Lumbar degenerative disc disease. Neuropathy. PLAN- IV VANCO RECONSULT WOUND CARE MAYBE DC SOON TO SNF CONTINUE RT AND CT. TF'S FOLLOWUP BLOOD CULTURES X TWO IV cerebryx, vimpat and keppra A.m. CBC and BMP. PRN ATIVAN. Telemetry. Duoneb q.i.d. DVT prophylaxis - SCDs/TEDs. Heparin 5000 units subcutaneously q 12 GI prophylaxis - Protonix 40 mg IV q.12 h. CONSULTS TO ID, PULM, ENT, ONCO, GI, WOUND, Ari Sims MD May 08, 2017 16:09
[2017-05-08] MEDS ORDERED: Vancomycin Consult Pharmacy 1 EA OTHER SCH (16:15)
[2017-05-08] MEDS: VANCOMYCIN 1,000 MG/NS 250 ML IV SCH ×2 (17:35)
[2017-05-08] MEDS: RESP: ALBUTEROL 2.5 MG/IPRATROPIUM 0.5 MG NEB (PRN) NEB ×2 (19:39→23:29)
[2017-05-09] VITALS (9 sets, daily range): BP systolic 108–130; BP diastolic 62–84; PULSE 80–92; RESP 16–20; TEMP 97.8–100.7; O2SAT 95–100
[2017-05-09] MEDS: oxyCODONE HCL ORAL CONC 5 MG/0.25 ML SYRINGE PO PRN ×3 (02:29→23:48)
[2017-05-09] MEDS: HYOSCYAMINE 0.125 MG TAB PO PRN ×3 (02:29→22:21)
[2017-05-09] MEDS: levETIRAcetam INJ 500 MG in SODIUM CHLORIDE 0.9% INJ 100 ML IV SCH ×4 (03:25→22:18)
[2017-05-09] MEDS: FOSPHENYTOIN INJ 200 MGPE in SODIUM CHLORIDE 0.9% INJ 50 ML IV SCH ×3 (05:12→23:48)
[2017-05-09] MEDS: VANCOMYCIN 1,000 MG/NS 250 ML IV SCH ×4 (05:29→16:46)
[2017-05-09 07:19] LABS: AUTOMATED NEUTROPHIL # 5.9 TH/MM3 (1.8-7.7); BASOPHIL % 0.5 % (0.0-2.0); EOSINOPHIL # 0.2 TH/MM3 (0-0.4); EOSINOPHIL % 2.6 % (0.0-4.0); HEMATOCRIT 27.8 % (39.0-51.0); HEMO FLAGS DIFF FINAL; LYMPH % 12.6 % (9.0-44.0); MEAN CELL VOLUME 91.4 FL (80.0-100.0); MEAN CORPUSCULAR HEMOGLOBIN 31.4 PG (27.0-34.0); MEAN CORPUSCULAR HGB CONC 34.3 % (32.0-36.0); MONO % 9.9 % (0.0-8.0); NEUT % 74.4 % (16.0-70.0); PLATELET COUNT 383 TH/MM3 (150-450); RED BLOOD COUNT 3.04 MIL/MM3 (4.50-5.90); RED CELL DISTRIBUTION WIDTH 14.1 % (11.6-17.2)
[2017-05-09] MEDS: HEPARIN SODIUM - SQ 10,000 UNITS/ML VIAL SQ SCH ×2 (08:10→22:18)
[2017-05-09] MEDS: POTASSIUM CHLORIDE 25 MEQ EFFERVESCENT TAB G-TUBE SCH (08:10)
[2017-05-09] MEDS: PARoxetine HCL 20 MG TAB PO SCH (08:10)
[2017-05-09] MEDS: PANTOPRAZOLE SODIUM 40 MG VIAL IV PUSH SCH ×2 (08:10→22:18)
[2017-05-09] MEDS: SODIUM CHLORIDE 0.9% FLUSH 10 ML FLUSH IV FLUSH SCH ×2 (08:10→22:18)
[2017-05-09] MEDS: DOCUSATE SODIUM 50 MG/SENNA 8.6 MG TAB PO SCH ×2 (08:10→22:18)
[2017-05-09] MEDS: SODIUM CHLOR 0.9% 1000 ML INJ 1,000 ML IV SCH (08:16)
--- NOTE | 2017-05-09 10:26 | HHI.FPPN ---
Subjective Remarks C/O TRACHEAL GTT D/W RN DEPRESSED PER Objective Vitals Vital Signs Date Time Temp Pulse Resp B/P (MAP) Pulse Ox O2 Delivery O2 Flow Rate FiO2 05/09/17 08:18 98.7 84 18 120/68 (85) 98 05/09/17 07:40 97 T-piece 40 05/09/17 03:27 99.5 81 18 108/62 (77) 96 05/09/17 00:44 98.2 92 18 108/63 (78) 100 05/08/17 20:00 100.4 82 18 117/55 (75) 99 05/08/17 20:00 82 05/08/17 19:35 96 T-piece 50 05/08/17 19:00 99 Trach Collar 6.00 50 T-Piece 05/08/17 17:41 98 T-piece 6.00 40 05/08/17 17:04 98.6 105 18 134/70 (91) 98 05/08/17 12:03 97.7 78 18 134/72 (92) 100 05/08/17 10:42 70 I/O 05/08/17 05/08/17 05/08/17 05/09/17 05/09/17 05/09/17 07:00 15:00 23:00 07:00 15:00 23:00 Intake Total 970 ml 777 ml 2249 ml Output Total 350 ml 250 ml 3 ml Balance 620 ml 527 ml 2246 ml IV Total 777 ml 391 ml Tube Feeding 720 ml 1658 ml Other 250 ml 200 ml Output Urine Total 350 ml 250 ml 3 ml # Voids 4 Result Diagram: 05/09/17 0653 05/08/17 0535 Objective Remarks GENERAL: SKIN: Warm and dry. HEAD: Atraumatic. Normocephalic. EYES: Pupils equal and round. No scleral icterus. No injection or drainage. ENT: No nasal bleeding or discharge. Mucous membranes pink and moist. TRACH C/ DI, NECK: Trachea midline. No JVD. CARDIOVASCULAR: Regular rate and rhythm. RESPIRATORY: B rales and ronchi, congested cough GASTROINTESTINAL: Abdomen soft, non-tender, nondistended. Hepatic and splenic margins not palpable. MUSCULOSKELETAL: Extremities without clubbing, cyanosis, or edema. No obvious deformities. NEUROLOGICAL: Awake and alert. No obvious cranial nerve deficits. R DIOGENES PSYCHIATRIC: Appropriate mood and affect; insight and judgment normal. Medications and IVs Current Medications Medications (Trade) Dose Ordered Sig/Delvis Route Start Time Stop Time Status Last Admin (Ativan) 0.5 mg Q8H PRN PO 04/16/17 21:45 05/08/17 21:22 (Catapres) 0.1 mg Q6H PRN PO 04/16/17 21:45 04/18/17 05:17 ([place] 5-325 Mg) 1 tab Q4H PRN PO 04/16/17 21:45 Future Hold 04/16/17 22:37 (NS Flush) 2 ml UNSCH PRN IV FLUSH 04/16/17 21:45 (NS Flush) 2 ml BID IV FLUSH 04/17/17 09:00 05/08/17 21:21 (Tylenol) 650 mg Q4H PRN PO 04/16/17 21:45 Future Hold (Zofran Inj) 4 mg Q6H PRN IVP 04/16/17 21:45 05/07/17 21:13 (Ambien) 5 mg HS PRN PO 04/16/17 21:45 05/07/17 00:13 (Narcan Inj) 0.4 mg UNSCH PRN IV PUSH 04/16/17 21:45 (Elidia-Colace) 1 tab BID PO 04/17/17 09:00 05/09/17 08:10 (Milk Of Magnesia Liq) 30 ml Q12H PRN PO 04/16/17 21:45 (Senokot) 17.2 mg Q12H PRN PO 04/16/17 21:45 (Dulcolax Supp) 10 mg DAILY PRN RECTAL 04/16/17 21:45 (Lactulose Liq) 30 ml DAILY PRN PO 04/16/17 21:45 (Duoneb Neb) 1 ampule Q6HR NEB PRN NEB 04/16/17 23:00 05/08/17 23:29 (Protonix Inj) 40 mg Q12HR IV PUSH 04/17/17 21:00 05/09/17 08:10 Lacosamide 100 mg/ Sodium Chloride 110 ml @ 110 mls/hr EVERY OTHER DAY IV 04/20/17 14:00 05/08/17 09:32 (Tylenol) 500 mg Q4H PRN PO 04/22/17 23:45 04/23/17 04:41 (Paxil) 40 mg DAILY PO 04/23/17 09:00 05/09/17 08:10 Levetriacetam 500 mg/Sodium Chloride 105 ml @ 420 mls/hr Q6H IV 04/25/17 09:00 05/09/17 08:16 (Heparin Inj) 5,000 units Q12HR SQ 04/25/17 11:30 05/09/17 08:10 (K-Lyte Cl Eff) 25 meq DAILY G-TUBE 04/25/17 11:30 05/09/17 08:10 Sodium Chloride 1,000 ml @ 42 mls/hr [id number] IV 04/25/17 11:00 05/07/17 15:20 (Robitussin Liq) 200 mg Q4H PRN PO 04/26/17 23:30 04/27/17 05:35 Fosphenytoin Sodium 200 mgpe/ Sodium Chloride 54 ml @ 208 mls/hr Q8HR IV 04/27/17 14:00 05/09/17 05:12 (Roxicodone Intensol Liq) 10 mg Q4H PRN PO 04/30/17 08:15 05/09/17 02:29 (Levsin) 0.25 mg Q4H PRN PO 05/04/17 20:45 05/09/17 02:29 Potassium Chloride 10 meq/ Magnesium Sulfate 4 meq/Sodium Chloride 506 ml @ 500 mls/hr Q7D IV 05/06/17 12:00 05/13/17 13:01 05/06/17 15:31 Potassium Chloride 10 meq/ Magnesium Sulfate 4 meq/Sodium Chloride 506 ml @ 500 mls/hr Q7D IV 05/06/17 15:00 05/13/17 16:01 05/07/17 00:20 (Kytril Inj) 1 mg Q7D IV PUSH 05/06/17 13:00 05/13/17 13:01 05/06/17 19:33 Dexamethasone Sodium Phosphate 20 mg/Sodium Chloride 55 ml @ 220 mls/hr Q7D IV 05/06/17 13:00 05/13/17 13:14 05/06/17 19:31 (Mannitol Inj) 25 gm Q7D IV PUSH 05/06/17 13:30 05/13/17 13:31 05/06/17 21:09 Cisplatin 52 mg/ Sodium Chloride 302 ml @ 302 mls/hr Q7D IV 05/06/17 14:00 05/13/17 14:59 05/06/17 22:54 Pharmacy Profile Note 0 ml @ 0 mls/hr UNSCH OTHER 05/08/17 16:15 Vancomycin HCl 1000 mg/Sodium Chloride 250 ml @ 250 mls/hr Q12H IV 05/08/17 18:00 05/09/17 05:29 Miscellaneous Information SPECIFIC LAB TO BE DRAWN:VANCOMYCIN TROUGH DATE TO... ONCE ONCE .XX 05/10/17 05:45 05/10/17 05:46 A/P Assessment and Plan ASSESSMENT: 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 MRSA TRACHEITIS Acute bleeding s/p phayrnx bx w airway compromise Respiratory failure s/p Trach SEPSIS, RESOLVED. Aspiration pneumonia, S/P GT BY DR GIBSON 04/22 Dysphagia Esophagitis on EGD 04/17/17 Seizures Dilantin toxicity Hyponatremia Hyperkalemia and now with hypokalemia. Cerebrovascular accident with right hemiparesis. Anemia. Depression Anxiety. Chronic pain syndrome. Lumbar degenerative disc disease. Neuropathy. PLAN- IV VANCO RECONSULT WOUND CARE CHEMO FRIDAY THEN MAYBE DC SOON TO SNF CONTINUE RT AND CT. TF'S FOLLOWUP BLOOD CULTURES X TWO IV cerebryx, vimpat and keppra A.m. CBC and BMP. PRN ATIVAN. Telemetry. Duoneb q.i.d. DVT prophylaxis - SCDs/TEDs. Heparin 5000 units subcutaneously q 12 GI prophylaxis - Protonix 40 mg IV q.12 h. CONSULTS TO ID, PULM, ENT, ONCO, GI, WOUND, Ari Sims MD May 09, 2017 10:26
[2017-05-09] MEDS: LORazepam 0.5 MG TAB PO PRN (14:20)
[2017-05-09] MEDS: NEOMYCIN/POLYMYXIN/BACITRACIN OINT 15 GM TUBE TOPICAL SCH (17:26)
[2017-05-09] MEDS: RESP: ALBUTEROL 2.5 MG/IPRATROPIUM 0.5 MG NEB (PRN) NEB (19:27)
[2017-05-10] VITALS (9 sets, daily range): BP systolic 115–147; BP diastolic 65–84; PULSE 74–89; RESP 19–22; TEMP 98.7–100.3; O2SAT 95–99
[2017-05-10] MEDS: levETIRAcetam INJ 500 MG in SODIUM CHLORIDE 0.9% INJ 100 ML IV SCH ×4 (03:14→20:16)
[2017-05-10] MEDS: LORazepam 0.5 MG TAB PO PRN ×3 (03:27→23:30)
[2017-05-10] MEDS: HYOSCYAMINE 0.125 MG TAB PO PRN ×4 (03:27→23:29)
[2017-05-10] MEDS: RESP: ALBUTEROL 2.5 MG/IPRATROPIUM 0.5 MG NEB (PRN) NEB (04:45)
[2017-05-10] MEDS: oxyCODONE HCL ORAL CONC 5 MG/0.25 ML SYRINGE PO PRN ×3 (05:10→23:30)
[2017-05-10] MEDS: FOSPHENYTOIN INJ 200 MGPE in SODIUM CHLORIDE 0.9% INJ 50 ML IV SCH ×2 (05:10→15:09)
[2017-05-10] MEDS ORDERED: PHARMACY ORDERED LAB ONE (05:45)
[2017-05-10] MEDS: VANCOMYCIN 1,000 MG/NS 250 ML IV SCH ×6 (07:01→22:00)
[2017-05-10 07:15] LABS: BASOPHIL % 0.4 % (0.0-2.0); EOSINOPHIL # 0.3 TH/MM3 (0-0.4); EOSINOPHIL % 3.9 % (0.0-4.0); HEMATOCRIT 25.6 % (39.0-51.0); HEMO FLAGS DIFF FINAL; LYMPH % 12.8 % (9.0-44.0); LYMPHOCYTE # 0.9 TH/MM3 (1.0-4.8); MEAN CELL VOLUME 90.5 FL (80.0-100.0); MEAN CORPUSCULAR HEMOGLOBIN 31.9 PG (27.0-34.0); MEAN CORPUSCULAR HGB CONC 35.3 % (32.0-36.0); MONO % 11.8 % (0.0-8.0); NEUT % 71.1 % (16.0-70.0); PLATELET COUNT 299 TH/MM3 (150-450); RED BLOOD COUNT 2.82 MIL/MM3 (4.50-5.90); RED CELL DISTRIBUTION WIDTH 13.8 % (11.6-17.2); WHITE BLOOD COUNT 7.1 TH/MM3 (4.0-11.0)
[2017-05-10 07:57] LABS: BICARBONATE 25.6 MEQ/L (21.0-32.0); POTASSIUM 3.9 MEQ/L (3.5-5.1)
[2017-05-10] MEDS: SODIUM CHLOR 0.9% 1000 ML INJ 1,000 ML IV SCH (08:15)
[2017-05-10 08:38] LABS: CALCIUM-PROTEIN CORRECTED 7.9 MG/DL (8.5-10.1)
[2017-05-10] MEDS: PANTOPRAZOLE SODIUM 40 MG VIAL IV PUSH SCH ×2 (08:59→20:16)
[2017-05-10] MEDS: DOCUSATE SODIUM 50 MG/SENNA 8.6 MG TAB PO SCH ×2 (08:59→20:17)
[2017-05-10] MEDS: HEPARIN SODIUM - SQ 10,000 UNITS/ML VIAL SQ SCH ×2 (08:59→20:16)
[2017-05-10] MEDS: PARoxetine HCL 20 MG TAB PO SCH (09:00)
[2017-05-10] MEDS: POTASSIUM CHLORIDE 25 MEQ EFFERVESCENT TAB G-TUBE SCH (09:00)
[2017-05-10] MEDS: LACOSAMIDE INJ 100 MG in SODIUM CHLORIDE 0.9% INJ 100 ML IV SCH (09:48)
[2017-05-10] MEDS: SODIUM CHLORIDE 0.9% FLUSH 10 ML FLUSH IV FLUSH SCH ×2 (09:48→20:17)
[2017-05-10] MEDS ORDERED: DEXTROSE 5%-NACL 0.3% INJ 1,000 ML IV SCH (13:00)
--- NOTE | 2017-05-10 13:02 | HHI.PR ---
Subjective Remarks Follow-up laryngeal cancer and now hyponatremia 05/10/17-patient seen and examined Tmax 100.2 but currently afebrile. Sodium 123 but patient asymptomatic.. Patient denies any chest pain or significant shortness of breath Objective Vitals Vital Signs Date Time Temp Pulse Resp B/P (MAP) Pulse Ox O2 Delivery O2 Flow Rate FiO2 05/10/17 09:43 97 T-piece 40 05/10/17 08:00 98.7 89 22 115/68 (84) 96 05/10/17 04:00 99.0 88 19 142/82 (102) 98 05/10/17 00:00 100.0 86 20 117/65 (82) 95 05/09/17 22:00 95 T-Piece 6.00 40 05/09/17 20:00 100.7 80 20 129/70 (89) 95 05/09/17 20:00 83 05/09/17 19:31 97 T-piece 40 05/09/17 18:24 Trach Collar 6.00 40 T-Piece 05/09/17 16:50 98.3 82 18 130/78 (95) 98 I/O 05/09/17 05/09/17 05/09/17 05/10/17 05/10/17 05/10/17 07:00 15:00 23:00 07:00 15:00 23:00 Intake Total 2249 ml 692 ml 920 ml 350 ml Output Total 3 ml 250 ml Balance 2246 ml 692 ml 670 ml 350 ml IV Total 391 ml 692 ml 350 ml Tube Feeding 1658 ml 720 ml Other 200 ml 200 ml Output Urine Total 3 ml 250 ml # Voids 4 Result Diagram: 05/10/1761105/10/17611 Imaging Last Impressions Neck CT 04/24/17599 Signed Impressions: Service Date/Time: April 11:42 - CONCLUSION: Abnormal heterogeneity and thickening involving the entirety of the epiglottis and aryepiglottic folds in fairly symmetric fashion. Bilateral cervical adenopathy. Rian Moreno MD Chest CT 04/24/17599 Signed Impressions: Service Date/Time: April 11:48 - CONCLUSION: Mild bilateral parenchymal lung atelectasis and small effusions. No definite metastatic disease in the chest. Rian Moreno MD Abdomen/Pelvis CT 04/24/17 0600 Signed Impressions: Service Date/Time: April 11:51 - CONCLUSION: 1. Bilateral lower lung atelectasis/consolidation and pleural effusions. 2. Gallstones 3. Opacity in the left inguinal canal, incompletely included in [id number] exam , suggesting either testicle or hydrocele. Jalil Gregorio MD Lower Extremity Ultrasound 04/23/17 0000 Signed Impressions: Service Date/Time: Sunday, April 23, 2017 21:57 - CONCLUSION: Small amount of peripheral nonocclusive thrombus seen in the right common femoral vein. This appearance usually seen with chronic thrombus. No DVT is seen in the left lower extremity. Rian Tang MD Chest X-Ray 04/23/17 0000 Signed Impressions: Service Date/Time: Sunday, April 23, 2017 13:35 - CONCLUSION: 1. One tracheostomy at the level of the clavicles. 2. Improved diffuse interstitial prominence likely reflecting improved positive fluid balance. 3. Minimal linear opacities in the right upper and midlung zones consistent with atelectasis/scarring. Stuart Ortiz MD Abdomen X-Ray 04/23/17 0000 Signed Impressions: Service Date/Time: Sunday, April 23, 2017 17:15 - CONCLUSION: Nonspecific bowel gas pattern. Oral contrast is seen within the colon. Rian Tang MD Upper GI Series 04/16/17 0000 Signed Impressions: Service Date/Time: Sunday, April 16, 2017 17:31 - CONCLUSION: 1. No evidence of esophageal stricture. 2. Poor esophageal motility. 3. No evidence of aspiration. 4. Small hiatal hernia. 5. Delayed KUB is pending. Neeraj Alarcon MD Objective Remarks GENERAL: NAD with trach in place SKIN: Warm and dry. HEAD: Normocephalic. EYES: No scleral icterus. No injection or drainage. NECK: Supple, trachea midline. No JVD or lymphadenopathy. CARDIOVASCULAR: Regular rate and rhythm without murmurs, gallops, or rubs. RESPIRATORY: Breath sounds equal bilaterally. No accessory muscle use. GASTROINTESTINAL: Abdomen soft, non-tender, nondistended. MUSCULOSKELETAL: No cyanosis, or edema. Right-sided weakness BACK: Nontender without obvious deformity. No CVA tenderness. Procedures PROCEDURE PERFORMED Upper endoscopy with biopsy INDICATION FOR PROCEDURE Dysphagia PROCEDURE: The procedure, risks and benefits were discussed with Mr. Garcia and informed consent was obtained. Anesthesia sedated him with Diprivan. He was placed in the left lateral decubitus position. EGD: The Pentax videoscope was introduced through the oropharynx and advanced to the second portion of the duodenum under direct visualization. Retroflexion was performed in the stomach biopsy from the distal esophagus was obtained. FINDINGS: Severe grade D esophagitis biopsy was done Stomach normal Duodenum normal There was possible small mass in the larynx that could be the reason for the dysphagia questionable malignancy biopsy was not performed because of the location ESTIMATED BLOOD LOSS: 10 cc SPECIMENS REMOVED: Distal esophagus COMPLICATIONS: None IMPRESSION: Possible mass in the larynx Severe esophagitis biopsy was done PLAN: ENT consult Follow up biopsy Clear liquid EVAN BAHENA M.D. DATE OF SURGERY April 20, 2017 PREOPERATIVE DIAGNOSIS Malignant lesion of hypopharynx. POSTOPERATIVE DIAGNOSIS Malignant lesion of hypopharynx. OPERATION PERFORMED Direct laryngoscopy with biopsy. INDICATIONS Documented in the inpatient consultation of April 18, 2017 ----- April 21 PEG tube placement by Dr. GIBSON Status post tracheostomy and laryngectomy A/P Problem List: (1) Hyponatremia ICD Code: E87.1 - Hypo-osmolality and hyponatremia Status: Acute Assessment and Plan 72-year-old man with 1. Hyponatremia Treat with NS @42ml/hr Monitor electrolyte 2. 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 Chemotherapy on 05/12/17. 3. Seizure disorder: Continue Cerebyx, Vimpat, Keppra IV 4. Dysphagia: G-tube placed 04/22/17. Continue tube feeds. 5. Esophagitis: Continue PPI. 6. History of CVA with right hemiparesis 7. DVT prophylaxis: Heparin, SCDs, JERRY hose. Oswaldo Baca MD May 10, 2017 13:02
[2017-05-10] MEDS ORDERED: DEXTROSE 5%-NACL 0.225% INJ 1,000 ML IV SCH (15:15)
[2017-05-10] MEDS: ONDANSETRON HCL 4 MG/2 ML VIAL IVP PRN (20:40)
[2017-05-11] VITALS (8 sets, daily range): BP systolic 104–148; BP diastolic 54–75; PULSE 76–90; RESP 18–20; TEMP 98–100.2; O2SAT 95–99
[2017-05-11] MEDS: FOSPHENYTOIN INJ 200 MGPE in SODIUM CHLORIDE 0.9% INJ 50 ML IV SCH ×4 (00:38→22:26)
[2017-05-11] MEDS: levETIRAcetam INJ 500 MG in SODIUM CHLORIDE 0.9% INJ 100 ML IV SCH ×4 (04:40→21:57)
[2017-05-11 08:28] LABS: POTASSIUM 3.9 MEQ/L (3.5-5.1)
[2017-05-11] MEDS: DOCUSATE SODIUM 50 MG/SENNA 8.6 MG TAB PO SCH ×2 (09:00→21:56)
[2017-05-11] MEDS: NEOMYCIN/POLYMYXIN/BACITRACIN OINT 15 GM TUBE TOPICAL SCH ×2 (09:00→09:18)
[2017-05-11] MEDS: POTASSIUM CHLORIDE 25 MEQ EFFERVESCENT TAB G-TUBE SCH (09:15)
[2017-05-11] MEDS: guaiFENesin SOLUTION 200 MG/10 ML CUP PO PRN ×3 (09:15→18:19)
[2017-05-11] MEDS: PANTOPRAZOLE SODIUM 40 MG VIAL IV PUSH SCH ×2 (09:15→21:52)
[2017-05-11] MEDS: HYOSCYAMINE 0.125 MG TAB PO PRN ×2 (09:16→18:19)
[2017-05-11] MEDS: HEPARIN SODIUM - SQ 10,000 UNITS/ML VIAL SQ SCH ×2 (09:16→21:54)
[2017-05-11] MEDS: PARoxetine HCL 20 MG TAB PO SCH (09:17)
[2017-05-11] MEDS: LORazepam 0.5 MG TAB PO PRN (09:17)
[2017-05-11] MEDS: oxyCODONE HCL ORAL CONC 5 MG/0.25 ML SYRINGE PO PRN ×3 (09:17→18:20)
[2017-05-11] MEDS: SODIUM CHLORIDE 0.9% FLUSH 10 ML FLUSH IV FLUSH SCH ×2 (09:19→21:53)
--- NOTE | 2017-05-11 11:33 | HHI.PR ---
Subjective Remarks Follow-up laryngeal cancer and now hyponatremia 05/10/17-patient seen and examined Tmax 100.2 but currently afebrile. Sodium 123 but patient asymptomatic.. Patient denies any chest pain or significant shortness of breath 05/11/17-patient seen and examined, sodium 120. Patient with a lot of secretion. Tmax 100 at midnight Objective Vitals Vital Signs Date Time Temp Pulse Resp B/P (MAP) Pulse Ox O2 Delivery O2 Flow Rate FiO2 05/11/17 00:40 16 05/11/17 00:25 81 05/11/17 00:00 100.0 79 18 148/75 (99) 98 05/10/17 20:30 T-Piece 6.00 40 05/10/17 20:30 83 05/10/17 20:13 99.4 80 20 147/84 (105) 99 05/10/17 19:45 95 T-piece 40 05/10/17 16:30 98.9 79 22 129/69 (89) 96 05/10/17 13:00 95 T-Piece 6.00 40 05/10/17 12:00 100.3 74 22 134/72 (92) 97 I/O 05/10/17 05/10/17 05/10/17 05/11/17 05/11/17 05/11/17 07:00 15:00 23:00 07:00 15:00 23:00 Intake Total 920 ml 350 ml 740 ml Output Total 250 ml 450 ml 6 ml Balance 670 ml 350 ml 290 ml -6 ml IV Total 350 ml Tube Feeding 720 ml 440 ml Tube Irrigant 300 ml Other 200 ml Output Urine Total 250 ml 450 ml 6 ml # Voids 4 # Bowel Movements 1 2 Result Diagram: 05/10/1712 05/11/17 0726 Objective Remarks GENERAL: NAD with trach in place SKIN: Warm and dry. HEAD: Normocephalic. EYES: No scleral icterus. No injection or drainage. NECK: Supple, trachea midline. No JVD or lymphadenopathy. CARDIOVASCULAR: Regular rate and rhythm without murmurs, gallops, or rubs. RESPIRATORY: Breath sounds equal bilaterally. No accessory muscle use. GASTROINTESTINAL: Abdomen soft, non-tender, nondistended. MUSCULOSKELETAL: No cyanosis, or edema. Right-sided weakness BACK: Nontender without obvious deformity. No CVA tenderness. Procedures PROCEDURE PERFORMED Upper endoscopy with biopsy INDICATION FOR PROCEDURE Dysphagia PROCEDURE: The procedure, risks and benefits were discussed with Mr. Garcia and informed consent was obtained. Anesthesia sedated him with Diprivan. He was placed in the left lateral decubitus position. EGD: The Pentax videoscope was introduced through the oropharynx and advanced to the second portion of the duodenum under direct visualization. Retroflexion was performed in the stomach biopsy from the distal esophagus was obtained. FINDINGS: Severe grade D esophagitis biopsy was done Stomach normal Duodenum normal There was possible small mass in the larynx that could be the reason for the dysphagia questionable malignancy biopsy was not performed because of the location ESTIMATED BLOOD LOSS: 10 cc SPECIMENS REMOVED: Distal esophagus COMPLICATIONS: None IMPRESSION: Possible mass in the larynx Severe esophagitis biopsy was done PLAN: ENT consult Follow up biopsy Clear liquid EVAN BAHENA M.D. DATE OF SURGERY April 20, 2017 PREOPERATIVE DIAGNOSIS Malignant lesion of hypopharynx. POSTOPERATIVE DIAGNOSIS Malignant lesion of hypopharynx. OPERATION PERFORMED Direct laryngoscopy with biopsy. INDICATIONS Documented in the inpatient consultation of April 18, 2017 ----- April 21 PEG tube placement by Dr. GIBSON Status post tracheostomy and laryngectomy A/P Problem List: (1) Hyponatremia ICD Code: E87.1 - Hypo-osmolality and hyponatremia Status: Acute Assessment and Plan 72-year-old man with 1. Hyponatremia Increase NS to @50ml/hr Monitor electrolyte 2. 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 Chemotherapy on 05/12/17. 3. Seizure disorder: Continue Cerebyx, Vimpat, Keppra IV 4. Dysphagia: G-tube placed 04/22/17. Continue tube feeds. 5. Esophagitis: Resolved. Continue PPI 6. History of CVA with right hemiparesis: Chronic 7. DVT prophylaxis: Heparin, SCDs, JERRY villarreal. Oswaldo Baca MD May 11, 2017 11:33
[2017-05-11] MEDS ORDERED: SODIUM CHLOR 0.9% 1000 ML INJ 1,000 ML IV SCH (12:00)
[2017-05-11] MEDS: VANCOMYCIN 1,500 MG/NS 500 ML IV SCH ×2 (13:01)
[2017-05-11] MEDS: ONDANSETRON HCL 4 MG/2 ML VIAL IVP PRN (18:19)
[2017-05-12] VITALS (13 sets, daily range): BP systolic 103–139; BP diastolic 47–58; PULSE 81–91; RESP 16–20; TEMP 98.4–100.6; O2SAT 94–97
[2017-05-12] MEDS: VANCOMYCIN 1,500 MG/NS 500 ML IV SCH ×4 (00:54→15:19)
[2017-05-12] MEDS: ZOLPIDEM TARTRATE 5 MG TAB PO PRN (01:31)
[2017-05-12] MEDS: HYOSCYAMINE 0.125 MG TAB PO PRN ×5 (01:31→22:45)
[2017-05-12] MEDS: oxyCODONE HCL ORAL CONC 5 MG/0.25 ML SYRINGE PO PRN ×4 (01:32→17:56)
[2017-05-12] MEDS: levETIRAcetam INJ 500 MG in SODIUM CHLORIDE 0.9% INJ 100 ML IV SCH ×4 (03:39→22:44)
[2017-05-12] MEDS: FOSPHENYTOIN INJ 200 MGPE in SODIUM CHLORIDE 0.9% INJ 50 ML IV SCH ×3 (06:20→22:44)
[2017-05-12 07:38] LABS: BICARBONATE 26.4 MEQ/L (21.0-32.0); POTASSIUM 3.8 MEQ/L (3.5-5.1)
[2017-05-12 08:00] LABS: CALCIUM-PROTEIN CORRECTED 7.9 MG/DL (8.5-10.1)
[2017-05-12] MEDS: SODIUM CHLORIDE 0.9% FLUSH 10 ML FLUSH IV FLUSH SCH ×2 (09:00→21:00)
[2017-05-12] MEDS: PARoxetine HCL 20 MG TAB PO SCH (09:23)
[2017-05-12] MEDS: DOCUSATE SODIUM 50 MG/SENNA 8.6 MG TAB PO SCH ×2 (09:23→21:00)
[2017-05-12] MEDS: POTASSIUM CHLORIDE 25 MEQ EFFERVESCENT TAB G-TUBE SCH (09:23)
[2017-05-12] MEDS: HEPARIN SODIUM - SQ 10,000 UNITS/ML VIAL SQ SCH ×2 (09:24→22:46)
[2017-05-12] MEDS: PANTOPRAZOLE SODIUM 40 MG VIAL IV PUSH SCH ×2 (09:24→22:45)
[2017-05-12] MEDS: ONDANSETRON HCL 4 MG/2 ML VIAL IVP PRN (09:53)
[2017-05-12] MEDS: LACOSAMIDE INJ 100 MG in SODIUM CHLORIDE 0.9% INJ 100 ML IV SCH (09:55)
[2017-05-12] MEDS: NEOMYCIN/POLYMYXIN/BACITRACIN OINT 15 GM TUBE TOPICAL SCH (09:56)
--- NOTE | 2017-05-12 10:17 | HHI.FPPN ---
Objective Vitals Vital Signs Date Time Temp Pulse Resp B/P (MAP) Pulse Ox O2 Delivery O2 Flow Rate FiO2 05/12/17 04:12 96 T-piece 6.00 35 05/12/17 04:03 85 05/12/17 03:47 98.9 84 18 103/47 (65) 94 05/12/17 00:44 100.2 82 20 111/58 (75) 94 05/12/17 00:05 86 05/11/17 21:45 T-Piece 6.00 40 05/11/17 20:58 97 T-piece 4.00 35 05/11/17 20:55 100.2 78 20 118/67 (84) 95 05/11/17 20:04 90 05/11/17 16:40 98.0 76 20 113/60 (77) 97 05/11/17 12:30 98.7 81 18 104/54 (71) 99 I/O 05/11/17 05/11/17 05/11/17 05/12/17 05/12/17 05/12/17 07:00 15:00 23:00 07:00 15:00 23:00 Intake Total 150 ml 2210 ml 1350 ml Output Total 6 ml 400 ml 200 ml 250 ml Balance -6 ml -250 ml 2010 ml 1100 ml IV Total 150 ml 710 ml 520 ml Tube Feeding 1300 ml 480 ml Tube Irrigant 200 ml 350 ml Output Urine Total 6 ml 400 ml 200 ml 250 ml # Voids 1 3 # Bowel Movements 2 Result Diagram: 05/10/17 0612 05/12/17 0602 Objective Remarks GENERAL: SKIN: Warm and dry. HEAD: Atraumatic. Normocephalic. EYES: Pupils equal and round. No scleral icterus. No injection or drainage. ENT: No nasal bleeding or discharge. Mucous membranes pink and moist. TRACH C/ DI, NECK: Trachea midline. No JVD. CARDIOVASCULAR: Regular rate and rhythm. RESPIRATORY: B rales and ronchi, congested cough GASTROINTESTINAL: Abdomen soft, non-tender, nondistended. Hepatic and splenic margins not palpable. MUSCULOSKELETAL: Extremities without clubbing, cyanosis, or edema. No obvious deformities. NEUROLOGICAL: Awake and alert. No obvious cranial nerve deficits. R DIOGENES PSYCHIATRIC: Appropriate mood and affect; insight and judgment normal. A/P Assessment and Plan ASSESSMENT: 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 MRSA TRACHEITIS Acute bleeding s/p phayrnx bx w airway compromise Respiratory failure s/p Trach SEPSIS, RESOLVED. Aspiration pneumonia, S/P GT BY DR GIBSON 04/22 Dysphagia Esophagitis on EGD 04/17/17 Seizures Dilantin toxicity Hyponatremia Hyperkalemia and now with hypokalemia. Cerebrovascular accident with right hemiparesis. Anemia. Depression Anxiety. Chronic pain syndrome. Lumbar degenerative disc disease. Neuropathy. PLAN- NS IVF IV CALCIUM IV VANCO RECONSULT WOUND CARE CHEMO TODAY CONTINUE RT AND CT. TF'S FOLLOWUP BLOOD CULTURES X TWO IV cerebryx, vimpat and keppra A.m. CBC and BMP. PRN ATIVAN. Telemetry. Duoneb q.i.d. DVT prophylaxis - SCDs/TEDs. Heparin 5000 units subcutaneously q 12 GI prophylaxis - Protonix 40 mg IV q.12 h. CONSULTS TO ID, PULM, ENT, ONCO, GI, WOUND, Ari Sims MD May 12, 2017 10:17
[2017-05-12] MEDS ORDERED: CALCIUM GLUCONATE INJ 1 GM in SODIUM CHLORIDE 0.9% INJ 100 ML IV ONE (12:00)
[2017-05-12] MEDS: ACETAMINOPHEN 500 MG CPLT PO PRN ×2 (12:44→17:53)
--- NOTE | 2017-05-12 14:30 | PD.ONC.PN ---
Subjective Subjective Remarks Tmax 100.5 overnight. Reporting penile pain and sore throat. XRT today. Objective Data Date Time Temp Pulse Resp B/P (MAP) Pulse Ox O2 Delivery O2 Flow Rate FiO2 05/12/17 11:41 100.5 87 17 139/49 (79) 95 05/12/17 11:00 96 T-piece 35 05/12/17 09:30 99.9 91 16 127/48 (74) 97 05/12/17 09:30 T-Piece 6.00 40 05/12/17 04:12 96 T-piece 6.00 35 05/12/17 04:03 85 05/12/17 03:47 98.9 84 18 103/47 (65) 94 05/12/17 00:44 100.2 82 20 111/58 (75) 94 05/12/17 00:05 86 05/11/17 21:45 T-Piece 6.00 40 05/11/17 20:58 97 T-piece 4.00 35 05/11/17 20:55 100.2 78 20 118/67 (84) 95 05/11/17 20:04 90 05/11/17 16:40 98.0 76 20 113/60 (77) 97 05/12/17 05/12/17 05/12/17 07:00 15:00 23:00 Intake Total 1350 ml Output Total 250 ml Balance 1100 ml Result Diagram: 05/10/1761105/12/17 0602 Laboratory Results Laboratory Tests Test 05/12/17 06:02 Blood Urea Nitrogen 8 MG/DL Creatinine 0.24 MG/DL Random Glucose 96 MG/DL Total Protein 5.9 GM/DL Calcium Level 7.3 MG/DL Sodium Level 118 MEQ/L Potassium Level 3.8 MEQ/L Chloride Level 84 MEQ/L Carbon Dioxide Level 26.4 MEQ/L Anion Gap 8 MEQ/L Estimat Glomerular Filtration Rate 383 ML/MIN Protein Corrected Calcium 7.9 MG/DL Administered Medications Medications (Trade) Dose Ordered Sig/Delvis Route PRN Reason Start Time Stop Time Status Last Admin Dose Admin Lorazepam (Ativan) 0.5 mg Q8H PRN PO SEVERE ANXIETY OR AGITATION 04/16/17 21:45 05/11/17 09:17 Clonidine (Catapres) 0.1 mg Q6H PRN PO SBP>160, DBP>90 04/16/17 21:45 04/18/17 05:17 Acetaminophen/ Hydrocodone Bitart ([place] 5-325 Mg) 1 tab Q4H PRN PO PAIN GREATER THAN 5 04/16/17 21:45 Future Hold 04/16/17 22:37 Sodium Chloride (NS Flush) 2 ml BID IV FLUSH 04/17/17 09:00 05/11/17 21:53 Ondansetron HCl (Zofran Inj) 4 mg Q6H PRN IVP NAUSEA OR VOMITING 04/16/17 21:45 05/12/17 09:53 Zolpidem Tartrate (Ambien) 5 mg HS PRN PO INSOMNIA 04/16/17 21:45 05/12/17 01:31 Senna/Docusate Sodium (Elidia-Colace) 1 tab BID PO 04/17/17 09:00 05/12/17 09:23 Albuterol/ Ipratropium (Duoneb Neb) 1 ampule Q6HR NEB PRN NEB SHORTNESS OF BREATH 04/16/17 23:00 05/10/17 04:45 Pantoprazole Sodium (Protonix Inj) 40 mg Q12HR IV PUSH 04/17/17 21:00 05/12/17 09:24 Lacosamide 100 mg/ Sodium Chloride 110 ml @ 110 mls/hr EVERY OTHER DAY IV 04/20/17 14:00 05/12/17 09:55 Acetaminophen (Tylenol) 500 mg Q4H PRN PO TEMP > 100 04/22/17 23:45 05/12/17 12:44 Levetriacetam 500 mg/Sodium Chloride 105 ml @ 420 mls/hr Q6H IV 04/25/17 09:00 05/12/17 09:53 Heparin Sodium (Porcine) (Heparin Inj) 5,000 units Q12HR SQ 04/25/17 11:30 05/12/17 09:24 Potassium Bicarb/ Potassium Chloride (K-Lyte Cl Eff) 25 meq DAILY G-TUBE 04/25/17 11:30 05/12/17 09:23 Guaifenesin (Robitussin Liq) 200 mg Q4H PRN PO congestion 04/26/17 23:30 05/11/17 18:19 Fosphenytoin Sodium 200 mgpe/ Sodium Chloride 54 ml @ 208 mls/hr Q8HR IV 04/27/17 14:00 05/12/17 06:20 Oxycodone HCl (Roxicodone Intensol Liq) 10 mg Q4H PRN PO PAIN SCALE 5 TO 10 04/30/17 08:15 05/12/17 12:43 Hyoscyamine Sulfate (Levsin) 0.25 mg Q4H PRN PO SECRETIONS 05/04/17 20:45 05/12/17 09:54 Potassium Chloride 10 meq/ Magnesium Sulfate 4 meq/Sodium Chloride 506 ml @ 500 mls/hr Q7D IV 05/06/17 12:00 05/13/17 13:01 05/06/17 15:31 Potassium Chloride 10 meq/ Magnesium Sulfate 4 meq/Sodium Chloride 506 ml @ 500 mls/hr Q7D IV 05/06/17 15:00 05/13/17 16:01 05/07/17 00:20 Granisetron HCl (Kytril Inj) 1 mg Q7D IV PUSH 05/06/17 13:00 05/13/17 13:01 05/06/17 19:33 Dexamethasone Sodium Phosphate 20 mg/Sodium Chloride 55 ml @ 220 mls/hr Q7D IV 05/06/17 13:00 05/13/17 13:14 05/06/17 19:31 Mannitol (Mannitol Inj) 25 gm Q7D IV PUSH 05/06/17 13:30 05/13/17 13:31 05/06/17 21:09 Cisplatin 52 mg/ Sodium Chloride 302 ml @ 302 mls/hr Q7D IV 05/06/17 14:00 05/13/17 14:59 05/06/17 22:54 Neomycin/ Polymyxin/ Bacitracin (Neosporin Oint) 1 applic DAILY TOPICAL 05/09/17 17:00 05/12/17 09:56 Vancomycin HCl 1500 mg/Sodium Chloride 515 ml @ 257.5 mls/ hr Q12H IV 05/11/17 13:00 05/12/17 00:54 Objective Remarks GENERAL: chronically ill male, supine in bed. SKIN: Warm and dry. HEAD: Normocephalic. EYES: No injection or drainage. NECK: Supple, trachea midline. LYMPHATIC: No adenopathy. CARDIOVASCULAR: +S1/S2 RESPIRATORY: anterior bonner clear. GASTROINTESTINAL: Abdomen non-distended. G-tube in place, receiving tube feeds EXTREMITIES: No cyanosis NEUROLOGICAL: right sided paresis. communicates through mouthing words. Assessment/Plan Problem List: (1) Head and neck cancer ICD Codes: C76.0 - Malignant neoplasm of head, face and neck Plan: --XRT started on 05/01--radiation is given Friday through Friday and 23 treatments total are planned. --radiation sensitizing dose of Cisplatinum given on 05/06/17 --s/p XRT simulation on 04/25 --CT C.A.P shows no distal mets. 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 He did not follow up with gastroenterology. EGD, 04/17/17. showed the severe esophagitis, possible mass in the larynx was identified. -- lesion appeared to be on the left side of the vallecula primarily originating in the vallecula and also the left hypopharyngeal wall. did not involve the endolarynx which was clear. 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 --course was complicated after the surgery that critical medicine was consulted for acute bleeding of the larynx mass. ----Dr. Grullon performed an awake trache in the OR. PEG was placed the following day. --Staging evaluation included chest x-ray that showed improved diffuse interstitial prominence. There is minimal linear opacities in the right upper lung consistent with scarring but no overt mass. --P16 negative (2) DVT prophylaxi Plan: --on heparin 5000U SQ q 12 (3) Hyponatremia ICD Codes: E87.1 - Hypo-osmolality and hyponatremia Status: Acute Plan: --likely hypervolemia--has had positive fluid balance for the last few days --will start on fluid restriction and salt tablets TID --may need to give Samsca if hyponatremia persists Assessment 72y/o male with newly diagnosed locally advanced head and neck cancer. History of CVA with right-sided weakness. Aspiration. Anxiety and depression. Coronary artery disease. Hyperlipidemia. Diabetes. Headache. Hiatal hernia. Hypertension. Migraines. seizure. Sleep apnea. Tracheostomy. Examination under anesthesia. Vallecula biopsy. Plan 1. continue radiation 2. start 1000cc/24hr fluid restriction. monitor I/O closely 3. start salt tablets TID 4. may need to dose with Samsca tomorrow if not improving. Attending Statement The exam, history, and the medical decision-making described in the above note were completed with the assistance of the mid-level provider. I reviewed and agree with the findings presented. I attest that I had a [id number] encounter with the patient on the same day, and personally performed and documented my assessment and findings in the medical record. Pt seen and examined. Noted increase temp. worsen hyponatremia. Fluid restrict, salt tablets, I/O. Pt gesturing to outside. Awaiting placement, in the meantime, tx with XRT and cisplatin continue. Noted elevated temp 100.5 then 100.6. Check blood cultures. Noted Vancomycin started. Hold chemo tomorrow. Evaluate source. Asha Gamez May 12, 2017 14:30 Lauren Richter MD May 12, 2017 18:33
[2017-05-12] MEDS: SODIUM CHLORIDE 1 GRAM TAB PO SCH ×2 (16:27→22:45)
[2017-05-12] MEDS: LORazepam 0.5 MG TAB PO PRN (16:27)
[2017-05-13] VITALS (8 sets, daily range): BP systolic 110–163; BP diastolic 64–75; PULSE 69–91; RESP 16–18; TEMP 98.2–100; O2SAT 96–99
[2017-05-13] MEDS ORDERED: PHARMACY ORDERED LAB ONE (00:45)
[2017-05-13] MEDS: VANCOMYCIN 1,500 MG/NS 500 ML IV SCH ×6 (01:00→21:00)
[2017-05-13] MEDS: levETIRAcetam INJ 500 MG in SODIUM CHLORIDE 0.9% INJ 100 ML IV SCH ×2 (03:00→09:00)
[2017-05-13 06:02] LABS: AUTOMATED NEUTROPHIL # 4.2 TH/MM3 (1.8-7.7); BASOPHIL % 0.8 % (0.0-2.0); EOSINOPHIL # 0.4 TH/MM3 (0-0.4); EOSINOPHIL % 6.1 % (0.0-4.0); HEMATOCRIT 25.1 % (39.0-51.0); HEMO FLAGS DIFF FINAL; LYMPH % 8.9 % (9.0-44.0); LYMPHOCYTE # 0.5 TH/MM3 (1.0-4.8); MEAN CELL VOLUME 89.7 FL (80.0-100.0); MEAN CORPUSCULAR HEMOGLOBIN 31.8 PG (27.0-34.0); MEAN CORPUSCULAR HGB CONC 35.4 % (32.0-36.0); MONO % 11.1 % (0.0-8.0); NEUT % 73.1 % (16.0-70.0); PLATELET COUNT 300 TH/MM3 (150-450); RED CELL DISTRIBUTION WIDTH 13.9 % (11.6-17.2); WHITE BLOOD COUNT 5.8 TH/MM3 (4.0-11.0)
[2017-05-13] MEDS: HYOSCYAMINE 0.125 MG TAB PO PRN ×3 (06:04→23:22)
[2017-05-13] MEDS: oxyCODONE HCL ORAL CONC 5 MG/0.25 ML SYRINGE PO PRN ×3 (06:04→23:25)
[2017-05-13 06:43] LABS: BICARBONATE 27.3 MEQ/L (21.0-32.0)
[2017-05-13 06:48] LABS: POTASSIUM 4.4 MEQ/L (3.5-5.1)
[2017-05-13 07:13] LABS: CALCIUM-PROTEIN CORRECTED 7.9 MG/DL (8.5-10.1)
[2017-05-13] MEDS: DOCUSATE SODIUM 50 MG/SENNA 8.6 MG TAB PO SCH ×2 (09:00→21:00)
[2017-05-13] MEDS: NEOMYCIN/POLYMYXIN/BACITRACIN OINT 15 GM TUBE TOPICAL SCH (09:00)
[2017-05-13] MEDS: POTASSIUM CHLORIDE 25 MEQ EFFERVESCENT TAB G-TUBE SCH (09:29)
[2017-05-13] MEDS: FOSPHENYTOIN INJ 200 MGPE in SODIUM CHLORIDE 0.9% INJ 50 ML IV SCH (09:29)
[2017-05-13] MEDS: PANTOPRAZOLE SODIUM 40 MG VIAL IV PUSH SCH ×2 (09:30→23:21)
[2017-05-13] MEDS: HEPARIN SODIUM - SQ 10,000 UNITS/ML VIAL SQ SCH ×2 (09:30→23:22)
[2017-05-13] MEDS: SODIUM CHLORIDE 0.9% FLUSH 10 ML FLUSH IV FLUSH SCH ×2 (09:31→23:22)
--- NOTE | 2017-05-13 10:08 | HHI.FPPN ---
Subjective Remarks D/W D/W ONCOLOGY D/W RN C/O TRACH CONGESTION Objective Vitals Vital Signs Date Time Temp Pulse Resp B/P (MAP) Pulse Ox O2 Delivery O2 Flow Rate FiO2 05/13/17 08:00 98.8 90 16 163/71 (101) 98 05/13/17 04:30 98.2 82 16 119/64 (82) 97 05/13/17 00:02 98.2 69 16 110/69 (83) 96 05/12/17 21:30 95 T-piece 5.00 35 05/12/17 20:30 98.4 87 16 118/49 (72) 97 05/12/17 17:43 100.6 81 16 118/49 (72) 97 05/12/17 12:00 85 05/12/17 11:41 100.5 87 17 139/49 (79) 95 05/12/17 11:00 96 T-piece 35 I/O 05/12/17 05/12/17 05/12/17 05/13/17 05/13/17 05/13/17 07:00 15:00 23:00 07:00 15:00 23:00 Intake Total 1350 ml Output Total 250 ml 300 ml 450 ml Balance 1100 ml -300 ml -450 ml IV Total 520 ml Tube Feeding 480 ml Tube Irrigant 350 ml Output Urine Total 250 ml 300 ml 450 ml # Voids 3 Result Diagram: 05/13/1751405/13/17514 Objective Remarks GENERAL: SKIN: Warm and dry. HEAD: Atraumatic. Normocephalic. EYES: Pupils equal and round. No scleral icterus. No injection or drainage. ENT: No nasal bleeding or discharge. Mucous membranes pink and moist. TRACH C/ DI, NECK: Trachea midline. No JVD. CARDIOVASCULAR: Regular rate and rhythm. RESPIRATORY: B rales and ronchi, congested cough GASTROINTESTINAL: Abdomen soft, non-tender, nondistended. Hepatic and splenic margins not palpable. MUSCULOSKELETAL: Extremities without clubbing, cyanosis, or edema. No obvious deformities. NEUROLOGICAL: Awake and alert. No obvious cranial nerve deficits. R DIOGENES PSYCHIATRIC: Appropriate mood and affect; insight and judgment normal. Medications and IVs Current Medications Medications (Trade) Dose Ordered Sig/Delvis Route Start Time Stop Time Status Last Admin (Ativan) 0.5 mg Q8H PRN PO 04/16/17 21:45 05/12/17 16:27 (Catapres) 0.1 mg Q6H PRN PO 04/16/17 21:45 04/18/17 05:17 ([place] 5-325 Mg) 1 tab Q4H PRN PO 04/16/17 21:45 Future Hold 04/16/17 22:37 (NS Flush) 2 ml UNSCH PRN IV FLUSH 04/16/17 21:45 (NS Flush) 2 ml BID IV FLUSH 04/17/17 09:00 05/13/17 09:31 (Tylenol) 650 mg Q4H PRN PO 04/16/17 21:45 Future Hold (Zofran Inj) 4 mg Q6H PRN IVP 04/16/17 21:45 05/12/17 09:53 (Ambien) 5 mg HS PRN PO 04/16/17 21:45 05/12/17 01:31 (Narcan Inj) 0.4 mg UNSCH PRN IV PUSH 04/16/17 21:45 (Elidia-Colace) 1 tab BID PO 04/17/17 09:00 05/12/17 09:23 (Milk Of Magnesia Liq) 30 ml Q12H PRN PO 04/16/17 21:45 (Senokot) 17.2 mg Q12H PRN PO 04/16/17 21:45 (Dulcolax Supp) 10 mg DAILY PRN RECTAL 04/16/17 21:45 (Lactulose Liq) 30 ml DAILY PRN PO 04/16/17 21:45 (Duoneb Neb) 1 ampule Q6HR NEB PRN NEB 04/16/17 23:00 05/10/17 04:45 (Protonix Inj) 40 mg Q12HR IV PUSH 04/17/17 21:00 05/13/17 09:30 Lacosamide 100 mg/ Sodium Chloride 110 ml @ 110 mls/hr EVERY OTHER DAY IV 04/20/17 14:00 05/12/17 09:55 (Tylenol) 500 mg Q4H PRN PO 04/22/17 23:45 05/12/17 17:53 Levetriacetam 500 mg/Sodium Chloride 105 ml @ 420 mls/hr Q6H IV 04/25/17 09:00 05/12/17 22:44 (Heparin Inj) 5,000 units Q12HR SQ 04/25/17 11:30 05/13/17 09:30 (K-Lyte Cl Eff) 25 meq DAILY G-TUBE 04/25/17 11:30 05/13/17 09:29 (Robitussin Liq) 200 mg Q4H PRN PO 04/26/17 23:30 05/11/17 18:19 Fosphenytoin Sodium 200 mgpe/ Sodium Chloride 54 ml @ 208 mls/hr Q8HR IV 04/27/17 14:00 05/13/17 09:29 (Roxicodone Intensol Liq) 10 mg Q4H PRN PO 04/30/17 08:15 05/13/17 06:04 (Levsin) 0.25 mg Q4H PRN PO 05/04/17 20:45 05/13/17 06:04 Potassium Chloride 10 meq/ Magnesium Sulfate 4 meq/Sodium Chloride 506 ml @ 500 mls/hr Q7D IV 05/06/17 12:00 Future Hold 05/06/17 15:31 Potassium Chloride 10 meq/ Magnesium Sulfate 4 meq/Sodium Chloride 506 ml @ 500 mls/hr Q7D IV 05/06/17 15:00 Future Hold 05/07/17 00:20 (Kytril Inj) 1 mg Q7D IV PUSH 05/06/17 13:00 Future Hold 05/06/17 19:33 Dexamethasone Sodium Phosphate 20 mg/Sodium Chloride 55 ml @ 220 mls/hr Q7D IV 05/06/17 13:00 Future Hold 05/06/17 19:31 (Mannitol Inj) 25 gm Q7D IV PUSH 05/06/17 13:30 Future Hold 05/06/17 21:09 Cisplatin 52 mg/ Sodium Chloride 302 ml @ 302 mls/hr Q7D IV 05/06/17 14:00 Future Hold 05/06/17 22:54 Pharmacy Profile Note 0 ml @ 0 mls/hr UNSCH OTHER 05/08/17 16:15 (Neosporin Oint) 1 applic DAILY TOPICAL 05/09/17 17:00 05/12/17 09:56 Vancomycin HCl 1500 mg/Sodium Chloride 515 ml @ 257.5 mls/ hr Q12H IV 05/11/17 13:00 05/12/17 15:19 (Sodium Chloride) 1 gm TID PO 05/12/17 18:00 05/12/17 22:45 A/P Assessment and Plan ASSESSMENT AND PLAN: 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 SEPSIS PNA, FEVERS: CHECK BLOOD CULTURES 05/12, IV ABX MRSA TRACHEITIS Acute bleeding s/p phayrnx bx w airway compromise Respiratory failure s/p Trach SEPSIS, RESOLVED. Aspiration pneumonia, S/P GT BY DR GIBSON 04/22. TF'S. Dysphagia Esophagitis on EGD 04/17/17 Seizures Dilantin toxicity Hyponatremia SIADH: RESTRICT WATER, NS IVF Hyperkalemia and now with hypokalemia. Cerebrovascular accident with right hemiparesis. Anemia. Depression Anxiety. Chronic pain syndrome. Lumbar degenerative disc disease. Neuropathy. DVT prophylaxis - SCDs/TEDs. Heparin 5000 units subcutaneously q 12 GI prophylaxis - Protonix 40 mg IV q.12 h. CONSULTS TO ID, PULM, ENT, ONCO, GI, WOUND, DISPO: TO SNF SOON THEN OUTPATIENT CT AND RT. Ari Sims MD May 13, 2017 10:08
[2017-05-13] MEDS ORDERED: CALCIUM GLUCONATE INJ 1 GM in SODIUM CHLORIDE 0.9% INJ 100 ML IV ONE (10:30)
--- NOTE | 2017-05-13 11:12 | PD.ONC.PN ---
Subjective Subjective Remarks Tmax 100.6 overnight. Tired of being in the hospital. at bedside concerned about him going off Paxil as he became depressed previously. Objective Data Date Time Temp Pulse Resp B/P (MAP) Pulse Ox O2 Delivery O2 Flow Rate FiO2 05/13/17 08:00 98.8 90 16 163/71 (101) 98 05/13/17 07:30 16 05/13/17 04:30 98.2 82 16 119/64 (82) 97 05/13/17 00:02 98.2 69 16 110/69 (83) 96 05/12/17 21:30 95 T-piece 5.00 35 05/12/17 20:30 98.4 87 16 118/49 (72) 97 05/12/17 17:43 100.6 81 16 118/49 (72) 97 05/12/17 12:00 85 05/12/17 11:41 100.5 87 17 139/49 (79) 95 05/13/17 05/13/17 05/13/17 07:00 15:00 23:00 Output Total 450 ml Balance -450 ml Result Diagram: 05/13/17 0515 05/13/17 0515 Laboratory Results Laboratory Tests Test 05/13/17 01:15 05/13/17 05:15 Vancomycin Level Trough 18.5 MCG/ML White Blood Count 5.8 TH/MM3 Red Blood Count 2.80 MIL/MM3 Hemoglobin 8.9 GM/DL Hematocrit 25.1 % Mean Corpuscular Volume 89.7 FL Mean Corpuscular Hemoglobin 31.8 PG Mean Corpuscular Hemoglobin Concent 35.4 % Red Cell Distribution Width 13.9 % Platelet Count 300 TH/MM3 Mean Platelet Volume 7.4 FL Neutrophils (%) (Auto) 73.1 % Lymphocytes (%) (Auto) 8.9 % Monocytes (%) (Auto) 11.1 % Eosinophils (%) (Auto) 6.1 % Basophils (%) (Auto) 0.8 % Neutrophils # (Auto) 4.2 TH/MM3 Lymphocytes # (Auto) 0.5 TH/MM3 Monocytes # (Auto) 0.6 TH/MM3 Eosinophils # (Auto) 0.4 TH/MM3 Basophils # (Auto) 0.0 TH/MM3 CBC Comment DIFF FINAL Differential Comment Blood Urea Nitrogen 8 MG/DL Creatinine 0.29 MG/DL Random Glucose 110 MG/DL Total Protein 6.2 GM/DL Calcium Level 7.4 MG/DL Sodium Level 120 MEQ/L Potassium Level 4.4 MEQ/L Chloride Level 85 MEQ/L Carbon Dioxide Level 27.3 MEQ/L Anion Gap 8 MEQ/L Estimat Glomerular Filtration Rate 308 ML/MIN Protein Corrected Calcium 7.9 MG/DL Culture Results Microbiology Date/Time Source Procedure Growth Status 05/12/17 21:26 Blood Peripheral Aerobic Blood Culture - Preliminary NO GROWTH IN 1 DAY Resulted 05/12/17 21:26 Blood Peripheral Anaerobic Blood Culture - Preliminary NO GROWTH IN 1 DAY Resulted 05/12/17 21:20 Blood Peripheral Aerobic Blood Culture - Preliminary NO GROWTH IN 1 DAY Resulted 05/12/17 21:20 Blood Peripheral Anaerobic Blood Culture - Preliminary NO GROWTH IN 1 DAY Resulted Administered Medications Medications (Trade) Dose Ordered Sig/Delvis Route PRN Reason Start Time Stop Time Status Last Admin Dose Admin Lorazepam (Ativan) 0.5 mg Q8H PRN PO SEVERE ANXIETY OR AGITATION 04/16/17 21:45 05/12/17 16:27 Clonidine (Catapres) 0.1 mg Q6H PRN PO SBP>160, DBP>90 04/16/17 21:45 04/18/17 05:17 Acetaminophen/ Hydrocodone Bitart ([place] 5-325 Mg) 1 tab Q4H PRN PO PAIN GREATER THAN 5 04/16/17 21:45 Future Hold 04/16/17 22:37 Sodium Chloride (NS Flush) 2 ml BID IV FLUSH 04/17/17 09:00 05/13/17 09:31 Ondansetron HCl (Zofran Inj) 4 mg Q6H PRN IVP NAUSEA OR VOMITING 04/16/17 21:45 05/12/17 09:53 Zolpidem Tartrate (Ambien) 5 mg HS PRN PO INSOMNIA 04/16/17 21:45 05/12/17 01:31 Senna/Docusate Sodium (Elidia-Colace) 1 tab BID PO 04/17/17 09:00 05/12/17 09:23 Albuterol/ Ipratropium (Duoneb Neb) 1 ampule Q6HR NEB PRN NEB SHORTNESS OF BREATH 04/16/17 23:00 05/10/17 04:45 Pantoprazole Sodium (Protonix Inj) 40 mg Q12HR IV PUSH 04/17/17 21:00 05/13/17 09:30 Lacosamide 100 mg/ Sodium Chloride 110 ml @ 110 mls/hr EVERY OTHER DAY IV 04/20/17 14:00 05/12/17 09:55 Acetaminophen (Tylenol) 500 mg Q4H PRN PO TEMP > 100 04/22/17 23:45 05/12/17 17:53 Levetriacetam 500 mg/Sodium Chloride 105 ml @ 420 mls/hr Q6H IV 04/25/17 09:00 05/12/17 22:44 Heparin Sodium (Porcine) (Heparin Inj) 5,000 units Q12HR SQ 04/25/17 11:30 05/13/17 09:30 Potassium Bicarb/ Potassium Chloride (K-Lyte Cl Eff) 25 meq DAILY G-TUBE 04/25/17 11:30 05/13/17 09:29 Guaifenesin (Robitussin Liq) 200 mg Q4H PRN PO congestion 04/26/17 23:30 05/11/17 18:19 Fosphenytoin Sodium 200 mgpe/ Sodium Chloride 54 ml @ 208 mls/hr Q8HR IV 04/27/17 14:00 05/13/17 09:29 Oxycodone HCl (Roxicodone Intensol Liq) 10 mg Q4H PRN PO PAIN SCALE 5 TO 10 04/30/17 08:15 05/13/17 06:04 Hyoscyamine Sulfate (Levsin) 0.25 mg Q4H PRN PO SECRETIONS 05/04/17 20:45 05/13/17 11:00 Potassium Chloride 10 meq/ Magnesium Sulfate 4 meq/Sodium Chloride 506 ml @ 500 mls/hr Q7D IV 05/06/17 12:00 Future Hold 05/06/17 15:31 Potassium Chloride 10 meq/ Magnesium Sulfate 4 meq/Sodium Chloride 506 ml @ 500 mls/hr Q7D IV 05/06/17 15:00 Future Hold 05/07/17 00:20 Granisetron HCl (Kytril Inj) 1 mg Q7D IV PUSH 05/06/17 13:00 Future Hold 05/06/17 19:33 Dexamethasone Sodium Phosphate 20 mg/Sodium Chloride 55 ml @ 220 mls/hr Q7D IV 05/06/17 13:00 Future Hold 05/06/17 19:31 Mannitol (Mannitol Inj) 25 gm Q7D IV PUSH 05/06/17 13:30 Future Hold 05/06/17 21:09 Cisplatin 52 mg/ Sodium Chloride 302 ml @ 302 mls/hr Q7D IV 05/06/17 14:00 Future Hold 05/06/17 22:54 Neomycin/ Polymyxin/ Bacitracin (Neosporin Oint) 1 applic DAILY TOPICAL 05/09/17 17:00 05/12/17 09:56 Vancomycin HCl 1500 mg/Sodium Chloride 515 ml @ 257.5 mls/ hr Q12H IV 05/11/17 13:00 05/12/17 15:19 Sodium Chloride (Sodium Chloride) 1 gm TID PO 05/12/17 18:00 05/12/17 22:45 Objective Remarks GENERAL: chronically ill male, lying in bed, disheveled. SKIN: Warm and dry. HEAD: Normocephalic. EYES: No injection or drainage. NECK: Supple, trachea midline. trach in place, lots of white frothy secretions. LYMPHATIC: No adenopathy. CARDIOVASCULAR: +S1/S2 RESPIRATORY: anterior bonner clear. GASTROINTESTINAL: Abdomen non-distended. G-tube in place, receiving Jevity 1.5 EXTREMITIES: No cyanosis NEUROLOGICAL: right sided paresis. communicates through mouthing words. Assessment/Plan Problem List: (1) Hyponatremia ICD Codes: E87.1 - Hypo-osmolality and hyponatremia Status: Acute Plan: --likely hypervolemia--has had positive fluid balance for the last few days --on fluid restriction and salt tablets TID --may need to give Samsca if hyponatremia persists --d/w Dr. Sims on 05/13, continue fluid restriction + salt tablets. also d/w addiction nurse. will reduce free water flushes. (2) Head and neck cancer ICD Codes: C76.0 - Malignant neoplasm of head, face and neck Plan: --XRT started on 05/01--radiation is given Friday through Friday and 23 treatments total are planned. --radiation sensitizing dose of Cisplatinum given on 05/06/17 --s/p XRT simulation on 04/25 --CT C.A.P shows no distal mets. 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 He did not follow up with gastroenterology. EGD, 04/17/17. showed the severe esophagitis, possible mass in the larynx was identified. -- lesion appeared to be on the left side of the vallecula primarily originating in the vallecula and also the left hypopharyngeal wall. did not involve the endolarynx which was clear. 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 --course was complicated after the surgery that critical medicine was consulted for acute bleeding of the larynx mass. ----Dr. Grullon performed an awake trache in the OR. PEG was placed the following day. --Staging evaluation included chest x-ray that showed improved diffuse interstitial prominence. There is minimal linear opacities in the right upper lung consistent with scarring but no overt mass. --P16 negative (3) DVT prophylaxi Plan: --on heparin 5000U SQ q 12 Assessment 72y/o male with newly diagnosed locally advanced head and neck cancer. History of CVA with right-sided weakness. Aspiration. Anxiety and depression. Coronary artery disease. Hyperlipidemia. Diabetes. Headache. Hiatal hernia. Hypertension. Migraines. seizure. Sleep apnea. Tracheostomy. Examination under anesthesia. Vallecula biopsy. Plan 1. continue radiation 2. hold chemotherapy today d/t fever yesterday 3. continue fluid restriction and salt tablets 4. obtain urinalysis today. 5. wound care to trach area Attending Statement Agree with above. As discussed. Monitor temp and follow blood cultures. Asha Gamez May 13, 2017 11:12 Lauren Richter MD May 13, 2017 17:50
[2017-05-13] MEDS: PIPERACIL-TAZO 3.375 GM PREMIX 50 ML IV SCH ×3 (12:31→22:00)
[2017-05-13] MEDS: levETIRAcetam 500 MG/5 ML UDC G-TUBE SCH ×3 (12:31→23:23)
[2017-05-13] MEDS: PHENYTOIN SUSP 100 MG/4 ML CUP G-TUBE SCH ×2 (12:31→23:23)
[2017-05-13] MEDS: SODIUM CHLORIDE 1 GRAM TAB PO SCH ×2 (12:32→17:29)
[2017-05-13] MEDS: FREE WATER G-TUBE SCH ×2 (13:30→22:00)
[2017-05-13 13:38] LABS: BLOOD, URINE NEG (NEG); GLUCOSE,URINE NEG (NEG); KETONE, URINE NEG (NEG); NITRITE,URINE NEG (NEG); SQUAMOUS EPITHELIAL CELL URINE <1 /hpf (0-5); URINE COLOR YELLOW (YELLW/STRAW)
[2017-05-13 13:39] LABS: COMMENT (UR) CULT NOT INDICATED; CULTURE IF INDICATED CULT NOT INDICATED
[2017-05-14] VITALS (8 sets, daily range): BP systolic 105–122; BP diastolic 57–58; PULSE 78–88; RESP 18–20; TEMP 98.8–99.5; O2SAT 94–98
[2017-05-14] MEDS: FREE WATER G-TUBE SCH ×3 (06:00→22:00)
[2017-05-14] MEDS: PIPERACIL-TAZO 3.375 GM PREMIX 50 ML IV SCH ×4 (06:06→22:00)
[2017-05-14] MEDS: PHENYTOIN SUSP 100 MG/4 ML CUP G-TUBE SCH ×3 (06:06→22:09)
[2017-05-14] MEDS: levETIRAcetam 500 MG/5 ML UDC G-TUBE SCH ×4 (06:06→22:11)
[2017-05-14 06:41] LABS: AUTOMATED NEUTROPHIL # 3.4 TH/MM3 (1.8-7.7); BASOPHIL % 0.7 % (0.0-2.0); EOSINOPHIL # 0.4 TH/MM3 (0-0.4); EOSINOPHIL % 8.2 % (0.0-4.0); HEMATOCRIT 22.9 % (39.0-51.0); LYMPH % 10.6 % (9.0-44.0); LYMPHOCYTE # 0.5 TH/MM3 (1.0-4.8); MEAN CELL VOLUME 89.6 FL (80.0-100.0); MEAN CORPUSCULAR HEMOGLOBIN 32.3 PG (27.0-34.0); MONO % 13.5 % (0.0-8.0); PLATELET COUNT 238 TH/MM3 (150-450); RED BLOOD COUNT 2.56 MIL/MM3 (4.50-5.90); WHITE BLOOD COUNT 5.1 TH/MM3 (4.0-11.0)
[2017-05-14 06:42] LABS: HEMO FLAGS AUTO DIFF
[2017-05-14 07:21] LABS: BICARBONATE 28.3 MEQ/L (21.0-32.0); POTASSIUM 3.9 MEQ/L (3.5-5.1)
[2017-05-14] MEDS ORDERED: LACOSAMIDE 100 MG/10 ML UDC G-TUBE SCH (09:00)
--- NOTE | 2017-05-14 09:41 | HHI.FPPN ---
Subjective Remarks FEVERS AGAIN PT LOOKS WORSE EXCESS TRACH SECRETIONS PT LETHARGIC D/W RN Objective Vitals Vital Signs Date Time Temp Pulse Resp B/P (MAP) Pulse Ox O2 Delivery O2 Flow Rate FiO2 05/14/17 04:00 99.5 88 18 111/57 (75) 96 05/14/17 00:41 20 05/14/17 00:34 83 05/13/17 23:38 100.0 91 18 145/75 (98) 99 05/13/17 21:00 T-Piece 6.00 35 05/13/17 20:05 83 05/13/17 19:55 97 T-piece 35 05/13/17 18:43 T-Piece 6.00 40 05/13/17 16:00 98.6 70 18 127/67 (87) 99 05/13/17 11:30 98.4 75 16 137/70 (92) 99 I/O 05/13/17 05/13/17 05/13/17 05/14/17 05/14/17 05/14/17 07:00 15:00 23:00 07:00 15:00 23:00 Intake Total 1430 ml 600 ml Output Total 450 ml 800 ml 400 ml 300 ml Balance -450 ml 630 ml 200 ml -300 ml IV Total 710 ml 600 ml Tube Feeding 660 ml Other 60 ml Output Urine Total 450 ml 800 ml 400 ml 300 ml # Voids 3 4 1 Result Diagram: 05/14/1754705/14/17547 Objective Remarks GENERAL: SKIN: Warm and dry. HEAD: Atraumatic. Normocephalic. EYES: Pupils equal and round. No scleral icterus. No injection or drainage. ENT: No nasal bleeding or discharge. Mucous membranes pink and moist. TRACH C/ DI, NECK: Trachea midline. No JVD. CARDIOVASCULAR: Regular rate and rhythm. RESPIRATORY: B rales and ronchi, congested cough GASTROINTESTINAL: Abdomen soft, non-tender, nondistended. Hepatic and splenic margins not palpable. MUSCULOSKELETAL: Extremities without clubbing, cyanosis, or edema. No obvious deformities. NEUROLOGICAL: Awake and alert. No obvious cranial nerve deficits. R DIOGENES PSYCHIATRIC: Appropriate mood and affect; insight and judgment normal. Medications and IVs Current Medications Medications (Trade) Dose Ordered Sig/Delvis Route Start Time Stop Time Status Last Admin (Ativan) 0.5 mg Q8H PRN PO 04/16/17 21:45 05/12/17 16:27 (Catapres) 0.1 mg Q6H PRN PO 04/16/17 21:45 04/18/17 05:17 ([place] 5-325 Mg) 1 tab Q4H PRN PO 04/16/17 21:45 Future Hold 04/16/17 22:37 (NS Flush) 2 ml UNSCH PRN IV FLUSH 04/16/17 21:45 (NS Flush) 2 ml BID IV FLUSH 04/17/17 09:00 05/13/17 23:22 (Tylenol) 650 mg Q4H PRN PO 04/16/17 21:45 Future Hold (Zofran Inj) 4 mg Q6H PRN IVP 04/16/17 21:45 05/12/17 09:53 (Ambien) 5 mg HS PRN PO 04/16/17 21:45 05/12/17 01:31 (Narcan Inj) 0.4 mg UNSCH PRN IV PUSH 04/16/17 21:45 (Elidia-Colace) 1 tab BID PO 04/17/17 09:00 05/12/17 09:23 (Milk Of Magnesia Liq) 30 ml Q12H PRN PO 04/16/17 21:45 (Senokot) 17.2 mg Q12H PRN PO 04/16/17 21:45 (Dulcolax Supp) 10 mg DAILY PRN RECTAL 04/16/17 21:45 (Lactulose Liq) 30 ml DAILY PRN PO 04/16/17 21:45 (Duoneb Neb) 1 ampule Q6HR NEB PRN NEB 04/16/17 23:00 05/10/17 04:45 (Protonix Inj) 40 mg Q12HR IV PUSH 04/17/17 21:00 05/13/17 23:21 (Tylenol) 500 mg Q4H PRN PO 04/22/17 23:45 05/12/17 17:53 (Heparin Inj) 5,000 units Q12HR SQ 04/25/17 11:30 05/13/17 23:22 (K-Lyte Cl Eff) 25 meq DAILY G-TUBE 04/25/17 11:30 05/13/17 09:29 (Robitussin Liq) 200 mg Q4H PRN PO 04/26/17 23:30 05/11/17 18:19 (Roxicodone Intensol Liq) 10 mg Q4H PRN PO 04/30/17 08:15 05/13/17 23:25 (Levsin) 0.25 mg Q4H PRN PO 05/04/17 20:45 05/13/17 23:22 Potassium Chloride 10 meq/ Magnesium Sulfate 4 meq/Sodium Chloride 506 ml @ 500 mls/hr Q7D IV 05/06/17 12:00 Future Hold 05/06/17 15:31 Potassium Chloride 10 meq/ Magnesium Sulfate 4 meq/Sodium Chloride 506 ml @ 500 mls/hr Q7D IV 05/06/17 15:00 Future Hold 05/07/17 00:20 (Kytril Inj) 1 mg Q7D IV PUSH 05/06/17 13:00 Future Hold 05/06/17 19:33 Dexamethasone Sodium Phosphate 20 mg/Sodium Chloride 55 ml @ 220 mls/hr Q7D IV 05/06/17 13:00 Future Hold 05/06/17 19:31 (Mannitol Inj) 25 gm Q7D IV PUSH 05/06/17 13:30 Future Hold 05/06/17 21:09 Cisplatin 52 mg/ Sodium Chloride 302 ml @ 302 mls/hr Q7D IV 05/06/17 14:00 Future Hold 05/06/17 22:54 Pharmacy Profile Note 0 ml @ 0 mls/hr UNSCH OTHER 05/08/17 16:15 (Neosporin Oint) 1 applic DAILY TOPICAL 05/09/17 17:00 05/13/17 09:00 (Sodium Chloride) 1 gm TID PO 05/12/17 18:00 05/13/17 17:29 Piperacillin Sod/ Tazobactam Sod 50 ml @ 100 mls/hr Q6H IV 05/13/17 10:00 05/14/17 06:06 (Keppra Liq) 500 mg Q6H G-TUBE 05/13/17 12:00 05/14/17 06:06 (Dilantin Liq) 200 mg Q8HR G-TUBE 05/13/17 14:00 05/14/17 06:06 (Free Water) 30 ml Q8HR G-TUBE 05/13/17 14:00 05/14/17 06:00 Vancomycin HCl 1500 mg/Sodium Chloride 515 ml @ 257.5 mls/ hr Q12H IV 05/13/17 21:00 05/13/17 21:00 Miscellaneous Information SPECIFIC LAB TO BE DRAWN:[facility] TROUGH DATE TO BE DRBrandon.. ONCE ONCE .XX 05/15/17 08:45 05/15/17 08:46 (Vimpat Liq) 100 mg EVERY OTHER DAY G-TUBE 05/14/17 09:00 A/P Assessment and Plan ASSESSMENT AND PLAN: 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 SEPSIS PNA, FEVERS: FOLLOWUP BLOOD CULTURES 05/12, IV ABX MRSA TRACHEITIS Acute bleeding s/p phayrnx bx w airway compromise Respiratory failure s/p Trach SEPSIS, RESOLVED. Aspiration pneumonia, S/P GT BY DR GIBSON 04/22. TF'S. Dysphagia Esophagitis on EGD 04/17/17 Seizures Dilantin toxicity Hyponatremia SIADH: RESTRICT WATER, NS IVF, NACL TABS, Hyperkalemia and now with hypokalemia. Cerebrovascular accident with right hemiparesis. Anemia. Depression Anxiety. Chronic pain syndrome. Lumbar degenerative disc disease. Neuropathy. DVT prophylaxis - SCDs/TEDs. Heparin 5000 units subcutaneously q 12 GI prophylaxis - Protonix 40 mg IV q.12 h. CONSULTS TO ID, PULM, ENT, ONCO, GI, WOUND, DISPO: TO SNF SOON THEN OUTPATIENT CT AND RT. Ari Sims MD May 14, 2017 09:40
[2017-05-14] MEDS: SODIUM CHLORIDE 1 GRAM TAB PO SCH ×3 (09:48→18:36)
[2017-05-14] MEDS: POTASSIUM CHLORIDE 25 MEQ EFFERVESCENT TAB G-TUBE SCH (09:48)
[2017-05-14] MEDS: HYOSCYAMINE 0.125 MG TAB PO PRN ×2 (09:48→14:51)
[2017-05-14] MEDS: oxyCODONE HCL ORAL CONC 5 MG/0.25 ML SYRINGE PO PRN ×2 (09:48→15:02)
[2017-05-14] MEDS: SODIUM CHLORIDE 0.9% FLUSH 10 ML FLUSH IV FLUSH SCH ×2 (09:49→22:10)
[2017-05-14] MEDS: PANTOPRAZOLE SODIUM 40 MG VIAL IV PUSH SCH ×2 (09:49→22:10)
[2017-05-14] MEDS: HEPARIN SODIUM - SQ 10,000 UNITS/ML VIAL SQ SCH ×2 (09:50→22:10)
[2017-05-14] MEDS: DOCUSATE SODIUM 50 MG/SENNA 8.6 MG TAB PO SCH ×2 (09:50→19:54)
[2017-05-14] MEDS: NEOMYCIN/POLYMYXIN/BACITRACIN OINT 15 GM TUBE TOPICAL SCH (09:54)
[2017-05-14] MEDS: VANCOMYCIN 1,500 MG/NS 500 ML IV SCH ×4 (10:02→21:18)
[2017-05-14 10:16] LABS: PLATELET ESTIMATE SMEAR NORMAL (NORMAL); PLATELET MORPHOLOGY NORMAL (NORMAL); SCAN/DIFF AUTO DIFF CONFIRMED; TOXIC GRANULATION 1+ (NORMAL)
--- NOTE | 2017-05-14 10:51 | PD.ONC.PN ---
Subjective Subjective Remarks Had low grade temp last night of 100.0. Has a mild pruritic raised rash to L thigh Coughing up moderate amt of sputum. Objective Data Date Time Temp Pulse Resp B/P (MAP) Pulse Ox O2 Delivery O2 Flow Rate FiO2 05/14/17 04:00 99.5 88 18 111/57 (75) 96 05/14/17 00:41 20 05/14/17 00:34 83 05/13/17 23:38 100.0 91 18 145/75 (98) 99 05/13/17 21:00 T-Piece 6.00 35 05/13/17 20:05 83 05/13/17 19:55 97 T-piece 35 05/13/17 18:43 T-Piece 6.00 40 05/13/17 16:00 98.6 70 18 127/67 (87) 99 05/13/17 11:30 98.4 75 16 137/70 (92) 99 05/14/17 05/14/17 05/14/17 07:00 15:00 23:00 Output Total 300 ml Balance -300 ml Result Diagram: 05/14/17 0548 05/14/17 0548 Laboratory Results Laboratory Tests Test 05/13/17 12:45 05/14/17 05:48 Urine Color YELLOW Urine Turbidity CLEAR Urine pH 8.0 Urine Specific [place] 1.012 Urine Protein NEG mg/dL Urine Glucose (UA) NEG mg/dL Urine Ketones NEG mg/dL Urine Occult Blood NEG Urine Nitrite NEG Urine Bilirubin NEG Urine Urobilinogen LESS THAN 2.0 MG/DL Urine Leukocyte Esterase NEG Urine RBC LESS THAN 1 /hpf Urine WBC 2 /hpf Urine Squamous Epithelial Cells <1 /hpf Microscopic Urinalysis Comment CULT NOT INDICATED Urine Osmolality 465 MOSM/KG White Blood Count 5.1 TH/MM3 Red Blood Count 2.56 MIL/MM3 Hemoglobin 8.3 GM/DL Hematocrit 22.9 % Mean Corpuscular Volume 89.6 FL Mean Corpuscular Hemoglobin 32.3 PG Mean Corpuscular Hemoglobin Concent 36.0 % Red Cell Distribution Width 14.0 % Platelet Count 238 TH/MM3 Mean Platelet Volume 7.1 FL Neutrophils (%) (Auto) 67.0 % Lymphocytes (%) (Auto) 10.6 % Monocytes (%) (Auto) 13.5 % Eosinophils (%) (Auto) 8.2 % Basophils (%) (Auto) 0.7 % Neutrophils # (Auto) 3.4 TH/MM3 Lymphocytes # (Auto) 0.5 TH/MM3 Monocytes # (Auto) 0.7 TH/MM3 Eosinophils # (Auto) 0.4 TH/MM3 Basophils # (Auto) 0.0 TH/MM3 CBC Comment AUTO DIFF Differential Comment AUTO DIFF CONFIRMED Toxic Granulation 1+ Platelet Estimate NORMAL Platelet Morphology Comment NORMAL Blood Urea Nitrogen 9 MG/DL Creatinine 0.25 MG/DL Random Glucose 119 MG/DL Calcium Level 7.7 MG/DL Sodium Level 123 MEQ/L Potassium Level 3.9 MEQ/L Chloride Level 88 MEQ/L Carbon Dioxide Level 28.3 MEQ/L Anion Gap 7 MEQ/L Estimat Glomerular Filtration Rate 366 ML/MIN Culture Results Microbiology Date/Time Source Procedure Growth Status 05/12/17 21:26 Blood Peripheral Aerobic Blood Culture - Preliminary NO GROWTH IN 1 DAY Resulted 05/12/17 21:26 Blood Peripheral Anaerobic Blood Culture - Preliminary NO GROWTH IN 1 DAY Resulted 05/12/17 21:20 Blood Peripheral Aerobic Blood Culture - Preliminary NO GROWTH IN 1 DAY Resulted 05/12/17 21:20 Blood Peripheral Anaerobic Blood Culture - Preliminary NO GROWTH IN 1 DAY Resulted Administered Medications Medications (Trade) Dose Ordered Sig/Delvis Route PRN Reason Start Time Stop Time Status Last Admin Dose Admin Lorazepam (Ativan) 0.5 mg Q8H PRN PO SEVERE ANXIETY OR AGITATION 04/16/17 21:45 05/12/17 16:27 Clonidine (Catapres) 0.1 mg Q6H PRN PO SBP>160, DBP>90 04/16/17 21:45 04/18/17 05:17 Acetaminophen/ Hydrocodone Bitart ([place] 5-325 Mg) 1 tab Q4H PRN PO PAIN GREATER THAN 5 04/16/17 21:45 Future Hold 04/16/17 22:37 Sodium Chloride (NS Flush) 2 ml BID IV FLUSH 04/17/17 09:00 05/14/17 09:49 Ondansetron HCl (Zofran Inj) 4 mg Q6H PRN IVP NAUSEA OR VOMITING 04/16/17 21:45 05/12/17 09:53 Zolpidem Tartrate (Ambien) 5 mg HS PRN PO INSOMNIA 04/16/17 21:45 05/12/17 01:31 Senna/Docusate Sodium (Elidia-Colace) 1 tab BID PO 04/17/17 09:00 05/14/17 09:50 Albuterol/ Ipratropium (Duoneb Neb) 1 ampule Q6HR NEB PRN NEB SHORTNESS OF BREATH 04/16/17 23:00 05/10/17 04:45 Pantoprazole Sodium (Protonix Inj) 40 mg Q12HR IV PUSH 04/17/17 21:00 05/14/17 09:49 Acetaminophen (Tylenol) 500 mg Q4H PRN PO TEMP > 100 04/22/17 23:45 05/12/17 17:53 Heparin Sodium (Porcine) (Heparin Inj) 5,000 units Q12HR SQ 04/25/17 11:30 05/14/17 09:50 Potassium Bicarb/ Potassium Chloride (K-Lyte Cl Eff) 25 meq DAILY G-TUBE 04/25/17 11:30 05/14/17 09:48 Guaifenesin (Robitussin Liq) 200 mg Q4H PRN PO congestion 04/26/17 23:30 05/11/17 18:19 Oxycodone HCl (Roxicodone Intensol Liq) 10 mg Q4H PRN PO PAIN SCALE 5 TO 10 04/30/17 08:15 05/14/17 09:48 Hyoscyamine Sulfate (Levsin) 0.25 mg Q4H PRN PO SECRETIONS 05/04/17 20:45 05/14/17 09:48 Potassium Chloride 10 meq/ Magnesium Sulfate 4 meq/Sodium Chloride 506 ml @ 500 mls/hr Q7D IV 05/06/17 12:00 Future Hold 05/06/17 15:31 Potassium Chloride 10 meq/ Magnesium Sulfate 4 meq/Sodium Chloride 506 ml @ 500 mls/hr Q7D IV 05/06/17 15:00 Future Hold 05/07/17 00:20 Granisetron HCl (Kytril Inj) 1 mg Q7D IV PUSH 05/06/17 13:00 Future Hold 05/06/17 19:33 Dexamethasone Sodium Phosphate 20 mg/Sodium Chloride 55 ml @ 220 mls/hr Q7D IV 05/06/17 13:00 Future Hold 05/06/17 19:31 Mannitol (Mannitol Inj) 25 gm Q7D IV PUSH 05/06/17 13:30 Future Hold 05/06/17 21:09 Cisplatin 52 mg/ Sodium Chloride 302 ml @ 302 mls/hr Q7D IV 05/06/17 14:00 Future Hold 05/06/17 22:54 Neomycin/ Polymyxin/ Bacitracin (Neosporin Oint) 1 applic DAILY TOPICAL 05/09/17 17:00 05/14/17 09:54 Sodium Chloride (Sodium Chloride) 1 gm TID PO 05/12/17 18:00 05/14/17 09:48 Piperacillin Sod/ Tazobactam Sod 50 ml @ 100 mls/hr Q6H IV 05/13/17 10:00 05/14/17 06:06 Levetriacetam (Keppra Liq) 500 mg Q6H G-TUBE 05/13/17 12:00 05/14/17 06:06 Phenytoin (Dilantin Liq) 200 mg Q8HR G-TUBE 05/13/17 14:00 05/14/17 06:06 Water (Free Water) 30 ml Q8HR G-TUBE 05/13/17 14:00 05/14/17 06:00 Vancomycin HCl 1500 mg/Sodium Chloride 515 ml @ 257.5 mls/ hr Q12H IV 05/13/17 21:00 05/14/17 10:02 Lacosamide (Vimpat Liq) 100 mg EVERY OTHER DAY G-TUBE 05/14/17 09:00 05/14/17 09:48 Objective Remarks GENERAL: Chronically ill-appearing male resting in bed watching TV in no acute distress SKIN: Warm and dry. Rash to left thigh. Tinea to right groin. HEAD: Normocephalic. EYES: No injection or drainage. NECK: Supple, trachea midline. Trach T piece in place. Patient with excessive secretions. CARDIOVASCULAR: +S1/S2 RESPIRATORY: Coarse breath sounds anteriorly. Breathing unlabored. GASTROINTESTINAL: Abdomen non-distended. G-tube in place, receiving Jevity 1.5 EXTREMITIES: No cyanosis NEUROLOGICAL: Right sided paresis. Shakes head yes and no appropriately. Assessment/Plan Problem List: (1) Hyponatremia ICD Codes: E87.1 - Hypo-osmolality and hyponatremia Status: Acute Plan: --likely hypervolemia--has had positive fluid balance for the last few days --on fluid restriction and salt tablets TID --Hyponatremia noted to be improving --Primary managing (2) Head and neck cancer ICD Codes: C76.0 - Malignant neoplasm of head, face and neck Plan: -- XRT held on 05/13 due to fever --radiation sensitizing dose of Cisplatinum given on 05/06/17 --s/p XRT simulation on 04/25 --CT C.A.P shows no distal mets. --plan to give Cetuximab outpatient with chemoradiation --XRT started on 05/01--radiation is given Friday through Friday and 23 treatments total are planned. 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 He did not follow up with gastroenterology. EGD, 04/17/17. showed the severe esophagitis, possible mass in the larynx was identified. -- lesion appeared to be on the left side of the vallecula primarily originating in the vallecula and also the left hypopharyngeal wall. did not involve the endolarynx which was clear. 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 --course was complicated after the surgery that critical medicine was consulted for acute bleeding of the larynx mass. ----Dr. Grullon performed an awake trache in the OR. PEG was placed the following day. --Staging evaluation included chest x-ray that showed improved diffuse interstitial prominence. There is minimal linear opacities in the right upper lung consistent with scarring but no overt mass. --P16 negative (3) DVT prophylaxi Plan: --on heparin 5000U SQ q 12 -- Platelets being monitored Assessment 72y/o male with newly diagnosed locally advanced head and neck cancer. History of CVA with right-sided weakness. Aspiration. Anxiety and depression. Coronary artery disease. Hyperlipidemia. Diabetes. Headache. Hiatal hernia. Hypertension. Migraines. seizure. Sleep apnea. Tracheostomy. Examination under anesthesia. Vallecula biopsy. Plan 1. Pt having XRT today 2. Monitor rash to L thigh. It is not diffuse, so likely not related to antibiotics. 3. BC from 05/12 show no growth. 4. Give nystatin powder to tinea on L groin. 5. Continue NaCl tabs for hyponatremia; noted to be improving. Discussed with RN Attending Statement The exam, history, and the medical decision-making described in the above note were completed with the assistance of the mid-level provider. I reviewed and agree with the findings presented. I attest that I had a [id number] encounter with the patient on the same day, and personally performed and documented my assessment and findings in the medical record. Pt seen and examined. Most troubled by pruritic rash L high> R. Macular papular, confluent and erythematous. Trial HC, if worsen try anti fungal cream. Pt wish for something to alleviate itch. Noted Tmas 100.0, BC x 2 neg so far. Cont to hold chemo. C/O sore throat, worsening w/ XRT. Offer magic mouth wash for symptomatic relief. Adrianne Pardo May 14, 2017 10:51 Lauren Richter MD May 14, 2017 18:36
[2017-05-14] MEDS: diphenhydrAMINE HCL ELIXIR 12.5 MG/5 ML CUP PO PRN ×2 (14:51→22:09)
[2017-05-14] MEDS: NYSTATIN 100,000 U/GM PWD 15 GM BTL TOPICAL SCH ×2 (14:52→21:00)
[2017-05-14] MEDS: PARoxetine HCL SUSP 20 MG/10 ML UDC G-TUBE SCH (15:56)
[2017-05-14] MEDS: guaiFENesin SOLUTION 200 MG/10 ML CUP PO PRN (18:36)
[2017-05-14] MEDS: HYDROCORTISONE 1% CREAM 30 GM TOPICAL SCH (18:45)
[2017-05-14] MEDS: NYSTAT/DIPHENHY/LIDO MOUTHWASH (Adult) 120ML SWISH-SPIT SCH (21:00)
[2017-05-15] VITALS (9 sets, daily range): BP systolic 103–144; BP diastolic 55–84; PULSE 74–81; RESP 16–18; TEMP 97.9–99.1; O2SAT 96–100
[2017-05-15] MEDS: PIPERACIL-TAZO 3.375 GM PREMIX 50 ML IV SCH ×3 (04:17→16:00)
[2017-05-15] MEDS: levETIRAcetam 500 MG/5 ML UDC G-TUBE SCH ×2 (04:18→11:46)
[2017-05-15] MEDS: PHENYTOIN SUSP 100 MG/4 ML CUP G-TUBE SCH ×2 (04:18→11:46)
[2017-05-15] MEDS: FREE WATER G-TUBE SCH ×2 (04:18→14:00)
[2017-05-15 07:08] LABS: AUTOMATED NEUTROPHIL # 3.3 TH/MM3 (1.8-7.7); BASOPHIL % 0.5 % (0.0-2.0); EOSINOPHIL # 0.5 TH/MM3 (0-0.4); EOSINOPHIL % 9.9 % (0.0-4.0); HEMATOCRIT 25.1 % (39.0-51.0); HEMO FLAGS DIFF FINAL; LYMPH % 12.5 % (9.0-44.0); LYMPHOCYTE # 0.7 TH/MM3 (1.0-4.8); MEAN CELL VOLUME 91.1 FL (80.0-100.0); MEAN CORPUSCULAR HEMOGLOBIN 32.3 PG (27.0-34.0); MEAN CORPUSCULAR HGB CONC 35.4 % (32.0-36.0); MONO % 14.6 % (0.0-8.0); NEUT % 62.5 % (16.0-70.0); PLATELET COUNT 246 TH/MM3 (150-450); RED BLOOD COUNT 2.75 MIL/MM3 (4.50-5.90); RED CELL DISTRIBUTION WIDTH 14.3 % (11.6-17.2); WHITE BLOOD COUNT 5.3 TH/MM3 (4.0-11.0)
[2017-05-15 07:55] LABS: BICARBONATE 29.2 MEQ/L (21.0-32.0)
[2017-05-15 08:15] LABS: POTASSIUM 4.6 MEQ/L (3.5-5.1)
[2017-05-15] MEDS ORDERED: PHARMACY ORDERED LAB ONE (08:45)
[2017-05-15] MEDS: NEOMYCIN/POLYMYXIN/BACITRACIN OINT 15 GM TUBE TOPICAL SCH (09:00)
[2017-05-15] MEDS: PARoxetine HCL SUSP 20 MG/10 ML UDC G-TUBE SCH (09:44)
[2017-05-15] MEDS: VANCOMYCIN 1,500 MG/NS 500 ML IV SCH ×2 (09:44)
[2017-05-15] MEDS: DOCUSATE SODIUM 50 MG/SENNA 8.6 MG TAB PO SCH (09:44)
[2017-05-15] MEDS: HYDROCORTISONE 1% CREAM 30 GM TOPICAL SCH (09:44)
[2017-05-15] MEDS: SODIUM CHLORIDE 1 GRAM TAB PO SCH ×2 (09:44→14:46)
[2017-05-15] MEDS: NYSTAT/DIPHENHY/LIDO MOUTHWASH (Adult) 120ML SWISH-SPIT SCH ×2 (09:44→14:41)
[2017-05-15] MEDS: HEPARIN SODIUM - SQ 10,000 UNITS/ML VIAL SQ SCH (09:45)
[2017-05-15] MEDS: PANTOPRAZOLE SODIUM 40 MG VIAL IV PUSH SCH (09:45)
[2017-05-15] MEDS: POTASSIUM CHLORIDE 25 MEQ EFFERVESCENT TAB G-TUBE SCH (09:45)
[2017-05-15] MEDS: SODIUM CHLORIDE 0.9% FLUSH 10 ML FLUSH IV FLUSH SCH (09:45)
[2017-05-15] MEDS: NYSTATIN 100,000 U/GM PWD 15 GM BTL TOPICAL SCH (09:46)
[2017-05-15] MEDS: diphenhydrAMINE HCL ELIXIR 12.5 MG/5 ML CUP PO PRN (11:45)
--- NOTE | 2017-05-15 13:04 | PD.ONC.PN ---
Subjective Subjective Remarks Afebrile overnight Patient complains of persistent itching on left thigh Objective Data Date Time Temp Pulse Resp B/P (MAP) Pulse Ox O2 Delivery O2 Flow Rate FiO2 05/15/17 12:00 97.9 79 18 144/68 (93) 96 05/15/17 08:55 99 T-piece 6.00 35 05/15/17 08:00 98.4 80 18 136/74 (94) 100 05/15/17 07:00 Trach Collar 6.00 35 05/15/17 07:00 76 05/15/17 04:22 78 05/15/17 04:15 99.1 77 16 108/57 (74) 100 05/15/17 00:41 99.1 81 16 103/55 (71) 100 05/15/17 00:06 75 05/14/17 22:05 Trach Collar 6.00 35 05/14/17 20:08 79 05/14/17 20:00 98.8 86 18 115/58 (77) 98 05/14/17 17:41 94 T-piece 6.00 35 05/14/17 16:02 18 05/14/17 15:57 99.0 82 18 122/57 (78) 94 05/14/17 13:45 T-piece 5.00 35 05/14/17 13:30 99.1 78 20 105/58 (74) 95 05/15/17 05/15/17 05/15/17 07:00 15:00 23:00 Intake Total 550 ml Output Total 800 ml Balance -250 ml Result Diagram: 05/15/17 0548 05/15/17 0548 Laboratory Results Laboratory Tests Test 05/15/17 05:48 05/15/17 12:46 White Blood Count 5.3 TH/MM3 Red Blood Count 2.75 MIL/MM3 Hemoglobin 8.9 GM/DL Hematocrit 25.1 % Mean Corpuscular Volume 91.1 FL Mean Corpuscular Hemoglobin 32.3 PG Mean Corpuscular Hemoglobin Concent 35.4 % Red Cell Distribution Width 14.3 % Platelet Count 246 TH/MM3 Mean Platelet Volume 6.9 FL Neutrophils (%) (Auto) 62.5 % Lymphocytes (%) (Auto) 12.5 % Monocytes (%) (Auto) 14.6 % Eosinophils (%) (Auto) 9.9 % Basophils (%) (Auto) 0.5 % Neutrophils # (Auto) 3.3 TH/MM3 Lymphocytes # (Auto) 0.7 TH/MM3 Monocytes # (Auto) 0.8 TH/MM3 Eosinophils # (Auto) 0.5 TH/MM3 Basophils # (Auto) 0.0 TH/MM3 CBC Comment DIFF FINAL Differential Comment Blood Urea Nitrogen 9 MG/DL Creatinine 0.28 MG/DL Random Glucose 110 MG/DL Calcium Level 7.8 MG/DL Sodium Level 126 MEQ/L Potassium Level 4.6 MEQ/L Chloride Level 92 MEQ/L Carbon Dioxide Level 29.2 MEQ/L Anion Gap 5 MEQ/L Estimat Glomerular Filtration Rate 321 ML/MIN Culture Results Microbiology Date/Time Source Procedure Growth Status 05/12/17 21:26 Blood Peripheral Aerobic Blood Culture - Preliminary NO GROWTH IN 3 DAYS Resulted 05/12/17 21:26 Blood Peripheral Anaerobic Blood Culture - Preliminary NO GROWTH IN 3 DAYS Resulted 05/12/17 21:20 Blood Peripheral Aerobic Blood Culture - Preliminary NO GROWTH IN 3 DAYS Resulted 05/12/17 21:20 Blood Peripheral Anaerobic Blood Culture - Preliminary NO GROWTH IN 3 DAYS Resulted Administered Medications Medications (Trade) Dose Ordered Sig/Delvis Route PRN Reason Start Time Stop Time Status Last Admin Dose Admin Lorazepam (Ativan) 0.5 mg Q8H PRN PO SEVERE ANXIETY OR AGITATION 04/16/17 21:45 05/12/17 16:27 Clonidine (Catapres) 0.1 mg Q6H PRN PO SBP>160, DBP>90 04/16/17 21:45 04/18/17 05:17 Acetaminophen/ Hydrocodone Bitart ([place] 5-325 Mg) 1 tab Q4H PRN PO PAIN GREATER THAN 5 04/16/17 21:45 Future Hold 04/16/17 22:37 Sodium Chloride (NS Flush) 2 ml BID IV FLUSH 04/17/17 09:00 05/15/17 09:45 Ondansetron HCl (Zofran Inj) 4 mg Q6H PRN IVP NAUSEA OR VOMITING 04/16/17 21:45 05/12/17 09:53 Zolpidem Tartrate (Ambien) 5 mg HS PRN PO INSOMNIA 04/16/17 21:45 05/12/17 01:31 Senna/Docusate Sodium (Elidia-Colace) 1 tab BID PO 04/17/17 09:00 05/15/17 09:44 Albuterol/ Ipratropium (Duoneb Neb) 1 ampule Q6HR NEB PRN NEB SHORTNESS OF BREATH 04/16/17 23:00 05/10/17 04:45 Pantoprazole Sodium (Protonix Inj) 40 mg Q12HR IV PUSH 04/17/17 21:00 05/15/17 09:45 Acetaminophen (Tylenol) 500 mg Q4H PRN PO TEMP > 100 04/22/17 23:45 05/12/17 17:53 Heparin Sodium (Porcine) (Heparin Inj) 5,000 units Q12HR SQ 04/25/17 11:30 05/15/17 09:45 Potassium Bicarb/ Potassium Chloride (K-Lyte Cl Eff) 25 meq DAILY G-TUBE 04/25/17 11:30 05/15/17 09:45 Guaifenesin (Robitussin Liq) 200 mg Q4H PRN PO congestion 04/26/17 23:30 05/14/17 18:36 Oxycodone HCl (Roxicodone Intensol Liq) 10 mg Q4H PRN PO PAIN SCALE 5 TO 10 04/30/17 08:15 05/14/17 15:02 Hyoscyamine Sulfate (Levsin) 0.25 mg Q4H PRN PO SECRETIONS 05/04/17 20:45 05/14/17 14:51 Potassium Chloride 10 meq/ Magnesium Sulfate 4 meq/Sodium Chloride 506 ml @ 500 mls/hr Q7D IV 05/06/17 12:00 Future Hold 05/06/17 15:31 Potassium Chloride 10 meq/ Magnesium Sulfate 4 meq/Sodium Chloride 506 ml @ 500 mls/hr Q7D IV 05/06/17 15:00 Future Hold 05/07/17 00:20 Granisetron HCl (Kytril Inj) 1 mg Q7D IV PUSH 05/06/17 13:00 Future Hold 05/06/17 19:33 Dexamethasone Sodium Phosphate 20 mg/Sodium Chloride 55 ml @ 220 mls/hr Q7D IV 05/06/17 13:00 Future Hold 05/06/17 19:31 Mannitol (Mannitol Inj) 25 gm Q7D IV PUSH 05/06/17 13:30 Future Hold 05/06/17 21:09 Cisplatin 52 mg/ Sodium Chloride 302 ml @ 302 mls/hr Q7D IV 05/06/17 14:00 Future Hold 05/06/17 22:54 Neomycin/ Polymyxin/ Bacitracin (Neosporin Oint) 1 applic DAILY TOPICAL 05/09/17 17:00 05/14/17 09:54 Sodium Chloride (Sodium Chloride) 1 gm TID PO 05/12/17 18:00 05/15/17 09:44 Piperacillin Sod/ Tazobactam Sod 50 ml @ 100 mls/hr Q6H IV 05/13/17 10:00 05/15/17 10:00 Levetriacetam (Keppra Liq) 500 mg Q6H G-TUBE 05/13/17 12:00 05/15/17 11:46 Phenytoin (Dilantin Liq) 200 mg Q8HR G-TUBE 05/13/17 14:00 05/15/17 11:46 Water (Free Water) 30 ml Q8HR G-TUBE 05/13/17 14:00 05/15/17 04:18 Vancomycin HCl 1500 mg/Sodium Chloride 515 ml @ 257.5 mls/ hr Q12H IV 05/13/17 21:00 05/15/17 09:44 Lacosamide (Vimpat Liq) 100 mg EVERY OTHER DAY G-TUBE 05/14/17 09:00 05/14/17 09:48 Paroxetine HCl (Paxil Liq) 20 mg DAILY G-TUBE 05/14/17 09:45 05/15/17 09:44 Diphenhydramine HCl (Benadryl Liq) 25 mg Q6HR PRN PO ITCHING 05/14/17 10:45 05/15/17 11:45 Nystatin (Mycostatin Powder) 1 applic Q12HR TOPICAL 05/14/17 10:45 05/15/17 09:46 Hydrocortisone (Hydrocortisone 1% Cream) 1 applic DAILY TOPICAL 05/14/17 18:45 05/15/17 09:44 Multi-Ingredient Mouthwash/Gargle (Magic Mouthwash Adult Liq) 5 ml QID SWISH-SPIT 05/14/17 21:00 05/15/17 09:44 Objective Remarks GENERAL: Chronically ill-appearing male resting in bed asleep in no acute distress. Awakens easily to verbal stimuli SKIN: Warm and dry. Rash to left thigh; unchanged from previous. HEAD: Normocephalic. EYES: No injection or drainage. NECK: Supple, trachea midline. Trach T piece in place. Patient with excessive secretions. CARDIOVASCULAR: +S1/S2 RESPIRATORY: Coarse breath sounds anteriorly. Breathing unlabored. GASTROINTESTINAL: Abdomen non-distended. G-tube in place, receiving Jevity 1.5 EXTREMITIES: No cyanosis NEUROLOGICAL: Right sided paresis. Shakes head yes and no appropriately. Assessment/Plan Problem List: (1) Hyponatremia ICD Codes: E87.1 - Hypo-osmolality and hyponatremia Status: Acute Plan: --likely hypervolemia--has had positive fluid balance for the last few days --on fluid restriction and salt tablets TID --Hyponatremia noted to be improving --Primary managing (2) Head and neck cancer ICD Codes: C76.0 - Malignant neoplasm of head, face and neck Plan: --Will resume weekly cisplatin once fevers abated. --radiation sensitizing dose of Cisplatin given on 05/06/17 --s/p XRT simulation on 04/25 --CT C.A.P shows no distal mets. --plan to give Cetuximab outpatient with chemoradiation --XRT started on 05/01--radiation is given Friday through Friday and 23 treatments total are planned. 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 He did not follow up with gastroenterology. EGD, 04/17/17. showed the severe esophagitis, possible mass in the larynx was identified. -- lesion appeared to be on the left side of the vallecula primarily originating in the vallecula and also the left hypopharyngeal wall. did not involve the endolarynx which was clear. 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 --course was complicated after the surgery that critical medicine was consulted for acute bleeding of the larynx mass. ----Dr. Grullon performed an awake trache in the OR. PEG was placed the following day. --Staging evaluation included chest x-ray that showed improved diffuse interstitial prominence. There is minimal linear opacities in the right upper lung consistent with scarring but no overt mass. --P16 negative (3) DVT prophylaxi Plan: --on heparin 5000U SQ q 12 -- Platelets being monitored Assessment 72y/o male with newly diagnosed locally advanced head and neck cancer. History of CVA with right-sided weakness. Aspiration. Anxiety and depression. Coronary artery disease. Hyperlipidemia. Diabetes. Headache. Hiatal hernia. Hypertension. Migraines. seizure. Sleep apnea. Tracheostomy. Examination under anesthesia. Vallecula biopsy. Plan 1. Radiation continues. 2. If fevers remain abated we will resume weekly Cisplatin. 3. Hyponatremia improving 4. Monitor CBC Discussed with RN Attending Statement The exam, history, and the medical decision-making described in the above note were completed with the assistance of the mid-level provider. I reviewed and agree with the findings presented. I attest that I had a [id number] encounter with the patient on the same day, and personally performed and documented my assessment and findings in the medical record. Pt seen with and son at bedside. Rash is a little better. Tired, c/o mouth sore. No fevers 24 hours. BC still negative. Adrianne Pardo May 15, 2017 13:04 Lauren Richter MD May 15, 2017 16:30
[2017-05-15] MEDS: oxyCODONE HCL ORAL CONC 5 MG/0.25 ML SYRINGE PO PRN (14:40)
[2017-05-15] MEDS ORDERED: VANCOMYCIN 1,000 MG/NS 250 ML IV SCH ×2 (15:00)
[2017-05-15] MEDS ORDERED: XANA1TAB2 PO (16:59)
[2017-05-15] MEDS ORDERED: CLIN300I2 IV (16:59)
[2017-05-15] MEDS ORDERED: HYDR-3580 PO (16:59)
[2017-05-15] MEDS ORDERED: IPRASOL INH (16:59)
--- NOTE | 2017-05-15 17:00 | HHI.DCPOC ---
Discharge Care Plan Diagnosis: (1) Head and neck cancer (2) Normocytic anemia (3) Hyponatremia (4) Hyperkalemia (5) Impaired mobility and activities of daily living (6) Encephalopathy acute (7) Phenytoin toxicity (8) COPD exacerbation (9) Hypertension (10) Seizure (11) Hyperlipidemia (12) Muscle spasticity Goals to Promote Your Health * To prevent worsening of your condition and complications * To maintain your health at the optimal level Directions to Meet Your Goals Take your medications as prescribed Follow your dietary instruction Follow activity as directed Keep your appointments as scheduled Take your immunizations and boosters as scheduled If your symptoms worsen call your PCP, if no PCP go to Urgent Care Center or Emergency Room Smoking is Dangerous to Your Health. Avoid second hand smoke Call the 24-hour hour crisis hotline for domestic abuse at Ari Sims MD May 15, 2017 17:00
--- NOTE | 2017-05-15 17:00 | HHI.DS ---
Discharge Summary Admission Date Apr 18, 2017 at 09:28 Discharge Date: May 15, 2017 Admitting Diagnosis Hyponatremia/Hyperkalemia (1) Hyponatremia ICD Codes: E87.1 - Hypo-osmolality and hyponatremia Status: Acute CBC/BMP: 05/15/17 0548 05/15/17 0548 Significant Findings Laboratory Tests Test 05/13/17 01:15 05/13/17 05:15 05/13/17 12:45 05/14/17 05:48 Vancomycin Level Trough 18.5 MCG/ML (5.0-10.0) Red Blood Count 2.80 MIL/MM3 (4.50-5.90) 2.56 MIL/MM3 (4.50-5.90) Hemoglobin 8.9 GM/DL (13.0-17.0) 8.3 GM/DL (13.0-17.0) Hematocrit 25.1 % (39.0-51.0) 22.9 % (39.0-51.0) Neutrophils (%) (Auto) 73.1 % (16.0-70.0) Lymphocytes (%) (Auto) 8.9 % (9.0-44.0) Monocytes (%) (Auto) 11.1 % (0.0-8.0) 13.5 % (0.0-8.0) Eosinophils (%) (Auto) 6.1 % (0.0-4.0) 8.2 % (0.0-4.0) Lymphocytes # (Auto) 0.5 TH/MM3 (1.0-4.8) 0.5 TH/MM3 (1.0-4.8) Creatinine 0.29 MG/DL (0.60-1.30) 0.25 MG/DL (0.60-1.30) Random Glucose 110 MG/DL (74-106) 119 MG/DL (74-106) Total Protein 6.2 GM/DL (6.4-8.2) Calcium Level 7.4 MG/DL (8.5-10.1) 7.7 MG/DL (8.5-10.1) Sodium Level 120 MEQ/L (136-145) 123 MEQ/L (136-145) Chloride Level 85 MEQ/L (98-107) 88 MEQ/L (98-107) Protein Corrected Calcium 7.9 MG/DL (8.5-10.1) Toxic Granulation 1+ (NORMAL) Test 05/15/17 05:48 05/15/17 12:46 Red Blood Count 2.75 MIL/MM3 (4.50-5.90) Hemoglobin 8.9 GM/DL (13.0-17.0) Hematocrit 25.1 % (39.0-51.0) Mean Platelet Volume 6.9 FL (7.0-11.0) Monocytes (%) (Auto) 14.6 % (0.0-8.0) Eosinophils (%) (Auto) 9.9 % (0.0-4.0) Lymphocytes # (Auto) 0.7 TH/MM3 (1.0-4.8) Eosinophils # (Auto) 0.5 TH/MM3 (0-0.4) Creatinine 0.28 MG/DL (0.60-1.30) Random Glucose 110 MG/DL (74-106) Calcium Level 7.8 MG/DL (8.5-10.1) Sodium Level 126 MEQ/L (136-145) Chloride Level 92 MEQ/L (98-107) Vancomycin Level Trough 18.7 MCG/ML (5.0-10.0) PE at Discharge GENERAL: SKIN: Warm and dry. HEAD: Atraumatic. Normocephalic. EYES: Pupils equal and round. No scleral icterus. No injection or drainage. ENT: No nasal bleeding or discharge. Mucous membranes pink and moist. NECK: Trachea midline. No JVD. CARDIOVASCULAR: Regular rate and rhythm. RESPIRATORY: No accessory muscle use. Clear to auscultation. Breath sounds equal bilaterally. GASTROINTESTINAL: Abdomen soft, non-tender, nondistended. Hepatic and splenic margins not palpable. MUSCULOSKELETAL: Extremities without clubbing, cyanosis, or edema. No obvious deformities. NEUROLOGICAL: Awake and alert. No obvious cranial nerve deficits. Motor grossly within normal limits. 2 out of 5 muscle strength in the arms and legs. Normal speech. PSYCHIATRIC: Appropriate mood and affect; insight and judgment normal. Hospital Course HOSPITAL COURSE AND PLAN: 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 SEPSIS, RESOLVED. PNA, FEVERS: FOLLOWUP BLOOD CULTURES 05/12, IV ABX MRSA TRACHEITIS Acute bleeding s/p phayrnx bx w airway compromise Respiratory failure s/p Trach SEPSIS, RESOLVED. Aspiration pneumonia, S/P GT BY DR GIBSON 04/22. TF'S. Dysphagia Esophagitis on EGD 04/17/17 Seizures Dilantin toxicity Hyponatremia SIADH: RESTRICT WATER, NS IVF, NACL TABS, Hyperkalemia and now with hypokalemia. Cerebrovascular accident with right hemiparesis. Anemia. Depression Anxiety. Chronic pain syndrome. Lumbar degenerative disc disease. Neuropathy. DVT prophylaxis - SCDs/TEDs. Heparin 5000 units subcutaneously q 12 GI prophylaxis - Protonix 40 mg IV q.12 h. CONSULTS TO ID, PULM, ENT, ONCO, GI, WOUND, DISPO: TO SNF SOON - OUTPATIENT CT AND RT. Pt Condition on Discharge: Stable Discharge Disposition: Discharge to SNF Discharge Instructions DIET: Follow Instructions for: On Tube Feeding Activities you can perform: Regular-No Restrictions Follow up Referrals: Oncology/Hematology - 2-3 Days with Lauren Richter MD PCP Follow-up - 2-[address] desouza New Medications: Clindamycin Inj (Clindamycin Inj) 150 Mg/Ml Inj 300 MG IV Q6H for Infection for 7 Days, VIAL 0 Refills Ipratropium-Albuterol Neb (Duoneb) 0.5-2.5 Mg/3 Ml Neb 1 NEBULE INH Q6HR NEB for Breathing Treatment, #120 NEBULE 0 Refills Changed Medications: Hydrocodone-Acetaminophen (Hydrocodone-Acetaminophen) 7.5-325 mg Tab 0.5 TAB PO Q4HR PRN for PAIN, #180 TAB 0 Refills (Changed from: Q12HR; 30) Continued Medications: Albuterol Neb (Albuterol Neb) 2.5 Mg/3 Ml Neb 2.5 MG NEB Q4HR NEB PRN for SHORTNESS OF BREATH, #60 NEBULE 0 Refills Alprazolam (Xanax) 1 Mg Tab 1 MG PO BID for Anxiety, #60 TAB 5 Refills (This prescription has been renewed) Aspirin (Aspirin) 81 Mg Chew 81 MG CHEW DAILY, TAB 0 Refills Ferrous Sulfate (Ferrous Sulfate) 325 Mg (65 Mg Iron) Tablet 325 MG PO DAILY for Nutritional Supplement, #30 TAB 0 Refills Lacosamide (Vimpat) 200 Mg Tab 200 MG PO EVERY OTHER DAY for Control Seizures, #60 TAB 0 Refills Levetiracetam (Keppra) 500 Mg Tab 500 MG PO Q12HR for sz for 30 Days, TAB 11 Refills Paroxetine (Paroxetine) 40 Mg Tab 40 MG PO DAILY, #30 TAB 0 Refills Phenytoin Extended (Dilantin) 100 Mg Cap 100 MG PO BID for Control Seizures, #60 CAP 0 Refills Pravastatin (Pravastatin) 40 Mg Tab 40 MG PO HS for Cholesterol Management, #30 TAB 0 Refills Promethazine (Promethazine) 12.5 Mg Tab 12.5 MG PO Q4H PRN for NAUSEA OR VOMITING, TAB 0 Refills Discontinued Medications: Multiple Vitamins W/ Minerals (Multi-Vitamin/Minerals) 1 Tab Tab 1 TAB PO DAILY for Nutritional Supplement Trazodone (Trazodone) 50 Mg Tab 50 MG PO HS for Insomnia, #30 TAB 0 Refills Ari Desouza MD May 15, 2017 17:00
[2017-05-17] MEDS ORDERED: PHARMACY ORDERED LAB ONE (02:45)
== END 2017-05-15 19:51 | DRG 11 ==
LOC: NEPC 14:43 → NEDA 19:38 → NEDH 19:39 → NEDA 19:39 → UNDOADMIN 19:39 → NEDA 21:39 → INTOOBSV 21:39 → UNDOADMOB 21:39 → NEDA 22:04 → N05B 22:04 → OBSVTOIN 04-18 09:28 → INTOOBSV 04-18 09:28 → N03B 04-20 08:34 → N03A 04-20 15:02 → N05A 04-21 22:49 → HCIS 05-04 05:45
PROVIDERS: ADMIT Family Medicine; ATTEND Family Medicine
PROC: 0DB38ZX Excision of Lower Esophagus, Via Natural or Artificial Opening Endoscopic, Diagnostic (ICD-10-PCS; principal; 2017-04-17 12:15)
PROC: 0CJS8ZZ Inspection of Larynx, Via Natural or Artificial Opening Endoscopic (ICD-10-PCS; 2017-04-18)
PROC: 0B110F4 Bypass Trachea to Cutaneous with Tracheostomy Device, Open Approach (ICD-10-PCS; 2017-04-20)
PROC: 0CBM8ZX Excision of Pharynx, Via Natural or Artificial Opening Endoscopic, Diagnostic (ICD-10-PCS; 2017-04-20)
PROC: 0DH63UZ Insertion of Feeding Device into Stomach, Percutaneous Approach (ICD-10-PCS; 2017-04-21)
PROC: 0DJ08ZZ Inspection of Upper Intestinal Tract, Via Natural or Artificial Opening Endoscopic (ICD-10-PCS; 2017-04-21)
PROC: DB0 Radiation Therapy, Respiratory System, Beam Radiation (ICD-10-PCS; 2017-05-02)
PROC: 3E03305 Introduction of Other Antineoplastic into Peripheral Vein, Percutaneous Approach (ICD-10-PCS; 2017-05-06)
DX: C12 Malignant neoplasm of pyriform sinus (principal); J69.0 Pneumonitis due to inhalation of food and vomit; J96.91 Respiratory failure, unspecified with hypoxia; A41.9 Sepsis, unspecified organism; G93.40 Encephalopathy, unspecified; E22.2 Syndrome of inappropriate secretion of antidiuretic hormone; I69.351 Hemiplegia and hemiparesis following cerebral infarction affecting right dominant side; J44.1 Chronic obstructive pulmonary disease with (acute) exacerbation; J95.830 Postprocedural hemorrhage of a respiratory system organ or structure following a respiratory system procedure; J95.01 Hemorrhage from tracheostomy stoma; R13.10 Dysphagia, unspecified; E88.09 Other disorders of plasma-protein metabolism, not elsewhere classified; E87.5 Hyperkalemia; I10 Essential (primary) hypertension; D64.9 Anemia, unspecified; E11.9 Type 2 diabetes mellitus without complications; G62.9 Polyneuropathy, unspecified; G40.909 Epilepsy, unspecified, not intractable, without status epilepticus; I69.392 Facial weakness following cerebral infarction; K21.0 Gastro-esophageal reflux disease with esophagitis; M19.90 Unspecified osteoarthritis, unspecified site; E78.00 Pure hypercholesterolemia, unspecified; K44.9 Diaphragmatic hernia without obstruction or gangrene; G47.30 Sleep apnea, unspecified; I25.10 Atherosclerotic heart disease of native coronary artery without angina pectoris; G43.909 Migraine, unspecified, not intractable, without status migrainosus; T42.0X5A Adverse effect of hydantoin derivatives, initial encounter; G89.4 Chronic pain syndrome; M51.36 Other intervertebral disc degeneration, lumbar region; Z87.11 Personal history of peptic ulcer disease; Z87.891 Personal history of nicotine dependence; M54.9 Dorsalgia, unspecified; F41.8 Other specified anxiety disorders; B35.9 Dermatophytosis, unspecified; J04.10 Acute tracheitis without obstruction; E87.6 Hypokalemia; Y84.8 Other medical procedures as the cause of abnormal reaction of the patient, or of later complication, without mention of misadventure at the time of the procedure; Y92.239 Unspecified place in hospital as the place of occurrence of the external cause; L29.9 Pruritus, unspecified; Z95.5 Presence of coronary angioplasty implant and graft; Z96.641 Presence of right artificial hip joint; B95.62 Methicillin resistant Staphylococcus aureus infection as the cause of diseases classified elsewhere; E87.70 Fluid overload, unspecified; R21 Rash and other nonspecific skin eruption; R26.9 Unspecified abnormalities of gait and mobility; M62.838 Other muscle spasm
CPT/HCPCS: 70491; 71010; 71020; 71260; 74000; 74177; 74241; 76937; 77014; 77263; 77300; 77301; 77334; 77336; 77338; 77386; 77387; 77427; 80048; 80053; 80069; 80076; 80177; 80185; 80202; 81001; 82607; 82728; 82948; 83036; 83540; 83550; 83605; 83690; 83735; 83880; 83930; 83935; 84100; 84155; 84439; 84443; 85025; 85610; 85730; 86403; 87040; 87070; 87147; 87186; 87205; 87641; 88305; 88312; 88341; 93005; 93970; 94002; 94640; 95819; 96374; 96375; 99222; A7521; C9113; C9254; G8987-GO; G8987-GP; G8988-GO; G8988-GP; J0171; J0330; J0610; J1100; J1165; J1626; J1644; J1756; J1815; J1953; J1956; J2150; J2250; J2270; J2405; J2543; J3010; J3370; J3475; J3480; J7030; J7040; J7042; J7050; J7120; J7512; J9060; P9047; Q2009; Q9963; Q9967

== ENCOUNTER 2017-05-22 14:57 | Emergency (ER) | payer MEDICARE, BC, OTHER ==
[~2017-05-22] VITALS: Ht 175.3 cm; Wt 81.0 kg
[~2017-05-22 14:57] MED LIST changes: +ALBU0.08 NEB; +ASPI-516 CHEW; +CLIN300I2 IV; -DOCU1CAP39 PO; -FERR325T PO; +FERR325T18 PO; -FLOR250C PO; -GABA300C5 PO; +IPRASOL INH; -MAALSUS18 PO; -MULTTAB62 PO; +PARO40TA2 PO; +PROM12.54 PO; -TRAZ50TA12 PO
[2017-05-22 15:00] VITALS: BP 138/66; PULSE 77; TEMP 98.4; O2SAT 100
[2017-05-22 15:23] VITALS: BP 190/88; PULSE 75; RESP 17; O2SAT 100
--- NOTE | 2017-05-22 16:23 | RADRPT ---
EXAM DATE/TIME: 05/22/2017 16:18 [facility] COMPARISON: CHEST SINGLE AP, April 23, 2017, 13:35. INDICATIONS : Cough MEDICAL HISTORY : Stroke. Cardiovascular disease Diabetes mellitus type 2.Hypertension. Throat cancer SURGICAL HISTORY : None. ENCOUNTER: Initial ACUITY: 1 day PAIN SCORE: 0/10 LOCATION: chest FINDINGS: A single view of the chest demonstrates the lungs to be symmetrically aerated without evidence of mas s, infiltrate or effusion. There is a tracheostomy tube in place. There is no pneumothorax. The cardi omediastinal contours are unremarkable. Osseous structures are intact. No significant changes compar ed to the prior study. CONCLUSION: No acute pulmonary infiltrates. Nestor Shen MD on May 22, 2017 at 16:21 Board Certified Radiologist. This report was verified electronically.
--- NOTE | 2017-05-22 16:56 | PD ---
HPI Chief Complaint: Personal Attendant Problem Time Seen by Provider: 15:11 Travel History International Travel<30 days: No Contact w/Intl Traveler<30days: No Traveled to known affect area: No History of Present Illness HPI 72-year-old male was brought in by his and son with history of tracheal bleed. Patient has history of laryngeal cancer and has a tracheostomy. He had his radiation therapy today and to try to suction his trach and it started to bleed. They wanted him to come to the emergency room to be checked out. By the time he came here the bleeding had stopped. He just has some thick yellowish secretion coming out. Patient is nonverbal but awake and his baseline. His and son are giving the history. As per the patient recently was diagnosed with MRSA and is on clindamycin. He is at a longterm. Vital signs are otherwise stable. [facility] Past Medical History Narrative Medical List of his past medical, surgical, social and family history is reviewed from the nursing note. Arthritis: Yes Asthma: No Autoimmune Disease: No Anxiety: Yes Depression: Yes Heart Rhythm Problems: No Cancer: No Cardiovascular Problems: Yes High Cholesterol: Yes Chest Pain: Yes Congestive Heart Failure: No COPD: Yes Cerebrovascular Accident: Yes Diabetes: Yes Patient Takes Glucophage: Yes Diminished Hearing: No Endocrine: No Gastrointestinal Disorders: No GERD: No Genitourinary: No Headaches: Yes Hiatal Hernia: Yes Hypertension: Yes (htn) Immune Disorder: No Implanted Vascular Access Dvce: Yes Kidney Stones: No Musculoskeletal: Yes Neurologic: Yes Psychiatric: Yes (anger management issues) Reproductive: No Respiratory: Yes Migraines: Yes Renal Failure: No Seizures: Yes Sleep Apnea: Yes Thyroid Disease: No Ulcer: No Past Surgical History Abdominal Surgery: No AICD: No Arteriovenous Shunt: No Cardiac Surgery: No Ear Surgery: No Endocrine Surgery: No Eye Surgery: No Genitourinary Surgery: No Gynecologic Surgery: No Insulin Pump: No Joint Replacement: Yes (rt hip, lt shoulder) Neurologic Surgery: No Oral Surgery: No Pacemaker: No Thoracic Surgery: No Other Surgery: Yes (HIATAL HERNIA) Social History Alcohol Use: No Tobacco Use: No Substance Use: No Allergies-Medications (Allergen,Severity, Reaction): Coded Allergies: sulfamethoxazole (Verified Allergy, Unknown, 05/22/17) trimethoprim (Verified Allergy, Unknown, 05/22/17) Comments List of his allergies reviewed from the nursing note. Reported Meds & Prescriptions Reported Meds & Active Scripts Active Duoneb (Ipratropium-Albuterol Neb) 0.5-2.5 Mg/3 Ml Neb 1 Nebule INH Q6HR NEB Xanax (Alprazolam) 1 Mg Tab 1 Mg PO BID Hydrocodone-Acetaminophen 7.5-325 mg Tab 0.5 Tab PO Q4HR PRN Dilantin (Phenytoin Extended) 100 Mg Cap 100 Mg PO BID Keppra (Levetiracetam) 500 Mg Tab 500 Mg PO Q12HR 30 Days Reported Albuterol Neb (Albuterol Sulfate) 2.5 Mg/3 Ml Neb 2.5 Mg NEB Q4HR NEB PRN Ferrous Sulfate 325 Mg (65 Mg Iron) Tablet 325 Mg PO DAILY Promethazine (Promethazine HCl) 12.5 Mg Tab 12.5 Mg PO Q4H PRN Aspirin 81 Mg Chew 81 Mg CHEW DAILY Paroxetine (Paroxetine HCl) 40 Mg Tab 40 Mg PO DAILY Pravastatin 40 Mg Tab 40 Mg PO HS Vimpat (Lacosamide) 200 Mg Tab 200 Mg PO EVERY OTHER DAY Narrative Medication List of his home medications reviewed from the nursing note. Review of Systems Except as stated in HPI: all other systems reviewed are Neg Physical Exam Narrative GENERAL: Awake, alert, no obvious distress SKIN: Focused skin assessment warm/dry. HEAD: Atraumatic. Normocephalic. EYES: Pupils equal and round. No scleral icterus. No injection or drainage. ENT: No nasal bleeding or discharge. Mucous membranes pink and moist. NECK: Trachea midline. No JVD. Tracheostomy with thick yellowish secretion CARDIOVASCULAR: Regular rate and rhythm. No murmur appreciated. RESPIRATORY: No accessory muscle use. Clear to auscultation. Breath sounds equal bilaterally. GASTROINTESTINAL: Abdomen soft, non-tender, nondistended. Hepatic and splenic margins not palpable. MUSCULOSKELETAL: No obvious deformities. No clubbing. No cyanosis. No edema. NEUROLOGICAL: Awake and alert. No obvious cranial nerve deficits. Motor grossly within normal limits. Normal speech. PSYCHIATRIC: Appropriate mood and affect; insight and judgment normal. Data Data Last Documented VS Vital Signs Date Time Temp Pulse Resp B/P (MAP) Pulse Ox O2 Delivery O2 Flow Rate FiO2 05/22/17 15:23 75 17 190/88 (122) 100 Room Air 05/22/17 15:00 98.4 Orders Orders Chest, Single Ap (05/22/17 ) Ed Discharge Order (05/22/17 16:55) MDM Medical Decision Making Medical Screen Exam Complete: Yes Emergency Medical Condition: Yes Medical Record Reviewed: Yes Differential Diagnosis Tracheostomy bleeding, controlled bleeding Narrative Course 5 PM chest x-ray was done which looks normal. The bleeding has stopped. He has been suctioned and given instructions to the . They're comfortable taking him home. Procedures EKG Prior to Arrival: No Diagnosis Primary Impression: Tracheal hemorrhage Additional Impression: bleeding controlled Referrals: Primary Care Physician Additional Instructions: Suction the tracheostomy for next 24 hours gently. Return to the ER if the condition worsens or any other new concerns. Otherwise follow-up with your primary care. Med/Other Pt SpecificInfo: No Change to Meds Disposition: 01 DISCHARGE HOME Condition: Stable Prateek Roldan MD May 22, 2017 16:56
== END 2017-05-22 17:51 | disposition home or self-care (01) ==
LOC: NEPE 14:57
DX: C32.9 Malignant neoplasm of larynx, unspecified (principal); J95.01 Hemorrhage from tracheostomy stoma
CPT/HCPCS: 71010; 99283

== ENCOUNTER 2017-10-10 18:21 | Emergency (ER) | payer MEDICARE, BC ==
[~2017-10-10] VITALS: Ht 177.8 cm; Wt 70.0 kg
[~2017-10-10 18:21] MED LIST changes: -CLIN300I2 IV
[2017-10-10 18:44] VITALS: BP 97/57; PULSE 76; RESP 18; TEMP 98.2; O2SAT 93
[2017-10-10 18:52] VITALS: O2SAT 97
[2017-10-10 19:30] VITALS: O2SAT 95
--- NOTE | 2017-10-10 19:47 | PD ---
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 Patient says that he actually pulled his tracheostomy tube out and the staff was unable to replace it. Patient denies fever, chills, chest pain, unusual shortness of breath. He has no other complaints today. PFSH Past Medical History Hx Anticoagulant Therapy: No Arthritis: Yes Asthma: No Autoimmune Disease: No Anxiety: Yes Depression: Yes Heart Rhythm Problems: No Cancer: Yes (LARYNX ) Cardiovascular Problems: Yes (CAD, HTN) High Cholesterol: Yes Chest Pain: Yes Congestive Heart Failure: No COPD: Yes Cerebrovascular Accident: Yes Diabetes: No Diminished Hearing: No Endocrine: No Gastrointestinal Disorders: No GERD: No Genitourinary: No Headaches: Yes Hiatal Hernia: Yes Hypertension: Yes (htn) Immune Disorder: No Implanted Vascular Access Dvce: Yes Kidney Stones: No Medical other: Yes (MRSA) Musculoskeletal: Yes Neurologic: Yes Psychiatric: Yes (anger management issues) Reproductive: No Respiratory: Yes (TRACHEOSTOMY, COPD ) Migraines: Yes Renal Failure: No Seizures: Yes Sleep Apnea: Yes Thyroid Disease: No Ulcer: No Tetanus Vaccination: < 5 Years Influenza Vaccination: Yes Past Surgical History Abdominal Surgery: No AICD: No Arteriovenous Shunt: No Cardiac Surgery: No Ear Surgery: No Endocrine Surgery: No Eye Surgery: No Genitourinary Surgery: No Gynecologic Surgery: No Insulin Pump: No Joint Replacement: Yes (rt hip, lt shoulder) Neurologic Surgery: No Oral Surgery: No Pacemaker: No Thoracic Surgery: No Other Surgery: Yes (HIATAL HERNIA) Social History Alcohol Use: No Tobacco Use: No Substance Use: No Allergies-Medications (Allergen,Severity, Reaction): Coded Allergies: sulfamethoxazole (Verified Allergy, Unknown, 05/22/17) trimethoprim (Verified Allergy, Unknown, 05/22/17) Reported Meds & Prescriptions Reported Meds & Active Scripts Active Duoneb (Ipratropium-Albuterol Neb) 0.5-2.5 Mg/3 Ml Neb 1 Nebule INH Q6HR NEB Xanax (Alprazolam) 1 Mg Tab 1 Mg PO BID Hydrocodone-Acetaminophen 7.5-325 mg Tab 0.5 Tab PO Q4HR PRN Dilantin (Phenytoin Extended) 100 Mg Cap 100 Mg PO BID Keppra (Levetiracetam) 500 Mg Tab 500 Mg PO Q12HR 30 Days Reported Albuterol Neb (Albuterol Sulfate) 2.5 Mg/3 Ml Neb 2.5 Mg NEB Q4HR NEB PRN Ferrous Sulfate 325 Mg (65 Mg Iron) Tablet 325 Mg PO DAILY Promethazine (Promethazine HCl) 12.5 Mg Tab 12.5 Mg PO Q4H PRN Aspirin 81 Mg Chew 81 Mg CHEW DAILY Paroxetine (Paroxetine HCl) 40 Mg Tab 40 Mg PO DAILY Pravastatin 40 Mg Tab 40 Mg PO HS Vimpat (Lacosamide) 200 Mg Tab 200 Mg PO EVERY OTHER DAY Review of Systems Except as stated in HPI: all other systems reviewed are Neg Physical Exam Narrative GENERAL: Well-developed 72-year-old male SKIN: Focused skin assessment warm/dry. HEAD: Normocephalic. EYES: No scleral icterus. No injection or drainage. NECK: Supple, trachea midline. No JVD or lymphadenopathy. CARDIOVASCULAR: Regular rate and rhythm without murmurs, gallops, or rubs. RESPIRATORY: dieferred rhonchi from tach tube prior to suctioning. No accessory muscle use. GASTROINTESTINAL: Abdomen soft, non-tender, nondistended. MUSCULOSKELETAL: No cyanosis, or edema. Contractures and wasting of the upper extremities BACK: Nontender without obvious deformity. No CVA tenderness. Data Data Last Documented VS Vital Signs Date Time Temp Pulse Resp B/P (MAP) Pulse Ox O2 Delivery O2 Flow Rate FiO2 10/10/17 19:30 95 Trach Collar 21 10/10/17 18:44 98.2 76 18 97/57 (70) Orders Orders Resp Request For Service (10/10/17 ) Ed Discharge Order (10/10/17 19:47) MDM Medical Decision Making Medical Screen Exam Complete: Yes Emergency Medical Condition: Yes Differential Diagnosis Tracheostomy tube dislodgment, medical laboratory specialist complication, pneumonia Narrative Course 72y male presents emergency department from [facility] and rehab with the request to replace the tracheostomy tube that was accidentally displaced this afternoon. JIMMY Grady contacted respiratory therapy for assistance and the tube was placed immediately without complication. Pt required suction and was placed on humidified air for comfort measures. He will be transported back to his facility. Diagnosis Primary Impression: Tracheostomy complication Qualified Codes: J95.09 - Other tracheostomy complication Referrals: Primary Care Physician Additional Instructions: Follow-up with primary care physician within 2-3 days. Disposition: 01 DISCHARGE HOME Condition: Stable Caitlin Hilario Oct 10, 2017 19:47
--- NOTE | 2017-10-10 19:50 | PD ---
Physical Exam Date Seen by Provider: Oct 10, 2017 Narrative This is a assisted patient with a tracheostomy who was sent to us because his tube came out. They were reportedly unable to replace it at the assisted. The tracheostomy tube was successfully replaced here by respiratory therapy. Data Data Last Documented VS Vital Signs Date Time Temp Pulse Resp B/P (MAP) Pulse Ox O2 Delivery O2 Flow Rate FiO2 10/10/17 18:57 93 T-piece 10/10/17 18:52 21 10/10/17 18:44 98.2 76 18 97/57 (70) Orders Orders Resp Request For Service (10/10/17 ) MDM Supervised Visit with LAYA: Yes Narrative Course I, Dr. Cm, have reviewed the advance practice practitioner's documentation and am in agreement, met with the patient face to face, made the diagnosis, and the medical decision making was done by me. *My assessment and Findings: The patient appears to be resting comfortably. He has his eyes closed but opens them when I asked him if I could listen to his chest. His lungs are clear with good air movement throughout. Please see Caitlin Hilario PA-C's note for further details, lab and radiology results, final diagnosis and disposition. Diagnosis Primary Impression: Tracheostomy complication Qualified Codes: J95.09 - Other tracheostomy complication Referrals: Primary Care Physician Additional Instruction: Follow-up with primary care physician within 2-3 days. Disposition: 01 DISCHARGE HOME Condition: Stable Genie Cm MD Oct 10, 2017 19:50
== END 2017-10-11 09:41 | disposition home or self-care (01) ==
LOC: NEPC 18:21
DX: J95.03 Malfunction of tracheostomy stoma (principal); E78.00 Pure hypercholesterolemia, unspecified; F32.9 Major depressive disorder, single episode, unspecified; F41.9 Anxiety disorder, unspecified; I10 Essential (primary) hypertension; I25.10 Atherosclerotic heart disease of native coronary artery without angina pectoris; J44.9 Chronic obstructive pulmonary disease, unspecified; M19.90 Unspecified osteoarthritis, unspecified site; Z86.73 Personal history of transient ischemic attack (TIA), and cerebral infarction without residual deficits
CPT/HCPCS: 99284; A7520